=== PATIENT | female | born 1955 | race Caucasian/White ===

== ENCOUNTER 2021-01-09 17:03 | Emergency (ER) | payer OTHER, SELFPAY ==
[2021-01-09 17:22] VITALS: BP 150/76; PULSE 78; RESP 20; TEMP 37; O2SAT 98
[2021-01-09 17:45] VITALS: BP 150/76; PULSE 78; RESP 20; TEMP 37; O2SAT 98
--- NOTE | 2021-01-09 17:59 | ED.URI ---
HPI - URI/Sore Throat General Chief Complaint: Upper Respiratory Infection Stated Complaint: runny nose and cough Time Seen by Provider: 01/09/21 17:40 Source: patient and RN notes reviewed Mode of arrival: ambulatory Limitations: no limitations History of Present Illness HPI Narrative: Patient presents today complaining of 3-day history of occasional productive cough and runny nose. Denies fever, congestion, shortness of breath, sore throat, ear pain, nausea, vomiting, diarrhea. Denies any sick contacts. She has been using Flonase, Mucinex, Zyrtec with some relief. MD elicited complaint: cough Related Data Home Medications Medication Instructions Recorded Confirmed cetirizine 10 mg PO DAILY 01/09/21 01/09/21 cyclobenzaprine 10 mg PO HS 01/09/21 01/09/21 fluticasone propionate 2 spray INTRANASAL DAILY 01/09/21 01/09/21 levothyroxine 137 mcg PO DAILY 01/09/21 01/09/21 lisinopril 20 mg PO DAILY 01/09/21 01/09/21 simvastatin 20 mg PO DAILY 01/09/21 01/09/21 Allergies Allergy/AdvReac Type Severity Reaction Status Date / Time No Known Allergies Allergy Verified 01/09/21 17:40 Review of Systems Review of Systems: Narrative: CONSTITUTIONAL: Denies body aches, fever, chills, or sweats. EYES: Denies visual changes, redness, or discharge. ENT: Denies congestion, sore throat, or otalgia.+ Rhinorrhea CARDIOVASCULAR: Denies chest pain, palpitations, or edema. RESPIRATORY: Denies dyspnea. + Cough GASTROINTESTINAL: Denies abdominal pain, nausea, vomiting, or diarrhea. GENITOURINARY: Denies dysuria or hematuria. SKIN: Denies rash, itching, or wounds. MUSCULOSKELETAL: Denies back pain, joint pain, or myalgia. NEUROLOGIC: Denies headache, numbness, tingling, or weakness. PSYCH: Denies depression or anxiety. [facility] Past Medical History Medical History (Updated 01/09/21 @ 18:02 by Eufemia Obando, TRINI, BC) Hypercholesterolemia Hypertension Hypothyroidism Surgical History Surgical History (Updated 01/09/21 @ 18:00 by Eufemia Obando, TRINI, BC) H/O: hysterectomy Comments At time of signature, I have reviewed and agree with nursing past medical, surgical, social and family history unless otherwise noted. Please see nursing chart for further information. There is no relevant family history pertinent to the presenting complaint Exam Narrative: Exam Narrative: GENERAL: Well-appearing, well-nourished, and in no acute distress. HEAD: Normocephalic, atraumatic. EYES: EOMI. No redness or drainage. Conjunctivae normal. ENT: Mucous membranes pink and moist. Nares congested. No rhinorrhea. TMs normal bilaterally. Throat normal. Uvula midline. NECK: Normal AROM. Supple. No lymphadenopathy. CHEST: No respiratory distress. Clear to auscultation. HEART: Regular rate and rhythm. No murmur appreciated. Normal peripheral pulses. EXTREMITIES: Normal range of motion. No edema. SKIN: Warm, dry, no rash. Capillary refill normal. Normal skin turgor. NEURO: No focal deficits. Alert and oriented x3. Gait steady. PSYCH: Normal affect. No signs of depression or anxiety. Course Vital Signs Vital signs: Vital Signs Temperature 98.6 F 01/09/21 17:22 Pulse Rate 78 01/09/21 17:22 Respiratory Rate 20 01/09/21 17:22 Blood Pressure 150/76 H 01/09/21 17:22 Pulse Oximetry 98 01/09/21 17:22 Temperature 98.6 F 01/09/21 17:45 Pulse Rate 78 01/09/21 17:45 Respiratory Rate 20 01/09/21 17:45 Blood Pressure 150/76 H 01/09/21 17:45 Pulse Oximetry 98 01/09/21 17:45 Reviewed. Pt has been instructed to follow up with her PCP regarding her elevated blood pressure today. MDM - URI/Sore Throat Differential Diagnosis Differential diagnosis: Likely upper respiratory infection, sinusitis, viral infection, bronchitis and other (COVID-19, rhinitis) Lab Data Attestation: I reviewed the patient's lab results. Lab results narrative: Rapid COVID-19 test negative Critical Care Time Critical Care Time Critical Care
== END 2021-01-09 18:05 | disposition home or self-care (01) ==
PROVIDERS: Emergency Provider Nurse Practitioner; PCP Internal Medicine
DX: J06.9 Acute upper respiratory infection, unspecified (principal); Z20.822 Contact with and (suspected) exposure to COVID-19; E78.00 Pure hypercholesterolemia, unspecified; I10 Essential (primary) hypertension; E03.9 Hypothyroidism, unspecified
CPT/HCPCS: 87426; 99213; C9803; G0463

== ENCOUNTER 2024-12-01 16:46 | Emergency (ER) | payer OTHER, SELFPAY ==
--- OUTSIDE RECORDS SUMMARY | 2024-12-01 16:50 | XMS_ITS | Patient Health Summary ---
Author Organization [facility] Address [address] [place] [address] Care Team Providers Care Mobile Ui Developer Name Role Phone Benigno Crews MD Primary Care Provider [phone] Note from [facility],non-owned Affiliates and Associated Physician Practices is amultiple site organization consisting of ambulatory clinics and hospital sitesin [place], [place], [place] and [place]. This disclosure is being madepursuant to the Care Everywhere program and may not contain all information available regarding this patient. Last updated 18.[facility] Allergies No known active allergies Medications * Be aware that medications may not be up to date on this document. Alwaysverify current medications with the patient. * levothyroxine (SYNTHROID) 150 MCG tablet Take 137 mcg by mouth once daily * lisinopril (PRINIVIL; ZESTRIL) 20 MG tablet(Started 11/22/2018) Take 20 mg by mouth once daily 3 refills left * simvastatin (ZOCOR) 20 MG tablet(Started 11/22/2018) Take 20 mg by mouth at bedtime 3 refills left * docusate sodium (COLACE) 100 MG capsule(Started 12/20/2018) Take 1 capsule by mouth once daily * citalopram (CELEXA) 20 MG tablet(Started 03/26/2020) Take 1 tablet by mouth nightly as needed Active Problems Problem Noted Date Diagnosed Date Essential hypertension 07/19/2019 Hyperlipidemia 07/19/2019 Hypothyroidism 07/19/2019 Mixed anxiety and depressive disorder 07/19/2019 Obesity 07/19/2019 Vertigo 07/19/2019 Adenocarcinoma of uterus 12/13/2018 Social History Tobacco Use Types Packs/Day Years Used Date Smoking Tobacco: Never Smokeless Tobacco: Never Alcohol Use Standard Drinks/Week Comments No 0 (1 standard drink = 0.6 oz pur e alcohol) Sex and Gender Information Value Date Recorded Sex Assigned at Not on file Gender Identity Not on file Sexual Orientation Not on file Last Filed Vital Signs Vital Sign Reading Time Taken Comments Blood Pressure 134/86 03/29/2020 11:04 AM CDT Pulse 72 03/29/2020 11:04 AM CDT Temperature 36.9 C (98.4 F) 03/29/2020 11:04 AM CDT Respiratory Rate 14 12/20/2018 7:13 PM FLUE GAS ANALYST Oxygen Saturation 93% 12/20/2018 7:13 PM FLUE GAS ANALYST Inhaled Oxygen Concentration - - Weight 108.9 kg (240 lb) 03/29/2020 11:04 AM CDT Height 175.3 cm (5' 9 ) 03/29/2020 11:04 AM CDT Body Mass Index 35.44 03/29/2020 11:04 AM CDT Procedures * CARDIAC RHYTHM STRIP ORDER(Performed 12/22/2018) * MMR FOWLER SYNDROME IHC(Performed 12/20/2018) Performed for Diagnosis unknown * PATHOLOGY TISSUE EXAM (STL)(Performed 12/20/2018) Performed for Diagnosis unknown * CYTOLOGY NON-CONSULTING TECHNICAL MANAGER PANEL (STL)(Performed 12/20/2018) Performed for Diagnosis unknown * ENDOTRACHEAL TUBE NOTE(Performed 12/20/2018) * LAPAROSCOPIC SALPINGECTOMY AND/OR OOPHORECTOMY(Performed 12/20/2018) Performed for Diagnosis unknown * LAPAROSCOPIC TOTAL HYSTERECTOMY (TLH)(Performed 12/20/2018) Performed for Diagnosis unknown * BLOOD TYPE VERIFICATION(Performed 12/20/2018) * TYPE + SCREEN PANEL(Performed 12/20/2018) Results * CARDIAC RHYTHM STRIP ORDER (12/22/2018 3:06 PM FLUE GAS ANALYST) Narrative 12/22/2018 3:06 PM FLUE GAS ANALYST Ordered by an unspecified provider. Scanned Document CARDIAC SERVICES ORD ERABLES * MMR FOWLER SYNDROME IHC (12/20/2018 1:17 PM FLUE GAS ANALYST) MMR Fowler Syndrome IHC See Scanned Report 02/25/2019 10:18 AM CDT [facility] Pathology/Cytolo gy TISSUE SPECIMEN / Unknown Collection / Unknown 12/20/2018 1:17 PM FLUE GAS ANALYST 12/23/2018 1:56 PM FLUE GAS ANALYST Leta Momin MD LAB - PATHOLOGY/CY TOLOGY ORDERABLES [facility] [address] [phone] * GROSS + MICRO EXAM (STL) (12/20/2018 12:40 PM FLUE GAS ANALYST) Pathologist [facility] Case Report Surgical Pathology Report Case: [id number] Authorizing Provider: Leta Momin MD Collected: 12/20/2018 12:40 PM Ordering Location: [facility] Received: 12/20/2018 02:40 PM Pathologist: Fabby Greene MD Specimens: A) - Fallopian Tube, RIGHT FALLOPIAN TUBE B) - Meeker Lymph Node, RIGHT SENTINEL NODE C) - Meeker Lymph Node, LEFT SENTINEL LYMPH NODE D) - Uterus w Tube and Ovary, LEFT TUBE AND OVARY wITH UTERUS AND CERVIX 9 4:48 PM CDT [facility] Addendum 1 Results of immunohistochemistry for the mismatch repair (MMR) proteins (MLH1, PMS2, MSH2, MSH6) are as follows: MLH1: No loss of expression (tumor stained: 50 %; Intensity: Strong ) PMS2: No loss of expression (tumor stained: 40 %; Intensity: Strong ) MSH2: No loss of expression (tumor stained: 45 %; Intensity: Strong ) MSH6: No loss of expression (tumor stained: 40 %; Intensity: Strong ) All four proteins expressed (Normal): The invasive carcinoma cells demonstrate the presence of normal MLH1, PMS2, MSH2, and MSH6 protein expression. Expression of all four proteins indicates that mismatch repair enzymes are intact but does not entirely exclude Fowler syndrome, as some patients may have mutation that leads to a non-functional protein with retained antigenicity. Defects in lesser-known mismatch repair enzymes may also lead to similar results, which are nonetheless, rare. If clinically indicated, a genetic consultation may be of benefit for the individual and/or family to further discuss the implications of these findings. 9 4:48 PM CDT [facility] Addendum electronically signed by Chas Buenrostro MD on 12/27/2018 at 4:48 PM Final Diagnosis 1. Fallopian tube, right, salpingectomy: -- No evidence of malignancy 2. Right sentinel lymph node, excision: -- No hari tissue identified -- No evidence of malignancy 3. Left sentinel lymph node, excision: -- No evidence of malignancy (0/1) 4. Left tube and ovary with uterus, hysterectomy and salpingoopherectomy: -- Endometrioid adenocarcinoma, FIGO grade 1, pT1aN0 -- Adenomyosis -- Myometrial invasion not identified -- Cervix with no pathological diagnosis -- Serosa with no pathological diagnosis NK/GMC/me 9 4:48 PM T [facility] Gross Description Received fixed in formalin in four containers, each labeled with the patient's name, Kayla Aguillonr. Specimen A, right fallopian tube, is a 1.4 cm long x 0.5 cm in diameter, is a segment of pink-torres fallopian tube. The cut surface shows pink-torres soft tissue with a patent lumen. There are no lesions or nodules identified. The specimen is entirely submitted in cassette A1. Specimen B, right sentinel lymph node, is a 2.2 x 1.4 x 0.9 cm soft, yellow-torres, irregular tissue portion. The specimen is serially sectioned revealing yellow fatty tissue with no gross nodules or masses. The specimen is entirely submitted in cassette B1. Specimen C, left sentinel lymph node, is a irregular, yellow-torres, soft tissue fragment measuring 1.1 x 0.6 x 0.3 cm. The specimen is entirely submitted in cassette C1. Specimen D, uterus with left ovary and tube. The specimen is composed of uterus (160 gm, 8.9 x 7.2 x 4.2 cm) with attached cervix and attached left ovary measuring 2.9 x 2.7 x 1.2 cm and left fallopian tube measuring 4.4 cm long and 0.4 cm in diameter. The ectocervix is unremarkable. The endocervical canal is 3.8 cm long with a diameter of 0.4 cm and with no polyps or masses. The endometrial cavity is 4.6 cm long and 3.6 cm in greatest width. The endometrium is 0.4 cm in thickness and appears red-torres and hemorrhagic with a mass measuring 1.8 x 1.4 x 0.8 cm. The myometrial thickness is 1.3 cm and has ill-defined scattered white nodules measuring 0.4 cm in greatest dimension and mostly consistent with adenomyoma. The serosal aspect is smooth and glistening with no adhesions or hemorrhage. The cut surface of the ovary shows yellow firm tissue. The cut surface of the ovaries shows cyst measuring 0.3 cm in greatest dimension and wall of the cyst is smooth with no excrescences. The cut surface of the fallopian tube shows pink-torres soft tissue with patent lumen. [facility] sections are submitted as follows: D1 - Ovary and fallopian tube D2 - Anterior cervix D3 - Posterior cervix D4 - Anterior endometrium, myometrium and serosa D5 - Posterior endometrium, myometrium, and serosa. NK/scs 9 4:[address] [facility] Microscopic Description Sections of specimen A show benign fallopian tube tissue with tubal epithelium. There is no evidence of atypia or malignancy. Sections of specimens B and C show benign lymph node tissue. There is no evidence of atypia or malignancy.The pankeratin IHC stains are negative for malignant cells. Sections of specimen D show benign ovary tissue and fallopian tube tissue with no evidence of atypia or malignancy. Sections of specimen E show endometrium with closely packed and fused malignant endometrial glands with focal squamous differentiation. There is no significant solid component of the tumor identified. The features are consistent with FIGO grade 1 endometrial adenocarcinoma. The myometrium is not involved with tumor. The cervix and serosa are unremarkable. NK/GMC/me 9 4:[address] [facility] Disclaimer All histochemical and/or immunohistochemical results are interpreted with controls that demonstrate appropriate staining reactions before reporting results. Note on use of immunocytochemistry reagents: This test was developed and its performance characteristic determined by [facility], Department of Laboratory Medicine. It has not been cleared or approved by the U.S. Food and Drug Administration (FDA). The FDA has determined that such clearance or approval is not necessary. The test is used for clinical purpose. It should not be regarded as investigational or for research. This laboratory is certified to perform high complexity testing. 4:[address] [facility] Synoptic Report ENDOMETRIUM (Endometrium - All Specimens) SPECIMEN Procedure: Left salpingo-oophorectomy Procedure: Right salpingectomy Procedure: Hysterectomy and sentinel node dissection Hysterectomy Type: Laparoscopic Specimen Integrity: Intact TUMOR Tumor Site: Endometrium Histologic Type: Endometrioid carcinoma with squamous differentiation Histologic Grade: FIGO grade 1 Tumor Size: Greatest dimension in Centimeters (cm): 1.8 Centimeters (cm) Additional Dimension in Centimeters (cm): 1.4 Centimeters (cm) Additional Dimension in Centimeters (cm): 0.8 Centimeters (cm) Tumor Extent: Myometrial Invasion: Not identified Adenomyosis: Present, uninvolved by carcinoma Uterine Serosa Involvement: Not identified Lower Uterine Segment Involvement: Not identified Cervical Stromal Involvement: Not identified Other Tissue / Organ Involvement: Not applicable Peritoneal Ascitic Fluid: Not submitted / unknown Accessory Findings: Lymphovascular Invasion: Not identified Margins LYMPH NODES Regional Lymph Nodes: : All lymph nodes negative for tumor cells Total Number of Pelvic Nodes Examined: 1 Number of Pelvic Meeker Nodes Examined: 1 Total Number of Para-aortic Nodes Examined: N/A PATHOLOGIC STAGE CLASSIFICATION (pTNM, AJCC 8th Edition) Primary Tumor (pT): pT1a Regional Lymph Nodes (pN): Category (pN): pN0 FIGO STAGE FIGO Stage: IA ADDITIONAL FINDINGS Additional Pathologic Findings: None identified 4:[address] [facility] Embedded Images 4:[address] [facility] Pathology/Cytology FALLOPIAN TUBE PART / Unknown 12/20/2018 12:40 PM FLUE GAS ANALYST 12/20/2018 2:40 PM FLUE GAS ANALYST Miscellaneous samples (specimen) SPECIMEN FROM SENTINEL LYMPH NODE / Unknown 12/20/2018 12:46 PM FLUE GAS ANALYST 12/20/2018 2:40 PM FLUE GAS ANALYST Miscellaneous samples (specimen) SPECIMEN FROM SENTINEL LYMPH NODE / Unknown 12/20/2018 12:51 PM FLUE GAS ANALYST 12/20/2018 2:40 PM FLUE GAS ANALYST Miscellaneous samples (specimen) HYSTERECTOMY AND BILATERAL SALPINGO-OOPHORECTO MY SPECIMEN / Unknown 12/20/2018 1:17 PM FLUE GAS ANALYST 12/20/2018 2:40 PM FLUE GAS ANALYST Leta Momin MD LAB - PATHOLOGY/CY TOLOGY ORDERABLES [facility] [address] [place] [address] * CYTOLOGY NON-CONSULTING TECHNICAL MANAGER PANEL (STL) (12/20/2018 12:37 PM FLUE GAS ANALYST) Case Report Cytology Non Operation Agent Report Case: [id number] Authorizing Provider: Leta Momin MD Collected: 12/20/2018 12:37 PM Ordering Location: [facility] Received: 12/20/2018 02:21 PM Pathologist: Chas Buenrostro MD Specimen: Pelvic Washings, ABDOMINAL WASHINGS 12/21/2018 1:00 PM [facility] Final Diagnosis Pelvic washings, cell block and thin prep smear: -- No evidence of malignancy MC 12/21/2018 1:00 PM [facility] Gross Description Patient name: Kayla Crystal Fluid type: Pelvic washings Volume: 35 cc Color: Light yellow Preparations: thin prep and cell block 12/21/2018 1:00 PM [facility] Microscopic Description The thin prep smear and cell block reveal benign mesothelial cells. Malignant tumor cells are not identified. 12/21/2018 1:00 PM [facility] Disclaimer All histochemical and/or immunohistochemical results are interpreted with controls that demonstrate appropriate staining reactions before reporting results. Note on use of immunocytochemistry reagents: This test was developed and its performance characteristic determined by [facility], Department of Laboratory Medicine. It has not been cleared or approved by the U.S. Food and Drug Administration (FDA). The FDA has determined that such clearance or approval is not necessary. The test is used for clinical purpose. It should not be regarded as investigational or for research. This laboratory is certified to perform high complexity testing. 12/21/2018 1:00 PM [facility] Embedded Images 12/21/2018 1:00 PM [facility] Pathology/Cytolo gy SPECIMEN OBTAINED BY PERITONEAL LAVAGE / Unknown 12/20/2018 12:37 PM FLUE GAS ANALYST 12/20/2018 2:21 PM FLUE GAS ANALYST Leta Momin MD LAB - PATHOLOGY/CY TOLOGY ORDERABLES [facility] [address] [place] [address] * BLOOD TYPE VERIFICATION (12/20/2018 10:43 AM FLUE GAS ANALYST) ABO A 12/20/2018 11:13 AM FLUE GAS ANALYST [facility] Rh Type Positive 12/20/2018 11:13 AM FLUE GAS ANALYST [facility] Blood Bank BLOOD SPECIMEN / Unknown Venipuncture / Unknown 12/20/2018 10:43 AM FLUE GAS ANALYST 12/20/2018 10:48 AM FLUE GAS ANALYST Leta Momin MD LAB - BLOOD BANK O RDERABLES Performing Organization Address [facility] Co de Phone Number [facility] [address] [place] [address] * TYPE + SCREEN PANEL (12/20/2018 10:34 AM FLUE GAS ANALYST) ABO A 12/20/2018 11:14 AM FLUE GAS ANALYST [facility] Rh Type Positive 12/20/2018 11:14 AM FLUE GAS ANALYST [facility] Comment:History checked. Col lect retype. Antibody Screen Negative 12/20/2018 11:14 AM FLUE GAS ANALYST [facility] Blood Bank BLOOD SPECIMEN / Unknown Venipuncture / Unknown 12/20/2018 10:34 AM FLUE GAS ANALYST 12/20/2018 10:37 AM FLUE GAS ANALYST Leta Momin MD LAB - BLOOD BANK O RDERABLES Performing Organization Address City/[facility]/ZIP Co de Phone Number [facility] [address] [place] [address] Care Teams Mobile Ui Developer Relationship Specialty Start Date End Date Benigno Crews MD [address] [place] [address] PCP - General Internal Medicine 12/20/18
--- OUTSIDE RECORDS SUMMARY | 2024-12-01 16:50 | XMS_ITS | Referral Summary ---
Author Organization [facility] Address [address] [place] [address] Care Team Providers Care Automation Manager Name Role Phone Benigno Crews MD Primary Care Provider [phone] Source Comments [facility],non-owned Affiliates and Associated Physician Practices is amultiple site organization consisting of ambulatory clinics and hospital sitesin [place], [place], [place]. This disclosure is being madepursuant to the Care Everywhere program and may not contain all information available regarding this patient. Last updated 18.[facility] Allergies No known active allergies Medications * Be aware that medications may not be up to date on this document. Alwaysverify current medications with the patient. Medication Sig Dispensed Refills Start Date End Date Status levothyroxine (SYNTHROID) 150 MCG tablet Take 137 mcg by mouth once daily Active lisinopril (PRINIVIL; ZESTRIL) 20 MG tablet Take 20 mg by mouth once daily 3 11/22/2018 Active simvastatin (ZOCOR) 20 MG tablet Take 20 mg by mouth at bedtime 3 11/22/2018 Active docusate sodium (COLACE) 100 MG capsule Take 1 capsule by mouth once daily 30 capsule 12/20/2018 Active citalopram (CELEXA) 20 MG tablet Take 1 tablet by mouth nightly as needed 03/26/2020 Active Active Problems Problem Noted Date Diagnosed Date [...] CDT Respiratory Rate 14 12/20/2018 7:13 PM THREAD SPOOLER Oxygen Saturation 93% 12/20/2018 7:13 PM THREAD SPOOLER Inhaled Oxygen Concentration - - Weight 108.9 kg (240 lb) 03/29/2020 11:04 AM CDT Height 175.3 cm (5' 9 ) 03/29/2020 11:04 AM CDT Body Mass Index 35.44 03/29/2020 11:04 AM CDT Plan of Treatment Not on file Care Teams Automation Manager Relationship Specialty Start Date End Date Benigno Crews MD [address] [place] [address] PCP - General Internal Medicine 12/20/18
--- OUTSIDE RECORDS SUMMARY | 2024-12-01 16:50 | XMS_ITS | Data Portability ---
Author Organization [facility] Address [address] [place] [address] Care Team Providers Care Claim Taker Name Role Phone BENIGNO ROBLES Primary Care Provider Assessment No assessment recorded. Plan of Treatment Reminders Order Date Submit Date Provider Last Modified By Organization Details Last Modified Time Details Appointments ANY 30 2024 10:30A M GOLDIE GAMBOA Not available Not available Not available Lab HbA1c (hemoglob in A1c), blood 2023 024 [facility], [address] [facility], [facility], [place], [address], 03/16/2024 14:13:09 CBC w/ auto diff 2023 024 [facility], [address] [place] [address], [facility], [place], [address], 03/16/2024 14:13:12 CMP, serum or plasma 2023 024 [facility], [address] [place] [address], [facility], [place], [address], 03/16/2024 14:13:08 lipid panel, serum 2023 024 [facility], [address] [facility], [facility], [place], [address], 03/16/2024 14:13:06 TSH, ultra-sen sitive, serum 2023 024 [facility], [address] [facility], [facility], [place], [address], 03/16/2024 14:13:11 CBC w/ auto diff 2023 024 [facility], [address] [place] [address], [facility], [place], [address], 11/03/2024 08:23:45 CMP, serum or plasma 2023 024 [facility], [address] [place] [address], [facility], [place], [address], 11/03/2024 08:23:43 TSH, ultra-sen sitive, serum 2023 024 [facility], [address] [place] [address], [facility], [place], [address], 11/03/2024 08:23:44 lipid panel, serum 2023 024 [facility], [address] [place] [address], [facility], [place], [address], 11/03/2024 08:23:42 HbA1c (hemoglob in A1c), blood 2022 023 [facility], [address] [place] [address], [facility], [place], [address], 07/11/2023 04:20:52 CBC w/ auto diff 2022 023 [facility], [address] [place] [address], [facility], [place], [address], 07/10/2023 20:08:14 CMP, serum or plasma 2022 023 [facility], [address] [place] [address], [facility], [place], [address], 07/10/2023 20:08:13 vitamin B12, serum 2022 023 [facility], [address] [place] [address], [facility], [place], [address], 07/11/2023 04:20:52 TSH, ultra-sen sitive, serum 2022 023 [facility], [address] [facility], [place], [address], 07/11/2023 04:20:53 lipid panel, serum 2022 023 [facility], [address] [facility], [place], [address], 07/10/2023 20:08:13 Referral None recorded. Procedures None recorded. Surgeries None recorded. Imaging MAMMO, screening , digital, bilateral 2024 025 [facility], [address] [place] [address], [address], 11/10/2024 10:02:12 Medication Orders famotidin e 20 mg tablet 2024 025 [email or web address] [facility][id number], [address] [place], [address], 11/28/2024 13:38:16 simvastat in 40 mg tablet 2024 025 [id number] [address] [place], [address], 11/04/2024 11:22:43 triamcino lone acetonide 0.1 % topical cream 2024 025 [id number] [address] [place], [address], 11/04/2024 11:21:40 triamcino lone acetonide 0.1 % topical cream 2023 024 [id number] [address] [place], [address], 07/12/2024 11:28:39 tizanidin e 4 mg tablet 2023 024 [id number] [address] [place], [address], 03/15/2024 11:35:57 famotidin e 20 mg tablet 2023 024 [id number], [address] [place], [address], 03/15/2024 11:31:55 Patient TargetsNo targets recorded. Patient Instructions Encounter Date Encounter Id Patient Instructions Last Modified By Organization Details Last Modified Time 07/10/2023 [id number] A healthy lifestyle: care instructions [facility]uthan Not available 07/10/2023 11:29:16 f/u in 4 month [facility] Not available 0 07/10/2023 11:29:36 11/10/2023 [id number] A healthy lifestyle: care instructions nsuthan Not available 11/10/2023 11:33:22 f/u in 4month [facility] Not available 11:33:21 03/15/2024 [id number] low back pain: exercises nsuthan Not available 03/15/2024 11:35:35 f/u in 4 month [facility] Not available 0 03/15/2024 11:35:57 07/12/2024 [id number] prediabetes: car e instructions nsuthan Not available 07/12/2024 11:28:37 f/u in 4 month [facility] Not available 0 07/12/2024 11:28:36 11/04/2024 [id number] f/u in 4 month [facility] Not available 11/04/2024 11:27:52 Reason for Referral None Reported. Results Created Date Observation Date Name Description Value Unit Range Abnormal Flag Note LastModifiedBy Organization Detail LastModifiedTime 07/10/20 23 07/10/2023 LIPID PANEL cholesterol, total 184 mg/dL 100-19 9 Not Available [facility] Department [address] [place] [address], [address], 07/10/2023 20:08:12 07/10/20 23 07/10/2023 LIPID PANEL triglyceride s 298 mg/dL 0-149 above high normal Not Available [facility] Department [address] [place], [address], 07/10/2023 20:08:12 07/10/20 23 07/10/2023 LIPID PANEL HDL cholesterol 43 mg/dL 40-999 Not Available [facility] Department [address] [place] [address], [address], 07/10/2023 20:08:12 07/10/20 23 07/10/2023 LIPID PANEL VLDL cholesterol deshawn 60 mg/dL 5-40 above high normal Not Available [facility] Department [address] [place] [address], [address], 07/10/2023 20:08:12 07/10/20 23 07/10/2023 LIPID PANEL LDL chol calc (nih) 127 mg/dL 0-99 above high normal Not Available [facility] Department [address] [place] [address], [address], 07/10/2023 20:08:12 07/10/20 23 07/10/2023 COMP. METAB OLIC PANEL (14) glucose 103 mg/dL 70-99 above high normal Not Available [facility] Department [address] [place] [address], [address], 07/10/2023 20:08:13 07/10/20 23 07/10/2023 COMP. METAB OLIC PANEL (14) BUN 22 mg/dL 8-27 Not Available [facility] Department [address] [place] [address], [address], 07/10/2023 20:08:13 07/10/20 23 07/10/2023 COMP. METAB OLIC PANEL (14) creatinine 0.82 mg/dL 0.76-1 .27 Not Available [facility] Department [address] [place] [address], [address], 07/10/2023 20:08:13 07/10/20 23 07/10/2023 COMP. METAB OLIC PANEL (14) eGFR 78 >=60 Units for eGFR value s are mL/mi n/1.7 3 The eGFR Calcu latio n has not been valid ated for patie nts under the age of 18. If test resul ts are displ ayed for a patie nt under the age of 18, disre kirill that value . Not Available [facility] Department [address] [place] [address], [address], 07/10/2023 20:08:13 07/10/20 23 07/10/2023 COMP. METAB OLIC PANEL (14) BUN/creatini ne ratio 27 10-28 Not Available [facility] Department [address] [place] [address], [address], 07/10/2023 20:08:13 07/10/20 23 07/10/2023 COMP. METAB OLIC PANEL (14) sodium 140 mmol/ L 134-14 4 Not Available [facility] Department [address] [place] [address], [address], 07/10/2023 20:08:13 07/10/20 23 07/10/2023 COMP. METAB OLIC PANEL (14) potassium 4.7 mmol/ L 3.5-5. 2 Not Available [facility] Department [address] [place] [address], [address], 07/10/2023 20:08:13 07/10/20 23 07/10/2023 COMP. METAB OLIC PANEL (14) chloride 101 mmol/ L 96-106 Not Available [facility] Department [address] [place] [address], [address], 07/10/2023 20:08:13 07/10/20 23 07/10/2023 COMP. METAB OLIC PANEL (14) carbon dioxide, total 25 mmol/ L 20-29 Not Available [facility] Department [address] [place] [address], [address], 07/10/2023 20:08:13 07/10/20 23 07/10/2023 COMP. METAB OLIC PANEL (14) calcium 9.9 mg/dL 8.7-10 .3 Not Available [facility] Department [address] [place], [address], 07/10/2023 20:08:13 07/10/20 23 07/10/2023 COMP. METAB OLIC PANEL (14) protein, total 7.3 g/dL 6.0-8. 5 Not Available [facility] Department [address] [place], [address], 07/10/2023 20:08:13 07/10/20 23 07/10/2023 COMP. METAB OLIC PANEL (14) albumin 4.4 g/dL 3.8-4. 8 Not Available [facility] Department [address] [place], [address], 07/10/2023 20:08:13 07/10/20 23 07/10/2023 COMP. METAB OLIC PANEL (14) globulin, total 2.9 g/dL 1.5-4. 5 Not Available [facility] Department [address] [place], [address], 07/10/2023 20:08:13 07/10/20 23 07/10/2023 COMP. METAB OLIC PANEL (14) A/G ratio 2.0 1.2-2. 2 Not Available [facility] Department [address] [place], [address], 07/10/2023 20:08:13 07/10/20 23 07/10/2023 COMP. METAB OLIC PANEL (14) bilirubin, total 0.4 mg/dL 0.0-1. 2 Not Available [facility] Department [address] [place], [address], 07/10/2023 20:08:13 07/10/20 23 07/10/2023 COMP. METAB OLIC PANEL (14) alkaline phosphatase 81 IU/L 44-121 Not Available [facility] Department [address] [place], [address], 07/10/2023 20:08:13 07/10/20 23 07/10/2023 COMP. METAB OLIC PANEL (14) AST (SGOT) 18 IU/L 0-40 Not Available [facility] Department [address] [place], [address], 07/10/2023 20:08:13 07/10/20 23 07/10/2023 COMP. METAB OLIC PANEL (14) ALT (SGPT) 13 IU/L 0-32 Not Available [facility] Department [address] [place], [address], 07/10/2023 20:08:13 07/10/20 23 07/10/2023 CBC WITH DIFFE RENTI AL/PL ATELE T WBC 7.7 x10e3 /uL 3.4-10 .8 Not Available [facility] Department [address] [place] [address], [address], 07/10/2023 20:08:14 07/10/20 23 07/10/2023 CBC WITH DIFFE RENTI AL/PL ATELE T RBC 4.52 x10e6 /uL 3.77-5 .28 Not Available [facility] Department [address] [place] [address], [address], 07/10/2023 20:08:14 07/10/20 23 07/10/2023 CBC WITH DIFFE RENTI AL/PL ATELE T hemoglobin 13.2 g/dL 11.1-1 5.9 Not Available [facility] Department [address] [place], [address], 07/10/2023 20:08:14 07/10/20 23 07/10/2023 CBC WITH DIFFE RENTI AL/PL ATELE T hematocrit 41.0 % 34.0-4 6.6 Not Available [facility] Department [address] [place] [address], [address], 07/10/2023 20:08:14 07/10/20 23 07/10/2023 CBC WITH DIFFE RENTI AL/PL ATELE T MCV 91 fL 79-97 Not Available [facility] Department [address] [place], [address], 07/10/2023 20:08:14 07/10/20 23 07/10/2023 CBC WITH DIFFE RENTI AL/PL ATELE T MCH 29.2 pg 26.6-3 3.0 Not Available [facility] Department [address] [place], [address], 07/10/2023 20:08:14 07/10/20 23 07/10/2023 CBC WITH DIFFE RENTI AL/PL ATELE T MCHC 32.2 g/dL 31.5-3 5.7 Not Available [facility] Department [address] [place], [address], 07/10/2023 20:08:14 07/10/20 23 07/10/2023 CBC WITH DIFFE RENTI AL/PL ATELE T RDW 13.1 % 11.5-1 4.5 Not Available [facility] Department [address] [place], [address], 07/10/2023 20:08:14 07/10/20 23 07/10/2023 CBC WITH DIFFE RENTI AL/PL ATELE T platelets 209 x10e3 /uL 150-45 0 Not Available [facility] Department [address] [place], [address], 07/10/2023 20:08:14 07/10/20 23 07/10/2023 CBC WITH DIFFE RENTI AL/PL ATELE T neutrophils 53 % notest b. Not Available [facility] Department [address] [place], [address], 07/10/2023 20:08:14 07/10/20 23 07/10/2023 CBC WITH DIFFE RENTI AL/PL ATELE T lymphs 34 % notest b. Not Available [facility] Department [address] [place], [address], 07/10/2023 20:08:14 07/10/20 23 07/10/2023 CBC WITH DIFFE RENTI AL/PL ATELE T monocytes 8 % notest b. Not Available [facility] Department [address] [place], [address], 07/10/2023 20:08:14 07/10/20 23 07/10/2023 CBC WITH DIFFE RENTI AL/PL ATELE T eos 4 % notest b. Not Available [facility] Department [address] [place], [address], 07/10/2023 20:08:14 07/10/20 23 07/10/2023 CBC WITH DIFFE RENTI AL/PL ATELE T basos 1 % notest b. Not Available [facility] Department [address] [place], [address], 07/10/2023 20:08:14 07/10/20 23 07/10/2023 CBC WITH DIFFE RENTI AL/PL ATELE T neutrophils (absolute) 4.1 x10e3 /uL 1.4-7. 0 Not Available [facility] Department [address] [place], [address], 07/10/2023 20:08:14 07/10/20 23 07/10/2023 CBC WITH DIFFE RENTI AL/PL ATELE T lymphs (absolute) 2.6 x10e3 /uL 0.7-3. 1 Not Available [facility] Department [address] [place], [address], 07/10/2023 20:08:14 07/10/20 23 07/10/2023 CBC WITH DIFFE RENTI AL/PL ATELE T monocytes(ab solute) 0.6 x10e3 /uL 0.1-0. 9 Not Available [facility] Department [address] [place], [address], 07/10/2023 20:08:14 07/10/20 23 07/10/2023 CBC WITH DIFFE RENTI AL/PL ATELE T eos (absolute) 0.3 x10e3 /uL 0.0-0. 4 Not Available [facility] Department [address] [place], [address], 07/10/2023 20:08:14 07/10/20 23 07/10/2023 CBC WITH DIFFE RENTI AL/PL ATELE T baso (absolute) 0.1 x10e3 /uL 0.0-0. 2 Not Available [facility] Department [address] [place], [address], 07/10/2023 20:08:14 07/10/20 23 07/10/2023 CBC WITH DIFFE RENTI AL/PL ATELE T immature granulocytes 0.3 % notest b. Not Available [facility] Department [address] [place], [address], 07/10/2023 20:08:14 07/10/20 23 07/10/2023 CBC WITH DIFFE RENTI AL/PL ATELE T immature grans (abs) 0.0 x10e3 /uL 0.0-0. 1 Not Available [facility] Department [address] [place], [address], 07/10/2023 20:08:14 07/10/20 23 07/10/2023 CBC WITH DIFFE RENTI AL/PL ATELE T NRBC 0 % 0-0 Not Available [facility] Department [address] [place], [address], 07/10/2023 20:08:14 07/10/20 23 07/11/2023 HEMOG LOBIN A1C hemoglobin A1C 6.2 % 4.8-5. 6 above high normal Predi abete s: 5.7 - 6.4 Diabe rubio: >6.4 Glyce alexandro contr ol for adult s with diabe rubio: <7.0 Not Available [facility] ([facility]) [address] [facility], [place], [address], 07/11/2023 04:20:52 07/10/20 23 07/11/2023 VITAM IN B12 vitamin B12 400 pg/mL 232-12 45 Not Available [facility] ([facility]) [address] [place] [place], [address], 07/11/2023 04:20:52 07/10/20 23 07/11/2023 TSH TSH 0.170 uIU/m L 0.450- 4.500 below low normal Not Available [facility] ([facility]) [address] [place], [address], 07/11/2023 04:20:53 03/15/20 24 03/16/2024 LIPID PANEL cholesterol, total 150 mg/dL 100-19 9 Not Available [facility] ([facility]) [address] [place], [address], 03/16/2024 14:13:06 03/15/20 24 03/16/2024 LIPID PANEL triglyceride s 269 mg/dL 0-149 above high normal Not Available [facility] ([facility]) [address] [place], [address], 03/16/2024 14:13:06 03/15/20 24 03/16/2024 LIPID PANEL HDL cholesterol 39 mg/dL >39 below low normal Not Available [facility] ([facility]) [address] [place], [address], 03/16/2024 14:13:06 03/15/20 24 03/16/2024 LIPID PANEL VLDL cholesterol deshawn 43 mg/dL 5-40 above high normal Not Available [facility] ([facility]) [address] [place], [address], 03/16/2024 14:13:06 03/15/20 24 03/16/2024 LIPID PANEL LDL chol calc ([facility]) 68 mg/dL 0-99 Not Available [facility]) [address] [place], [address], 03/16/2024 14:13:06 03/15/20 24 03/16/2024 COMP. METAB OLIC PANEL (14) glucose 94 mg/dL 70-99 Not Available [facility] ([facility]) [address] [facility], [place], [address], 03/16/2024 14:13:08 03/15/20 24 03/16/2024 COMP. METAB OLIC PANEL (14) BUN 15 mg/dL 8-27 Not Available [facility] ([facility]) [address] [facility], [place], [address], 03/16/2024 14:13:08 03/15/20 24 03/16/2024 COMP. METAB OLIC PANEL (14) creatinine 0.81 mg/dL 0.57-1 .00 Not Available [facility] ([facility]) [address] [facility], [place], [address], 03/16/2024 14:13:08 03/15/20 24 03/16/2024 COMP. METAB OLIC PANEL (14) eGFR 79 mL/mi n/1.7 3 >59 Not Available [facility] ([facility]) [address] [facility], [place], [address], 03/16/2024 14:13:08 03/15/20 24 03/16/2024 COMP. METAB OLIC PANEL (14) BUN/creatini ne ratio 19 12-28 Not Available [facility] ([facility]) [address] [facility], [place], [address], 03/16/2024 14:13:08 03/15/20 24 03/16/2024 COMP. METAB OLIC PANEL (14) sodium 137 mmol/ L 134-14 4 Not Available [facility] ([facility]) [address] [facility], [place], [address], 03/16/2024 14:13:08 03/15/20 24 03/16/2024 COMP. METAB OLIC PANEL (14) potassium 4.6 mmol/ L 3.5-5. 2 Not Available [facility] ([facility]) [address] [place], [address], 03/16/2024 14:13:08 03/15/20 24 03/16/2024 COMP. METAB OLIC PANEL (14) chloride 103 mmol/ L 96-106 Not Available [facility] ([facility]) [address] [facility], [address], 03/16/2024 14:13:08 03/15/20 24 03/16/2024 COMP. METAB OLIC PANEL (14) carbon dioxide, total 21 mmol/ L - Not Available [facility] ([facility]) [address] [facility], [address], 03/16/2024 14:13:08 03/15/20 24 03/16/2024 COMP. METAB OLIC PANEL (14) calcium 9.8 mg/dL 8.7-10 .3 Not Available [facility] ([facility]) [address] [place], [address], 03/16/2024 14:13:08 03/15/20 24 03/16/2024 COMP. METAB OLIC PANEL (14) protein, total 7.2 g/dL 6.0-8. 5 Not Available [facility] ([facility]) [address] [place], [address], 03/16/2024 14:13:08 03/15/20 24 03/16/2024 COMP. METAB OLIC PANEL (14) albumin 4.4 g/dL 3.9-4. 9 Not Available [facility] ([facility]) [address] [place], [address], 03/16/2024 14:13:08 03/15/20 24 03/16/2024 COMP. METAB OLIC PANEL (14) globulin, total 2.8 g/dL 1.5-4. 5 Not Available [facility] ([facility]) [address] [place], [address], 03/16/2024 14:13:08 03/15/20 24 03/16/2024 COMP. METAB OLIC PANEL (14) A/G ratio 1.6 1.2-2. 2 Not Available [facility] ([facility]) [address] [place], [address], 03/16/2024 14:13:08 03/15/20 24 03/16/2024 COMP. METAB OLIC PANEL (14) bilirubin, total 0.4 mg/dL 0.0-1. 2 Not Available [facility] ([facility]) [address] [place], [address], 03/16/2024 14:13:08 03/15/20 24 03/16/2024 COMP. METAB OLIC PANEL (14) alkaline phosphatase 79 IU/L 44-121 Not Available [facility] ([facility]) [address] [place], [address], 03/16/2024 14:13:08 03/15/20 24 03/16/2024 COMP. METAB OLIC PANEL (14) AST (SGOT) 22 IU/L 0-40 Not Available [facility] ([facility]) [address] [place], [address], 03/16/2024 14:13:08 03/15/20 24 03/16/2024 COMP. METAB OLIC PANEL (14) ALT (SGPT) 14 IU/L 0-32 Not Available [facility] ([facility]) [address] [place], [address], 03/16/2024 14:13:08 03/15/20 24 03/16/2024 HEMOG LOBIN A1C hemoglobin A1C 6.3 % 4.8-5. 6 above high normal Predi abete s: 5.7 - 6.4 Diabe rubio: >6.4 Glyce alexandro contr ol for adult s with diabe rubio: <7.0 Not Available [facility] ([facility]) [address] [facility], [place], [address], 03/16/2024 14:13:09 03/15/20 24 03/16/2024 TSH TSH 1.050 uIU/m L 0.450- 4.500 Not Available [facility] ([facility]) [address] [facility], [place], [address], 03/16/2024 14:13:11 03/15/20 24 03/16/2024 CBC WITH DIFFE RENTI AL/PL ATELE T WBC 7.0 x10e3 /uL 3.4-10 .8 Not Available [facility] ([facility]) [address] [facility], [place], [address], 03/16/2024 14:13:12 03/15/20 24 03/16/2024 CBC WITH DIFFE RENTI AL/PL ATELE T RBC 4.56 x10e6 /uL 3.77-5 .28 Not Available [facility] ([facility]) [address] [facility], [place], [address], 03/16/2024 14:13:12 03/15/20 24 03/16/2024 CBC WITH DIFFE RENTI AL/PL ATELE T hemoglobin 13.5 g/dL 11.1-1 5.9 Not Available [facility] ([facility]) [address] [place], [address], 03/16/2024 14:13:12 03/15/20 24 03/16/2024 CBC WITH DIFFE RENTI AL/PL ATELE T hematocrit 40.9 % 34.0-4 6.6 Not Available [facility] ([facility]) [address] [place], [address], 03/16/2024 14:13:12 03/15/20 24 03/16/2024 CBC WITH DIFFE RENTI AL/PL ATELE T MCV 90 fL 79-97 Not Available [facility] ([facility]) [address] [facility], [place], [address], 03/16/2024 14:13:12 03/15/20 24 03/16/2024 CBC WITH DIFFE RENTI AL/PL ATELE T MCH 29.6 pg 26.6-3 3.0 Not Available [facility] ([facility]) [address] [facility], [place], [address], 03/16/2024 14:13:12 03/15/20 24 03/16/2024 CBC WITH DIFFE RENTI AL/PL ATELE T MCHC 33.0 g/dL 31.5-3 5.7 Not Available [facility] ([facility]) [address] [facility], [place], [address], 03/16/2024 14:13:12 03/15/20 24 03/16/2024 CBC WITH DIFFE RENTI AL/PL ATELE T RDW 13.2 % 11.7-1 5.4 Not Available [facility] ([facility]) [address] [place], [address], 03/16/2024 14:13:12 03/15/20 24 03/16/2024 CBC WITH DIFFE RENTI AL/PL ATELE T platelets 197 x10e3 /uL 150-45 0 Not Available [facility] ([facility]) [address] [place], [address], 03/16/2024 14:13:12 03/15/20 24 03/16/2024 CBC WITH DIFFE RENTI AL/PL ATELE T neutrophils 55 % notest ab. Not Available [facility] ([facility]) [address] [place], [address], 03/16/2024 14:13:12 03/15/20 24 03/16/2024 CBC WITH DIFFE RENTI AL/PL ATELE T lymphs 32 % notest ab. Not Available [facility] ([facility]) [address] [facility], [place], [address], 03/16/2024 14:13:12 03/15/20 24 03/16/2024 CBC WITH DIFFE RENTI AL/PL ATELE T monocytes 8 % notest ab. Not Available [facility] ([facility]) [address] [facility], [place], [address], 03/16/2024 14:13:12 03/15/20 24 03/16/2024 CBC WITH DIFFE RENTI AL/PL ATELE T eos 4 % notest ab. Not Available [facility] ([facility]) [address] [facility], [place], [address], 03/16/2024 14:13:12 03/15/20 24 03/16/2024 CBC WITH DIFFE RENTI AL/PL ATELE T basos 1 % notest ab. Not Available [facility] ([facility]) [address] [facility], [place], [address], 03/16/2024 14:13:12 03/15/20 24 03/16/2024 CBC WITH DIFFE RENTI AL/PL ATELE T neutrophils (absolute) 3.8 x10e3 /uL 1.4-7. 0 Not Available [facility] ([facility]) [address] [facility], [place], [address], 03/16/2024 14:13:12 03/15/20 24 03/16/2024 CBC WITH DIFFE RENTI AL/PL ATELE T lymphs (absolute) 2.3 x10e3 /uL 0.7-3. 1 Not Available [facility] ([facility]) [address] [facility], [place], [address], 03/16/2024 14:13:12 03/15/20 24 03/16/2024 CBC WITH DIFFE RENTI AL/PL ATELE T monocytes(ab solute) 0.6 x10e3 /uL 0.1-0. 9 Not Available [facility] ([facility]) [address] [facility], [place], [address], 03/16/2024 14:13:12 03/15/20 24 03/16/2024 CBC WITH DIFFE RENTI AL/PL ATELE T eos (absolute) 0.3 x10e3 /uL 0.0-0. 4 Not Available [facility] ([facility]) [address] [facility], [place], [address], 03/16/2024 14:13:12 03/15/20 24 03/16/2024 CBC WITH DIFFE RENTI AL/PL ATELE T baso (absolute) 0.1 x10e3 /uL 0.0-0. 2 Not Available [facility] ([facility]) [address] [facility], [place], [address], 03/16/2024 14:13:12 03/15/20 24 03/16/2024 CBC WITH DIFFE RENTI AL/PL ATELE T immature granulocytes 0 % notest ab. Not Available [facility] ([facility]) [address] [facility], [place], [address], 03/16/2024 14:13:12 03/15/20 24 03/16/2024 CBC WITH DIFFE RENTI AL/PL ATELE T immature grans (abs) 0.0 x10e3 /uL 0.0-0. 1 Not Available [facility] ([facility]) [address] [place], [address], 03/16/2024 14:13:12 11/02/19 25 11/03/2024 LIPID PANEL cholesterol, total 161 mg/dL 100-19 9 Not Available [facility] ([facility]) [address] [facility], [place], [address], 11/03/2024 08:23:42 11/02/19 25 11/03/2024 LIPID PANEL triglyceride s 185 mg/dL 0-149 above high normal Not Available [facility] ([facility]) [address] [place], [address], 11/03/2024 08:23:42 11/02/19 25 11/03/2024 LIPID PANEL HDL cholesterol 48 mg/dL >39 Not Available [facility] ([facility]) [address] [place], [address], 11/03/2024 08:23:42 11/02/19 25 11/03/2024 LIPID PANEL VLDL cholesterol deshawn 31 mg/dL 5-40 Not Available [facility] ([facility]) [address] [place], [address], 11/03/2024 08:23:42 11/02/19 25 11/03/2024 LIPID PANEL LDL chol calc ([facility]) 82 mg/dL 0-99 Not Available [facility] ([facility]) [address] [place], [address], 11/03/2024 08:23:42 11/02/19 25 11/03/2024 COMP. METAB OLIC PANEL (14) glucose 87 mg/dL 70-99 Not Available [facility] ([facility]) [address] [place], [address], 11/03/2024 08:23:43 11/02/19 25 11/03/2024 COMP. METAB OLIC PANEL (14) BUN 16 mg/dL 8-27 Not Available [facility] ([facility]) [address] [place], [address], 11/03/2024 08:23:43 11/02/19 25 11/03/2024 COMP. METAB OLIC PANEL (14) creatinine 0.89 mg/dL 0.57-1 .00 Not Available [facility] ([facility]) [address] [place], [address], 11/03/2024 08:23:43 11/02/19 25 11/03/2024 COMP. METAB OLIC PANEL (14) eGFR 71 mL/mi n/1.7 3 >59 Not Available [facility] ([facility]) [address] [facility], [place], [address], 11/03/2024 08:23:43 11/02/19 25 11/03/2024 COMP. METAB OLIC PANEL (14) BUN/creatini ne ratio 18 12-28 Not Available [facility] ([facility]) [address] [facility], [place], [address], 11/03/2024 08:23:43 11/02/19 25 11/03/2024 COMP. METAB OLIC PANEL (14) sodium 139 mmol/ L 134-14 4 Not Available [facility] ([facility]) [address] [facility], [place], [address], 11/03/2024 08:23:43 11/02/19 25 11/03/2024 COMP. METAB OLIC PANEL (14) potassium 4.5 mmol/ L 3.5-5. 2 Not Available [facility] ([facility]) [address] [facility], [place], [address], 11/03/2024 08:23:43 11/02/19 25 11/03/2024 COMP. METAB OLIC PANEL (14) chloride 100 mmol/ L 96-106 Not Available [facility] ([facility]) [address] [facility], [place], [address], 11/03/2024 08:23:43 11/02/19 25 11/03/2024 COMP. METAB OLIC PANEL (14) carbon dioxide, total 25 mmol/ L 20-29 Not Available [facility] ([facility]) [address] [place], [address], 11/03/2024 08:23:43 11/02/19 25 11/03/2024 COMP. METAB OLIC PANEL (14) calcium 9.4 mg/dL 8.7-10 .3 Not Available [facility] ([facility]) [address], [place], [address], 11/03/2024 08:23:43 11/02/19 25 11/03/2024 COMP. METAB OLIC PANEL (14) protein, total 7.0 g/dL 6.0-8. 5 Not Available [facility] ([facility]) [address], [place], [address], 11/03/2024 08:23:43 11/02/19 25 11/03/2024 COMP. METAB OLIC PANEL (14) albumin 4.6 g/dL 3.9-4. 9 Not Available [facility] ([facility]) [address], [place], [address], 11/03/2024 08:23:43 11/02/19 25 11/03/2024 COMP. METAB OLIC PANEL (14) globulin, total 2.4 g/dL 1.5-4. 5 Not Available [facility] ([facility]) [address], [place], [address], 11/03/2024 08:23:43 11/02/19 25 11/03/2024 COMP. METAB OLIC PANEL (14) bilirubin, total 0.4 mg/dL 0.0-1. 2 Not Available [facility] ([facility]) [address], [place], [address], 11/03/2024 08:23:43 11/02/19 25 11/03/2024 COMP. METAB OLIC PANEL (14) alkaline phosphatase 76 IU/L 44-121 Not Available [facility] ([facility]) [address] [place], [address], 11/03/2024 08:23:43 11/02/19 25 11/03/2024 COMP. METAB OLIC PANEL (14) AST (SGOT) 17 IU/L 0-40 Not Available [facility] ([facility]) [address] [place], [address], 11/03/2024 08:23:43 11/02/1911/03/2024 COMP. METAB OLIC PANEL (14) ALT (SGPT) 13 IU/L 0-32 Not Available [facility] ([facility]) [address] [facility], [place], [address], 11/03/2024 08:23:43 11/02/1911/03/2024 TSH TSH 0.945 uIU/m L 0.450- 4.500 Not Available [facility] ([facility]) [address] [place], [address], 11/03/2024 08:23:44 11/02/1911/03/2024 CBC WITH DIFFE RENTI AL/PL ATELE T WBC 8.2 x10e3 /uL 3.4-10 .8 Not Available [facility] ([facility]) [address] [place], [address], 11/03/2024 08:23:45 11/02/1911/03/2024 CBC WITH DIFFE RENTI AL/PL ATELE T RBC 4.50 x10e6 /uL 3.77-5 .28 Not Available [facility] ([facility]) [address] [place], [address], 11/03/2024 08:23:45 11/02/1911/03/2024 CBC WITH DIFFE RENTI AL/PL ATELE T hemoglobin 13.7 g/dL 11.1-1 5.9 Not Available [facility] ([facility]) [address] [place], [address], 11/03/2024 08:23:45 11/02/1911/03/2024 CBC WITH DIFFE RENTI AL/PL ATELE T hematocrit 41.2 % 34.0-4 6.6 Not Available [facility] ([facility]) [address] [place], [address], 11/03/2024 08:23:45 11/02/19 25 11/03/2024 CBC WITH DIFFE RENTI AL/PL ATELE T MCV 92 fL 79-97 Not Available [facility] ([facility]) [address] [facility], [place], [address], 11/03/2024 08:23:45 11/02/19 25 11/03/2024 CBC WITH DIFFE RENTI AL/PL ATELE T MCH 30.4 pg 26.6-3 3.0 Not Available [facility] ([facility]) [address] [facility], [place], [address], 11/03/2024 08:23:45 11/02/19 25 11/03/2024 CBC WITH DIFFE RENTI AL/PL ATELE T MCHC 33.3 g/dL 31.5-3 5.7 Not Available [facility] ([facility]) [address] [facility], [place], [address], 11/03/2024 08:23:45 11/02/19 25 11/03/2024 CBC WITH DIFFE RENTI AL/PL ATELE T RDW 12.4 % 11.7-1 5.4 Not Available [facility] ([facility]) [address] [facility], [place], [address], 11/03/2024 08:23:45 11/02/19 25 11/03/2024 CBC WITH DIFFE RENTI AL/PL ATELE T platelets 213 x10e3 /uL 150-45 0 Not Available [facility] ([facility]) [address] [facility], [place], [address], 11/03/2024 08:23:45 11/02/19 25 11/03/2024 CBC WITH DIFFE RENTI AL/PL ATELE T neutrophils 58 % notest ab. Not Available [facility] ([facility]) [address] [facility], [place], [address], 11/03/2024 08:23:45 11/02/19 25 11/03/2024 CBC WITH DIFFE RENTI AL/PL ATELE T lymphs 32 % notest ab. Not Available [facility] ([facility]) [address] [facility], [place], [address], 11/03/2024 08:23:45 11/02/19 25 11/03/2024 CBC WITH DIFFE RENTI AL/PL ATELE T monocytes 6 % notest ab. Not Available [facility] ([facility]) [address] [facility], [place], [address], 11/03/2024 08:23:45 11/02/19 25 11/03/2024 CBC WITH DIFFE RENTI AL/PL ATELE T eos 3 % notest ab. Not Available [facility] ([facility]) [address] [facility], [place], [address], 11/03/2024 08:23:45 11/02/19 25 11/03/2024 CBC WITH DIFFE RENTI AL/PL ATELE T basos 1 % notest ab. Not Available [facility] ([facility]) [address] [facility], [place], [address], 11/03/2024 08:23:45 11/02/19 25 11/03/2024 CBC WITH DIFFE RENTI AL/PL ATELE T neutrophils (absolute) 4.7 x10e3 /uL 1.4-7. 0 Not Available [facility] ([facility]) [address] [facility], [place], [address], 11/03/2024 08:23:45 11/02/19 25 11/03/2024 CBC WITH DIFFE RENTI AL/PL ATELE T lymphs (absolute) 2.6 x10e3 /uL 0.7-3. 1 Not Available [facility] ([facility]) [address] [facility], [place], [address], 11/03/2024 08:23:45 11/02/19 25 11/03/2024 CBC WITH DIFFE RENTI AL/PL ATELE T monocytes(ab solute) 0.5 x10e3 /uL 0.1-0. 9 Not Available [facility] ([facility]) [address] [facility], [place], [address], 11/03/2024 08:23:45 11/02/19 25 11/03/2024 CBC WITH DIFFE RENTI AL/PL ATELE T eos (absolute) 0.2 x10e3 /uL 0.0-0. 4 Not Available [facility] ([facility]) [address] [facility], [place], [address], 11/03/2024 08:23:45 11/02/19 25 11/03/2024 CBC WITH DIFFE RENTI AL/PL ATELE T baso (absolute) 0.1 x10e3 /uL 0.0-0. 2 Not Available [facility] ([facility]) [address] [facility], [place], [address], 11/03/2024 08:23:45 11/02/19 25 11/03/2024 CBC WITH DIFFE RENTI AL/PL ATELE T immature granulocytes 0 % notest ab. Not Available [facility] ([facility]) [address] [facility], [place], [address], 11/03/2024 08:23:45 11/02/19 25 11/03/2024 CBC WITH DIFFE RENTI AL/PL ATELE T immature grans (abs) 0.0 x10e3 /uL 0.0-0. 1 Not Available [facility] ([facility]) [address] [place], [address], 11/03/2024 08:23:45 03/23/20 24 03/23/2024 DEXA No observ ation record ed. jess [address] , [place], [address], 07/12/2024 11:20:43 01/2311/10/2024 MAMMO , scree bal, digit al, bilat eral No observ ation record ed. [facility] [address] [facility] [place], [address], 11/10/2024 13:15:32 Result Notes None recorded. 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, [place], [address], [place] - [facility] 1 11:26:38 History of polyp of colon 162866876 Active 2021 last colonosco py 11/2022- repeat in 5 yrs Benigno Robles MD Attn: Marisa stark,[address] [facility], [place], [address], [place] - [facility] 3 11:36:16 Prediabe rubio 659596403 Active 2023 Benigno Robles MD Attn: Marisa stark,[address] [place], [address], [place] - [facility] 4 14:02:07 Hypertri glycerid emia 778743186 Completed 08/21/2016 Benigno Robles MD Attn: Marisa stark,[address] [facility], [place], [address], [place] - [facility] 6 10:47:54 Mixed anxiety and depressi ve disorder 248405534 Active off med Benigno Robles MD Attn: Marisa g,[address] [facility], [place], [address], [place] - [facility] 2 11:37:46 [facility] hyperten jerrica 20859042 Active Benigno Robles MD Attn: Accountallie g,[address] [facility], [place], [address], [place] - [facility] 2 11:07:34 Hypothyr oidism 16232606 Active pt is on 125mcg daily Benigno Robles MD Attn: Marisa g,[address] [facility], [place], [address], [facility] - [facility] 3 12:26:11 Hyperlip idemia 86689567 Active Benigno Robles MD Attn: Chapinallie g,[address] [facility], [place], [address], [facility] - [facility] 2 11:07:34 Obesity 699391196 Active Kelly Jacobson null, [place] - [facility] 9 10:17:56 Vertigo 314208288 Active Kelly Jacobson null, [place] - [facility] 9 10:17:56 Problem Notes None recorded. Procedures Surgical History Date Name Laterality Status Provider Name and Address Organization Details Recorded Time 12/24/19 19 Total hysterectomy completed Leesa Villar MA [place] - [facility] 01/07/2019 10:39:05 11/04/19 19 Dilation and Curettage completed Kelly Jacobson [facility] 11/17/2018 14:15:36 09/07/20 18 Date of Last Pap Smear completed Kelly Jacobson [facility] 09/27/2018 09:57:27 01/02/20 18 Most Recent Mammogram completed Benigno Robles MD Attn: Accounting,[address] [facility], [place], [address], [facility] - [facility] 01/04/2018 12:29:20 01/04/20 16 Colonoscopy completed Benigno Robles MD Attn: Accounting,[address] , [place], [address], [facility] - [facility] 01/25/2016 11:48:40 09/05/20 11 Ovarian Cystectomy completed Yarelis Callejas [place] - [facility] 10/26/2015 16:22:30 Imaging Results Imaging Date Name Status LastModified by Organiz ation Details LastModified Time 03/23/2024 [facility] [address] [place], [address], 07/12/2024 11:20:43 11/10/2024 MAMMO, screening, digital, bilateral completed [address] [place], [address], 11/10/2024 13:15:32 Procedure Notes None recorded. Medical Equipment None Reported. Allergies No known drug allergies Medications Name Sig Start Date Stop Date Status Note LastModified by Organization Details LastModified Time hydrochlor ot tab 25mghydroc hlorothiaz gilma active Not Available Not Available Not Available levothyrox in tab 150mcglevo thyroxine sodium active Not Available Not Available Not Available citalopram hydrobromi de 20 mg tabs active Not Available Not Available Not Available lisinopril 20 mg tabs active Not Available Not Available N ot Available simvastati n tab 20mgsimvas tatin active Not Available Not Available Not Available levothyrox in tab 150mcg active Not Available Not Available Not Available lisinopril tab 20mglisino pril active Not Available Not Available Not Available citalopram tab 20mgcitalo pram hydrobromi de active Not Available Not Available Not Available levothyrox ine sodium 150 mcg tabs active Not Available Not Available Not Available lisinopril tab 20mg active Not Available Not Available Not Available cyclobenza abdon 10 mg tablet TAKE 1 TABLET BY MOUTH EVERYDAY AT BEDTIME 07/10 completed Not Available Not Available Not Available amoxicilli n 500 mg capsule Take 1 capsule twice a day by oral route. 11/02 completed Not Available Not Available Not Available levothyrox ine 175 mcg tablet TAKE 1 TABLET BY MOUTH EVERY DAY 11/07 completed Not Available Not Available Not Available levothyrox ine 137 mcg tablet TAKE 1 TABLET BY MOUTH EVERY DAY 10/08 completed Not Available Not Available Not Available doxycyclin e hyclate 100 mg capsule TAKE 1 CAPSULE BY MOUTH TWICE A DAY FOR 7 DAYS 07/12 completed Not Available Not Available Not Available cetirizine 10 mg tablet TAKE 1 TABLET BY MOUTH EVERY DAY NEEDED FOR ALLERGY active Not Available Not Available No t Available azithromyc in 250 mg tablet TAKE 2 TABLETS (500 MG) BY ORAL ROUTE ONCE DAILY FOR 1 DAY THEN 1 TABLET (250 MG) BY ORAL ROUTE ONCE DAILY FOR 4 DAYS 06/11 completed Not Available Not Available Not Available tizanidine 4 mg tablet TAKE 1 TABLET BY MOUTH TWICE A DAY active Not Available Not Available No t Available benzonatat e 200 mg capsule TAKE 1 CAPSULE BY MOUTH THREE TIMES A DAY NEEDED FOR 5 DAYS 12/12 completed Not Available Not Available Not Available hydrocodon e 5 mg-acetami nophen 325 mg tablet 11/17 completed Not Available Not Available Not Available meloxicam 15 mg tablet TAKE 1 TABLET BY MOUTH EVERY DAY WITH MEALS 01/13 completed Not Available Not Available Not Available lisinopril 20 mg tablet TAKE 1 TABLET BY MOUTH EVERY DAY 2024 active Not Available Not Available Not Avai lable ondansetro n HCl 4 mg tablet 01/18 completed Not Available Not Available Not Available penicillin V potassium 500 mg tablet dentist 04/07 completed Not Available Not Available Not Available dextrometh orphan-gua ifenesin 10 mg-100 mg/5 mL oral syrup Take 10 mL 3 times a day by oral route as needed for 5 days. 07/02 completed prn Not Available Not Available Not Available triamcinol one acetonide 0.1 % topical cream APPLY TO AFFECTED AREA 2 TIMES A DAY FOR 10 DAYS active Not Available Not Available No t Available amoxicilli n 500 mg tablet TAKE 2 ORAL TABLETS 3 TIMES A DAY FOR 5 DAYS. 11/07 completed Not Available Not Available Not Available simvastati n 40 mg tablet TAKE 1 TABLET BY MOUTH EVERY DAY active Not Available Not Available No t Available citalopram 20 mg tablet TAKE 1 TABLET BY MOUTH EVERY DAY 01/13 completed not taking Not Available Not Available Not Available famotidine 20 mg tablet TAKE 1 TABLET BY MOUTH TWICE A DAY 2024 active Not Available Not Available Not Avai lable DOK 100 mg capsule 03/28 completed Not Available Not Available Not Available meclizine 25 mg tablet TAKE 1 TABLET BY MOUTH TWICE A DAY NEEDED 11/10 completed Not Available Not Available Not Available benzonatat e 100 mg capsule TAKE 1 CAPSULE BY MOUTH 3 TIMES A DAY NEEDED FOR COUGH 11/07 completed Not Available Not Available Not Available simvastati n 20 mg tablet TAKE 1 TABLET BY MOUTH EVERYDAY AT BEDTIME 07/13 completed Not Available Not Available Not Available levothyrox ine 125 mcg tablet TAKE 1 TABLET BY MOUTH EVERY DAY active Not Available Not Available No t Available levothyrox ine 150 mcg tablet TAKE 1 TABLET BY MOUTH EVERY DAY 04/16 completed Not Available Not Available Not Available oxycodone 5 mg capsule 01/18 completed Not Available Not Available Not Available hydrochlor othiazide 25 mg tablet TAKE 1 TABLET BY MOUTH EVERY DAY 11/02 completed Not Available Not Available Not Available ibuprofen 600 mg tablet 11/17 completed Not Available Not Available Not Available polyethyle ne glycol 3350 17 gram/dose oral powder 03/28 completed Not Available Not Available Not Available albuterol sulfate HFA 90 mcg/actuat ion aerosol inhaler INHALE 2 PUFFS BY MOUTH THREE TIMES DAILY NEEDED active Not Available Not Available No t Available fluticason e propionate 50 mcg/actuat ion nasal spray,susp ension SPRAY 2 SPRAYS INTO EACH NOSTRIL EVERY DAY 11/07 completed Not Available Not Available Not Available levothyrox ine 112 mcg tablet TAKE 1 TABLET BY MOUTH EVERY DAY 2024 active Not Available Not Available Not Avai lable enoxaparin 40 mg/0.4 mL subcutaneo us syringe 03/28 completed Not Available Not Available Not Available ID NOW COVID-19 Test Kit USE DIRECTED 07/02 completed Not Available Not Available Not Available BinaxNOW COVID-19 Ag Self Test kit REFER TO MANUFACT URER INSTRUCT IONS INCLUDED IN PACKAGIN G 03/05 completed Not Available Not Available Not Available Vitals Date Recorded Body height Body mass index (BMI) Body weight Body temperature Oxygen saturation Oxygen saturation in Arterial blood by Pulse oximetry Respiratory rate Systolic blood pressure Diastolic blood pressure Provider Name and Address Organization Details Last Updated DateTime 3 175.26 cm 36.3 kg/m2 018141. 72 g 97.5 [degF] 96 % 96 % 16 /min 110 mm[Hg] 70 mm[Hg] Bethanywicho Moon [facility] 3 11:08:32 Date Recorded Heart rate Provider Name an d Address Organization Details Last Updated DateTime 07/10/2023 80 /min Benigno Robles MD Attn: Accounting[address] [place], [address], [facility] 07/10/2023 11:16:42 Date Recorded Body height Body mass index (BMI) Body weight Heart rate Respiratory rate Body temperature Oxygen saturation Oxygen saturation in Arterial blood by Pulse oximetry Systolic blood pressure Diastolic blood pressure Provider Name and Address Organization Details Last Updated DateTime 4 175.26 cm 36.7 kg/m2 023071. 7 g 73 /min 14 /min 97.2 [degF] 97 % 97 % 128 mm[Hg] 78 mm[Hg] Yarelis Callejas MA [facility] 4 11:26:11 Date Recorded Body height Body mass index (BMI) Body weight Heart rate Respiratory rate Body temperature Oxygen saturation Oxygen saturation in Arterial blood by Pulse oximetry Systolic blood pressure Diastolic blood pressure Provider Name and Address Organization Details Last Updated DateTime 4 175.26 cm 36.5 kg/m2 549181. 32 g 85 /min 16 /min 98 [degF] 96 % 96 % 119 mm[Hg] 75 mm[Hg] Pamela Hathaway MA [facility] 4 11:20:08 Date Recorded Body height Body mass index (BMI) Body weight Respiratory rate Body temperature Oxygen saturation Oxygen saturation in Arterial blood by Pulse oximetry Heart rate Systolic blood pressure Diastolic blood pressure Provider Name and Address Organization Details Last Updated DateTime 4 175.26 cm 35.5 kg/m2 391764. 61 g 14 /min 97.5 [degF] 95 % 95 % 77 /min 120 mm[Hg] 75 mm[Hg] Yarelis TRISTEN Callejas [facility] 4 11:15:50 Date Recorded Body height Body mass index (BMI) Body weight Heart rate Respiratory rate Body temperature Oxygen saturation Oxygen saturation in Arterial blood by Pulse oximetry Systolic blood pressure Diastolic blood pressure Provider Name and Address Organization Details Last Updated DateTime 5 175.26 cm 36 kg/m2 565106. 74 g 83 /min 16 /min 97.9 [degF] 97 % 97 % 130 mm[Hg] 83 mm[Hg] Pamela Hathaway MA [facility] 5 11:15:05 Social History Question Answer Notes LastModified by Organizat ion Details LastModified Time Tobacco Smoking Status Never Smoker Kiki Lehman MA [facility], [facility] 09/27/2014 10:12:12 Do You Have An Advance Directive? Yes Information not available 06/11/2021 What Is Your Level Of Alcohol Consumption? None [email or web address] Information not available 09/27/2014 Are You Blind Or Do You Have Difficulty Seeing? No Reading Glasses Information not available 03/05/2023 What Is Your Level Of Caffeine Consumption? Occasional Soda Information not available 11/27/2020 How Much Tobacco Do You Chew? None Information not available 10/26/2015 In The 14 Days Before Symptom Onset, Have You Had Close Contact With A Laboratory-confir med COVID-19 While That Case Was Ill? No Information not available 06/11/2021 In The 14 Days Before Symptom Onset, Have You Had Close Contact With A Person Who Is Under Investigation For COVID-19 While That Person Was Ill? No Information not available 06/11/2021 Have You Been To An Area Known To Be High Risk For COVID-19? No Information not available 02/06/2020 Are You Currently Employed? No Information not available 03/21/2021 Are You Deaf Or Do You Have Serious Difficulty Hearing? No Information not available 03/21/2021 What Type Of Diet Are You Following? REGULAR Information not available 10/26/2015 Which Illicit Or Recreational Drugs Have You Used? No Information not available 10/26/2015 Do You Or Have You Ever Used E-cigarettes Or Vape? Never Used Electronic Cigarettes Information not available 08/03/2019 What Is The Highest Grade Or Level Of School You Have Completed Or The Highest Degree You Have Received? [id number] Information not available 03/21/2021 What Is Your Occupation? Unemployed Information not available 03/28/2019 Are There Any Guns Present In Your Home? No Information not available 10/26/2015 Do You Sometimes Have To Miss Your Medical Appointments Due To Difficult Getting Transportation? Yes Information not available 11/27/2020 Do You Feel Unfairly Treated Due To Things Such As Race, Age, Gender, Disability Or Some Other Reason? No Information not available 11/27/2020 Do You Feel Physically And Emotionally Safe While Living At Home? Yes Information not available 11/27/2020 Do You Feel Physically And Emotionally Safe In Your Neighborhood Or Other Public Places? Yes Information not available 11/27/2020 Marital Status Informatio n not available 10/26/2015 What Was The Date Of Your Most Recent Tobacco Screening? 11/04/2024 [email or web address] Information not available 11/04/2024 Performs Monthly Self-breast Exam? No Information no t available 10/26/2015 What Is Your Relationship Status? Information not available 03/21/2021 Do You Use Your Seat Belt Or Car Seat Routinely? Yes Information not available 03/21/2021 Seat Belts Used Routinely Yes Information not available 10/26/2015 Smoke Alarm In Home Yes Information not available 10/26/2015 Do You Have Smoke And Carbon Monoxide Detectors In Your Home? Yes Information not available 03/21/2021 Do You Or Have You Ever Used Smokeless Tobacco? Never Used Smokeless Tobacco Information not available 08/03/2019 How Much Tobacco Do You Smoke? No Information not available 08/03/2019 General Stress Level Medium Information not available 02/06/2020 Do You Feel Stressed (tense, Restless, Nervous, Or Anxious, Or Unable To Sleep At Night)? [id number] Information not available 11/10/2023 Do You Use Any Illicit Or Recreational Drugs? No Information not available 03/21/2021 Do You Use Sunscreen Routinely? No Information not available 10/26/2015 Has Tobacco Cessation Counseling Been Provided? No [email or web address] Information not available 05/19/2022 Do You Or Have You Ever Used Any Other Forms Of Tobacco Or Nicotine? No Information not available 06/11/2021 Sex: Female Functional Status Question Answer Note LastModified by Organization D etails LastModified Time Are you able to care for yourself? Yes Information not available 03/21/2021 What is your exercise level? None walking Information not available 11/10/2023 Mental Status None recorded. Family History Relationship Description Onset Age of this Age Resolved Age Notes LastModified by Organization Details LastModified Time Mother Cerebrovascu lar accident Not available 05/2016 16:19:26 Mother Hypertensive disorder Not available 2015 16:19:26 Mother Malignant tumor of colon 71 [email or web address] Not available 06/2017 10:52:47 Mother Hypercholest erolemia [place] Not available 2016 10:39:14 Father Cerebrovascu lar accident [place] Not available 06/2017 10:38:59 Daughter Diabetes mellitus [place] Not available 2016 10:39:51 Medical History Condition Response Coronary Artery Disease N Other N Atrial Fibrillation N High Blood Pressure Y Breast Cancer N Lung Disease N Depression Y COPD N Blood Clots N Breast Problem N Anesthesia Complications N Headaches/Migraines Y Anxiety Disorder Y Muscle, Joint, or Bone Problems N Infertility N Polyps Y Acid Reflux (GERD) Y Cancer N Stroke N Endometriosis N High Cholesterol Y Liver Disease N Headaches N Thyroid Problems Y Kidney or Bladder Problems N GI Problems N Acne N Eating Disorder N Skin Problems N Anemia N Heart Attack (GA) N Diabetes N Ovarian Cancer N Blood Transfusions N Seizures/Epilepsy N Abuse/Domestic Violence N Asthma N Allergies Y Hepatitis N Heart Disease N Pre-Eclampsia N Heart Failure N Osteoporosis N Gynecological History Statement/Question Response Abnormal Pap N On BCP's at Conception? N STIs/STDs N HPV Vaccine N Most Recent Mammogram 01/01/2018 Age at Menarche 14 Current Control Method Menopause Age at First Child 19 If Post Menopausal, Age at Menopause 50 Sexually Active? N Menses Monthly N Date of Last Pap Smear 09/07/2018 LMP Obstetrics History GPAL:G 3 P 3 0 0 3 Type Value Full Term 3 Living 3 Total 3 Immunizations Vaccine Type Date Status Note Provider Emmett sands and Address Organization Details Recorded Time Tdap 05/21/2016 completed Not Available [employer] 11/05/2019 02:47:56 Past Encounters Encounter ID Performer Location Encounter Start Date Encounter Closed Date Diagnosis/Indication Diagnosis SNOMED-CT Code Diagnosis ICD10 Code Diagnosis Note [id number] TRISTEN [facility]to (Adult Med) [address] [place] [address] 09/27/2014 09:56:43 09/27/2014 10:46:34 Essential hypertension 93915988 Continue same Hypothyroidism 51604732 continue same Family his tory of cancer of colon 665972650 [id number] [facility] [address] [place] [address] 01/26/2015 10:09:15 01/26/2015 10:51:13 Essential hypertension 04076379 Continue same Hypothyroidism 97669337 continue same Hypertriglyceridemia 327562112 Will start statin even though mainly elevated TG because of risk factors Cut down on sweets [id number] MD Catia Ackermanhalto (Adult Med) [address] [place] [address] 02/14/2015 16:12:22 02/14/2015 17:11:54 Mixed anxiety and depressive disorder 240983105 Will give letter to be excused from jury duty Start pt on Celexa daily f/u in 6 wks [id number] Ese Bardaleshalto (Adult Med) [address] [place] [address] 03/28/2015 11:47:33 03/28/2015 12:39:15 Essential hypertension 91008580 Continue same Hypertriglyceridemia 628014232 continue statin even though mainly elevated TG because of risk factors Cut down on sweets Hypothyroidism 10539839 continue same Mixed anxi ety and depressive disorder 307027716 continue Celexa daily [id number] Ese Triana (Adult Med) [address] [place] [address] 06/28/2015 10:47:50 06/28/2015 11:31:24 Essential hypertension 55017380 Continue same Hypothyroidism 98542795 continue same Mixed anxi ety and depressive disorder 200965149 with grieving due to recent loss of her father continue Celexa daily pt to see counselor -informati on given to pt Hypertriglyceridemia 480587430 continue statin even though mainly elevated TG because of risk factors Cut down on sweets [id number] MD Kong Ackerman (Adult Med) [address] [place] [address] 09/28/2015 10:46:19 10/01/2015 12:19:33 Essential hypertension 53978496 I10 Continue same Hypothyroidism 01147003 E03.8 continue same Mixed anxi ety and depressive disorder 105193346 F34.1 with grieving due to recent loss of her father continue Celexa daily Hyperlipidemia 18388545 E78.2 pt is not taking statin- pt to take simvastati n even though mainly elevated TG because of risk factors Cut down on sweets Family his tory of cancer of colon 363081720 Z80.0 pt is no show for colonoscop y pt is counselled to go for colonoscop y Obesity 683905891 E66.3 diet and exercise discussed with pt [id number] Noa Evans Kong (SCREENING SPECIALIST) [address] [place] [address] 10/26/2015 15:58:59 10/26/2015 17:37:29 Screening for malignant neoplasm of colon 915096487 Z12.11 Gynecologi c examination 00277312 Z01.419 Last pap done 06/28/14 was negative with negative hr-HPV. Therefore, no pap needed. Screening for malignant neoplasm of breast 313698905 Z12.39 UTD: Done 08/02/15. [id number] MD Kong Ackerman (Adult Med) [address] [place] [address] 11/21/2015 13:56:17 11/21/2015 14:21:38 Vertigo 978378730 R42 possibly due to benign positional vertigo fall precaution [id number] MD Kong Ackerman (Adult Med) [address] [facility] [place] [address] 01/25/2016 11:02:47 01/25/2016 13:33:29 Essential hypertension 39467138 I10 Continue same Hypothyroidism 05207979 E03.8 low TSH on last lab-will recheck and adjust dose continue same for now Hyperlipidemia 01914651 E78.2 continue simvastati n Cut down on sweets Mixed anxi ety and depressive disorder 690061919 F34.1 with grieving due to recent loss of her father continue Celexa daily Obesity 116889341 E66.3 diet and exercise discussed with pt [email or web address] [id number] MD Catia Ackermanhalto (Adult Med) [address] [facility] [place] [address] 05/21/2016 10:55:51 05/21/2016 12:01:06 Essential hypertension 07643534 I10 Continue same Hypothyroidism 78285654 E03.8 low TSH on last lab-will recheck and adjust dose Lower Levothyrox in to 125 mcg daily Hyperlipidemia 35833263 E78.2 continue simvastati n Mixed anxi ety and depressive disorder 593022717 F34.1 continue Celexa daily Administra tion of diphtheria, pertussis, and tetanus vaccine 964388012 Z23 [id number] [facility] [address] [place] [address] 08/21/2016 10:16:12 08/21/2016 14:44:58 Essential hypertension 45836141 I10 Continue Lisinopril and HCTZ ( pt does not want combinatio n pill) Hypothyroidism 88169990 E03.8 continue levothyrox in to 125 mcg daily Hyperlipidemia 09063064 E78.2 continue simvastati n Mixed anxi ety and depressive disorder 336818643 F34.1 stable continue Celexa daily [id number] Noa Triana (SCREENING SPECIALIST) [address] [place] [address] 10/27/2016 10:20:20 10/27/2016 16:19:49 Gynecologic examination 10466521 Z01.419 Last pap done 06/28/14 was negative with negative hr-HPV. Therefore, no pap needed. Screening for malignant neoplasm of breast 093401398 Z12.39 Screening for malignant neoplasm of colon 187617964 Z12.[address] Macedo 12/2015. [id number] [facility] [address] [place] [address] 11/21/2016 10:40:10 11/21/2016 11:38:01 Mixed anxiety and depressive disorder 080076836 F34.1 stable continue Celexa daily Hypothyroidism 71289998 E03.8 continue levothyrox in to 125 mcg daily Essential hypertension 93602680 I10 Continue Lisinopril and HCTZ ( pt does not want combinatio n pill) Hyperlipidemia 58573412 E78.2 continue simvastati n [id number] [facility] [address] [place] [address] 02/20/2017 10:34:00 02/20/2017 11:53:46 Essential hypertension 90465754 I10 Continue Lisinopril and HCTZ ( pt does not want combinatio n pill) Hyperlipidemia 41659777 E78.2 continue simvastati n ( pt missed med at times ) Hypothyroidism 27580886 E03.8 continue levothyrox in to 137 mcg daily Mixed anxi ety and depressive disorder 643138917 F34.1 stable continue Celexa daily [id number] Benigno Robles MD [facility] (Adult Med) [address] [place] [address] 05/26/2017 10:44:22 05/26/2017 15:17:00 Essential hypertension 88455034 I10 Continue Lisinopril and HCTZ ( pt does not want combinatio n pill) Hyperlipidemia 41538071 E78.2 continue simvastati n ( pt missed med at times ) Hypothyroidism 95032636 E03.8 continue levothyrox in to 137 mcg daily Mixed anxi ety and depressive disorder 732511392 F34.1 not well controlled /noncompli ant with med pt to restart Celexa daily pt to see counselor [employer] 063017 009 L60.0 [id number] MD Catia Ackermanhalto (Adult Med) [address] [place] [address] 07/28/2017 10:52:08 07/28/2017 17:50:01 Essential hypertension 09527669 I10 Continue Lisinopril and HCTZ ( pt does not want combinatio n pill) Hyperlipidemia 27067045 E78.2 continue simvastati n Hypothyroidism 05290015 E03.8 continue levothyrox in to 137 mcg daily Mixed anxi ety and depressive disorder 916232918 F34.1 improving pt to continue Celexa daily [id number] Noa Evans Kong (SCREENING SPECIALIST) [address] [place] [address] 11/09/2017 11:39:48 11/10/2017 10:33:34 Gynecologic examination 81741723 Z01.419 Last pap done 06/28/14 was negative with negative hr-HPV. Therefore, no pap needed. Screening for malignant neoplasm of breast 971674252 Z12.39 Last 12/2016 @ [facility]. Repeat d/t facility issue dwp. Order given. Blood in urine 37219879 R31.9 UTI d/w pt. See below. Culture sent. Screening for malignant neoplasm of colon 113235409 Z12.[address] Macedo 12/2015. Repeat 5 years Urinary tr act infectious disease 73417974 N39.0 Diagnosis d/w pt. Rx sent to pharmacy. Instructio zak discussed. [id number] MD Kong Ackerman (Adult Med) [address] [place] [address] 11/12/2017 10:37:34 11/12/2017 16:09:44 Essential hypertension 97200117 I10 Continue Lisinopril and HCTZ ( pt does not want combinatio n pill) Hyperlipidemia 80375480 E78.2 continue simvastati n Hypothyroidism 21553188 E03.8 continue levothyrox in to 137 mcg daily Mixed anxi ety and depressive disorder 552007236 F34.1 pt to continue Celexa daily Obesity 702086849 E66.3 diet and exercise discussed with pt [id number] MD Kong Ackerman (Adult Med) [address] [place] [address] 02/10/2018 09:46:16 02/12/2018 09:07:35 Essential hypertension 46787578 I10 Continue Lisinopril and HCTZ ( pt does not want combinatio n pill) Hypothyroidism 73778598 E03.8 continue levothyrox in to 137 mcg daily Hyperlipidemia 86090916 E78.2 continue simvastati n Mixed anxi ety and depressive disorder 093317049 F34.1 pt to continue Celexa daily Upper resp iratory infection 83286860 J06.9 keep good hydration [id number] MD Catia Ackermanhalto (Adult Med) [address] [place] [address] 04/07/2018 08:45:27 04/09/2018 15:18:47 Vertigo 799777742 R42 possibly due to benign positional vertigofal l precaution Thoracic back pain 50244 8004 M54.6 without rashpt's nephew has shingles and pt worried that she got shingles toopt is reassured and pt to call if any rash or blisters she develops [id number] [facility] [address] [place] [address] 05/11/2018 10:25:25 05/14/2018 16:29:33 Essential hypertension 64068625 I10 Continue Lisinopril and HCTZ ( pt does not want combinatio n pill) Hypothyroidism 97663332 E03.8 continue levothyrox in to 137 mcg daily Hyperlipidemia 68973192 E78.2 continue simvastati n Mixed anxi ety and depressive disorder 812597070 F34.1 pt to continue Celexa daily pt wants to check her b 12 level [id number] MD [facility] [address] [place] [address] 08/24/2018 10:15:25 08/24/2018 17:26:02 Essential hypertension 40589438 I10 Continue Lisinopril and HCTZ ( pt does not want combinatio n pill) Mixed anxi ety and depressive disorder 304341395 F34.1 stable pt to continue Celexa daily Hyperlipidemia 11226952 E78.2 continue simvastati n Hypothyroidism 41331077 E03.8 continue levothyrox in to 137 mcg daily [id number] Noa Triana (SCREENING SPECIALIST) [address] [place] [address] 09/07/2018 09:24:21 09/14/2018 11:11:38 Postmenopausal bleeding 22284148 N95.0 Pap done although not due for 10 mo. Last was done 06/28/14 and was negative with negative hr-HPV. US ordered to assess endometria l stripe. RTO 3 days p US for results and POC. Possible EMB d/w pt. [id number] Noa Triana (SCREENING SPECIALIST) [address] [facility] [place] [address] 09/27/2018 09:48:26 09/28/2018 15:57:27 Postmenopausal bleeding 85071372 N95.0 US shows a thickened heterogene ous endometria l stripe on 9 mm, dwp. Options of in-ofice EMB vs outpatient surgery with hysterosco py and D&C d/w pt. Recommenda tion made for hysterosco py with D&C. Pt. agreeable. Will schedule. Endometrium thickened 44 2168222 N85.00 [id number] Noa Triana (SCREENING SPECIALIST) [address] [place] [address] 11/02/2018 11:11:03 11/05/2018 08:48:00 Postmenopausal bleeding 47622009 N95.0 US shows a thickened heterogene ous endometria l stripe on 9 mm, dwp. Options of in-ofice EMB vs outpatient surgery with hysterosco py and D&C d/w pt. Recommenda tion made for hysterosco py with D&C. Pt. agreeable. Benefits, risks, and alternativ es to hysterosco py and D&C d/w pt. Pt. expressed understand ing. All pt. questions answered. Surgery is scheduled for 11/04/18. [id number] Noa Triana (SCREENING SPECIALIST) [address] [place] [address] 11/17/2018 14:04:12 11/18/2018 09:06:08 Adenocarcinoma of uterus 170057520 C55 Pathology showed Adenocarci noma FIGO grade 1, dwp. Need for referral to negative cleaner/onc d;/w pt. Referral generated. Expectatio ns discussed. All pt. questions answered. [id number] [facility] [address] [place] [address] 01/07/2019 10:29:28 01/10/2019 09:29:14 Essential hypertension 79379893 I10 Continue Lisinopril Hyperlipidemia 61215052 E78.2 continue simvastati n Hypothyroidism 12456143 E03.8 continue levothyrox in to 137 mcg daily Mixed anxi ety and depressive disorder 107102027 F34.1 stable pt to continue Celexa daily [id number] Noa Triana (SCREENING SPECIALIST) [address] [place] [address] 01/18/2019 10:14:40 01/19/2019 10:00:03 Screening for malignant neoplasm of breast 149798109 Z12.39 Normal clinical breast exam. Mammogram ordered. [id number] [facility] [address] [place] [address] 03/28/2019 08:58:28 03/29/2019 11:34:47 Essential hypertension 49141055 I10 stableCont inue Lisinopril Hyperlipidemia 71500700 E78.2 continue simvastati n Hypothyroidism 95010224 E03.8 continue levothyrox in to 137 mcg daily Mixed anxi ety and depressive disorder 392982346 F34.1 fairly stable( has some crying spells once in a while ) pt to continue Celexa daily -pt may try 40 mg celexa -if she wants to continue 40 mg -call clinic Urinary symptoms 1543868 08 R39.9 pt has dark color urine -pt to drink more water -keep good hydration [id number] MD Kong Ackerman (Adult Med) [address] [place] [address] 07/11/2019 09:26:53 07/12/2019 09:02:20 Essential hypertension 58540048 I10 stableCont inue Lisinopril Mixed anxi ety and depressive disorder 006014145 F34.1 stable. pt to continue Celexa daily Hypothyroidism 76773104 E03.8 continue levothyrox ine 150 mcg daily Hyperlipidemia 45370820 E78.2 continue simvastati n Cobalamin deficiency 190 522191 E53.8 Pain of le ft shoulder joint 7811117108 9863281 M25.512 pt to go for PTpt to try mobic prn with meal [id number] MD Catia Ackermanhalto (Adult Med) [address] [place] [address] 08/03/2019 12:01:34 08/04/2019 10:53:21 Acute bronchitis 45837182 J20.9 [id number] MD Catia Ackermanhalto (Adult Med) [address] [place] [address] 11/02/2019 10:09:53 11/03/2019 14:23:48 Essential hypertension 18092495 I10 stableCont inue Lisinopril Hyperlipidemia 82198414 E78.2 continue simvastati n Hypothyroidism 06622371 E03.8 continue levothyrox ine 150 mcg daily Mixed anxi ety and depressive disorder 325943647 F34.1 fairly stable. / compliance still a issue pt to continue Celexa daily Upper resp iratory infection 52634930 J06.9 keep good hydration [id number] [facility] [address] [place] [address] 02/06/2020 08:41:17 02/07/2020 14:07:45 Essential hypertension 67595340 I10 stableCont inue Lisinopril Hyperlipidemia 21609736 E78.2 continue simvastati n Hypothyroidism 86399353 E03.8 continue levothyrox ine 150 mcg daily Mixed anxi ety and depressive disorder 793087088 F34.1 stable. / compliance still a issue pt to continue Celexa daily Pain of le ft shoulder joint 6491233871 0163016 M25.512 pt tried PT without much help.pt did not like mobicpt to try cyclobenza prine[facility]i [facility] in future [id number] MD Kong Ackerman (Adult Med) [address] [place] [address] 05/14/2020 07:57:27 05/15/2020 10:20:53 Essential hypertension 53843804 I10 stableCont inue Lisinopril Hyperlipidemia 16729847 E78.2 continue simvastati n Hypothyroidism 30055288 E03.8 continue levothyrox ine 150 mcg daily Mixed anxi ety and depressive disorder 942536238 F34.1 stable. / compliance still a issue pt to continue Celexa daily [id number] Benigno Robles MD [facility] (Adult Med) [address] [place] [address] 08/21/2020 08:31:22 08/22/2020 13:30:54 Essential hypertension 15299669 I10 stableCont inue Lisinopril Mixed anxi ety and depressive disorder 980332514 F34.1 stable. / compliance still a issue pt to continue Celexa daily Hyperlipidemia 67222137 E78.2 continue simvastati n Hypothyroidism 72075086 E03.8 continue levothyrox ine 150 mcg daily Pain in left knee 517634 8683 85179 M25.562 pt to try mobic prn with food .consider xray if problem worsen [id number] Benigno Robles MD [facility] (Adult Med) [address] [place] [address] 09/26/2020 11:53:46 09/27/2020 06:01:38 Upper respiratory infection 58615811 J06.9 keep good hydration. [id number] [facility] [address] [place] [address] 11/27/2020 08:28:02 11/27/2020 22:57:43 Essential hypertension 24466380 I10 stableCont inue Lisinopril Mixed anxi ety and depressive disorder 503409065 F34.1 stable. pt to continue Celexa daily Hyperlipidemia 32944854 E78.2 continue simvastati n Hypothyroidism 36526268 E03.8 continue levothyrox ine daily [id number] [facility] [address] [place] [address] 03/21/2021 10:47:28 03/22/2021 09:49:43 Pneumonia caused by SARS-CoV-2 2900940643 54440752 J12.82 slowly improving /keep good hydration - instructed pt to go to ER if any breathing issue [id number] MD Kong Ackerman (Adult Med) [address] [place] [address] 06/11/2021 10:31:47 06/12/2021 14:44:19 Loss of hair 970774719 L65.9 pt had covid infection couple of months ago-possib ly due to telogen effluvium - discussed about good sleep and nutrition Hypothyroidism 57481956 E03.8 continue levothyrox ine daily Hyperlipidemia 49536805 E78.2 continue simvastati n Obesity 838902164 E66.9 diet and exercise discussed with pt [id number] MD Catia Ackermanhalto (Adult Med) [address] [place] [address] 07/02/2021 11:11:46 07/10/2021 08:42:45 Essential hypertension 18680851 I10 stableCont inue Lisinopril Hyperlipidemia 00379372 E78.2 continue simvastati n Hypothyroidism 55410775 E03.8 continue levothyrox ine daily Mixed anxi ety and depressive disorder 973505708 F34.1 stable. pt to continue Celexa daily Anti-nucle ar factor detected 435567911 R76.8 with hair loss - referred to derm for eval- will check IFA of drew in future Obesity 834485664 E66.9 diet and exercise discussed with pt Loss of hair 224833588 L 65.9 pt had covid infection couple of months ago-possib ly due to telogen effluvium - discussed about good sleep and nutrition [id number] MD Kong Ackerman (Adult Med) [address] [place] [address] 10/07/2021 11:50:02 10/08/2021 15:13:17 Essential hypertension 71379733 I10 stableCont inue Lisinopril Mixed anxi ety and depressive disorder 783541347 F34.1 stable. pt to continue Celexa daily Hyperlipidemia 07577518 E78.2 continue simvastati n Hypothyroidism 56005959 E03.8 continue levothyrox ine daily Urinary symptoms 3304170 08 R39.9 pt has dark color urine with smell -pt to drink more water -keep good hydration Low back pain 239078682 M54.50 heat therapy/ex ercise [id number] [facility] [address] [place] [address] 12/26/2021 10:51:52 12/27/2021 12:25:29 Vertigo 912081746 R42 possibly due to benign positional vertigofal l precaution Obesity 259139550 E66.9 diet and exercise discussed with pt- pt wants to see clinical product specialist [id number] MD [facility] [address] [place] [address] 01/13/2022 10:39:28 01/14/2022 07:03:39 Essential hypertension 61091790 I10 stableCont inue Lisinopril Hyperlipidemia 14672394 E78.2 continue simvastati n Mixed anxi ety and depressive disorder 647963745 F34.1 off of Celexa - pt is doing fine without med Hypothyroidism 75759883 E03.8 continue levothyrox ine daily [id number] Benigno Robles MD [facility] (Adult Med) [address] [place] [address] 05/19/2022 10:51:04 05/20/2022 08:40:49 Essential hypertension 96204276 I10 stableCont inue Lisinopril Hyperlipidemia 84025420 E78.2 continue simvastati n Hypothyroidism 28443895 E03.8 continue levothyrox ine daily Mixed anxi ety and depressive disorder 896469977 F34.1 off of Celexa - pt is doing fine without med Obesity 027259144 E66.9 diet and exercise discussed with pt- pt is waiting to see clinical product specialist Screening mammography 24 309772 Z12.31 Screening for malignant neoplasm of colon 578772956 Z12.11 with f/h colon ca and polypectom y [id number] MD Catia Ackermanhalto (Adult Med) [address] [place] [address] 08/25/2022 11:12:33 08/26/2022 11:03:52 Essential hypertension 17981657 I10 fairly stableCont inue Lisinopril Hyperlipidemia 30097066 E78.2 continue simvastati n Hypothyroidism 82273428 E03.8 continue levothyrox ine daily Mixed anxi ety and depressive disorder 166470199 F34.1 off of Celexa - pt is doing fine without med History of polyp of colon 033097309 Z86.599 [id number] MD Catia Ackermanhalto (Adult Med) [address] [place] [address] 11/07/2022 11:57:43 11/11/2022 16:13:49 Upper respiratory infection 44826030 J06.9 keep good hydration. / return to clinic if problem continues Hypothyroidism 50427641 E03.8 continue levothyrox ine 125mcg daily Obesity 246921279 E66.9 diet and exercise discussed with pt- pt is waiting to see clinical product specialist [id number] [facility] [address] [place] [address] 12/12/2022 10:44:18 12/17/2022 14:23:48 Mammography abnormal 997824616 R92.8 of R/breast- reassures about low suspicious in regards to malignancy -pt to go for biopsy [id number] [facility] [address] [place] [address] 03/05/2023 11:02:25 03/06/2023 10:59:25 Essential hypertension 51293170 I10 fairly stableCont inue Lisinopril Hyperlipidemia 10880553 E78.2 continue simvastati n Hypothyroidism 03476623 E03.8 continue levothyrox ine 125mcg daily Mixed anxi ety and depressive disorder 451886303 F34.1 off of Celexa - pt is doing fine without med Obesity 985685998 E66.9 diet and exercise discussed with pt [id number] MD Catia Ackermanhalto (Adult Med) [address] [place] [address] 07/10/2023 10:54:03 07/15/2023 09:19:22 Essential hypertension 79061921 I10 - stableCont inue Lisinopril Hyperlipidemia 12074344 E78.2 continue simvastati n Hypothyroidism 67591341 E03.8 continue levothyrox ine 125mcg daily Obesity 221037243 E66.9 with pre -DM-diet and exercise discussed with pt Peripheral sensory neuropathy 099344016 G62.9 - pt to start vit b12 and check for DM [id number] [facility] [address] [place] [address] 11/10/2023 10:58:31 11/12/2023 11:19:07 Essential hypertension 90661432 I10 - stableCont inue Lisinopril Hyperlipidemia 72568053 E78.2 continue simvastati n Hypothyroidism 38393658 E03.8 continue levothyrox ine 125mcg daily Obesity 422035575 E66.9 with pre -DM-diet and exercise discussed with pt Mild dieta ry indigestion [id number] K30 [id number] [facility] [address] [place] [address] 03/15/2024 10:58:46 03/16/2024 15:18:58 Essential hypertension 72481051 I10 - stableCont inue Lisinopril Mixed anxi ety and depressive disorder 901440854 F34.1 off of Celexa - pt is doing fine without med Hypothyroidism 46536781 E03.8 continue levothyrox ine daily Hyperlipidemia 57397686 E78.2 continue simvastati n Prediabetes 550507393 R7 3.03 healthy diet and exercise discussed with pt Low back pain 460596722 M54.50 heat therapy/ex ercise-loo se wt [id number] [facility] [address] [place] [address] 07/12/2024 10:55:57 07/13/2024 14:42:34 Essential hypertension 23500192 I10 - stableCont inue Lisinopril Hyperlipidemia 36726372 E78.2 continue simvastati n Hypothyroidism 53816952 E03.8 continue levothyrox ine daily Prediabetes 037821741 R7 3.03 healthy diet and exercise discussed with pt Renewal of prescription [id number] Z76.0 [id number] Benigno Robles MD [facility] (Adult Med) [address] [place] [address] 11/04/2024 11:08:19 11/11/2024 17:35:46 Essential hypertension 96508872 I10 - stableCont inue Lisinopril Hyperlipidemia 44857897 E78.2 continue simvastati n Hypothyroidism 83795489 E03.8 continue levothyrox ine daily Renewal of prescription 198005614 Z76.0 Screening mammography 24 798296 Z12.31 Indigestion 309189202 R1 0.13 Health Concerns Section Related Observation LastModified by Organization Detai ls LastModified Time None Recorded Concern Status LastModified by Organization Details LastModified Time None Recorded Advance Directives Directive Y: Payers Encounter Date Sequence Insurance Name Policy Number Policy Trivedi Covered Member ID Trivedi Member ID Guarantor Name 07/10/2023 1 [facility] ON OR AFTER 10/19/2020 - DUAL ELIGIBLE (MEDICARE REPLACEMENT/ADVANTA GE - HMO) [id number] [facility] [id number] [facility] 07/10/2023 2 [place] [place]MEDICARE REPLACEMENT/ADVANTA GE) [facility] [id number] [facility] 11/10/2023 1 [facility] ON OR AFTER 10/19/2020 - DUAL ELIGIBLE (MEDICARE REPLACEMENT/ADVANTA GE - HMO) [id number] [facility] [id number] [facility] 11/10/2023 2 [place]MEDICARE REPLACEMENT/ADVANTA GE) [facility] [id number] [facility] 03/15/2024 1 [facility] ON OR AFTER 10/19/2020 - DUAL ELIGIBLE (MEDICARE REPLACEMENT/ADVANTA GE - HMO) [id number] [facility] [id number] [facility] 03/15/2024 2 [place]MEDICARE REPLACEMENT/ADVANTA GE) [facility] [id number] [employer] 07/12/2024 1 [facility] - [facility] ON OR AFTER 2020 - DUAL ELIGIBLE (MEDICARE REPLACEMENT/ADVANTA GE - HMO) [id number] [employer] [id number] [employer] 11/04/2024 1 [facility] - [facility] ON OR AFTER 2020 - DUAL ELIGIBLE (MEDICARE REPLACEMENT/ADVANTA GE - HMO) [id number] [employer] [id number] [employer] Notes Date Note Type Note Provider Name and Address Organization Details Recorded Time 07/10/20 text/htm l FootReported bypatient.Location:bilateral Quality:aching Timing:gradual Associated Symptoms:tinglingHyperlipidemia Reported bypatient.Duration:chronic Control:improving Current Therapy:currently taking: (simvastatin) Compliance:compliant Risk Factors:hypertension;obesityHyp ertension F/UReported bypatient.Associated Symptoms:no dizziness; no chest pain; no palpitations; no edema Medications:taking medications as directed; no side effects from medicationThyroidReported bypatient.Duration:chronic Context:history of hypothyroidism Modifying Factors:medication (thyroid pill- taking med as prescribed.) Associated Symptoms:no palpitations; no constipation Pt had surgery 12/20/18 full hysterectomy at [facility] for uterine ca. Benigno Robles MD Attn: Accounting,[address] [place] [address], [phone], [facility] 07/10/2023 11:31:31 11/10/19 24 text/htm l HyperlipidemiaReported bypatient.Duration:chronic Control:improving Current Therapy:currently taking: (simvastatin) Compliance:compliant Risk Factors:hypertension;obesityHyp ertension F/UReported bypatient.Associated Symptoms:no dizziness; no chest pain; no palpitations; no edema Medications:taking medications as directed; no side effects from medicationThyroidReported bypatient.Duration:chronic Context:history of hypothyroidism Modifying Factors:medication (thyroid pill- taking med as prescribed.) Associated Symptoms:no palpitations; no constipation Pt had surgery 12/20/18 full hysterectomy at [facility] for uterine ca. Benigno Robles MD Attn: Accounting,[address] [place] [address], [phone], [facility] 11/10/2023 11:39:35 03/15/20 text/htm l Back PainReported bypatient.Location:pain is not radiating; lower back Severity:mild (1-4) Duration:2 days Onset/Timing:recurrent episode Context:prior back problems Aggravating Factors:movement/positioning Associated Symptoms:no weak limbsHyperlipidemiaReported bypatient.Duration:chronic Control:improving Current Therapy:currently taking: (simvastatin) Compliance:compliant Risk Factors:hypertension;obesityHyp ertension F/UReported bypatient.Associated Symptoms:no dizziness; no chest pain; no palpitations; no edema Medications:taking medications as directed; no side effects from medicationThyroidReported bypatient.Duration:chronic Context:history of hypothyroidism Modifying Factors:medication (thyroid pill- taking med as prescribed.) Associated Symptoms:no palpitations; no constipation Pt had surgery 12/20/18 full hysterectomy at [facility] for uterine ca. Benigno Robles MD Attn: Accounting,[address] [place], [address], [facility] 03/15/2024 15:33:34 07/12/20 text/htm l HyperlipidemiaReported bypatient.Duration:chronic Control:improving Current Therapy:currently taking: (simvastatin) Compliance:compliant Risk Factors:hypertension;obesityHyp ertension F/UReported bypatient.Associated Symptoms:no dizziness; no chest pain; no palpitations; no edema Medications:taking medications as directed; no side effects from medicationThyroidReported bypatient.Duration:chronic Context:history of hypothyroidism Modifying Factors:medication (thyroid pill- taking med as prescribed.) Associated Symptoms:no palpitations; no constipation Pt had surgery 12/20/18 full hysterectomy at [facility] for uterine ca. Benigno Robles MD Attn: Accounting,[address] [place], [address], [facility] 07/12/2024 13:55:55 11/04/19 text/htm l HyperlipidemiaReported bypatient.Duration:chronic Control:improving Current Therapy:currently taking: (simvastatin) Compliance:compliant Risk Factors:hypertension;obesityHyp ertension F/UReported bypatient.Associated Symptoms:no dizziness; no chest pain; no palpitations; no edema Medications:taking medications as directed; no side effects from medicationThyroidReported bypatient.Duration:chronic Context:history of hypothyroidism Modifying Factors:medication (thyroid pill- taking med as prescribed.) Associated Symptoms:no palpitations; no constipation Pt had surgery 12/20/18 full hysterectomy at [facility] for uterine ca. Benigno Robles MD Attn: Accounting,[address] [facility], [place], [address], [facility] 11/04/2024 13:52:30 OBGyn Episode Ob Episode Information Episode Created Date Number of Fetuses Patient Bloodtype Patient rh Status Prepregnancy Weight lbs Domestic Partner Domestic Partner Phone Father Name Appeals Reviewer Veteran Status 10/27/19 17 1 CLOSED Fetus Data First Name Last Name Admitted to NICU Weight (g) Sex Living Outcome Pediatric Complications Fetus ID Race Codes Race Delivery Type 4053.75 1704 M Full Term [id number] Vaginal Kvng Calculation Initial Kvng Date Initial Exam Date Initial Exam Provider Initial Ultrasound Date Last Menstrual Period Date Ultra Sound Weeks Gestation 0 Eighteen To Twenty Week Kvng Update Ultra Sound Date Fundal Height At Umbil Quickening Date Ultra Sound Latest Weeks Gestation Final Kvng Confirmed By Final Kvng Confirmed Date Final Kvng Date Ultra Sound Latest Days Gestation 0 0 Menstrual History Last Menstrual Date Menses Monthly On Bcp Conception Prior Menses Frequency Hcg Plus Date Menarche Onset Age Delivery Information Delivery Date Delivery Type Labor Anesthesia Weeks Gestation Incision Type Labor Labor Length Hrs Delivered By Post Complications Tubal Sterilization Discharge Date Comments 5 Discharge Information Feeding Method Contraceptive Method Maternal HG B and HCT Levels Ob Episode Information Episode Created Date Number of Fetuses Patient Bloodtype Patient rh Status Prepregnancy Weight lbs Domestic Partner Domestic Partner Phone Father Name Appeals Reviewer Veteran Status 10/27/19 17 1 CLOSED Fetus Data First Name Last Name Admitted to NICU Weight (g) Sex Living Outcome Pediatric Complications Fetus ID Race Codes Race Delivery Type 3798.83 3 F Full Term [id number] Vaginal Kvng Calculation Initial Kvng Date Initial Exam Date Initial Exam Provider Initial Ultrasound Date Last Menstrual Period Date Ultra Sound Weeks Gestation 0 Eighteen To Twenty Week Kvng Update Ultra Sound Date Fundal Height At Umbil Quickening Date Ultra Sound Latest Weeks Gestation Final Kvng Confirmed By Final Kvng Confirmed Date Final Kvng Date Ultra Sound Latest Days Gestation 0 0 Menstrual History Last Menstrual Date Menses Monthly On Bcp Conception Prior Menses Frequency Hcg Plus Date Menarche Onset Age Delivery Information Delivery Date Delivery Type Labor Anesthesia Weeks Gestation Incision Type Labor Labor Length Hrs Delivered By Post Complications Tubal Sterilization Discharge Date Comments 2 Discharge Information Feeding Method Contraceptive Method Maternal HG B and HCT Levels Ob Episode Information Episode Created Date Number of Fetuses Patient Bloodtype Patient rh Status Prepregnancy Weight lbs Domestic Partner Domestic Partner Phone Father Name Appeals Reviewer Veteran Status 10/27/19 17 1 CLOSED Fetus Data First Name Last Name Admitted to NICU Weight (g) Sex Living Outcome Pediatric Complications Fetus ID Race Codes Race Delivery Type 3742.13 4 F Full Term [id number] Vaginal Kvng Calculation Initial Kvng Date Initial Exam Date Initial Exam Provider Initial Ultrasound Date Last Menstrual Period Date Ultra Sound Weeks Gestation 0 Eighteen To Twenty Week Kvng Update Ultra Sound Date Fundal Height At Umbil Quickening Date Ultra Sound Latest Weeks Gestation Final Kvng Confirmed By Final Vkng Confirmed Date Final Kvng Date Ultra Sound Latest Days Gestation 0 0 Menstrual History Last Menstrual Date Menses Monthly On Bcp Conception Prior Menses Frequency Hcg Plus Date Menarche Onset Age Delivery Information Delivery Date Delivery Type Labor Anesthesia Weeks Gestation Incision Type Labor Labor Length Hrs Delivered By Post Complications Tubal Sterilization Discharge Date Comments 7 Discharge Information Feeding Method Contraceptive Method Maternal HG B and HCT Levels
--- OUTSIDE RECORDS SUMMARY | 2024-12-01 16:50 | XMS_ITS | Clinical Summary ---
Author Organization [facility] Address [address] [place] [address] Care Team Providers Care Energy Broker Name Role Phone Benigno Crews MD Primary Care Provider [phone] Source Comments [facility],non-owned Affiliates and Associated Physician Practices is amultiple site organization consisting of ambulatory clinics and hospital sitesin [place], [place], [place] and [place]. This disclosure is being madepursuant to the Care Everywhere program and may not contain all information available regarding this patient. Last updated 18.[facility] Allergies No known active allergies Medications * [...] 07/19/2019 Vertigo 07/19/2019 Adenocarcinoma of uterus 12/13/2018 Family History Medical History Relation Name Comments Diabetes - Type 2 Daughter CVA Father CVA Mother Cancer - Colon Mother Hyperlipidemia Mother Hypertension Mother Relation Name Status Comments Daughter Father Mother Social History Tobacco Use Types Packs/Day Years [...] CDT Respiratory Rate 14 12/20/2018 7:13 PM CLIENT ENGAGEMENT SPECIALIST Oxygen Saturation 93% 12/20/2018 7:13 PM CLIENT ENGAGEMENT SPECIALIST Inhaled Oxygen Concentration - - Weight 108.9 kg (240 lb) 03/29/2020 11:04 AM CDT Height 175.3 cm (5' 9 ) 03/29/2020 11:04 AM CDT Body Mass Index 35.44 03/29/2020 11:04 AM CDT Plan of Treatment Health Maintenance Due Date Last Done Comments COLOGUARD (AGES 45-75) - COLON CA SCREENING [address] COLONOGRAPHY - COLON CA SCREENING 1955 FIT - COLON CA SCREENING 1955 FLEX SIG - COLON CA SCREENING 1955 HEPATITIS C SCREENING 01/29/1974 DTAP/TDAP/TD VACCINES (1 - Tdap) 02/02/1975 PNEUMOCOCCAL VACCINE 50+ (1 of 1 - PCV) 02/02/2006 ZOSTER VACCINE (1 of 2) 02/02/2006 SCREENING FOR DIABETES 12/07/2018 MAMMOGRAM 10/01/2023 10/01/2022, 09/18, 07/26/2020, Additional history exists COVID-19 VACCINE (1 - 2023- season) 2024 INFLUENZA VACCINE (#1) 2024 DEPRESSION SCREENING 10/19/2024 Respiratory Syncytial Virus (RSV) Vaccine Pt: or over 60 yrs (1 - 1-dose 75+ series) 02/02/2031 COLONOSCOPY - COLON CA SCREENING 12/16/2032 12/16/2022 Colorectal Cancer Screening 12/16/2032 BONE DENSITY TESTING Completed 03/23/2024 HEPATITIS B VACCINE Aged Out No longe r eligible based on patient's age to complete this topic HIB VACCINE Aged Out No longer eligi ble based on patient's age to complete this topic HPV VACCINE Aged Out No longer eligi ble based on patient's age to complete this topic MENINGOCOCCAL (Group B) VACCINE Aged Out No longer eligible based on patient's age to complete this topic MENINGOCOCCAL VACCINE Aged Out No melba génesis eligible based on patient's age to complete this topic Care Teams Energy Broker Relationship Specialty Start Date End Date Benigno Crews MD [address] [place] [address] PCP - General Internal Medicine 12/20/18
--- OUTSIDE RECORDS SUMMARY | 2024-12-01 16:50 | XMS_ITS | Clinical Summary ---
Author Organization [facility] Address [address] [address] Phone Care Team Providers Care Fixer Supervisor Name Role Phone Benigno Crews MD Primary Care Provider [phone] Allergies No known active allergies Medications polyethylene glycol (MIRALAX) Powder Mix the entire bottle with 64 oz of a clear liquid. Use as directed by the office for colonoscopy prep. 255 g 0 6 Active hydrochlorothia zide 25 MG Tablet Take 25 mg by mouth daily. 1/2 TAB PRN Active levothyroxine (SYNTHROID) 150 MCG Tablet Take 150 mcg by mouth daily. Active lisinopril (PRINIVIL, ZESTRIL) 20 MG Tablet Take 20 mg by mouth daily. Active simvastatin (ZOCOR) 20 MG Tablet Take 20 mg by mouth every evening. Active ranitidine (ZANTAC) 150 MG Tablet Take 150 mg by mouth as needed for Heartburn. Active Active Problems No known active problems Family History Medical History Relation Name Comments Other-comment Father THICK BLOOD Cancer Mother colon in her 70 's Hypertension Mother Stroke Mother Heart Surgery Sister Relation Name Status Comments Father Mother Sister Social History Tobacco Use Types Packs/Day Years Used Date Smoking Tobacco: Former Alcohol Use Standard Drinks/Week Comments No 0 (1 standard drink = 0.6 oz pur e alcohol) Comments No Sex and Gender Information Value Date Recorded Sex Assigned at Not on file Legal Sex Female 9:43 PM CDT Gender Identity Not on file Sexual Orientation Not on file Occupation Industry Job Start Date Job End Date unemployed Not on file Not on file Not on file Last Filed Vital Signs Vital Sign Reading Time Taken Comments Blood Pressure 124/70 01/04/2016 10:41 AM CDT Pulse - - Temperature 37 C (98.6 F) 01/04/2016 10:41 AM CDT Respiratory Rate 13 01/04/2016 10:41 AM CDT Oxygen Saturation 100% 01/04/2016 10:41 AM CDT Inhaled Oxygen Concentration - - Weight 115.7 kg (255 lb) 12/28/2015 9:00 AM TRAVEL DIRECTOR Height 175.3 cm (5' 9 ) 12/28/2015 9:00 AM TRAVEL DIRECTOR Body Mass Index 37.66 12/28/2015 9:00 AM TRAVEL DIRECTOR Plan of Treatment Health Maintenance Due Date Last Done Comments DEXA Bone Density 1955 Hepatitis C Virus (HCV) Screening 1955 Cologuard 02/02/2006 Immunochemical Fecal Occult Blood 02/02/2006 Pneumococcal Immunization (5 0+ years) (1 of 1 - PCV) 02/02/2006 Zoster Immunization (1 of 2) 02/02/2006 Mammogram 02/19/2021 02/19/2019, 01/01/2018, 12/31/2016 Influenza Immunization (#1) 2024 SARS-COV-2 Immunization ( - 2023- season) 2024 Colonoscopy 01/03/2026 01/04/2016 Colorectal Cancer Screening 01/03/2026 Respiratory Syncytial Virus (RSV) Immunization (Adult) (1 - 1-dose 75+ series) 02/02/2031 01/04/2016 DTaP/Tdap/Td Immunization Discontinued 05/21/2016 TdaP Immunization Completed 05/21/2016 Hepatitis B Immunization Aged Out No longer eligible based on patient's age to complete this topic Meningococcal Immunization (ACWY) Aged Out No longer eligible based on patient's age to complete this topic Rotavirus Immunization Aged Out No lo nger eligible based on patient's age to complete this topic Procedures Procedure Name Priority Date/Time Associated Diagnosis Comments TARUN SCREENING BILATERAL DIGITAL W CAD W AAYUSH Routine 02/19/2019 9:17 AM CDT Encounter for screening mammogram for malignant neoplasm of breast from Last 3 Months or Most Recently Relevant to Health Maintenance Results * ATRUN SCREENING BILATERAL DIGITAL W CAD W AAYUSH (02/19/2019 9:17 AM CDT) Anatomical Region Laterality Modality breast Bilateral Mammography 02/19/2019 8:46 AM CDT Narrative 02/21/2019 10:06 AM CDT - TARUN SCREENING BILATERAL DIGITAL W CAD W AAYUSH BILATERAL DIGITAL SCREENING MAMMOGRAM 3D/2D WITH CAD WITH MEDIOLATERAL OBLIQUE CRANIOCAUDAL: 02/19/2019 The study was acquired using digital technology and interpreted from soft copy. Current study was also evaluated with ICAD version 7.2. CLINICAL: Routine screening. Patient has no complaints. No personal history of cancer. No family history of breast cancer. COMPARISONS: Comparison is made to exams dated: 01/01/2018, 12/31/2016 [facility], and 08/02/2015 [facility]. BREAST TISSUE:The tissue of both breasts is predominantly fatty. FINDINGS: No significant masses, calcifications, or other findings are seen in either breast. There has been no significant interval change. IMPRESSION: BI-RAD 1 NEGATIVE There is no mammographic evidence of malignancy. A 1 year screening mammogram is recommended. The patient has been or will be contacted. The patient will be entered into a reminder system with a target due date of 1 year for her next screening exam. Electronically signed by: Chiquis lewis/stephanie:02/21/2019 09:31:11 Director Of Clinical Services: Luma Tracey (Leila), [facility] letter sent: Normal Exam Reading location: [facility] BI-RADS: 1 Negative Procedure Note Chiquis Contreras MD - 02/21/2019 - TARUN SCREENING BILATERAL DIGITAL W CAD W AAYUSH BILATERAL DIGITAL SCREENING MAMMOGRAM 3D/2D WITH CAD WITH MEDIOLATERAL OBLIQUE CRANIOCAUDAL: 02/19/2019 The study was acquired using digital technology and interpreted from soft copy. Current study was also evaluated with ICAD version 7.2. CLINICAL: Routine screening. Patient has no complaints. No personal history of cancer. No family history of breast cancer. COMPARISONS: Comparison is made to exams dated: 01/01/2018, 12/31/2016 [facility], and 08/02/2015 [facility]. BREAST TISSUE:The tissue of both breasts is predominantly fatty. FINDINGS: No significant masses, calcifications, or other findings are seen in either breast. There has been no significant interval change. IMPRESSION: BI-RAD 1 NEGATIVE There is no mammographic evidence of malignancy. A 1 year screening mammogram is recommended. The patient has been or will be contacted. The patient will be entered into a reminder system with a target due date of 1 year for her next screening exam. Electronically signed by: Chiquis lewis/stephanie:02/21/2019 09:31:11 Director Of Clinical Services: Luma Tracey (R), [facility] letter sent: Normal Exam Reading location: [facility] BI-RADS: 1 Negative us Noa Evans MD IMG MAMMO ORDERABLES Fin al Result from Last 3 Months or Most Recently Relevant to Health Maintenance Insurance MEDICAID [employer]IC[employer] C [place] Care Teams Fixer Supervisor Relationship Specialty Start Date End Date Benigno Crews MD [address] [place] [address] PCP - General Internal Medicine 01/04/16
--- OUTSIDE RECORDS SUMMARY | 2024-12-01 16:53 | XMS_ITS | Clinical Summary ---
Author Organization [facility] Address [address] [place] [address] Care Team Providers Care Systems Test Analyst Name Role Phone Alexandra Robles MD Primary Care Provider [phone] Alexandra Robles MD Unavailable Allergies No known active allergies Medications hydroCHLOROthiaz gilma (HYDRODIURIL) 25 mg tablet Take 1 tablet (25 mg total) by mouth daily as needed 3 8 Active lisinopril (PRINIVIL,ZESTRI L) 20 mg tablet Take by mouth daily. 3 8 Active simvastatin (ZOCOR) 20 mg tablet Take 1 tablet (20 mg total) by mouth nightly at bedtime. 3 8 Active aspirin 81 mg tabletIndication s:stopped for surgery Take 1 tablet (81 mg total) by mouth daily Active ibuprofen (ADVIL,MOTRIN) 600 mg tablet Take 1 tablet (600 mg total) by mouth every 6 (six) hours as needed for pain (pain). 30 tablet 2 9 Active cyclobenzaprine (FLEXERIL) 10 mg tablet 1 Active fluticasone propionate (FLONASE) 50 mcg/actuation nasal spray 1 Active albuterol HFA (PROVENTIL HFA,VENTOLIN HFA,PROAIR HFA) 90 mcg/actuation inhaler INHALE 2 PUFFS BY MOUTH THREE TIMES DAILY NEEDED Active meclizine (ANTIVERT) 25 mg tablet Take by mouth 2 (two) times a day as needed 3 Active levothyroxine (SYNTHROID) 112 mcg tablet Take 1 tablet (112 mcg total) by mouth daily 3 Active triamcinolone (KENALOG) 0.1 % creamIndications :Rash and nonspecific skin eruption Apply topically 3 (three) times a day for 10 days 45 g 3 Active cetirizine (ZyrTEC) 10 mg tabletIndication s:Rash and nonspecific skin eruption Take 1 tablet (10 mg total) by mouth daily as needed for allergies 30 tablet 3 Active Active Problems Problem Noted Date Diagnosed Date Family history of colon cancer in mother 023 Overview (11/14/2022): Added automatically from request for surgery [id number] Personal history of colonic polyps 11/14/2022 Overview (11/14/2022): Added automatically from request for surgery [id number] Encounter for screening colonoscopy 11/14/2022 Overview (11/14/2022): Added automatically from request for surgery [id number] Encounters Date Type Department Care Team Description 11/10/2024 8:21 AM CUSTOMER DATA TECHNICIAN - 11/10/2024 11:59 PM CUSTOMER DATA TECHNICIAN Hospital Encounter [facility] [address] [place] [address] Encounter for screening mammogram for malignant neoplasm of breast Discharge Disposition: Discharge to home or self care from Last 3 Months Surgical History Surgery Date Site/Laterality Comments OOPHORECTOMY Right HYSTERECTOMY COLONOSCOPY 11/19/2005 - 12/16/2005 COLONOSCOPY 10/19/2016 - 10/18/2017 BREAST BIOPSY 01/06/2023 Right benign stereo bx, scar upper inner quad Medical History Medical History Date Comments Hypertension Hyperlipidemia GERD (gastroesophageal reflux disease) depends on what I eat Hypothyroidism Abnormal bleeding in menstrual cycle post [place] bleeding Obesity Family History Medical History Relation Name Comments Ovarian cancer Paternal Grandmother Breast cancer Neg Hx Thyroid cancer Neg Hx Relation Name Status Comments Paternal Grandmother Social History Tobacco Use Types Packs/Day Years Used Date Smoking Tobacco: Never Smokeless Tobacco: Never Tobacco Cessation:Counseling Given: Not Answered Alcohol Use Standard Drinks/Week Comments No 0 (1 standard drink = 0.6 oz pur e alcohol) AUDIT-C Answer Date Recorded Q1: How often do you have a drink containing alc ohol? Never 12/16/2022 Average Number of Drinks Not on file 023 Frequency of Binge Drinking Not on file 11/20 Personal Safety Answer Date Recorded Have you ever been in or are you currently in a harmful physical or emotional relationship or is someone making you feel afraid or unsafe? Denies 06/27/2024 Comments No Sex and Gender Information Value Date Recorded Sex Assigned at Not on file Legal Sex Female 12:29 AM CUSTOMER DATA TECHNICIAN Gender Identity Not on file Sexual Orientation Not on file Obstetrics History Para Term AB IAB SAB Ectopic Multiple Livin g Live Births 3 3 3 Date Outcome GA Total Labor Labor/2nd/3rd Weight Sex Type Anes PTL Xenia A1 A5 Name Clin Term Term Term Last Filed Vital Signs Vital Sign Reading Time Taken Comments Blood Pressure 153/66 06/27/2024 11:33 AM CDT Pulse 86 06/27/2024 11:33 AM CDT Temperature 37 C (98.6 F) 06/27/2024 11:32 AM CDT Respiratory Rate 19 06/27/2024 11:33 AM CDT Oxygen Saturation 92% 06/27/2024 11:33 AM CDT Inhaled Oxygen Concentration - - Weight 108.9 kg (240 lb) 06/27/2024 11:33 AM CDT Height 175.3 cm (5' 9 ) 11/10/2024 8:47 AM CUSTOMER DATA TECHNICIAN Body Mass Index 35.44 06/27/2024 11:33 AM CDT Plan of Treatment Health Maintenance Due Date Last Done Comments Depression Screening 1955 Hepatitis C Screening 1955 Hepatitis B Screening 02/02/1974 Zoster Vaccine (1 of 2) 02/02/2006 Pneumococcal vaccine 65+ (1 of 1 - PCV) 02/02/2021 Well Visit 65+ 02/02/2021 Fall Risk Assessment 12/16/2023 12/16/2022 Influenza Vaccine (#1) 2024 Breast Cancer Screening-Mammogram 11/10/2025 11/10/2024, 10/01/2022, 07/26/2020, Additional history exists Osteoporosis Screening-Bone Density Scan 03/23/2026 03/23/2024 DTaP/Tdap/Td Vaccine (2 - Td or Tdap) 05/21/2026 05/21/2016 Colon Cancer Screening-Colonoscopy 12/16/2032 12/16/2022 Colon Cancer Screening-CT Colonography Discontinued 12/16/2022 Colon Cancer Screening-DNA Stool Discontinued 12/16/19 Colon Cancer Screening-FIT Discontinued 12/16/2022 Colon Cancer Screening-Sigmoidoscopy Discontinued 12/16/2022 Procedures Procedure Name Priority Date/Time Associated Diagnosis Comments SCREENING MAMMOGRAM BILATERAL W DWAINE Schedule Routine, Read Routine (OP Routine) 11/10/2024 8:48 AM CUSTOMER DATA TECHNICIAN Encounter for screening mammogram for malignant neoplasm of breast DEXA AXIAL SKELETON BONE DENSITY 1 OR MORE SITES Schedule Routine, Read Routine (OP Routine) 03/23/2024 9:56 AM CDT Encounter for screening for osteoporosis COLONOSCOPY 12/16/2022 8:27 AM CUSTOMER DATA TECHNICIAN from Last 3 Months or Most Recently Relevant to Health Maintenance Results * Screening Mammogram Bilateral W Dwaine (11/10/2024 8:48 AM CUSTOMER DATA TECHNICIAN) Anatomical Region Laterality Modality Breast Bilateral Mammography 11/10/2024 8:58 AM CUSTOMER DATA TECHNICIAN Impressions 11/10/2024 8:58 AM CUSTOMER DATA TECHNICIAN There is no mammographic evidence of malignancy. A 1 year screening mammogram is recommended. BI-RADS: 2 - Benign. The patient has been or will be contacted. The patient will be entered into a reminder system with a target due date of 1 year for her next mammogram. Electronically signed by: Chiquis Contreras M.D. Narrative 11/10/2024 8:58 AM CUSTOMER DATA TECHNICIAN EXAMINATION: SCREENING MAMMOGRAM BILATERAL W DWAINE ORDERING HEALTHCARE PROVIDER: ALEXANDRA ROBLES HISTORY: Routine screening mammography. COMPARISON: 05/27/2023, 01/06/2023, 12/09/2022, 10/01/2022, 08/03/2020 TECHNIQUE: CC and MLO views of the bilateral breasts were obtained with digital technique using breast tomosynthesis with C view. Computer aided detection was utilized. FINDINGS: DENSITY: There are scattered areas of fibroglandular density. BREASTS: There are stable masses and a postbiopsy clip in the right breast. There are no new suspicious masses, suspicious calcifications, or other suspicious findings in either breast. There has been no suspicious interval change. us Alexandra Robles MD IMG MAMMO PROCEDURES Final Re sult * Dexa Axial Skeleton Bone Density 1 or 2 Site (03/23/2024 9:56 AM CDT) Anatomical Region Laterality Modality Body N/A Other 03/23/2024 6:09 PM CDT Narrative 03/23/2024 6:09 PM CDT EXAM DESCRIPTION: DEXA AXIAL SKELETON BONE DENSITY 1 OR MORE SITES REASON FOR STUDY: 69 y/o year old F with given history of: Encounter for screening for osteoporosis Screening postmenopausal Entry Tech/Model: [employer]anium Discovery SL (S/N [id number]) CLINICAL INFORMATION: Current height: 69 inches Maximum height: 69 inches Weight: 246 pounds Risk factors: Postmenopausal COMPARISON: None available FINDINGS: AP LUMBAR SPINE L1-L4: Total BMD is 0.951 g/cm2 T-score is -0.9 LEFT HIP: Total BMD is 1.104 g/cm2 T-score is 1.3 Femoral neck BMD is 0.757 g/cm2 T-score is -0.8 FRAX: FRAX not reported due to T-scores of hip, femoral neck and/or spine being at or above -1.0 (Normal). IMPRESSION: Normal bone mass. REFERENCE: Bone mineral density: T-Score: Normal (T-score above or = -1.0) Low bone mass (T-score between -1.0 and -2.5) replaces the previously used term osteopenia Osteoporosis (T-score = or below -2.5) Z-Score: Within the expected range for age (Z-score above -2.0) Below the expected range for age (Z-score is -2.0 or below) Please see below follow up recommendations. Medical evaluation for secondary causes of low bone mineral density may be appropriate. FRAX is a World Health Organization validated fracture risk assessment tool that calculates a person's 10 year probability of a major osteoporosis related fracture and hip fracture. According to the National Osteoporosis Foundation guidelines, postmenopausal women and men age 50 or older with low bone mass and a 10 year probability of a major osteoporosis related fracture = or greater than 20% or a 10 year probability of a hip fracture = or greater than 3% should be considered for pharmacological treatment for the prevention of osteoporosis. For further information, including treatment recommendations, please refer to the 2019 ISCD Official Positions (http://www.iscd.org) and the NOF's Clinician's Guide to Prevention and Treatment of Osteoporosis (http://www.nof.org/professionals/clinical-guidelines) THIS IS AN ELECTRONICALLY VERIFIED FINAL REPORT 03/23/2024 6:09 PM - Electronically signed by Andrey Choi M.D. MF: FARHAT Report ID: [id number] Reading Location: [address] Note Andrey Choi MD - 03/23/2024 EXAM DESCRIPTION: DEXA AXIAL SKELETON BONE DENSITY 1 OR MORE SITES REASON FOR STUDY: 69 y/o year old F with given history of: Encounterfor screening for osteoporosis Screening postmenopausal Entry Tech/Model: Tanium Discovery SL (S/N [id number]) CLINICAL INFORMATION: Current height: 69 inches Maximum height: 69 inches Weight: 246 pounds Risk factors: Postmenopausal COMPARISON: None available FINDINGS: AP LUMBAR SPINE L1-L4: Total BMD is 0.951 g/cm2 T-score is -0.9 LEFT HIP: Total BMD is 1.104 g/cm2 T-score is 1.3 Femoral neck BMD is 0.757 g/cm2 T-score is -0.8 FRAX: FRAX not reported due to T-scores of hip, femoral neck and/or spine beingat or above -1.0 (Normal). IMPRESSION: Normal bone mass. REFERENCE: Bone mineral density: T-Score: Normal (T-score above or = -1.0) Low bone mass (T-score between -1.0 and -2.5) replaces thepreviously used term osteopenia Osteoporosis (T-score = or below -2.5) Z-Score: Within the expected range for age (Z-score above -2.0) Below the expected range for age (Z-score is -2.0 or below) Please see below follow up recommendations. Medical evaluation forsecondary causes of low bone mineral density may be appropriate. FRAX is a World Health Organization validated fracture risk assessmenttool that calculates a person's 10 year probability of a major osteoporosisrelated fracture and hip fracture. According to the National OsteoporosisFoundation guidelines, postmenopausal women and men age 50 or older with low bonemass and a 10 year probability of a major osteoporosis related fracture = or greater than 20% or a 10 year probability of a hip fracture = or greaterthan 3% should be considered for pharmacological treatment for the preventionof osteoporosis. For further information, including treatment recommendations, please referto the 2019 ISCD Official Positions (http://www.iscd.org) and the NOF's Clinician's Guide to Prevention and Treatment of Osteoporosis (http://www.nof.org/professionals/clinical-guidelines) THIS IS AN ELECTRONICALLY VERIFIED FINAL REPORT 03/23/2024 6:09 PM - Electronically signed by Andrey Choi M.D. MF: FARHAT Report ID: [id number] Reading Location: [id number] Alexandra Robles MD IMG DXA PROCEDURES Final Resu lt * COLONOSCOPY (12/16/2022 8:27 AM CUSTOMER DATA TECHNICIAN) Anatomical Region Laterality Modality Other Narrative Procedure Note Garnt Boyd MD - 12/16/2022 8:27 AM CST [facility] Patient Name: Kayla Crystal Procedure Date: 12/16/2022 8:27 AM Date of : 1955 Admit Type: Outpatient Age: 67 Gender: Female Attending MD: Grant Boyd M.D. Room: [facility] ENDOSCOPY ROOM 2 Note Status: Finalized Patient Profile: Refer to note in patient chart for documentation of history and physical. Procedure: Colonoscopy Indications: Family history of colon cancer in a first-degree relative before age 60 years, Last colonoscopy 5years ago Referring MD: Alexandra Robles M.D. Providers: Grant Boyd M.D. Impression: - Hemorrhoids found on perianal exam. - The entire examined colon is normal. - No specimens collected. Recommendation: - Discharge patient to home. - Resume previous diet. - Continue present medications. - Repeat colonoscopy in 5 years for surveillance. - Return to primary care physician as previously scheduled. Medicines: Propofol per Anesthesia Complications: No immediate complications. Estimated Blood Loss: Estimated blood loss: none. Procedure: Pre-Anesthesia Assessment: - This assessment was completed [Time ofAssessment] prior to the administration of sedation. The benefits, risks and alternatives of theprocedure and sedation were discussed and informed consentwas obtained. All questions were answered. Please referto the signed informed consent document in the medical record. The bowel preparation used was Miralax and bisacodyl tablets via split dose instruction. The scope was passed under direct vision. TheColonoscope [id number] was introduced through the anus and advanced to the the cecum, identified by appendiceal orifice and ileocecal valve. The colonoscopy was performed without difficulty. The patient tolerated the procedure well. The qualityof the bowel preparation was excellent. The ileocecal valve, appendiceal orifice, and rectum were photographed. Findings: Hemorrhoids were found on perianal exam. The colon (entire examined portion) appeared normal. Electronically signed by Grant Boyd M.D. Grant Boyd M.D. 12/16/2022 9:33:18 AM Number of Addenda: 0 Note Initiated On: 12/16/2022 8:27 AM Procedure Code(s): --- Professional --- 65827, Colonoscopy, flexible; diagnostic, including collection of specimen(s) by brushing or washing, when performed (separateprocedure) Diagnosis Code(s): --- Professional --- Z80.0, Family history of malignant neoplasm of digestive organs K64.9, Unspecified hemorrhoids CPT copyright 2020 [employer]. All rights reserved. The codes documented in this report are preliminary and upon line patrolman reviewmay be revised to meet current compliance requirements. Recognized by the [place]astrointestinal [employer]oscopy for promoting quality in endoscopy Grant Boyd MD ENDOSCOPY PROCEDURES Final Re sult from Last 3 Months or Most Recently Relevant to Health Maintenance Insurance [facility] [place] [place] [address] [facility] [place] [address] Advance Directives For more information, please contact: [phone] * Full Code (Latest Code Status on File) Date Activated Date Inactivated Comments 12/16/2022 8:29 AM 12/16/2022 3:09 PM * Full Code Date Activated Date Inactivated Comments 12/16/2022 8:29 AM 12/16/2022 8:29 AM * Full Code Date Activated Date Inactivated Comments 11/04/2018 3:12 PM 11/04/2018 8:18 PM Care Teams Systems Test Analyst Relationship Specialty Start Date End Date Alexandra Robles MD [address] [place] [id number] [facility] - General 03/14/21 Alexandra Robles MD [address] [place] [address] [id number] 03/14/21
--- OUTSIDE RECORDS SUMMARY | 2024-12-01 16:53 | XMS_ITS | Encounter Summary ---
Author Organization [facility] Healthcare Address [address] [place] [address] Care Team Providers Care State Tested Nursing Assistant Name Role Phone Benigno Crews MD Primary Care Provider [phone] Benigno Crews MD Unavailable [phone] Encounter Details Date Type Department Care Team (Late st Contact Info) Description 12/22/2022 Telephone [facility] [address] [place] [address] Monique Umaña RN Social History Tobacco Use Types Packs/Day Years [...] of Binge Drinking Not on file 11/20 Comments No Sex and Gender Information Value Date Recorded Sex Assigned at Not on file Legal Sex Female 12:29 AM AGRICULTURAL CONSULTANT Gender Identity Not on file Sexual Orientation Not on file documented as of this encounter Plan of Treatment Not on file documented as of this encounter Visit Diagnoses Not on filedocumented in this encounter Care Teams State Tested Nursing Assistant Relationship Specialty Start Date End Date Benigno Crews MD [address] [place] [address] PCP - General 03/14/21 Bengino Crews MD [address] [place] [address] 03/14/21 documented as of this encounter
--- OUTSIDE RECORDS SUMMARY | 2024-12-01 16:53 | XMS_ITS | Encounter Summary ---
Author Organization [facility] Healthcare Address [address] [place] [address] Care Team Providers Care Refrigerator Mover Name Role Phone Benigno Crews MD Primary Care Provider [phone] Benigno Crews MD Unavailable [phone] Encounter Details Date Type Department Care Team (Late st Contact Info) Description 12/18/2022 Telephone [facility] [address] [place] [address] Monique Umaña RN Social History Tobacco Use [...] on file Legal Sex Female 12:29 AM CLINICAL RESEARCH COORDINATOR Gender Identity Not on file Sexual Orientation Not on file documented as of this encounter Plan of Treatment Not on file documented as of this encounter Visit Diagnoses Not on filedocumented in this encounter Care Teams Refrigerator Mover Relationship Specialty Start Date End Date Benigno Crews MD [address] [place] [address] PCP - General 03/14/21 Benigno Crews MD [address] [place] [address] 03/14/21 documented as of this encounter
--- OUTSIDE RECORDS SUMMARY | 2024-12-01 16:53 | XMS_ITS | Referral Summary ---
Author Organization [facility] Address [address] [place] [address] Care Team Providers Care Bacon De Rinder Name Role Phone Alexandra Robles MD Primary Care Provider Alexandra Robles MD Unavailable [phone] Encounters Date Type Department Care Team Description 11/10/2024 8:21 AM MALLET AND DIE CUTTER - 11/10/2024 11:59 PM MALLET AND DIE CUTTER Hospital Encounter [facility] [address] [place] [address] Encounter for screening mammogram for malignant neoplasm of breast Discharge Disposition: Discharge to home or self care from Last 3 Months Allergies No known active allergies Medications hydroCHLOROthiaz [...] (11/14/2022): Added automatically from request for surgery [id number] Personal history of colonic polyps 11/14/2022 Overview (11/14/2022): Added automatically from request for surgery [id number] Encounter for screening colonoscopy 11/14/2022 Overview (11/14/2022): Added automatically from request for surgery [id number] Social History Tobacco Use Types Packs/Day Years [...] on file Legal Sex Female 12:29 AM MALLET AND DIE CUTTER Gender Identity Not on file Sexual Orientation [...] cm (5' 9 ) 11/10/2024 8:47 AM MALLET AND DIE CUTTER Body Mass Index 35.44 06/27/2024 11:33 AM CDT Plan of Treatment Not on file Procedures Procedure Name Priority Date/Time Associated Diagnosis Comments SCREENING MAMMOGRAM BILATERAL W DWAINE Schedule Routine, Read Routine (OP Routine) 11/10/2024 8:48 AM MALLET AND DIE CUTTER Encounter for screening mammogram for malignant neoplasm of breast DEXA AXIAL SKELETON BONE DENSITY 1 OR MORE SITES Schedule Routine, Read Routine (OP Routine) 03/23/2024 9:56 AM CDT Encounter for screening for osteoporosis COLONOSCOPY 12/16/2022 8:27 AM MALLET AND DIE CUTTER from Last 3 Months or Most Recently Relevant to Health Maintenance Results * Screening Mammogram Bilateral W Dwaine (11/10/2024 8:48 AM MALLET AND DIE CUTTER) Anatomical Region Laterality Modality Breast Bilateral Mammography 11/10/2024 8:58 AM MALLET AND DIE CUTTER Impressions 11/10/2024 8:58 AM MALLET AND DIE CUTTER There is no mammographic evidence of malignancy. A 1 year screening mammogram is recommended. BI-RADS: 2 - Benign. The patient has been or will be contacted. The patient will be entered into a reminder system with a target due date of 1 year for her next mammogram. Electronically signed by: Chiquis Contreras M.D. Narrative 11/10/2024 8:58 AM MALLET AND DIE CUTTER EXAMINATION: SCREENING MAMMOGRAM BILATERAL W DWAINE ORDERING [...] Encounter for screening for osteoporosis Screening postmenopausal Instructor Tap Dancing/Model: [employer] Discovery SL (S/N [id number]) CLINICAL INFORMATION: Current height: 69 inches Maximum [...] Andrey Choi M.D. MF: FARHAT Report ID: [id number] Reading Location: [place] [address] Procedure Note Andrey Choi MD - 03/23/2024 EXAM DESCRIPTION: DEXA AXIAL SKELETON BONE DENSITY 1 OR MORE SITES REASON FOR STUDY: 69 y/o year old F with given history of: Encounterfor screening for osteoporosis Screening postmenopausal Instructor Tap Dancing/Model: [employer] (S/N 11072) CLINICAL INFORMATION: Current height: 69 inches Maximum [...] Andrey Choi M.D. MF: FARHAT Report ID: [id number] Reading Location: [id number] Alexandra Robles MD IMG DXA PROCEDURES Final Resu lt * COLONOSCOPY (12/16/2022 8:27 AM MALLET AND DIE CUTTER) Anatomical Region Laterality Modality Other Narrative Procedure Note Grant Boyd MD - 12/16/2022 8:27 AM CST [facility] Patient Name: Kayla Crystal Procedure Date: 12/16/2022 8:27 AM Date of : 1955 Admit Type: Outpatient Age: 67 Gender: Female Attending MD: Grant Boyd M.D. Room: [facility] ENDOSCOPY ROOM 2 Note Status: Finalized [...] scope was passed under direct vision. TheColonoscope [id number] was introduced through the anus and advanced [...] 8:27 AM Procedure Code(s): --- Professional --- 38038, Colonoscopy, flexible; diagnostic, including collection of specimen(s) by brushing or washing, when performed (separateprocedure) Diagnosis Code(s): --- Professional --- Z80.0, Family history of malignant neoplasm of digestive organs K64.9, Unspecified hemorrhoids CPT copyright 2020 [employer]. All rights reserved. The codes documented in this report are preliminary and upon coder operator reviewmay be revised to meet current compliance requirements. Recognized by the [employer] [employer] for promoting quality in endoscopy Grant Boyd MD ENDOSCOPY PROCEDURES Final Re sult from Last 3 Months or Most Recently Relevant to Health Maintenance Insurance [id number] [place] [address] [facility] Advance Directives For more information, please contact: [phone] * Full Code (Latest Code Status on File) Date Activated Date Inactivated Comments 12/16/2022 8:29 AM 12/16/2022 3:09 PM * Full Code Date Activated Date Inactivated Comments 12/16/2022 8:29 AM 12/16/2022 8:29 AM * Full Code Date Activated Date Inactivated Comments 11/04/2018 3:12 PM 11/04/2018 8:18 PM Care Teams Bacon De Rinder Relationship Specialty Start Date End Date Alexandra Robles MD [address] [place] [address] PCP - General 03/14/21 Alexandra Robles MD [address] [place] [address] 03/14/21
--- OUTSIDE RECORDS SUMMARY | 2024-12-01 16:53 | XMS_ITS | Encounter Summary ---
Author Organization [facility] Healthcare Address [address] [place] [address] Care Team Providers Care Director Utilization Management Name Role Phone Benigno Crews MD Primary Care Provider [phone] Benigno Crews MD Unavailable [phone] Encounter Details Date Type Department Care Team (Late st Contact Info) Description 12/15/2022 Telephone [facility] [address] [place] [id number] Monique Umaña RN Social History Tobacco Use [...] on file Legal Sex Female 12:29 AM SURVEY SUPERINTENDENT Gender Identity Not on file Sexual Orientation Not on file documented as of this encounter Plan of Treatment Not on file documented as of this encounter Visit Diagnoses Not on filedocumented in this encounter Care Teams Director Utilization Management Relationship Specialty Start Date End Date Benigno Crwes MD [address] [place] [address] PCP - General 03/14/21 Benigno Crews MD [address] [place] [address] 03/14/21 documented as of this encounter
[2024-12-01 17:24] VITALS: BP 154/82; PULSE 74; RESP 20; TEMP 36.8; O2SAT 100
--- NOTE | 2024-12-01 18:59 | ED_ITS ---
HPI - URI/Sore Throat General Chief Complaint: Upper Respiratory Infection Stated Complaint: cold/flu symptoms Time Seen by Provider: 12/01/24 18:50 Source: patient, RN notes reviewed and old records reviewed Mode of arrival: ambulatory Limitations: no limitations History of Present Illness HPI Narrative: 69-year-old female who presents to Express bilateral ear pain and productive cough for past 2 days Patient reports that she has not had any fevers or any chills. Patient reports that she has been taking OTC cough medication for her symptoms. MD elicited complaint: cough and other (ear pain) Onset (ago): day(s) (2) Pain scale (0-10): 5 Treatments prior to arrival: other (cough medication) Related Data Home Medications ?Medication ?Instructions ?Recorded ?Confirmed ?Last Taken ?Type levothyroxine 137 mcg tablet 137 mcg PO DAILY 01/09/21 12/01/24 Unknown History lisinopril 20 mg tablet 20 mg PO DAILY 01/09/21 01/09/21 Unknown History simvastatin 20 mg tablet 20 mg PO DAILY 01/09/21 12/01/24 Unknown History famotidine 20 mg tablet mg 12/01/24 Unknown History levothyroxine 112 mcg tablet mcg 12/01/24 Unknown History simvastatin 40 mg tablet mg 12/01/24 Unknown History Allergies Allergy/AdvReac Type Severity Reaction Status Date / Time No Known Allergies Allergy Verified 12/01/24 17:31 Review of Systems Review of Systems: CONSTITUTIONAL: Denies malaise, chills, sweats, or fever. EYES: Denies visual changes, redness, or discharge. ENT: Reports rhinorrhea, congestion, no sinus pain, bilateral otalgia and no sore throat. CARDIOVASCULAR: Denies chest pain, palpitations, or edema. RESPIRATORY: Reports productive cough.? Denies dyspnea. GASTROINTESTINAL: Denies abdominal pain, nausea, vomiting, diarrhea SKIN: Denies rash or itching. MUSCULOSKELETAL: Denies myalgia. NEUROLOGIC: Denies headache. All systems reviewed & are unremarkable except as noted in HPI and below PMFSH Past Medical History Medical History (Updated 12/04/24 @ 19:04 by Lorena Savage NP) Bronchitis Hypercholesterolemia Hypertension Hypothyroidism Surgical History Surgical History (Updated 01/09/21 @ 18:00 by Eufemia Obando, ANESTHESIA DIRECTOR, ) H/O: hysterectomy Social History Social History (Updated 12/04/24 @ 19:04 by Lorena Savage NP) Smoking status: Never smoker Alcohol intake: current Alcohol use details: social Substance use type: does not use Living arrangements: with family Gender identity (if verbalized by the patient): Female Comments At time of signature, agree with nursing past medical, surgical, social and family history. There is no relevant family history pertinent to the presenting complaint Exam Narrative: GENERAL: Well-appearing, well-nourished, and in no acute distress. HEAD: Normocephalic EYES: PERRLA, conjunctivae clear ENT: Nares clear, turbinates edematous and erythematous, clear discharge. Mucous membranes moist.Right TM red Left TM pearly martinez with dull light reflex bilaterally; no tragal tenderness. Oropharynx erythematous without lesions. Tonsils not enlarged and without exudate, no drooling, no hoarseness, no trismus, uvula midlinepost nasal draiage noted. NECK: Supple. No lymphadenopathy CHEST: Clear to auscultation, breath sounds equal. No wheezing, rhonchi, rales, or stridor. No respiratory distress, speaks in full sentences.productive cough SAO2 100% on room air HEART: Regular rate and rhythm. No murmur heard. SKIN: Warm, dry, no rash. NEURO: Alert and oriented x3. PSYCH: Normal mood and affect Course Course Emergency Course: Patient is aware of diagnosis, understands and agrees to treatment plan.? Anticipatory guidance given.? Patient agrees to follow-up as directed and is aware of reasons to seek care at the emergency department. Portions of this record may have been created with voice recognition software Level of Care: Express Care Visit Vital Signs Vital signs: Vital Signs Temperature 36.8 C 12/01/24 17:24 Pulse Rate 74 12/01/24 17:24 Respiratory Rate 20 12/01/24 17:24 Blood Pressure 154/82 H 12/01/24 17:24 Pulse Oximetry 100 12/01/24 17:24 Oxygen Delivery Room Air 12/01/24 17:24 Temperature 36.8 C 12/01/24 17:24 Pulse Rate 74 12/01/24 17:24 Respiratory Rate 20 12/01/24 17:24 Blood Pressure 154/82 H 12/01/24 17:24 Pulse Oximetry 100 12/01/24 17:24 Oxygen Delivery Room Air 12/01/24 17:24 Reviewed MDM - URI/Sore Throat MDM Narrative Medical decision making narrative: Differential diagnosis considered: Smith virus, strep pharyngitis, allergic rhinitis, upper respiratory tract infection, sinusitis, rhinosinusitis, nasopharyngitis. viral pharyngitis, otitis media, otitis externa, pneumonia, bronchitis, viral cough syndrome, viral syndrome, and influenza.? Exam findings show no acute concerns or changes; patient is non-toxic appearing and is in no distress.? Patient is appropriate for outpatient treatment and follow-up. Differential Diagnosis Differential diagnosis: Likely upper respiratory infection, otitis media, viral infection, influenza and other (COVID, cough) Medical Records Attestation: I reviewed the patient's medical records. Lab Data Attestation: I reviewed the patient's lab results. Lab results narrative: COVID antigen negative,Influenza A negative, Influenza B negative Labs: Lab Results 12/01/24 Range/Units 17:40 POC Influenza A Ag Negative (Negative) POC Influenza B Ag Negative (Negative) POC SARS CoV-2 Ag Negative (Negative) Critical Care Time Critical Care Time Critical Care Time: No Discharge Plan Discharge Clinical Impression: Acute right otitis media Patient Disposition: Home, Self-Care Condition: Stable Instructions: Antibiotic Form, Ear Infection (GEN) Additional Instructions: Increase fluids especially juices and water [id number] cough and cold medicine of your choice for your symptoms Tylenol or Ibuprofen for any fever orpain Cough tablets as directed for cough--do not bite, chew or suck on--swallow whole Continue your inhaler/nebulizer as directed Steroids as directed--take with food heat to the face 20-30 minutes 4-6 times a day for pain Salt water gargles, throat lozenges or throat sprays as desired Antibiotic as directed--finish the medication If your symptoms persist, change or worsen significantly before you can contact your personal physician then please, without delay, go to the emergency department for further evaluation. Follow-up with PCP in 7-10 days or sooner if needed Follow up with PCP soon in regards to your blood pressure which is elevated above threshold for referral. Blood pressure above 120/80 may indicate pre- hypertension. 154/82 Patient Language: Citizen Of [place] Prescriptions: New amoxicillin 500 mg capsule 500 mg PO Q8H Qty: 30 0RF No Action simvastatin 40 mg tablet famotidine 20 mg tablet levothyroxine 112 mcg tablet levothyroxine 137 mcg tablet 137 mcg PO DAILY lisinopril 20 mg tablet 20 mg PO DAILY simvastatin 20 mg tablet 20 mg PO DAILY Follow-up/Referrals: Mara Arevalo RN [Primary Care Provider] - Time of Disposition: 19:14 Quality [place] Coma Scale Eyes: Open Verbal: Oriented and Alert Motor: Follows Commands Mary Coma Total Score: 15
[2024-12-01 19:05] LABS: EDCOVIDSCREEN Negative (Negative); EDINFLUASCREEN Negative (Negative); EDINFLUBSCREEN Negative (Negative)
== END 2024-12-01 19:20 | disposition home or self-care (01) ==
PROVIDERS: Emergency Provider Registered Nurse
DX: H66.91 Otitis media, unspecified, right ear (principal); Z20.822 Contact with and (suspected) exposure to COVID-19; I10 Essential (primary) hypertension; E78.00 Pure hypercholesterolemia, unspecified; E03.9 Hypothyroidism, unspecified
CPT/HCPCS: 87426; 87804; 99213; G0463

== ENCOUNTER 2025-02-05 16:44 | Emergency (ER) | payer MEDICARE, SELFPAY ==
--- OUTSIDE RECORDS SUMMARY | 2025-02-05 16:48 | XMS_ITS | Encounter Summary ---
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
--- OUTSIDE RECORDS SUMMARY | 2025-02-05 16:48 | XMS_ITS | Data Portability ---
[facility] Organization [facility] Address [address] [place] [address] Care Team Providers [employer] Inspector Name Role Phone BENIGNO ROBLES Primary Care Provider Assessment No assessment recorded. Plan of Treatment Reminders Order Date Submit Date Provider Last Modified By Organization Details Last Modified Time Details Appointments ANY 30 2024 10:30A M GOLDIE GAMBOA Not available Not available Not available Lab HbA1c (hemoglob in A1c), blood 2023 024 [facility], [address], [facility], [place], [address], 03/16/2024 14:13:09 CBC w/ auto diff 2023 024 [facility], [address] [place] [address], [facility], [place], [address], 03/16/2024 14:13:12 CMP, serum or plasma 2023 024 [facility], [address] [place] [address], [facility], [place], [address], 03/16/2024 14:13:08 lipid panel, serum 2023 024 [facility], [address] [facility], [facility], [place], [address], 03/16/2024 14:13:06 TSH, ultra-sen sitive, serum 2023 024 [facility], [address] [place] [address], [facility], [place], [address], 03/16/2024 14:13:11 CBC w/ auto diff 2023 024 [facility], [address] [place] [address], [facility], [place], [address], 11/03/2024 08:23:45 CMP, serum or plasma 2023 024 [facility], [address] [place] [address], [facility], [place], [address], 11/03/2024 08:23:43 TSH, ultra-sen sitive, serum 2023 024 [facility], [address] [place] [address], [facility], [place], [address], 11/03/2024 08:23:44 lipid panel, serum 2023 024 [facility], [address] [place] [address], [facility], [place], [address], 11/03/2024 08:23:42 HbA1c (hemoglob in A1c), blood 2022 023 [facility], [address] [place] [address], [facility], [place], [address], 07/11/2023 04:20:52 CBC w/ auto diff 2022 023 [facility], [address] [place] [address], [facility], [place], [address], 07/10/2023 20:08:14 CMP, serum or plasma 2022 023 [facility], [address] [place] [address], [facility], [place], [address], 07/10/2023 20:08:13 vitamin B12, serum 2022 023 [facility], [address] [place] [address], [facility], [place], [address], 07/11/2023 04:20:52 TSH, ultra-sen sitive, serum 2022 023 [facility], [address] [facility], [place], [address], 07/11/2023 04:20:53 lipid panel, serum 2022 023 [facility], [address] [facility], [place], [address], 07/10/2023 20:08:13 Referral None recorded. Procedures None recorded. Surgeries None recorded. Imaging MAMMO, screening , digital, bilateral 2024 025 [facility], [address] [place] [address], [address], 11/10/2024 10:02:12 Medication Orders famotidin e 20 mg tablet 2024 025 [id number] [id number], [address] [place], [address], 11/28/2024 13:38:16 simvastat in 40 mg tablet 2024 025 [id number] [address] [place], [address], 11/04/2024 11:22:43 triamcino lone acetonide 0.1 % topical cream 2024 025 [id number], [address] [place], [address], 11/04/2024 11:21:40 triamcino lone acetonide 0.1 % topical cream 2023 024 [id number], [address] [place], [address], 07/12/2024 11:28:39 tizanidin e 4 mg tablet 2023 024 [id number], [address] [place], [address], 03/15/2024 11:35:57 famotidin e 20 mg tablet 2023 024 [id number], [address] [place], [address], 03/15/2024 11:31:55 Patient TargetsNo targets recorded. Patient Instructions Encounter Date Encounter Id Patient Instructions Last Modified By Organization Details Last Modified Time 07/10/2023 [id number] A healthy lifestyle: care instructions nsuthan Not available 07/10/2023 11:29:16 f/u in 4 month [facility] Not available 0 07/10/2023 11:29:36 11/10/2023 [id number] A healthy lifestyle: care instructions nsuthan Not available 11/10/2023 11:33:22 f/u in 4month [facility] Not available 11:33:21 03/15/2024 [id number] low back pain: exercises nsuthan Not available 03/15/2024 11:35:35 f/u in 4 month [facility] Not available 0 03/15/2024 11:35:57 07/12/2024 [id number] prediabetes: car e instructions nsuthan Not available 07/12/2024 11:28:37 f/u in 4 month nsuthan Not available 0 07/12/2024 11:28:36 11/04/2024 [id number] f/u in 4 month nsuthan Not available 11/04/2024 11:27:52 Reason for Referral None Reported. Results Created Date Observation Date Name Description Value Unit Range Abnormal Flag Note LastModifiedBy Organization Detail LastModifiedTime 07/10/20 23 07/10/2023 LIPID PANEL cholesterol, total 184 mg/dL 100-19 9 Not Available [facility] Department [address] [place] [address], [address], 07/10/2023 20:08:12 07/10/20 23 07/10/2023 LIPID PANEL triglyceride s 298 mg/dL 0-149 above high normal Not Available [facility] Department [address] [place], [address], 07/10/2023 20:08:12 07/10/20 23 07/10/2023 LIPID PANEL HDL cholesterol 43 mg/dL 40-999 Not Available [facility] [place] Department [address] [place] [address], [address], 07/10/2023 20:08:12 07/10/20 23 07/10/2023 LIPID PANEL VLDL cholesterol deshawn 60 mg/dL 5-40 above high normal Not Available [facility] Department [address] [place] [address], [address], 07/10/2023 20:08:12 07/10/20 23 07/10/2023 LIPID PANEL LDL chol calc (nih) 127 mg/dL 0-99 above high normal Not Available [facility] Department [address] [place] [address], [address], 07/10/2023 20:08:12 07/10/20 23 07/10/2023 COMP. METAB OLIC PANEL (14) glucose 103 mg/dL 70-99 above high normal Not Available [facility] Department [address] [place] [address], [address], 07/10/2023 20:08:13 07/10/20 23 07/10/2023 COMP. METAB OLIC PANEL (14) BUN 22 mg/dL 8-27 Not Available [facility] Department [address] [place] [address], [address], 07/10/2023 20:08:13 07/10/20 23 07/10/2023 COMP. METAB OLIC PANEL (14) creatinine 0.82 mg/dL 0.76-1 .27 Not Available [facility] Department [address] [place] [address], [address], 07/10/2023 20:08:13 07/10/20 23 07/10/2023 COMP. METAB [...] kirill that value . Not Available [facility] Department [address] [place] [address], [address], 07/10/2023 20:08:13 07/10/20 23 07/10/2023 COMP. METAB OLIC PANEL (14) BUN/creatini ne ratio 27 10-28 Not Available [facility] Department [address] [place] [address], [address], 07/10/2023 20:08:13 07/10/20 23 07/10/2023 COMP. METAB OLIC PANEL (14) sodium 140 mmol/ L 134-14 4 Not Available [facility] Department [address] [place] [address], [address], 07/10/2023 20:08:13 07/10/20 23 07/10/2023 COMP. METAB OLIC PANEL (14) potassium 4.7 mmol/ L 3.5-5. 2 Not Available [facility] Department [address] [place] [address], [address], 07/10/2023 20:08:13 07/10/20 23 07/10/2023 COMP. METAB OLIC PANEL (14) chloride 101 mmol/ L 96-106 Not Available [facility] Department [address] [place] [address], [address], 07/10/2023 20:08:13 07/10/20 23 07/10/2023 COMP. METAB OLIC PANEL (14) carbon dioxide, total 25 mmol/ L 20-29 Not Available [facility] Department [address] [place] [address], [address], 07/10/2023 20:08:13 07/10/20 23 07/10/2023 COMP. METAB OLIC PANEL (14) calcium 9.9 mg/dL 8.7-10 .3 Not Available [facility] Department [address] [place], [address], 07/10/2023 20:08:13 07/10/20 23 07/10/2023 COMP. METAB OLIC PANEL (14) protein, total 7.3 g/dL 6.0-8. 5 Not Available [facility] Department [address] [place], [address], 07/10/2023 20:08:13 07/10/20 23 07/10/2023 COMP. METAB OLIC PANEL (14) albumin 4.4 g/dL 3.8-4. 8 Not Available [facility] Department [address] [place], [address], 07/10/2023 20:08:13 07/10/20 23 07/10/2023 COMP. METAB OLIC PANEL (14) globulin, total 2.9 g/dL 1.5-4. 5 Not Available [facility] Department [address] [place], [address], 07/10/2023 20:08:13 07/10/20 23 07/10/2023 COMP. METAB OLIC PANEL (14) A/G ratio 2.0 1.2-2. 2 Not Available [facility] Department [address] [place], [address], 07/10/2023 20:08:13 07/10/20 23 07/10/2023 COMP. METAB OLIC PANEL (14) bilirubin, total 0.4 mg/dL 0.0-1. 2 Not Available [facility] Department [address] [place], [address], 07/10/2023 20:08:13 07/10/20 23 07/10/2023 COMP. METAB OLIC PANEL (14) alkaline phosphatase 81 IU/L 44-121 Not Available [facility] Department [address] [place], [address], 07/10/2023 20:08:13 07/10/20 23 07/10/2023 COMP. METAB OLIC PANEL (14) AST (SGOT) 18 IU/L 0-40 Not Available [facility] Department [address] [place], [address], 07/10/2023 20:08:13 07/10/20 23 07/10/2023 COMP. METAB OLIC PANEL (14) ALT (SGPT) 13 IU/L 0-32 Not Available [facility] Department [address] [place], [address], 07/10/2023 20:08:13 07/10/20 23 07/10/2023 CBC WITH DIFFE RENTI AL/PL ATELE T WBC 7.7 x10e3 /uL 3.4-10 .8 Not Available [facility] Department [address] [place] [address], [address], 07/10/2023 20:08:14 07/10/20 23 07/10/2023 CBC WITH DIFFE RENTI AL/PL ATELE T RBC 4.52 x10e6 /uL 3.77-5 .28 Not Available [facility] Department [address] [place] [address], [address], 07/10/2023 20:08:14 07/10/20 23 07/10/2023 CBC WITH DIFFE RENTI AL/PL ATELE T hemoglobin 13.2 g/dL 11.1-1 5.9 Not Available [facility] Department [address] [place], [address], 07/10/2023 20:08:14 07/10/20 23 07/10/2023 CBC WITH DIFFE RENTI AL/PL ATELE T hematocrit 41.0 % 34.0-4 6.6 Not Available [facility] Department [address] [place] [address], [address], 07/10/2023 20:08:14 07/10/20 23 07/10/2023 CBC WITH DIFFE RENTI AL/PL ATELE T MCV 91 fL 79-97 Not Available [facility] Department [address] [place], [address], 07/10/2023 20:08:14 07/10/20 23 07/10/2023 CBC WITH DIFFE RENTI AL/PL ATELE T MCH 29.2 pg 26.6-3 3.0 Not Available [facility] Department [address] [place], [address], 07/10/2023 20:08:14 07/10/20 23 07/10/2023 CBC WITH DIFFE RENTI AL/PL ATELE T MCHC 32.2 g/dL 31.5-3 5.7 Not Available [facility] Department [address] [place], [address], 07/10/2023 20:08:14 07/10/20 23 07/10/2023 CBC WITH DIFFE RENTI AL/PL ATELE T RDW 13.1 % 11.5-1 4.5 Not Available [facility] Department [address] [place], [address], 07/10/2023 20:08:14 07/10/20 23 07/10/2023 CBC WITH DIFFE RENTI AL/PL ATELE T platelets 209 x10e3 /uL 150-45 0 Not Available [facility] Department [address] [place], [address], 07/10/2023 20:08:14 07/10/20 23 07/10/2023 CBC WITH DIFFE RENTI AL/PL ATELE T neutrophils 53 % notest b. Not Available [facility] Department [address] [place], [address], 07/10/2023 20:08:14 07/10/20 23 07/10/2023 CBC WITH DIFFE RENTI AL/PL ATELE T lymphs 34 % notest b. Not Available [facility] Department [address] [place], [address], 07/10/2023 20:08:14 07/10/20 23 07/10/2023 CBC WITH DIFFE RENTI AL/PL ATELE T monocytes 8 % notest b. Not Available [facility] Department [address] [place], [address], 07/10/2023 20:08:14 07/10/20 23 07/10/2023 CBC WITH DIFFE RENTI AL/PL ATELE T eos 4 % notest b. Not Available [facility] Department [address] [place], [address], 07/10/2023 20:08:14 07/10/20 23 07/10/2023 CBC WITH DIFFE RENTI AL/PL ATELE T basos 1 % notest b. Not Available [facility] Department [address] [place], [address], 07/10/2023 20:08:14 07/10/20 23 07/10/2023 CBC WITH DIFFE RENTI AL/PL ATELE T neutrophils (absolute) 4.1 x10e3 /uL 1.4-7. 0 Not Available [facility] Department [address] [place], [address], 07/10/2023 20:08:14 07/10/20 23 07/10/2023 CBC WITH DIFFE RENTI AL/PL ATELE T lymphs (absolute) 2.6 x10e3 /uL 0.7-3. 1 Not Available [facility] Department [address] [place], [address], 07/10/2023 20:08:14 07/10/20 23 07/10/2023 CBC WITH DIFFE RENTI AL/PL ATELE T monocytes(ab solute) 0.6 x10e3 /uL 0.1-0. 9 Not Available [facility] Department [address] [place], [address], 07/10/2023 20:08:14 07/10/20 23 07/10/2023 CBC WITH DIFFE RENTI AL/PL ATELE T eos (absolute) 0.3 x10e3 /uL 0.0-0. 4 Not Available [facility] Department [address] [place], [address], 07/10/2023 20:08:14 07/10/20 23 07/10/2023 CBC WITH DIFFE RENTI AL/PL ATELE T baso (absolute) 0.1 x10e3 /uL 0.0-0. 2 Not Available [facility] Department [address] [place], [address], 07/10/2023 20:08:14 07/10/20 23 07/10/2023 CBC WITH DIFFE RENTI AL/PL ATELE T immature granulocytes 0.3 % notest b. Not Available [facility] Department [address] [place], [address], 07/10/2023 20:08:14 07/10/20 23 07/10/2023 CBC WITH DIFFE RENTI AL/PL ATELE T immature grans (abs) 0.0 x10e3 /uL 0.0-0. 1 Not Available [facility] Department [address] [place], [address], 07/10/2023 20:08:14 07/10/20 23 07/10/2023 CBC WITH DIFFE RENTI AL/PL ATELE T NRBC 0 % 0-0 Not Available [facility] Department [address] [place], [address], 07/10/2023 20:08:14 07/10/20 23 07/11/2023 HEMOG LOBIN A1C hemoglobin A1C 6.2 % 4.8-5. 6 above high normal Predi abete s: 5.7 - 6.4 Diabe rubio: >6.4 Glyce alexandro contr ol for adult s with diabe rubio: <7.0 Not Available [facility] ([facility]) [address] [facility], [place], [address], 07/11/2023 04:20:52 07/10/20 23 07/11/2023 VITAM IN B12 vitamin B12 400 pg/mL 232-12 45 Not Available [facility] ([facility]) [address] [facility] [place], [address], 07/11/2023 04:20:52 07/10/20 23 07/11/2023 TSH TSH 0.170 uIU/m L 0.450- 4.500 below low normal Not Available [facility] ([facility]) [address] [facility] [place], [address], 07/11/2023 04:20:53 03/15/20 24 03/16/2024 LIPID PANEL cholesterol, total 150 mg/dL 100-19 9 Not Available [facility] ([facility]) [address] [place], [address], 03/16/2024 14:13:06 03/15/20 24 03/16/2024 LIPID PANEL triglyceride s 269 mg/dL 0-149 above high normal Not Available [facility] ([facility]) [address] [place], [address], 03/16/2024 14:13:06 03/15/20 24 03/16/2024 LIPID PANEL HDL cholesterol 39 mg/dL >39 below low normal Not Available [facility] ([facility]) [address] [place], [address], 03/16/2024 14:13:06 03/15/20 24 03/16/2024 LIPID PANEL VLDL cholesterol deshawn 43 mg/dL 5-40 above high normal Not Available [facility] ([facility]) [address] [place], [address], 03/16/2024 14:13:06 03/15/20 24 03/16/2024 LIPID PANEL LDL chol calc ([facility]) 68 mg/dL 0-99 Not Available [facility] ([facility]) [address] [place], [address], 03/16/2024 14:13:06 03/15/20 24 03/16/2024 COMP. METAB OLIC PANEL (14) glucose 94 mg/dL 70-99 Not Available [facility] ([facility]) [address] [facility], [place], [address], 03/16/2024 14:13:08 03/15/20 24 03/16/2024 COMP. METAB OLIC PANEL (14) BUN 15 mg/dL 8-27 Not Available [facility] ([facility]) [address] [facility], [place], [address], 03/16/2024 14:13:08 03/15/20 24 03/16/2024 COMP. METAB OLIC PANEL (14) creatinine 0.81 mg/dL 0.57-1 .00 Not Available [facility] ([facility]) [address] [facility], [place], [address], 03/16/2024 14:13:08 03/15/20 24 03/16/2024 COMP. METAB OLIC PANEL (14) eGFR 79 mL/mi n/1.7 3 >59 Not Available [facility] ([facility]) [address] [facility], [place], [address], 03/16/2024 14:13:08 03/15/20 24 03/16/2024 COMP. METAB OLIC PANEL (14) BUN/creatini ne ratio 19 12-28 Not Available [facility] ([facility]) [address] [facility], [place], [address], 03/16/2024 14:13:08 03/15/20 24 03/16/2024 COMP. METAB OLIC PANEL (14) sodium 137 mmol/ L 134-14 4 Not Available [facility] ([facility]) [address] [facility], [place], [address], 03/16/2024 14:13:08 03/15/20 24 03/16/2024 COMP. METAB OLIC PANEL (14) potassium 4.6 mmol/ L 3.5-5. 2 Not Available [facility] ([facility]) [address] [facility] [place], [address], 03/16/2024 14:13:08 03/15/20 24 03/16/2024 COMP. METAB OLIC PANEL (14) chloride 103 mmol/ L 96-106 Not Available [facility] ([facility]) [address] [facility] [place], [address], 03/16/2024 14:13:08 03/15/20 24 03/16/2024 COMP. METAB OLIC PANEL (14) carbon dioxide, total 21 mmol/ L - Not Available [facility] ([facility]) [address] [facility] [place], [address], 03/16/2024 14:13:08 03/15/20 24 03/16/2024 COMP. METAB OLIC PANEL (14) calcium 9.8 mg/dL 8.7-10 .3 Not Available [facility] ([facility]) [address] [facility] [place], [address], 03/16/2024 14:13:08 03/15/20 24 03/16/2024 COMP. METAB OLIC PANEL (14) protein, total 7.2 g/dL 6.0-8. 5 Not Available [facility] ([facility]) [address] [facility] [place], [address], 03/16/2024 14:13:08 03/15/20 24 03/16/2024 COMP. METAB OLIC PANEL (14) albumin 4.4 g/dL 3.9-4. 9 Not Available [facility] ([facility]) [address] [facility] [place], [address], 03/16/2024 14:13:08 03/15/20 24 03/16/2024 COMP. METAB OLIC PANEL (14) globulin, total 2.8 g/dL 1.5-4. 5 Not Available [facility] ([facility]) [address] [facility] [place], [address], 03/16/2024 14:13:08 03/15/20 24 03/16/2024 COMP. METAB OLIC PANEL (14) A/G ratio 1.6 1.2-2. 2 Not Available [facility] ([facility]) [address] [facility] [place], [address], 03/16/2024 14:13:08 03/15/20 24 03/16/2024 COMP. METAB OLIC PANEL (14) bilirubin, total 0.4 mg/dL 0.0-1. 2 Not Available [facility] ([facility]) [address] [facility] [place], [address], 03/16/2024 14:13:08 03/15/20 24 03/16/2024 COMP. METAB OLIC PANEL (14) alkaline phosphatase 79 IU/L 44-121 Not Available [facility] ([facility]) [address] [place], [address], 03/16/2024 14:13:08 03/15/20 24 03/16/2024 COMP. METAB OLIC PANEL (14) AST (SGOT) 22 IU/L 0-40 Not Available [facility] ([facility]) [address] [place], [address], 03/16/2024 14:13:08 03/15/20 24 03/16/2024 COMP. METAB OLIC PANEL (14) ALT (SGPT) 14 IU/L 0-32 Not Available [facility] ([facility]) [address] [place], [address], 03/16/2024 14:13:08 03/15/20 24 03/16/2024 HEMOG LOBIN A1C hemoglobin A1C 6.3 % 4.8-5. 6 above high normal Predi abete s: 5.7 - 6.4 Diabe rubio: >6.4 Glyce alexandro contr ol for adult s with diabe rubio: <7.0 Not Available [facility] ([facility]) [address] [facility], [place], [address], 03/16/2024 14:13:09 03/15/20 24 03/16/2024 TSH TSH 1.050 uIU/m L 0.450- 4.500 Not Available [facility] ([facility]) [address] [facility], [place], [address], 03/16/2024 14:13:11 03/15/20 24 03/16/2024 CBC WITH DIFFE RENTI AL/PL ATELE T WBC 7.0 x10e3 /uL 3.4-10 .8 Not Available [facility] ([facility]) [address] [facility], [place], [address], 03/16/2024 14:13:12 03/15/20 24 03/16/2024 CBC WITH DIFFE RENTI AL/PL ATELE T RBC 4.56 x10e6 /uL 3.77-5 .28 Not Available [facility] ([facility]) [address] [facility], [place], [address], 03/16/2024 14:13:12 03/15/20 24 03/16/2024 CBC WITH DIFFE RENTI AL/PL ATELE T hemoglobin 13.5 g/dL 11.1-1 5.9 Not Available [facility] ([facility]) [address] [place], [address], 03/16/2024 14:13:12 03/15/20 24 03/16/2024 CBC WITH DIFFE RENTI AL/PL ATELE T hematocrit 40.9 % 34.0-4 6.6 Not Available [facility] ([facility]) [address] [place], [address], 03/16/2024 14:13:12 03/15/20 24 03/16/2024 CBC WITH DIFFE RENTI AL/PL ATELE T MCV 90 fL 79-97 Not Available [facility] ([facility]) [address] [facility], [place], [address], 03/16/2024 14:13:12 03/15/20 24 03/16/2024 CBC WITH DIFFE RENTI AL/PL ATELE T MCH 29.6 pg 26.6-3 3.0 Not Available [facility] ([facility]) [address] [facility], [place], [address], 03/16/2024 14:13:12 03/15/20 24 03/16/2024 CBC WITH DIFFE RENTI AL/PL ATELE T MCHC 33.0 g/dL 31.5-3 5.7 Not Available [facility] ([facility]) [address] [facility], [place], [address], 03/16/2024 14:13:12 03/15/20 24 03/16/2024 CBC WITH DIFFE RENTI AL/PL ATELE T RDW 13.2 % 11.7-1 5.4 Not Available [facility] ([facility]) [address] [place], [address], 03/16/2024 14:13:12 03/15/20 24 03/16/2024 CBC WITH DIFFE RENTI AL/PL ATELE T platelets 197 x10e3 /uL 150-45 0 Not Available [facility] ([facility]) [address] [place], [address], 03/16/2024 14:13:12 03/15/20 24 03/16/2024 CBC WITH DIFFE RENTI AL/PL ATELE T neutrophils 55 % notest ab. Not Available [facility] ([facility]) [address] [place], [address], 03/16/2024 14:13:12 03/15/20 24 03/16/2024 CBC WITH DIFFE RENTI AL/PL ATELE T lymphs 32 % notest ab. Not Available [facility] ([facility]) [address] [facility], [place], [address], 03/16/2024 14:13:12 03/15/20 24 03/16/2024 CBC WITH DIFFE RENTI AL/PL ATELE T monocytes 8 % notest ab. Not Available [facility] ([facility]) [address] [facility], [place], [address], 03/16/2024 14:13:12 03/15/20 24 03/16/2024 CBC WITH DIFFE RENTI AL/PL ATELE T eos 4 % notest ab. Not Available [facility] ([facility]) [address] [facility], [place], [address], 03/16/2024 14:13:12 03/15/20 24 03/16/2024 CBC WITH DIFFE RENTI AL/PL ATELE T basos 1 % notest ab. Not Available [facility] ([facility]) [address] [facility], [place], [address], 03/16/2024 14:13:12 03/15/20 24 03/16/2024 CBC WITH DIFFE RENTI AL/PL ATELE T neutrophils (absolute) 3.8 x10e3 /uL 1.4-7. 0 Not Available [facility] ([facility]) [address] [facility], [place], [address], 03/16/2024 14:13:12 03/15/20 24 03/16/2024 CBC WITH DIFFE RENTI AL/PL ATELE T lymphs (absolute) 2.3 x10e3 /uL 0.7-3. 1 Not Available [facility] ([facility]) [address] [facility], [place], [address], 03/16/2024 14:13:12 03/15/20 24 03/16/2024 CBC WITH DIFFE RENTI AL/PL ATELE T monocytes(ab solute) 0.6 x10e3 /uL 0.1-0. 9 Not Available [facility] ([facility]) [address] [facility], [place], [address], 03/16/2024 14:13:12 03/15/20 24 03/16/2024 CBC WITH DIFFE RENTI AL/PL ATELE T eos (absolute) 0.3 x10e3 /uL 0.0-0. 4 Not Available [facility] ([facility]) [address] [facility], [place], [address], 03/16/2024 14:13:12 03/15/20 24 03/16/2024 CBC WITH DIFFE RENTI AL/PL ATELE T baso (absolute) 0.1 x10e3 /uL 0.0-0. 2 Not Available [facility] ([facility]) [address] [facility], [place], [address], 03/16/2024 14:13:12 03/15/20 24 03/16/2024 CBC WITH DIFFE RENTI AL/PL ATELE T immature granulocytes 0 % notest ab. Not Available [facility] ([facility]) [address] [facility], [place], [address], 03/16/2024 14:13:12 03/15/20 24 03/16/2024 CBC WITH DIFFE RENTI AL/PL ATELE T immature grans (abs) 0.0 x10e3 /uL 0.0-0. 1 Not Available [facility] ([facility]) [address] [place], [address], 03/16/2024 14:13:12 11/02/19 25 11/03/2024 LIPID PANEL cholesterol, total 161 mg/dL 100-19 9 Not Available [facility] ([facility]) [address] [facility], [place], [address], 11/03/2024 08:23:42 11/02/19 25 11/03/2024 LIPID PANEL triglyceride s 185 mg/dL 0-149 above high normal Not Available [facility] ([facility]) [address] [place], [address], 11/03/2024 08:23:42 11/02/19 25 11/03/2024 LIPID PANEL HDL cholesterol 48 mg/dL >39 Not Available [facility] ([facility]) [address] [place], [address], 11/03/2024 08:23:42 11/02/19 25 11/03/2024 LIPID PANEL VLDL cholesterol deshawn 31 mg/dL 5-40 Not Available [facility] ([facility]) [address] [place], [address], 11/03/2024 08:23:42 11/02/19 25 11/03/2024 LIPID PANEL LDL chol calc ([facility]) 82 mg/dL 0-99 Not Available [facility] ([facility]) [address] [place], [address], 11/03/2024 08:23:42 11/02/19 25 11/03/2024 COMP. METAB OLIC PANEL (14) glucose 87 mg/dL 70-99 Not Available [facility] ([facility]) [address] [place], [address], 11/03/2024 08:23:43 11/02/19 25 11/03/2024 COMP. METAB OLIC PANEL (14) BUN 16 mg/dL 8-27 Not Available [facility] ([facility]) [address] [place], [address], 11/03/2024 08:23:43 11/02/19 25 11/03/2024 COMP. METAB OLIC PANEL (14) creatinine 0.89 mg/dL 0.57-1 .00 Not Available [facility] ([facility]) [address] [place], [address], 11/03/2024 08:23:43 11/02/19 25 11/03/2024 COMP. METAB OLIC PANEL (14) eGFR 71 mL/mi n/1.7 3 >59 Not Available [facility] ([facility]) [address] [facility], [place], [address], 11/03/2024 08:23:43 11/02/19 25 11/03/2024 COMP. METAB OLIC PANEL (14) BUN/creatini ne ratio 18 12-28 Not Available [facility] ([facility]) [address] [facility], [place], [address], 11/03/2024 08:23:43 11/02/19 25 11/03/2024 COMP. METAB OLIC PANEL (14) sodium 139 mmol/ L 134-14 4 Not Available [facility] ([facility]) [address] [facility], [place], [address], 11/03/2024 08:23:43 11/02/19 25 11/03/2024 COMP. METAB OLIC PANEL (14) potassium 4.5 mmol/ L 3.5-5. 2 Not Available [facility] ([facility]) [address] [facility], [place], [address], 11/03/2024 08:23:43 11/02/19 25 11/03/2024 COMP. METAB OLIC PANEL (14) chloride 100 mmol/ L 96-106 Not Available [facility] ([facility]) [address] [facility], [place], [address], 11/03/2024 08:23:43 11/02/19 25 11/03/2024 COMP. METAB OLIC PANEL (14) carbon dioxide, total 25 mmol/ L 20-29 Not Available [facility] ([facility]) [address] [place], [address], 11/03/2024 08:23:43 11/02/19 25 11/03/2024 COMP. METAB OLIC PANEL (14) calcium 9.4 mg/dL 8.7-10 .3 Not Available [facility] ([facility]) [address], [place], [address], 11/03/2024 08:23:43 11/02/19 25 11/03/2024 COMP. METAB OLIC PANEL (14) protein, total 7.0 g/dL 6.0-8. 5 Not Available [facility] ([facility]) [address], [place], [address], 11/03/2024 08:23:43 11/02/19 25 11/03/2024 COMP. METAB OLIC PANEL (14) albumin 4.6 g/dL 3.9-4. 9 Not Available [facility] ([facility]) [address], [place], [address], 11/03/2024 08:23:43 11/02/19 25 11/03/2024 COMP. METAB OLIC PANEL (14) globulin, total 2.4 g/dL 1.5-4. 5 Not Available [facility] ([facility]) [address], [place], [address], 11/03/2024 08:23:43 11/02/19 25 11/03/2024 COMP. METAB OLIC PANEL (14) bilirubin, total 0.4 mg/dL 0.0-1. 2 Not Available [facility] ([facility]) [address], [place], [address], 11/03/2024 08:23:43 11/02/19 25 11/03/2024 COMP. METAB OLIC PANEL (14) alkaline phosphatase 76 IU/L 44-121 Not Available [facility] ([facility]) [address] [place], [address], 11/03/2024 08:23:43 11/02/19 25 11/03/2024 COMP. METAB OLIC PANEL (14) AST (SGOT) 17 IU/L 0-40 Not Available [facility] ([facility]) [address] [place], [address], 11/03/2024 08:23:43 11/02/1911/03/2024 COMP. METAB OLIC PANEL (14) ALT (SGPT) 13 IU/L 0-32 Not Available [facility] ([facility]) [address] [facility], [place], [address], 11/03/2024 08:23:43 11/02/1911/03/2024 TSH TSH 0.945 uIU/m L 0.450- 4.500 Not Available [facility] ([facility]) [address] [place], [address], 11/03/2024 08:23:44 11/02/1911/03/2024 CBC WITH DIFFE RENTI AL/PL ATELE T WBC 8.2 x10e3 /uL 3.4-10 .8 Not Available [facility] ([facility]) [address] [place], [address], 11/03/2024 08:23:45 11/02/1911/03/2024 CBC WITH DIFFE RENTI AL/PL ATELE T RBC 4.50 x10e6 /uL 3.77-5 .28 Not Available [facility] ([facility]) [address] [place], [address], 11/03/2024 08:23:45 11/02/1911/03/2024 CBC WITH DIFFE RENTI AL/PL ATELE T hemoglobin 13.7 g/dL 11.1-1 5.9 Not Available [facility] ([facility]) [address] [place], [address], 11/03/2024 08:23:45 11/02/1911/03/2024 CBC WITH DIFFE RENTI AL/PL ATELE T hematocrit 41.2 % 34.0-4 6.6 Not Available [facility] ([facility]) [address] [place], [address], 11/03/2024 08:23:45 11/02/19 25 11/03/2024 CBC WITH DIFFE RENTI AL/PL ATELE T MCV 92 fL 79-97 Not Available [facility] ([facility]) [address] [facility], [place], [address], 11/03/2024 08:23:45 11/02/19 25 11/03/2024 CBC WITH DIFFE RENTI AL/PL ATELE T MCH 30.4 pg 26.6-3 3.0 Not Available [facility] ([facility]) [address] [facility], [place], [address], 11/03/2024 08:23:45 11/02/19 25 11/03/2024 CBC WITH DIFFE RENTI AL/PL ATELE T MCHC 33.3 g/dL 31.5-3 5.7 Not Available [facility] ([facility]) [address] [facility], [place], [address], 11/03/2024 08:23:45 11/02/19 25 11/03/2024 CBC WITH DIFFE RENTI AL/PL ATELE T RDW 12.4 % 11.7-1 5.4 Not Available [facility] ([facility]) [address] [facility], [place], [address], 11/03/2024 08:23:45 11/02/19 25 11/03/2024 CBC WITH DIFFE RENTI AL/PL ATELE T platelets 213 x10e3 /uL 150-45 0 Not Available [facility] ([facility]) [address] [facility], [place], [address], 11/03/2024 08:23:45 11/02/19 25 11/03/2024 CBC WITH DIFFE RENTI AL/PL ATELE T neutrophils 58 % notest ab. Not Available [facility] ([facility]) [address] [facility], [place], [address], 11/03/2024 08:23:45 11/02/19 25 11/03/2024 CBC WITH DIFFE RENTI AL/PL ATELE T lymphs 32 % notest ab. Not Available [facility] ([facility]) [address] [facility], [place], [address], 11/03/2024 08:23:45 11/02/19 25 11/03/2024 CBC WITH DIFFE RENTI AL/PL ATELE T monocytes 6 % notest ab. Not Available [facility] ([facility]) [address] [facility], [place], [address], 11/03/2024 08:23:45 11/02/19 25 11/03/2024 CBC WITH DIFFE RENTI AL/PL ATELE T eos 3 % notest ab. Not Available [facility] ([facility]) [address] [facility], [place], [address], 11/03/2024 08:23:45 11/02/19 25 11/03/2024 CBC WITH DIFFE RENTI AL/PL ATELE T basos 1 % notest ab. Not Available [facility] ([facility]) [address] [facility], [place], [address], 11/03/2024 08:23:45 11/02/19 25 11/03/2024 CBC WITH DIFFE RENTI AL/PL ATELE T neutrophils (absolute) 4.7 x10e3 /uL 1.4-7. 0 Not Available [facility] ([facility]) [address] [facility], [place], [address], 11/03/2024 08:23:45 11/02/19 25 11/03/2024 CBC WITH DIFFE RENTI AL/PL ATELE T lymphs (absolute) 2.6 x10e3 /uL 0.7-3. 1 Not Available [facility] ([facility]) [address] [facility], [place], [address], 11/03/2024 08:23:45 11/02/19 25 11/03/2024 CBC WITH DIFFE RENTI AL/PL ATELE T monocytes(ab solute) 0.5 x10e3 /uL 0.1-0. 9 Not Available [facility] ([facility]) [address] [facility], [place], [address], 11/03/2024 08:23:45 11/02/19 25 11/03/2024 CBC WITH DIFFE RENTI AL/PL ATELE T eos (absolute) 0.2 x10e3 /uL 0.0-0. 4 Not Available [facility] ([facility]) [address] [facility], [place], [address], 11/03/2024 08:23:45 11/02/19 25 11/03/2024 CBC WITH DIFFE RENTI AL/PL ATELE T baso (absolute) 0.1 x10e3 /uL 0.0-0. 2 Not Available [facility] ([facility]) [address] [facility], [place], [address], 11/03/2024 08:23:45 11/02/19 25 11/03/2024 CBC WITH DIFFE RENTI AL/PL ATELE T immature granulocytes 0 % notest ab. Not Available [facility] ([facility]) [address] [facility], [place], [address], 11/03/2024 08:23:45 11/02/19 25 11/03/2024 CBC WITH DIFFE RENTI AL/PL ATELE T immature grans (abs) 0.0 x10e3 /uL 0.0-0. 1 Not Available [facility] ([facility]) [address] [place], [address], 11/03/2024 08:23:45 03/23/20 24 03/23/2024 DEXA No observ ation record ed. jess [address] , [place], [address], 07/12/2024 11:20:43 01/2311/10/2024 MAMMO , scree bal, digit al, bilat eral No observ ation record ed. [facility] [address] [facility] [place], [address], 11/10/2024 13:15:32 Result Notes None recorded. 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 s/p hysterect digna 01/04 Crystal Perry null, [place] - [facility] 9 10:17:56 Pain in left knee Active 2019 Benigno Robles MD Attn: Marisa stark,[address] [place], [address], [place] - [facility] 0 09:31:41 Anti-nuc lear factor detected 695518877 Active 2020 Benigno Robles MD Attn: Marisa stark,[address] [place], [address], [place] [facility] 2 11:07:34 Loss of hair 585579583 Active 2020 referred to derm Benigno Robles MD Attn: Marisa stark,[address] [facility], [place], [address], [place] - [facility] 1 11:26:38 History of polyp of colon 306097359 Active 2021 last colonosco py 11/2022- repeat in 5 yrs Benigno Robles MD Attn: Marisa stark,[address] [facility], [place], [address], [place] - [facility] 3 11:36:16 Prediabe rubio 320472024 Active 2023 Benigno Robles MD Attn: Marisa stark,[address] [place], [address], [place] - [facility] 4 14:02:07 Hypertri glycerid emia 394837178 Completed 08/21/2016 Benigno Robles MD Attn: Marisa stark,[address] [facility], [place], [address], [place] - [facility] 6 10:47:54 Mixed anxiety and depressi ve disorder 620688373 Active off med Benigno Robles MD Attn: Marisa g,[address] [facility], [place], [address], [place] - [facility] 2 11:37:46 [facility] hyperten jerrica 94894147 Active Benigno Robles MD Attn: Accountallie g,[address] [facility], [place], [address], [place] - [facility] 2 11:07:34 Hypothyr oidism 41310247 Active pt is on 125mcg daily Benigno Robles MD Attn: Marisa g,[address] [facility], [place], [address], [facility] - [facility] 3 12:26:11 Hyperlip idemia 52364009 Active Benigno Robles MD Attn: Chapinallie g,[address] [facility], [place], [address], [facility] - [facility] 2 11:07:34 Obesity 213403835 Active Kelly Jacobson null, [place] - [facility] 9 10:17:56 Vertigo 640319939 Active Kelly Jacobson null, [place] - [facility] 9 10:17:56 Problem Notes None recorded. Procedures Surgical History Date Name Laterality Status Provider Name and Address Organization Details Recorded Time 12/24/19 19 Total hysterectomy completed Leesa Villar MA [place] - [facility] 01/07/2019 10:39:05 11/04/19 19 Dilation and Curettage completed Kelly Jacobson [facility] 11/17/2018 14:15:36 09/07/20 18 Date of Last Pap Smear completed Kelly Jacobson [facility] 09/27/2018 09:57:27 01/02/20 18 Most Recent Mammogram completed Benigno Robles MD Attn: Accounting,[address] [facility], [place], [address], [facility] - [facility] 01/04/2018 12:29:20 01/04/20 16 Colonoscopy completed Benigno Robles MD Attn: Accounting,[address], [place], [address], [facility] - [facility] 01/25/2016 11:48:40 09/05/20 11 Ovarian Cystectomy completed Yarelis Callejas [place] - [facility] 10/26/2015 16:22:30 Imaging Results Imaging Date Name Status LastModified by Organiz ation Details LastModified Time 03/23/2024 DEXA [email or web address] [address] [place], [address], 07/12/2024 11:20:43 11/10/2024 MAMMO, screening, digital, bilateral completed [address] [place], [address], 11/10/2024 13:15:32 Procedure Notes None recorded. Medical Equipment None Reported. Allergies No known drug allergies Medications Name Sig Start Date Stop Date Status Note LastModified by Organization Details LastModified Time levothyrox in tab 150mcglevo thyroxine sodium active Not Available Not Available Not Available lisinopril 20 mg tabs active Not Available Not Available N ot Available simvastati n tab 20mgsimvas tatin active Not Available Not Available Not Available citalopram tab 20mgcitalo pram hydrobromi de active Not Available Not Available Not Available levothyrox ine sodium 150 mcg tabs active Not Available Not Available Not Available hydrochlor ot tab 25mghydroc hlorothiaz gilma active [...] Not Available simvastati n 40 mg tablet Take 1 tablet(s ) every day by oral route. 2024 active Not Available Not Available Not Avai lable citalopram 20 mg tablet TAKE 1 TABLET [...] Updated DateTime 3 175.26 cm 36.3 kg/m2 933514. 72 g 97.5 [degF] 96 % 96 % 16 /min 110 mm[Hg] 70 mm[Hg] Bethany Moon [facility] 3 11:08:32 Date Recorded Heart rate Provider Name an d Address Organization Details Last Updated DateTime 07/10/2023 80 /min Benigno Robles MD Attn: Accounting,[address] [place], [address], [facility] 07/10/2023 11:16:42 Date Recorded Body height Body mass index (BMI) Body weight Heart rate Respiratory rate Body temperature Oxygen saturation Oxygen saturation in Arterial blood by Pulse oximetry Systolic blood pressure Diastolic blood pressure Provider Name and Address Organization Details Last Updated DateTime 4 175.26 cm 36.7 kg/m2 196643. 7 g 73 /min 14 /min 97.2 [degF] 97 % 97 % 128 mm[Hg] 78 mm[Hg] Yarelis Callejas MA [facility] 4 11:26:11 Date Recorded Body height Body mass index (BMI) Body weight Heart rate Respiratory rate Body temperature Oxygen saturation Oxygen saturation in Arterial blood by Pulse oximetry Systolic blood pressure Diastolic blood pressure Provider Name and Address Organization Details Last Updated DateTime 4 175.26 cm 36.5 kg/m2 201997. 32 g 85 /min 16 /min 98 [degF] 96 % 96 % 119 mm[Hg] 75 mm[Hg] Pamela Hathaway MA [facility] 4 11:20:08 Date Recorded Body height Body mass index (BMI) Body weight Respiratory rate Body temperature Oxygen saturation Oxygen saturation in Arterial blood by Pulse oximetry Heart rate Systolic blood pressure Diastolic blood pressure Provider Name and Address Organization Details Last Updated DateTime 4 175.26 cm 35.5 kg/m2 934071. 61 g 14 /min 97.5 [degF] 95 % 95 % 77 /min 120 mm[Hg] 75 mm[Hg] Yarelis Callejas MA [place] - [facility] 4 11:15:50 Date Recorded Body height Body mass index (BMI) Body weight Heart rate Respiratory rate Body temperature Oxygen saturation Oxygen saturation in Arterial blood by Pulse oximetry Systolic blood pressure Diastolic blood pressure Provider Name and Address Organization Details Last Updated DateTime 5 175.26 cm 36 kg/m2 012137. 74 g 83 /min 16 /min 97.9 [degF] 97 % 97 % 130 mm[Hg] 83 mm[Hg] Pamela Hathaway MA [place] - [facility] 5 11:15:05 Social History Question Answer Notes LastModified by Organizat ion Details LastModified Time Tobacco Smoking Status Never Smoker Kiki Lehman MA null, [place] - [facility] 09/27/2014 10:12:12 Do You Have An Advance [...] Or The Highest Degree You Have Received? [id number] Information not available 03/21/2021 What Is Your [...] Anxious, Or Unable To Sleep At Night)? [id number] Information not available 11/10/2023 Do You Use Any Illicit Or Recreational Drugs? No Information not available 03/21/2021 Do You Use Sunscreen Routinely? No Information not available 10/26/2015 Has Tobacco Cessation Counseling Been Provided? No [email or web address] Information not available 05/19/2022 Do You Or [...] 16:19:26 Mother Malignant tumor of colon 70 [email or web address] Not available 06/2017 10:52:47 Mother Hypercholest erolemia [place] Not available 2016 10:39:14 Father Cerebrovascu lar accident [place] Not available 06/2017 10:38:59 Daughter Diabetes mellitus [email or web address] Not available 2016 10:39:51 Medical History Condition Response Coronary Artery Disease N Other N Atrial Fibrillation N High Blood Pressure Y Breast Cancer N Blood Clots N COPD N Depression Y Lung Disease N Breast Problem N Anesthesia Complications N Headaches/Migraines Y Anxiety Disorder Y Muscle, Joint, or Bone Problems N Infertility N Polyps Y Acid Reflux (GERD) Y Cancer N Stroke N Endometriosis N High Cholesterol Y Liver Disease N Headaches N Thyroid Problems Y Kidney or Bladder Problems N GI Problems N Acne N Eating Disorder N Skin Problems N Anemia N Heart Attack (RI) N Diabetes N Ovarian Cancer N Blood [...] Immunizations Vaccine Type Date Status Note Provider Nam e and Address Organization Details Recorded Time Tdap 05/21/2016 completed Not Available [facility] 11/05/2019 02:47:56 Past Encounters Encounter ID Performer Location Encounter Start Date Encounter Closed Date Diagnosis/Indication Diagnosis SNOMED-CT Code Diagnosis ICD10 Code Diagnosis Note [id number] TRISTEN Yanhalto (Adult Med) [address] [place] [address] 09/27/2014 09:56:43 09/27/2014 10:46:34 Essential hypertension 81651258 Continue same Hypothyroidism 02082766 continue same Family his tory of cancer of colon 931721927 [id number] [facility] [address] [place] [address] 01/26/2015 10:09:15 01/26/2015 10:51:13 Essential hypertension 93677205 Continue same Hypothyroidism 08831737 continue same Hypertriglyceridemia 991615582 Will start statin even though mainly elevated TG because of risk factors Cut down on sweets [id number] [facility] [address] [facility] [place] [address] 02/14/2015 16:12:22 02/14/2015 17:11:54 Mixed anxiety and depressive disorder 357420757 Will give letter to be excused from jury duty Start pt on Celexa daily f/u in 6 wks [id number] Ese Triana (Adult Med) [address] [place] [address] 03/28/2015 11:47:33 03/28/2015 12:39:15 Essential hypertension 29898018 Continue same Hypertriglyceridemia 776089683 continue statin even though mainly elevated TG because of risk factors Cut down on sweets Hypothyroidism 47333482 continue same Mixed anxi ety and depressive disorder 988966184 continue Celexa daily [id number] Ese Jimenez [place] (Adult Med) [address] [place] [address] 06/28/2015 10:47:50 06/28/2015 11:31:24 Essential hypertension 13332416 Continue same Hypothyroidism 36112564 continue same Mixed anxi ety and depressive disorder 808690520 with grieving due to recent loss of her father continue Celexa daily pt to see counselor -informati on given to pt Hypertriglyceridemia 636807053 continue statin even though mainly elevated TG because of risk factors Cut down on sweets [id number] MD Kong Ackerman (Adult Med) [address] [place] [address] 09/28/2015 10:46:19 10/01/2015 12:19:33 Essential hypertension 93576540 I10 Continue same Hypothyroidism 29904514 E03.8 continue same Mixed anxi ety and depressive disorder 875928829 F34.1 with grieving due to recent loss of her father continue Celexa daily Hyperlipidemia 94319322 E78.2 pt is not taking statin- pt to take simvastati n even though mainly elevated TG because of risk factors Cut down on sweets Family his tory of cancer of colon 800472526 Z80.0 pt is no show for colonoscop y pt is counselled to go for colonoscop y Obesity 975270067 E66.3 diet and exercise discussed with pt [id number] Noa Evans Kong (COLOR ADVISER) [address] [place] [address] 10/26/2015 15:58:59 10/26/2015 17:37:29 Screening for malignant neoplasm of colon 402956417 Z12.11 Gynecologi c examination 31379649 Z01.419 Last pap done 06/28/14 was negative with negative hr-HPV. Therefore, no pap needed. Screening for malignant neoplasm of breast 364024317 Z12.39 UTD: Done 08/02/15. [id number] MD Kong Ackerman (Adult Med) [address] [place] [address] 11/21/2015 13:56:17 11/21/2015 14:21:38 Vertigo 680471754 R42 possibly due to benign positional vertigo fall precaution [id number] MD Catia Ackermanhalto (Adult Med) [address] [place] [address] 01/25/2016 11:02:47 01/25/2016 13:33:29 Essential hypertension 71621647 I10 Continue same Hypothyroidism 96396888 E03.8 low TSH on last lab-will recheck and adjust dose continue same for now Hyperlipidemia 63123744 E78.2 continue simvastati n Cut down on sweets Mixed anxi ety and depressive disorder 770203239 F34.1 with grieving due to recent loss of her father continue Celexa daily Obesity 600498170 E66.3 diet and exercise discussed with pt pt wants to see [facility] [id number] MD Kong Ackerman (Adult Med) [address] [place] [address] 05/21/2016 10:55:51 05/21/2016 12:01:06 Essential hypertension 96583826 I10 Continue same Hypothyroidism 61855571 E03.8 low TSH on last lab-will recheck and adjust dose Lower Levothyrox in to 125 mcg daily Hyperlipidemia 95156454 E78.2 continue simvastati n Mixed anxi ety and depressive disorder 398278480 F34.1 continue Celexa daily Administra tion of diphtheria, pertussis, and tetanus vaccine 112415732 Z23 [id number] [facility] [address] [place] [address] 08/21/2016 10:16:12 08/21/2016 14:44:58 Essential hypertension 53752720 I10 Continue Lisinopril and HCTZ ( pt does not want combinatio n pill) Hypothyroidism 59307396 E03.8 continue levothyrox in to 125 mcg daily Hyperlipidemia 44887078 E78.2 continue simvastati n Mixed anxi ety and depressive disorder 041298704 F34.1 stable continue Celexa daily [id number] Noa Triana (COLOR ADVISER) [address] [place] [address] 10/27/2016 10:20:20 10/27/2016 16:19:49 Gynecologic examination 94378498 Z01.419 Last pap done 06/28/14 was negative with negative hr-HPV. Therefore, no pap needed. Screening for malignant neoplasm of breast 415653805 Z12.39 Screening for malignant neoplasm of colon 695824802 Z12.[address] Macedo 12/2015. [id number] [facility] [address] [place] [address] 11/21/2016 10:40:10 11/21/2016 11:38:01 Mixed anxiety and depressive disorder 303972501 F34.1 stable continue Celexa daily Hypothyroidism 27800810 E03.8 continue levothyrox in to 125 mcg daily Essential hypertension 67458579 I10 Continue Lisinopril and HCTZ ( pt does not want combinatio n pill) Hyperlipidemia 90343803 E78.2 continue simvastati n [id number] [facility] [address] [place] [address] 02/20/2017 10:34:00 02/20/2017 11:53:46 Essential hypertension 71209671 I10 Continue Lisinopril and HCTZ ( pt does not want combinatio n pill) Hyperlipidemia 55899022 E78.2 continue simvastati n ( pt missed med at times ) Hypothyroidism 52542202 E03.8 continue levothyrox in to 137 mcg daily Mixed anxi ety and depressive disorder 411669567 F34.1 stable continue Celexa daily [id number] MD [facility] [address] [place] [address] 05/26/2017 10:44:22 05/26/2017 15:17:00 Essential hypertension 33821497 I10 Continue Lisinopril and HCTZ ( pt does not want combinatio n pill) Hyperlipidemia 39979238 E78.2 continue simvastati n ( pt missed med at times ) Hypothyroidism 72803305 E03.8 continue levothyrox in to 137 mcg daily Mixed anxi ety and depressive disorder 988725887 F34.1 not well controlled /noncompli ant with med pt to restart Celexa daily pt to see counselor [employer] 549338 009 L60.0 [id number] MD [facility] [address] [place] [address] 07/28/2017 10:52:08 07/28/2017 17:50:01 Essential hypertension 82801865 I10 Continue Lisinopril and HCTZ ( pt does not want combinatio n pill) Hyperlipidemia 79329120 E78.2 continue simvastati n Hypothyroidism 63549050 E03.8 continue levothyrox in to 137 mcg daily Mixed anxi ety and depressive disorder 178530000 F34.1 improving pt to continue Celexa daily [id number] Noa Evans Kong (COLOR ADVISER) [address] [place] [address] 11/09/2017 11:39:48 11/10/2017 10:33:34 Gynecologic examination 30962342 Z01.419 Last pap done 06/28/14 was negative with negative hr-HPV. Therefore, no pap needed. Screening for malignant neoplasm of breast 365785429 Z12.39 Last 12/2016 @ [facility]. Repeat d/t facility issue dwp. Order given. Blood in urine 73697211 R31.9 UTI d/w pt. See below. Culture sent. Screening for malignant neoplasm of colon 811232921 Z12.[address] Macedo 12/2015. Repeat 5 years Urinary tr act infectious disease 78622196 N39.0 Diagnosis d/w pt. Rx sent to pharmacy. Instructio ns discussed. [id number] MD Kong Ackerman (Adult Med) [address] [place] [address] 11/12/2017 10:37:34 11/12/2017 16:09:44 Essential hypertension 90811619 I10 Continue Lisinopril and HCTZ ( pt does not want combinatio n pill) Hyperlipidemia 21949951 E78.2 continue simvastati n Hypothyroidism 61989357 E03.8 continue levothyrox in to 137 mcg daily Mixed anxi ety and depressive disorder 416030494 F34.1 pt to continue Celexa daily Obesity 409015622 E66.3 diet and exercise discussed with pt [id number] MD Kong Ackerman (Adult Med) [address] [place] [address] 02/10/2018 09:46:16 02/12/2018 09:07:35 Essential hypertension 80267662 I10 Continue Lisinopril and HCTZ ( pt does not want combinatio n pill) Hypothyroidism 33319209 E03.8 continue levothyrox in to 137 mcg daily Hyperlipidemia 33243550 E78.2 continue simvastati n Mixed anxi ety and depressive disorder 054944681 F34.1 pt to continue Celexa daily Upper resp iratory infection 30825685 J06.9 keep good hydration [id number] MD [facility] [address] [place] [address] 04/07/2018 08:45:27 04/09/2018 15:18:47 Vertigo 395225927 R42 possibly due to benign positional vertigofal l precaution Thoracic back pain 46956 8004 M54.6 without rashpt's nephew has shingles and pt worried that she got shingles toopt is reassured and pt to call if any rash or blisters she develops [id number] MD [facility] [address] [place] [address] 05/11/2018 10:25:25 05/14/2018 16:29:33 Essential hypertension 83277962 I10 Continue Lisinopril and HCTZ ( pt does not want combinatio n pill) Hypothyroidism 22414393 E03.8 continue levothyrox in to 137 mcg daily Hyperlipidemia 81128342 E78.2 continue simvastati n Mixed anxi ety and depressive disorder 204330101 F34.1 pt to continue Celexa daily pt wants to check her b 12 level [id number] MD Catia Ackermanhalto (Adult Med) [address] [place] [address] 08/24/2018 10:15:25 08/24/2018 17:26:02 Essential hypertension 58245764 I10 Continue Lisinopril and HCTZ ( pt does not want combinatio n pill) Mixed anxi ety and depressive disorder 010093245 F34.1 stable pt to continue Celexa daily Hyperlipidemia 75014912 E78.2 continue simvastati n Hypothyroidism 28073408 E03.8 continue levothyrox in to 137 mcg daily [id number] Noa Triana (COLOR ADVISER) [address] [place] [address] 09/07/2018 09:24:21 09/14/2018 11:11:38 Postmenopausal bleeding 85482483 N95.0 Pap done although not due for 10 mo. Last was done 06/28/14 and was negative with negative hr-HPV. US ordered to assess endometria l stripe. RTO 3 days p US for results and POC. Possible EMB d/w pt. [id number] Noa Triana (COLOR ADVISER) [address] [place] [address] 09/27/2018 09:48:26 09/28/2018 15:57:27 Postmenopausal bleeding 74216502 N95.0 US shows a thickened heterogene ous endometria l stripe on 9 mm, dwp. Options of in-ofice EMB vs outpatient surgery with hysterosco py and D&C d/w pt. Recommenda tion made for hysterosco py with D&C. Pt. agreeable. Will schedule. Endometrium thickened 44 6392210 N85.00 [id number] Noa Triana (COLOR ADVISER) [address] [place] [address] 11/02/2018 11:11:03 11/05/2018 08:48:00 Postmenopausal bleeding 13482685 N95.0 US shows a thickened heterogene ous endometria l stripe on 9 mm, dwp. Options of in-ofice EMB vs outpatient surgery with hysterosco py and D&C d/w pt. Recommenda tion made for hysterosco py with D&C. Pt. agreeable. Benefits, risks, and alternativ es to hysterosco py and D&C d/w pt. Pt. expressed understand ing. All pt. questions answered. Surgery is scheduled for 11/04/18. 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 Need for referral to occupational therapy instructor/onc d;/w pt. Referral generated. Expectatio ns discussed. All pt. questions answered. [id number] MD [facility] [address] [place] [address] 01/07/2019 10:29:28 01/10/2019 09:29:14 Essential hypertension 36429730 I10 Continue Lisinopril Hyperlipidemia 37376723 E78.2 continue simvastati n Hypothyroidism 84745639 E03.8 continue levothyrox in to 137 mcg daily Mixed anxi ety and depressive disorder 720292058 F34.1 stable pt to continue Celexa daily [id number] [facility] ([facility] [address] [place] [address] 01/18/2019 10:14:40 01/19/2019 10:00:03 Screening for malignant neoplasm of breast 602230010 Z12.39 Normal clinical breast exam. Mammogram ordered. [id number] MD [facility] [address] [place] [address] 03/28/2019 08:58:28 03/29/2019 11:34:47 Essential hypertension 26682197 I10 stableCont inue Lisinopril Hyperlipidemia 99785805 E78.2 continue simvastati n Hypothyroidism 62531206 E03.8 continue levothyrox in to 137 mcg daily Mixed anxi ety and depressive disorder 673427351 F34.1 fairly stable( has some crying spells once in a while ) pt to continue Celexa daily -pt may try 40 mg celexa -if she wants to continue 40 mg -call clinic Urinary symptoms 3005730 08 R39.9 pt has dark color urine -pt to drink more water -keep good hydration [id number] MD [facility] [address] [place] [address] 07/11/2019 09:26:53 07/12/2019 09:02:20 Essential hypertension 49837463 I10 stableCont inue Lisinopril Mixed anxi ety and depressive disorder 374895566 F34.1 stable. pt to continue Celexa daily Hypothyroidism 01549300 E03.8 continue levothyrox ine 150 mcg daily Hyperlipidemia 71021623 E78.2 continue simvastati n Cobalamin deficiency 190 334042 E53.8 Pain of le ft shoulder joint 5745797586 4203701 M25.512 pt to go for PTpt to try mobic prn with meal [id number] MD Kong Ackerman (Adult Med) [address] [place] [address] 08/03/2019 12:01:34 08/04/2019 10:53:21 Acute bronchitis 25283663 J20.9 [id number] MD Catia Ackermanhalto (Adult Med) [address] [place] [address] 11/02/2019 10:09:53 11/03/2019 14:23:48 Essential hypertension 14288105 I10 stableCont inue Lisinopril Hyperlipidemia 60860765 E78.2 continue simvastati n Hypothyroidism 76640490 E03.8 continue levothyrox ine 150 mcg daily Mixed anxi ety and depressive disorder 314718805 F34.1 fairly stable. / compliance still a issue pt to continue Celexa daily Upper resp iratory infection 53216822 J06.9 keep good hydration [id number] MD [facility] [address] [place] [address] 02/06/2020 08:41:17 02/07/2020 14:07:45 Essential hypertension 54197710 I10 stableCont inue Lisinopril Hyperlipidemia 69737327 E78.2 continue simvastati n Hypothyroidism 19802568 E03.8 continue levothyrox ine 150 mcg daily Mixed anxi ety and depressive disorder 021258594 F34.1 stable. / compliance still a issue pt to continue Celexa daily Pain of le ft shoulder joint 2132858200 0999697 M25.512 pt tried PT without much help.pt did not like mobicpt to try cyclobenza [facility] in future [id number] MD Catia A[facility]ermanhalto (Adult Med) [address] [place] [address] 05/14/2020 07:57:27 05/15/2020 10:20:53 Essential hypertension 61518661 I10 stableCont inue Lisinopril Hyperlipidemia 49735515 E78.2 continue simvastati n Hypothyroidism 58806308 E03.8 continue levothyrox ine 150 mcg daily Mixed anxi ety and depressive disorder 469444213 F34.1 stable. / compliance still a issue pt to continue Celexa daily [id number] MD [facility] [address] [place] [address] 08/21/2020 08:31:22 08/22/2020 13:30:54 Essential hypertension 70070157 I10 stableCont inue Lisinopril Mixed anxi ety and depressive disorder 901351574 F34.1 stable. / compliance still a issue pt to continue Celexa daily Hyperlipidemia 00725520 E78.2 continue simvastati n Hypothyroidism 23784933 E03.8 continue levothyrox ine 150 mcg daily Pain in left knee 738900 7046 07148 M25.562 pt to try mobic prn with food .consider xray if problem worsen [id number] MD [facility] [address] [place] [address] 09/26/2020 11:53:46 09/27/2020 06:01:38 Upper respiratory infection 37517967 J06.9 keep good hydration. [id number] MD [facility] [address] [place] [address] 11/27/2020 08:28:02 11/27/2020 22:57:43 Essential hypertension 62064794 I10 stableCont inue Lisinopril Mixed anxi ety and depressive disorder 521346695 F34.1 stable. pt to continue Celexa daily Hyperlipidemia 01742379 E78.2 continue simvastati n Hypothyroidism 73531095 E03.8 continue levothyrox ine daily [id number] MD [facility] [address] [place] [address] 03/21/2021 10:47:28 03/22/2021 09:49:43 Pneumonia caused by SARS-CoV-2 7833176995 04903383 J12.82 slowly improving /keep good hydration - instructed pt to go to ER if any breathing issue [id number] MD Kong Ackerman (Adult Med) [address] [place] [address] 06/11/2021 10:31:47 06/12/2021 14:44:19 Loss of hair 934354779 L65.9 pt had covid infection couple of months ago-possib ly due to telogen effluvium - discussed about good sleep and nutrition Hypothyroidism 54232350 E03.8 continue levothyrox ine daily Hyperlipidemia 04721274 E78.2 continue simvastati n Obesity 216027441 E66.9 diet and exercise discussed with pt [id number] MD Kong Ackerman (Adult Med) [address] [place] [address] 07/02/2021 11:11:46 07/10/2021 08:42:45 Essential hypertension 27917545 I10 stableCont inue Lisinopril Hyperlipidemia 24347402 E78.2 continue simvastati n Hypothyroidism 67052103 E03.8 continue levothyrox ine daily Mixed anxi ety and depressive disorder 809345766 F34.1 stable. pt to continue Celexa daily Anti-nucle ar factor detected 523456853 R76.8 with hair loss - referred to derm for eval- will check IFA of drew in future Obesity 032944816 E66.9 diet and exercise discussed with pt Loss of hair 886895838 L 65.9 pt had covid infection couple of months ago-possib ly due to telogen effluvium - discussed about good sleep and nutrition [id number] MD Kong Ackerman (Adult Med) [address] [place] [address] 10/07/2021 11:50:02 10/08/2021 15:13:17 Essential hypertension 94765148 I10 stableCont inue Lisinopril Mixed anxi ety and depressive disorder 491683919 F34.1 stable. pt to continue Celexa daily Hyperlipidemia 72873079 E78.2 continue simvastati n Hypothyroidism 91874184 E03.8 continue levothyrox ine daily Urinary symptoms 4362308 08 R39.9 pt has dark color urine with smell -pt to drink more water -keep good hydration Low back pain 963698412 M54.50 heat therapy/ex ercise [id number] MD Kong Ackerman (Adult Med) [address] [place] [address] 12/26/2021 10:51:52 12/27/2021 12:25:29 Vertigo 452902394 R42 possibly due to benign positional vertigofal l precaution Obesity 047434301 E66.9 diet and exercise discussed with pt- pt wants to see power plant electrician [id number] MD Kong Ackerman (Adult Med) [address] [place] [address] 01/13/2022 10:39:28 01/14/2022 07:03:39 Essential hypertension 85013529 I10 stableCont inue Lisinopril Hyperlipidemia 32764725 E78.2 continue simvastati n Mixed anxi ety and depressive disorder 022188838 F34.1 off of Celexa - pt is doing fine without med Hypothyroidism 62519294 E03.8 continue levothyrox ine daily [id number] MD [facility] [address] [place] [address] 05/19/2022 10:51:04 05/20/2022 08:40:49 Essential hypertension 29858713 I10 stableCont inue Lisinopril Hyperlipidemia 16812815 E78.2 continue simvastati n Hypothyroidism 58574769 E03.8 continue levothyrox ine daily Mixed anxi ety and depressive disorder 663184234 F34.1 off of Celexa - pt is doing fine without med Obesity 122180343 E66.9 diet and exercise discussed with pt- pt is waiting to see power plant electrician Screening mammography 24 352322 Z12.31 Screening for malignant neoplasm of colon 164550570 Z12.11 with f/h colon ca and polypectom y [id number] MD Kong Ackerman (Adult Med) [address] [place] [address] 08/25/2022 11:12:33 08/26/2022 11:03:52 Essential hypertension 23035733 I10 fairly stableCont inue Lisinopril Hyperlipidemia 51147865 E78.2 continue simvastati n Hypothyroidism 89038498 E03.8 continue levothyrox ine daily Mixed anxi ety and depressive disorder 779928913 F34.1 off of Celexa - pt is doing fine without med History of polyp of colon 150386862 Z86.963 [id number] MD [facility] [address] [place] [address] 11/07/2022 11:57:43 11/11/2022 16:13:49 Upper respiratory infection 11767012 J06.9 keep good hydration. / return to clinic if problem continues Hypothyroidism 69082658 E03.8 continue levothyrox ine 125mcg daily Obesity 336391747 E66.9 diet and exercise discussed with pt- pt is waiting to see power plant electrician [id number] MD [facility] [address] [place] [address] 12/12/2022 10:44:18 12/17/2022 14:23:48 Mammography abnormal 856086410 R92.8 of R/breast- reassures about low suspicious in regards to malignancy -pt to go for biopsy [id number] Benigno Robles MD [facility] (Adult Med) [address] [place] [address] 03/05/2023 11:02:25 03/06/2023 10:59:25 Essential hypertension 35957040 I10 fairly stableCont inue Lisinopril Hyperlipidemia 83566550 E78.2 continue simvastati n Hypothyroidism 92609721 E03.8 continue levothyrox ine 125mcg daily Mixed anxi ety and depressive disorder 654198198 F34.1 off of Celexa - pt is doing fine without med Obesity 657972754 E66.9 diet and exercise discussed with pt [id number] MD [facility] [address] [place] [address] 07/10/2023 10:54:03 07/15/2023 09:19:22 Essential hypertension 91548024 I10 - stableCont inue Lisinopril Hyperlipidemia 40268799 E78.2 continue simvastati n Hypothyroidism 57685541 E03.8 continue levothyrox ine 125mcg daily Obesity 722033725 E66.9 with pre -DM-diet and exercise discussed with pt Peripheral sensory neuropathy 045293914 G62.9 - pt to start vit b12 and check for DM [id number] MD [facility] [address] [place] [address] 11/10/2023 10:58:31 11/12/2023 11:19:07 Essential hypertension 17347155 I10 - stableCont inue Lisinopril Hyperlipidemia 99145574 E78.2 continue simvastati n Hypothyroidism 00396989 E03.8 continue levothyrox ine 125mcg daily Obesity 836167407 E66.9 with pre -DM-diet and exercise discussed with pt Mild dieta ry indigestion 651505474 K30 [id number] MD [facility] [address] [place] [address] 03/15/2024 10:58:46 03/16/2024 15:18:58 Essential hypertension 50755811 I10 - stableCont inue Lisinopril Mixed anxi ety and depressive disorder 506621095 F34.1 off of Celexa - pt is doing fine without med Hypothyroidism 31918804 E03.8 continue levothyrox ine daily Hyperlipidemia 23449027 E78.2 continue simvastati n Prediabetes 617869783 R7 3.03 healthy diet and exercise discussed with pt Low back pain 920150794 M54.50 heat therapy/ex ercise-loo se wt [id number] MD [facility] [address] [place] [address] 07/12/2024 10:55:57 07/13/2024 14:42:34 Essential hypertension 84640331 I10 - stableCont inue Lisinopril Hyperlipidemia 73171103 E78.2 continue simvastati n Hypothyroidism 18189529 E03.8 continue levothyrox ine daily Prediabetes 734335842 R7 3.03 healthy diet and exercise discussed with pt Renewal of prescription 597235278 Z76.0 [id number] MD [facility] [address] [place] [address] 11/04/2024 11:08:19 11/11/2024 17:35:46 Essential hypertension 70237072 I10 - stableCont inue Lisinopril Hyperlipidemia 33995196 E78.2 continue simvastati n Hypothyroidism 26403330 E03.8 continue levothyrox ine daily Renewal of prescription 184780870 Z76.0 Screening mammography 24 620855 Z12.31 Indigestion 480274563 R1 0.13 Health Concerns Section Related Observation LastModified by Organization Detai ls LastModified Time None Recorded Concern Status LastModified by Organization Details LastModified Time None Recorded Advance Directives Directive Y: Payers Encounter Date Sequence Insurance Name Policy Number Policy Trivedi Covered Member ID Trivedi Member ID Guarantor Name 07/10/2023 1 [facility] ON OR AFTER 10/19/2020 - DUAL ELIGIBLE (MEDICARE REPLACEMENT/ADVANTA GE - HMO) [id number] [facility] [id number] [facility] 07/10/2023 2 [employer] [place] (MEDICARE REPLACEMENT/[place] GE) [facility] [id number] [facility] 11/10/2023 1 [facility] ON OR AFTER 10/19/2020 - DUAL ELIGIBLE (MEDICARE REPLACEMENT/ADVANTA GE - HMO) [id number] 11/10/2023 2 [employer] [place] (MEDICARE REPLACEMENT/[place] GE) [facility] [id number] [facility] 03/15/2024 1 [facility] ON OR AFTER 10/19/2020 - DUAL ELIGIBLE (MEDICARE REPLACEMENT/ADVANTA GE - HMO) [id number] [facility] [id number] [facility] 03/15/2024 2 [employer] [place] (MEDICARE REPLACEMENT/[place] GE) Kayla Massey [id number] Kayla Massey 07/12/2024 1 [facility] - DOS ON OR AFTER 2020 - DUAL ELIGIBLE (MEDICARE REPLACEMENT/ADVANTA GE - HMO) [id number] Kayla Massey [id number] Kayla Massey 11/04/2024 1 [facility] - DOS ON OR AFTER 2020 - DUAL ELIGIBLE (MEDICARE REPLACEMENT/ADVANTA GE - HMO) [id number] [facility] [id number] Kayla Mas[facility] Notes Date Note Type Note Provider Name [...] Pt had surgery 12/20/18 full hysterectomy at [facility] for uterine ca. Benigno Robles MD Attn: Accounting,[address] [place] [address], [address], [facility] 07/10/2023 11:31:31 11/10/19 24 text/htm l HyperlipidemiaReported bypatient.Duration:chronic Control:improving Current Therapy:currently taking: (simvastatin) Compliance:compliant Risk Factors:hypertension;obesityHyp ertension F/UReported bypatient.Associated Symptoms:no dizziness; no chest pain; no palpitations; no edema Medications:taking medications as directed; no side effects from medicationThyroidReported bypatient.Duration:chronic Context:history of hypothyroidism Modifying Factors:medication (thyroid pill- taking med as prescribed.) Associated Symptoms:no palpitations; no constipation Pt had surgery 12/20/18 full hysterectomy at [facility] for uterine ca. Benigno Robles MD Attn: Accounting,[address] [facility], [place], [address], [facility] 11/10/2023 11:39:35 03/15/20 24 text/htm l Back PainReported bypatient.Location:pain is not [...] Pt had surgery 12/20/18 full hysterectomy at [facility] for uterine ca. Benigno Robles MD Attn: Accounting,[address] [place], [address], [facility] 03/15/2024 15:33:34 07/12/20 text/htm l HyperlipidemiaReported bypatient.Duration:chronic Control:improving Current Therapy:currently taking: (simvastatin) Compliance:compliant Risk Factors:hypertension;obesityHyp ertension F/UReported bypatient.Associated Symptoms:no dizziness; no chest pain; no palpitations; no edema Medications:taking medications as directed; no side effects from medicationThyroidReported bypatient.Duration:chronic Context:history of hypothyroidism Modifying Factors:medication (thyroid pill- taking med as prescribed.) Associated Symptoms:no palpitations; no constipation Pt had surgery 12/20/18 full hysterectomy at [facility] for uterine ca. Benigno Robles MD Attn: Accounting,[address] [facility], [place], [address], [facility] 07/12/2024 13:55:55 11/04/19 text/htm l HyperlipidemiaReported bypatient.Duration:chronic Control:improving Current Therapy:currently taking: (simvastatin) Compliance:compliant Risk Factors:hypertension;obesityHyp ertension F/UReported bypatient.Associated Symptoms:no dizziness; no chest pain; no palpitations; no edema Medications:taking medications as directed; no side effects from medicationThyroidReported bypatient.Duration:chronic Context:history of hypothyroidism Modifying Factors:medication (thyroid pill- taking med as prescribed.) Associated Symptoms:no palpitations; no constipation Pt had surgery 12/20/18 full hysterectomy at [facility] for uterine ca. Benigno Robles MD Attn: Accounting,[address] [place], [address], [facility] 11/04/2024 13:52:30 OBGyn Episode Ob Episode Information Episode Created Date Number of Fetuses Patient Bloodtype Patient rh Status Prepregnancy Weight lbs Domestic Partner Domestic Partner Phone Father Name Auto Service Dispatcher Status 10/27/19 17 1 CLOSED Fetus Data First Name Last Name Admitted to NICU Weight (g) Sex Living Outcome Pediatric Complications Fetus ID Race Codes Race Delivery Type 4053.75 1704 M Full Term 28895 Vaginal Kvng Calculation Initial Kvng Date Initial [...] Domestic Partner Domestic Partner Phone Father Name Auto Service Dispatcher Status 10/27/19 17 1 CLOSED Fetus Data First Name Last Name Admitted to NICU Weight (g) Sex Living Outcome Pediatric Complications Fetus ID Race Codes Race Delivery Type 3798.83 3 F Full Term 17246 Vaginal Kvng Calculation Initial Kvng Date Initial [...] Domestic Partner Domestic Partner Phone Father Name Auto Service Dispatcher Status 10/27/19 17 1 CLOSED Fetus Data First Name Last Name Admitted to NICU Weight (g) Sex Living Outcome Pediatric Complications Fetus ID Race Codes Race Delivery Type 3742.13 4 F Full Term 10354 Vaginal Kvng Calculation Initial Kvng Date Initial [...]
--- OUTSIDE RECORDS SUMMARY | 2025-02-05 16:48 | XMS_ITS | Referral Summary ---
Author Organization [facility] cindy Address [address] [place] [address] Care Team Providers Care Zoology Professor Name Role Phone Alexandra Robles MD Primary Care Provider [phone] Alexandra Robles MD Unavailable [phone] Encounters Date Type Department Care Team Description 02/02/2025 12:36 AM CDT - 02/02/2025 6:20 AM CDT Emergency [facility] Emergency Department [address] [place] [address] Giovani Sawant MD Rash (Primary Dx) Discharge Disposition: Discharge to home or self care 11/10/2024 8:21 AM TROLLEY CLEANER - 11/10/2024 11:59 PM TROLLEY CLEANER Hospital Encounter [facility] [address] [place] [address] Encounter for screening mammogram for malignant neoplasm [...] (11/14/2022): Added automatically from request for surgery [id number] Personal history of colonic polyps 11/14/2022 Overview (11/14/2022): Added automatically from request for surgery [id number] Encounter for screening colonoscopy 11/14/2022 Overview (11/14/2022): Added automatically from request for surgery [id number] Social History Tobacco Use Types Packs/Day Years [...] making you feel afraid or unsafe? Denies 02/02/2025 Comments No Sex and Gender Information Value Date Recorded Sex Assigned at Not on file Legal Sex Female 12:29 AM TROLLEY CLEANER Gender Identity Not on file Sexual Orientation Not on file Last Filed Vital Signs Vital Sign Reading Time Taken Comments Blood Pressure 152/88 02/02/2025 6:00 AM CDT Pulse 87 02/02/2025 6:00 AM CDT Temperature 36.8 C (98.2 F) 02/02/2025 12:30 AM CDT Respiratory Rate 20 02/02/2025 12:30 AM CDT Oxygen Saturation 95% 02/02/2025 6:00 AM CDT Inhaled Oxygen Concentration - - Weight 111.1 kg (245 lb) 02/02/2025 12:30 AM CDT Height 175.3 cm (5' 9 ) 02/02/2025 12:30 AM CDT Body Mass Index 36.18 02/02/2025 12:30 AM CDT Plan of Treatment Not on file Procedures Procedure Name Priority Date/Time Associated Diagnosis Comments SCREENING MAMMOGRAM BILATERAL W DWAINE Schedule Routine, Read Routine (OP Routine) 11/10/2024 8:48 AM TROLLEY CLEANER Encounter for screening mammogram for malignant neoplasm of breast DEXA AXIAL SKELETON BONE DENSITY 1 OR MORE SITES Schedule Routine, Read Routine (OP Routine) 03/23/2024 9:56 AM CDT Encounter for screening for osteoporosis COLONOSCOPY 12/16/2022 8:27 AM TROLLEY CLEANER from Last 3 Months or Most Recently Relevant to Health Maintenance Results * Screening Mammogram Bilateral W Dwaine (11/10/2024 8:48 AM TROLLEY CLEANER) Anatomical Region Laterality Modality Breast Bilateral Mammography 11/10/2024 8:58 AM TROLLEY CLEANER Impressions 11/10/2024 8:58 AM TROLLEY CLEANER There is no mammographic evidence of malignancy. A 1 year screening mammogram is recommended. BI-RADS: 2 - Benign. The patient has been or will be contacted. The patient will be entered into a reminder system with a target due date of 1 year for her next mammogram. Electronically signed by: Chiquis Contreras M.D. Narrative 11/10/2024 8:58 AM TROLLEY CLEANER EXAMINATION: SCREENING MAMMOGRAM BILATERAL W DWAINE ORDERING [...] There has been no suspicious interval change. Alexandra Robles MD IM MAMMO PROCEDURES Final Re sult * Dexa [...] Encounter for screening for osteoporosis Screening postmenopausal Medical Corps Officer/Model: [employer] (S/N [id number]) CLINICAL INFORMATION: Current height: 69 inches Maximum [...] Andrey Choi M.D. MF: FARHAT Report ID: [id number] Reading Location: [place] [address] Procedure Note Andrey Choi MD - 03/23/2024 EXAM DESCRIPTION: DEXA AXIAL SKELETON BONE DENSITY 1 OR MORE SITES REASON FOR STUDY: 69 y/o year old F with given history of: Encounterfor screening for osteoporosis Screening postmenopausal Medical Corps Officer/Model: [employer] (S/N [id number]) CLINICAL INFORMATION: Current height: 69 inches Maximum [...] Andrey Choi M.D. MF: FARHAT Report ID: [id number] Reading Location: [id number] Alexandra Robles MD IMG DXA PROCEDURES Final Resu lt * COLONOSCOPY (12/16/2022 8:27 AM TROLLEY CLEANER) Anatomical Region Laterality Modality Other Narrative Procedure Note Grant Boyd MD - 12/16/2022 8:27 AM CST [facility] Patient Name: Kayla Crystal Procedure Date: 12/16/2022 8:27 AM Date of : 1955 Admit Type: Outpatient Age: 67 Gender: Female Attending MD: Grant Boyd M.D. Room: [facility] ENDOSCOPY ROOM 2 Note Status: Finalized Patient [...] scope was passed under direct vision. TheColonoscope [id number] was introduced through the anus and advanced [...] 8:27 AM Procedure Code(s): --- Professional --- 20370, Colonoscopy, flexible; diagnostic, including collection of specimen(s) by brushing or washing, when performed (separateprocedure) Diagnosis Code(s): --- Professional --- Z80.0, Family history of malignant neoplasm of digestive organs K64.9, Unspecified hemorrhoids CPT copyright 2020 [employer]. All rights reserved. The codes documented in this report are preliminary and upon boot trimmer reviewmay be revised to meet current compliance requirements. Recognized by the [employer] for promoting quality in endoscopy Grant Boyd MD ENDOSCOPY PROCEDURES Final Re sult from Last 3 Months or Most Recently Relevant to Health Maintenance Insurance [facility] Member Subscriber Plan / Payer (Ef fective 2022-Present) Name:Mapleton, Kayla Balta Relation to Subscriber:Self Name:Kayla Crystal Balta Payer ID:[id number] (NAIC) Type:MEDICARE RISK OTHER Address: [facility] ATTN: CLAIMS [address] [place] [phone] [facility] Advance Directives For more information, please contact: [phone] * Full Code (Latest Code Status on File) Date Activated Date Inactivated Comments 12/16/2022 8:29 AM 12/16/2022 3:09 PM * Full Code Date Activated Date Inactivated Comments 12/16/2022 8:29 AM 12/16/2022 8:29 AM * Full Code Date Activated Date Inactivated Comments 11/04/2018 3:12 PM 11/04/2018 8:18 PM Care Teams Zoology Professor Relationship Specialty Start Date End Date Alexandra Robles MD [address] [place] [address] PCP - General 03/14/21 Alexandra Robles MD [address] [place] [address] 03/14/21
--- OUTSIDE RECORDS SUMMARY | 2025-02-05 16:48 | XMS_ITS | Encounter Summary ---
Author Organization [facility] Healthcare Address [address] [place] [address] Care Team Providers Care Telegraph Plant Maintainer Name Role Phone Benigno Crews MD Primary Care Provider [phone] Benigno Crews MD Unavailable [phone] Encounter Details Date Type Department Care Team (Late st Contact Info) Description 12/15/2022 Telephone [facility] [address] [place] [address] Monique Umaña RN Social History Tobacco Use [...] on file Legal Sex Female 12:29 AM COBOL PROGRAMMER Gender Identity Not on file Sexual Orientation Not on file documented as of this encounter Functional Status documented as of this encounter Plan of Treatment Not on file documented as of this encounter Visit Diagnoses Not on filedocumented in this encounter Care Teams Telegraph Plant Maintainer Relationship Specialty Start Date End Date Benigno Crews MD [address] [place] [address] PCP - General 03/14/21 Benigno Crews MD [address] [place] [address] 03/14/21 documented as of this encounter
--- OUTSIDE RECORDS SUMMARY | 2025-02-05 16:48 | XMS_ITS | Encounter Summary ---
Author Organization [facility] Healthcare Address [address] [place] [address] Care Team Providers Care Wheel Of Fortune Dealer Name Role Phone Benigno Crews MD Primary Care Provider [phone] Benigno Crews MD Unavailable [phone] Encounter Details Date Type Department Care Team (Late st Contact Info) Description 12/18/2022 Telephone [facility] [address] [place] [address] Monique Umaña RN Social History Tobacco Use [...] on file Legal Sex Female 12:29 AM DIE TESTER Gender Identity Not on file Sexual Orientation Not on file documented as of this encounter Plan of Treatment Not on file documented as of this encounter Visit Diagnoses Not on filedocumented in this encounter Care Teams Wheel Of Fortune Dealer Relationship Specialty Start Date End Date Benigno Crews MD [address] [place] [address] PCP - General 03/14/21 Benigno Crews MD [address] [place] [address] 03/14/21 documented as of this encounter
--- OUTSIDE RECORDS SUMMARY | 2025-02-05 16:48 | XMS_ITS | Clinical Summary ---
Author Organization [facility] Address [address] [facility] [place] [address] Care Team Providers Care Career Consultant Name Role Phone Benigno Crews MD Primary Care Provider [phone] [facility],non-owned Affiliates and Associated Physician Practices is amultiple site organization consisting of ambulatory clinics and hospital sitesin [place], [place], [place] and [place]. This disclosure is being madepursuant to the Care Everywhere program and may not contain all information available regarding this patient. Last updated 18.[facility] Allergies No known active allergies Medications * Be aware that medications may not be up to date on this document. Alwaysverify current medications with the patient. levothyroxine (SYNTHROID) 150 MCG tablet Take 137 [...] at Not on file Legal Sex Female 3:56 PM SPECIAL PROGRAMS DIRECTOR Gender Identity Not on file Sexual Orientation Not on file Last Filed Vital Signs Vital Sign Reading Time Taken Comments Blood Pressure 134/86 03/29/2020 11:04 AM CDT Pulse 72 03/29/2020 11:04 AM CDT Temperature 36.9 C (98.4 F) 03/29/2020 11:04 AM CDT Respiratory Rate 14 12/20/2018 7:13 PM SPECIAL PROGRAMS DIRECTOR Oxygen Saturation 93% 12/20/2018 7:13 PM SPECIAL PROGRAMS DIRECTOR Inhaled Oxygen Concentration - - Weight 108.9 [...] 09/18, 07/26/2020, Additional history exists COVID-19 VACCINE ( season) 2024 DEPRESSION SCREENING 10/19/2024 INFLUENZA VACCINE (Season Ended) 2025 Respiratory Syncytial Virus (RSV) Vaccine Pt: or [...] complete this topic MENINGOCOCCAL (Group B) VACCINE SHARED DECISION-MAKING Aged Out No longer eligible based on patient's age to complete this topic MENINGOCOCCAL GROUPS A/C/Y/W VACCINE Aged Out No longer eligible based on patient's age to complete this topic Insurance Care Teams Career Consultant Relationship Specialty Start Date End Date Benigno Crews MD [address] [place] [address] PCP - General Internal Medicine 12/20/18
--- OUTSIDE RECORDS SUMMARY | 2025-02-05 16:48 | XMS_ITS | Clinical Summary ---
Author Organization [facility] Address [address] [address] Phone Care Team Providers Care Health Technician Hearing Name Role Phone Benigno Crews MD Primary Care Provider [phone] Allergies No known active allergies Medications polyethylene [...] 115.7 kg (255 lb) 12/28/2015 9:00 AM SAMPLER RADIOACTIVE WASTE Height 175.3 cm (5' 9 ) 12/28/2015 9:00 AM SAMPLER RADIOACTIVE WASTE Body Mass Index 37.66 12/28/2015 9:00 AM SAMPLER RADIOACTIVE WASTE Plan of Treatment Health Maintenance Due Date Last Done Comments Hepatitis C Virus (HCV) Screening 1955 Cologuard 02/02/2006 Immunochemical Fecal Occult Blood 02/02/2006 Pneumococcal Immunization (5 0+ years) (1 of 1 - PCV) 02/02/2006 Zoster Immunization (1 of 2) 02/02/2006 Influenza Immunization (#1) 2024 SARS-COV-2 Immunization ( - season) 2024 Colonoscopy 01/03/2026 01/04/2016 Colorectal Cancer Screening 01/03/2026 Respiratory Syncytial Virus (RSV) Immunization (Adult) (1 - 1-dose 75+ series) 02/02/2031 01/04/2016 DTaP/Tdap/Td Immunization Discontinued 05/21/2016 TdaP Immunization Completed 05/21/2016 Mammogram Discontinued 02/19/2019, 01/01/2018, 12/31/2016 Hepatitis B Immunization Aged Out No longer [...] Recently Relevant to Health Maintenance Results * TARUN SCREENING BILATERAL DIGITAL W CAD W [...] is made to exams dated: 01/01/2018, 12/31/2016 [facility], and 08/02/2015 [facility]. BREAST TISSUE:The tissue of both breasts is [...] exam. Electronically signed by: Chiquis lewis/stephanie:02/21/2019 09:31:11 Coroner'S Juror: Luma Tracey (Leila), [facility] letter sent: Normal Exam Reading location: [facility] BI-RADS: 1 Negative Procedure Note Chiquis Contreras [...] is made to exams dated: 01/01/2018, 12/31/2016 [facility], and 08/02/2015 [facility]. BREAST TISSUE:The tissue of both breasts is [...] exam. Electronically signed by: Chiquis lewis/stephanie:02/21/2019 09:31:11 Coroner'S Juror: Luma Tracey (R), [facility] letter sent: Normal Exam Reading location: [facility] BI-RADS: 1 Negative us Noa Evans MD IMG MAMMO ORDERABLES Fin al Result from Last 3 Months or Most Recently Relevant to Health Maintenance Insurance MEDICAID [employer] MEDICARE C [place] Care Teams Health Technician Hearing Relationship Specialty Start Date End Date Benigno Crews MD [address] [place] [address] PCP - General Internal Medicine 01/04/16
--- OUTSIDE RECORDS SUMMARY | 2025-02-05 16:48 | XMS_ITS | Clinical Summary ---
Author Organization [facility] Address [address] [place] [address] Care Team Providers Care Driver Material Handler Name Role Phone Alexandra Robles MD Primary Care Provider [phone] Alexandra Robles MD Unavailable [phone] Allergies No known active allergies Medications hydroCHLOROthiaz [...] (11/14/2022): Added automatically from request for surgery [id number] Personal history of colonic polyps 11/14/2022 Overview (11/14/2022): Added automatically from request for surgery [id number] Encounter for screening colonoscopy 11/14/2022 Overview (11/14/2022): Added automatically from request for surgery [id number] Encounters Date Type Department Care Team Description 02/02/2025 12:36 AM CDT - 02/02/2025 6:20 AM CDT Emergency [facility] Emergency Department [address] [place] [address] Giovani Sawant MD Rash (Primary Dx) Discharge Disposition: Discharge to home or self care 11/10/2024 8:21 AM ROLL TESTER - 11/10/2024 11:59 PM ROLL TESTER Hospital Encounter [facility] Imaging Center [address] [place] [address] Encounter for screening mammogram for malignant neoplasm [...] on file Legal Sex Female 12:29 AM ROLL TESTER Gender Identity Not on file Sexual [...] 02/02/2025 12:30 AM CDT Plan of Treatment Health Maintenance Due Date Last Done Comments Depression Screening 1955 Hepatitis C Screening 1955 Hepatitis B Screening 02/02/1974 Pneumococcal vaccine 65+ (1 of 1 - PCV) 02/02/2006 Zoster Vaccine (1 of 2) 02/02/2006 Well Visit 65+ 02/02/2021 Fall Risk Assessment 12/16/2023 12/16/2022 Influenza Vaccine (Season Ended) 2025 Breast Cancer Screening-Mammogram 11/10/2025 11/10/2024, 10/01/2022, 07/26/2020, [...] Read Routine (OP Routine) 11/10/2024 8:48 AM ROLL TESTER Encounter for screening mammogram for malignant neoplasm of breast DEXA AXIAL SKELETON BONE DENSITY 1 OR MORE SITES Schedule Routine, Read Routine (OP Routine) 03/23/2024 9:56 AM CDT Encounter for screening for osteoporosis COLONOSCOPY 12/16/2022 8:27 AM ROLL TESTER from Last 3 Months or Most Recently Relevant to Health Maintenance Results * Screening Mammogram Bilateral W Dwaine (11/10/2024 8:48 AM ROLL TESTER) Anatomical Region Laterality Modality Breast Bilateral Mammography 11/10/2024 8:58 AM ROLL TESTER Impressions 11/10/2024 8:58 AM ROLL TESTER There is no mammographic evidence of malignancy. A 1 year screening mammogram is recommended. BI-RADS: 2 - Benign. The patient has been or will be contacted. The patient will be entered into a reminder system with a target due date of 1 year for her next mammogram. Electronically signed by: Chiquis Contreras M.D. Narrative 11/10/2024 8:58 AM ROLL TESTER EXAMINATION: SCREENING MAMMOGRAM BILATERAL W DWAINE ORDERING [...] Encounter for screening for osteoporosis Screening postmenopausal Motion Picture Director/Model: [employer] Discovery SL (S/N [id number]) CLINICAL INFORMATION: Current height: 69 inches Maximum [...] Andrey Choi M.D. MF: FARHAT Report ID: [id number] Reading Location: [place] [address] Procedure Note Andrey Choi MD - 03/23/2024 EXAM DESCRIPTION: DEXA AXIAL SKELETON BONE DENSITY 1 OR MORE SITES REASON FOR STUDY: 69 y/o year old F with given history of: Encounterfor screening for osteoporosis Screening postmenopausal Motion Picture Director/Model: [employer] Discovery SL (S/N [id number]) CLINICAL INFORMATION: Current height: 69 inches Maximum [...] Andrey Choi M.D. MF: FARHAT Report ID: [id number] Reading Location: [place] [address] us Alexandra Robles MD IMG DXA PROCEDURES Final Resu lt * COLONOSCOPY (12/16/2022 8:27 AM ROLL TESTER) Anatomical Region Laterality Modality Other Narrative Procedure Note Grant Boyd MD - 12/16/2022 8:[address] [facility] Patient Name: Kayla Crystal Procedure Date: 12/16/2022 8:27 AM Date of : 1955 Admit Type: Outpatient Age: 67 Gender: Female Attending MD: Grant Boyd M.D. Room: [facility] ENDOSCOPY ROOM 2 Note Status: Finalized [...] scope was passed under direct vision. TheColonoscope [id number] was introduced through the anus and advanced [...] 8:27 AM Procedure Code(s): --- Professional --- 06426, Colonoscopy, flexible; diagnostic, including collection of specimen(s) by brushing or washing, when performed (separateprocedure) Diagnosis Code(s): --- Professional --- Z80.0, Family history of malignant neoplasm of digestive organs K64.9, Unspecified hemorrhoids CPT copyright 2020 [employer]. All rights reserved. The codes documented in this report are preliminary and upon complex care nurse reviewmay be revised to meet current compliance requirements. Recognized by the [employer] for promoting quality in endoscopy Grant Boyd MD ENDOSCOPY PROCEDURES Final Re sult from Last 3 Months or Most Recently Relevant to Health Maintenance Insurance [facility] [place] [address] [place] [id number] [facility] Member Subscriber Plan / Payer (Ef fective 2023-Present) Name:Kayla Crystal Relation to Subscriber:Self Name:Kayla Crystal Payer ID:[id number] (NAIC) Group ID:Not on file Type:MEDICAID RISK OTHER Address: ATTN: CLAIMS DEPT [address] [place] [id number] [facility] [place] [address] [phone] Advance Directives For more information, please contact: [phone] * Full Code (Latest Code Status on File) Date Activated Date Inactivated Comments 12/16/2022 8:29 AM 12/16/2022 3:09 PM * Full Code Date Activated Date Inactivated Comments 12/16/2022 8:29 AM 12/16/2022 8:29 AM * Full Code Date Activated Date Inactivated Comments 11/04/2018 3:12 PM 11/04/2018 8:18 PM Care Teams Driver Material Handler Relationship Specialty Start Date End Date Alexandra Robles MD [address] [place] [address] PCP - General 03/14/21 Alexandra Robles MD [address] [place] [address] 03/14/21
[2025-02-05 16:50] VITALS: BP 151/82; PULSE 81; RESP 20; TEMP 37.2; O2SAT 100
--- NOTE | 2025-02-05 17:04 | ED.SKABFB ---
HPI - Skin/Abscess/Foreign Bdy General Chief complaint: Neck Pain/Injury Stated complaint: reddened area on neck Time Seen by Provider: 02/05/25 16:55 Source: patient and RN notes reviewed Mode of arrival: ambulatory Limitations: no limitations History of Present Illness HPI narrative: Patient presents today complaining of a reddened and pruritic spot to the right side of her neck x5 days that has been worsening since onset. Three days ago she was seen in the ER at [facility] and given a steroid injection and 1 antibiotic pill, (possibly doxycycline for tick prophylaxis?). Patient is unsure if she got bit by a tick or other insect or if this could be from another cause. She has been washing with alcohol. Related Data Home Medications ?Medication ?Instructions ?Recorded ?Confirmed ?Last Taken ?Type levothyroxine 137 mcg tablet 137 mcg PO DAILY 01/09/21 12/01/24 Unknown History lisinopril 20 mg tablet 20 mg PO DAILY 01/09/21 01/09/21 Unknown History famotidine 20 mg tablet mg 12/01/24 Unknown History levothyroxine 112 mcg tablet mcg 12/01/24 Unknown History simvastatin 40 mg tablet mg 12/01/24 Unknown History Allergies Allergy/AdvReac Type Severity Reaction Status Date / Time No Known Allergies Allergy Verified 02/05/25 16:56 Review of Systems Review of Systems: CONSTITUTIONAL: Denies body aches, fever, chills, or sweats. EYES: Denies visual changes, redness, or discharge. ENT: Denies rhinorrhea, congestion, sore throat, or otalgia. CARDIOVASCULAR: Denies chest pain, palpitations, or edema. RESPIRATORY: Denies cough or dyspnea. GASTROINTESTINAL: Denies abdominal pain, nausea, vomiting, or diarrhea. GENITOURINARY: Denies dysuria or hematuria. SKIN: + wound to right neck MUSCULOSKELETAL: Denies back pain, joint pain, or myalgia. NEUROLOGIC: Denies headache, numbness, tingling, or weakness. PSYCH: Denies depression or anxiety. [facility] Past Medical History Medical History Bronchitis Hypercholesterolemia Hypertension Hypothyroidism Surgical History Surgical History H/O: hysterectomy Social History Social History Smoking status: Never smoker Alcohol intake: current Alcohol use details: social Substance use type: does not use Living arrangements: with family Gender identity (if verbalized by the patient): Female Comments At time of signature, I have reviewed and agree with nursing past medical, surgical, social and family history unless otherwise noted. Please see nursing chart for further information. There is no relevant family history pertinent to the presenting complaint Exam Narrative: GENERAL: Well-appearing, well-nourished, and in no acute distress. HEAD: Normocephalic, atraumatic. EYES: EOMI. No redness or drainage. Conjunctivae normal. ENT: Mucous membranes pink and moist. NECK: Normal AROM. CHEST: No respiratory distress. EXTREMITIES: Normal range of motion. No edema. SKIN: Warm, dry. Capillary refill normal. Normal skin turgor. Erythematous area to the right neck measuring approximately 5 x 5 cm with a 1.5 x 2 cm a area mild induration in the center with scattered firm vesicles. Very mildly tender to palpation. No drainage noted. no edema noted. NEURO: No focal deficits. Alert and oriented x3. Gait steady. PSYCH: Normal affect. No signs of depression or anxiety. Course Course Level of Care: Express Care Visit Vital Signs Vital signs: Vital Signs Temperature 98.9 F 02/05/25 16:50 Pulse Rate 81 02/05/25 16:50 Respiratory Rate 20 02/05/25 16:50 Blood Pressure 151/82 H 02/05/25 16:50 Pulse Oximetry 100 02/05/25 16:50 Oxygen Delivery Room Air 02/05/25 16:50 Temperature 98.9 F 02/05/25 16:50 Pulse Rate 81 02/05/25 16:50 Respiratory Rate 20 02/05/25 16:50 Blood Pressure 151/82 H 02/05/25 16:50 Pulse Oximetry 100 02/05/25 16:50 Oxygen Delivery Room Air 02/05/25 16:50 Reviewed MDM - Skin/Abscess/Foreign Bdy MDM Narrative Medical decision making narrative: Area does not appear to be an insect bite/tick bite, but appears to be more of a contact dermatitis and cellulitis. Will treat with triamcinolone cream and Keflex. Patient agrees with plan. Anticipatory guidance given. Differential Diagnosis Differential diagnosis: Likely abscess of skin or subcutaneous tissue, urticaria, herpes zoster, cellulitis, insect bites, impetigo and contact dermatitis Critical Care Time Critical Care Time Critical Care Time: No Discharge Plan Discharge Clinical Impression: Cellulitis of neck Patient Disposition: Home Condition: Stable Instructions: Antibiotic Form, Cellulitis (ED) Additional Instructions: Take the Keflex and use the triamcinolone as directed. Wash with soap and water daily. Do not washed with alcohol or peroxide. Follow-up with your PCP in 3 days if symptoms are not improving. Go to the ER if symptoms worsen. Your blood pressure was elevated above 120/80 today at Urgent Care. This puts you above the threshold for follow up. Please schedule a followup visit with your personal physician as soon as possible, for further evaluation and treatment. Even blood pressure exceeding 120/80 may indicate pre-hypertension. Patient Language: Sinhala Prescriptions: New triamcinolone acetonide 0.1 % cream 1 applic topical BID Qty: 30 0RF cephalexin 500 mg capsule 500 mg PO Q6H 7 Days Qty: 28 0RF No Action simvastatin 40 mg tablet famotidine 20 mg tablet levothyroxine 112 mcg tablet levothyroxine 137 mcg tablet 137 mcg PO DAILY lisinopril 20 mg tablet 20 mg PO DAILY Follow-up/Referrals: Mara Arevalo RN [Primary Care Provider] - Time of Disposition: 17:06
== END 2025-02-05 17:11 | disposition home or self-care (01) ==
PROVIDERS: Emergency Provider Nurse Practitioner
DX: L03.221 Cellulitis of neck (principal); I10 Essential (primary) hypertension; E03.9 Hypothyroidism, unspecified; E78.00 Pure hypercholesterolemia, unspecified
CPT/HCPCS: 99213; G0463

== ENCOUNTER 2025-03-06 17:52 | Emergency (ER) | payer OTHER, SELFPAY ==
--- OUTSIDE RECORDS SUMMARY | 2025-03-06 17:55 | XMS_ITS | Encounter Summary ---
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
--- OUTSIDE RECORDS SUMMARY | 2025-03-06 17:55 | XMS_ITS | Encounter Summary ---
Author Organization [facility] Healthcare Address [address] [place] [address] Care Team Providers Care Refrigeration Repair Supervisor Name Role Phone Benigno Crews MD Primary Care Provider [phone] Benigno Crews MD Unavailable [phone] Encounter Details Date Type Department Care Team (Late st Contact Info) Description 12/15/2022 Telephone [facility] [address] [place] [phone] Monique Umaña RN Social History Tobacco Use [...] on file Legal Sex Female 12:29 AM ALARM INVESTIGATOR Gender Identity Not on file Sexual Orientation Not on file documented as of this encounter Functional Status documented as of this encounter Plan of Treatment Not on file documented as of this encounter Visit Diagnoses Not on filedocumented in this encounter Care Teams Refrigeration Repair Supervisor Relationship Specialty Start Date End Date Benigno Crews MD [address] [place] [id number] PCP - General 03/14/21 Benigno Crews MD [address] [place] [address] 03/14/21 documented as of this encounter
--- OUTSIDE RECORDS SUMMARY | 2025-03-06 17:55 | XMS_ITS | Clinical Summary ---
Author Organization [facility] Address [address] [place] [address] Care Team Providers Care Instrument Processing Tech Name Role Phone Alexandra Robles MD Primary Care Provider [phone] Alexandra Robles MD Unavailable [phone] Allergies No known active allergies Medications [...] (11/14/2022): Added automatically from request for surgery [id number] Personal history of colonic polyps 11/14/2022 Overview (11/14/2022): Added automatically from request for surgery [id number] Encounter for screening colonoscopy 11/14/2022 Overview (11/14/2022): Added automatically from request for surgery [id number] Encounters Date Type Department Care Team Description 02/02/2025 12:36 AM CDT - 02/02/2025 6:20 AM CDT Emergency [facility] Emergency Department [address] [place] [id number] Giovani Sawant MD Rash (Primary Dx) Discharge [...] on file Legal Sex Female 12:29 AM CARBON SEQUESTRATION PLANT ENGINEER Gender Identity Not on file Sexual Orientation [...] Read Routine (OP Routine) 11/10/2024 8:48 AM CARBON SEQUESTRATION PLANT ENGINEER Encounter for screening mammogram for malignant neoplasm of breast DEXA AXIAL SKELETON BONE DENSITY 1 OR MORE SITES Schedule Routine, Read Routine (OP Routine) 03/23/2024 9:56 AM CDT Encounter for screening for osteoporosis COLONOSCOPY 12/16/2022 8:27 AM CARBON SEQUESTRATION PLANT ENGINEER from Last 3 Months or Most Recently Relevant to Health Maintenance Results * Screening Mammogram Bilateral W [place] (11/10/2024 8:48 AM CARBON SEQUESTRATION PLANT ENGINEER) Anatomical Region Laterality Modality Breast Bilateral Mammography 11/10/2024 8:58 AM CARBON SEQUESTRATION PLANT ENGINEER Impressions 11/10/2024 8:58 AM CARBON SEQUESTRATION PLANT ENGINEER There is no mammographic evidence of malignancy. A 1 year screening mammogram is recommended. BI-RADS: 2 - Benign. The patient has been or will be contacted. The patient will be entered into a reminder system with a target due date of 1 year for her next mammogram. Electronically signed by: Chiquis Contreras M.D. Narrative 11/10/2024 8:58 AM CARBON SEQUESTRATION PLANT ENGINEER EXAMINATION: SCREENING MAMMOGRAM BILATERAL W DWAINE ORDERING [...] Encounter for screening for osteoporosis Screening postmenopausal Forestry Aide/Model: FUNGO STUDIOS SL (S/N [id number]) CLINICAL INFORMATION: Current height: 69 inches Maximum [...] Andrey Choi M.D. MF: FARHAT Report ID: [id number] Reading Location: [address] Note Andrey Choi MD - 03/23/2024 EXAM DESCRIPTION: DEXA AXIAL SKELETON BONE DENSITY 1 OR MORE SITES REASON FOR STUDY: 69 y/o year old F with given history of: Encounterfor screening for osteoporosis Screening postmenopausal Forestry Aide/Model: My[employer] Discovery SL (S/N [id number]) CLINICAL INFORMATION: Current height: 69 inches Maximum [...] Andrey Choi M.D. MF: FARHAT Report ID: [id number] Reading Location: [place] [address] Alexandra Robles MD IM DXA PROCEDURES Final Resu lt * COLONOSCOPY (12/16/2022 8:27 AM CARBON SEQUESTRATION PLANT ENGINEER) Anatomical Region Laterality Modality Other Narrative Procedure Note Grant Boyd MD - 12/16/2022 8:27 AM CST [facility] Patient Name: Kayla Crystal Procedure Date: 12/16/2022 8:27 AM Date of : 1955 Admit Type: Outpatient Age: 67 Gender: Female Attending MD: Grant Boyd M.D. Room: [facility] ROOM 2 Note Status: Finalized Patient [...] scope was passed under direct vision. TheColonoscope [id number] was introduced through the anus and advanced [...] 8:27 AM Procedure Code(s): --- Professional --- 64767, Colonoscopy, flexible; diagnostic, including collection of specimen(s) by brushing or washing, when performed (separateprocedure) Diagnosis Code(s): --- Professional --- Z80.0, Family history of malignant neoplasm of digestive organs K64.9, Unspecified hemorrhoids CPT copyright 2020 [employer]. All rights reserved. The codes documented in this report are preliminary and upon tape cutting machine operator reviewmay be revised to meet current compliance requirements. Recognized by the [employer] for promoting quality in endoscopy Grant Boyd MD ENDOSCOPY PROCEDURES Final Re sult from Last 3 Months or Most Recently Relevant to Health Maintenance Insurance [facility] [place] [address] [place] [address] [facility] [place] [address] [address] Advance Directives For more information, please contact: [phone] * Full Code (Latest Code Status on File) Date Activated Date Inactivated Comments 12/16/2022 8:29 AM 12/16/2022 3:09 PM * Full Code Date Activated Date Inactivated Comments 12/16/2022 8:29 AM 12/16/2022 8:29 AM * Full Code Date Activated Date Inactivated Comments 11/04/2018 3:12 PM 11/04/2018 8:18 PM Care Teams Instrument Processing Tech Relationship Specialty Start Date End Date Alexandra Robles MD [address] [place] [address] PCP - General 03/14/21 Alexandra Robles MD [address] [place], [place] [id number] 03/14/21
--- OUTSIDE RECORDS SUMMARY | 2025-03-06 17:55 | XMS_ITS | Clinical Summary ---
Author Organization [facility] Address [address] [address] Phone Care Team Providers Care Care Clinician Name Role Phone Benigno Crews MD Primary Care Provider [phone] Allergies No known active allergies Medications polyethylene [...] 115.7 kg (255 lb) 12/28/2015 9:00 AM SSN/SSBN ASSISTANT NAVIGATOR Height 175.3 cm (5' 9 ) 12/28/2015 9:00 AM SSN/SSBN ASSISTANT NAVIGATOR Body Mass Index 37.66 12/28/2015 9:00 AM SSN/SSBN ASSISTANT NAVIGATOR Plan of Treatment Health Maintenance Due Date [...] is made to exams dated: 01/01/2018, 12/31/2016 [facility], and 08/02/2015 [facility]. BREAST TISSUE:The tissue of both breasts is [...] exam. Electronically signed by: Chiquis lewis/stephanie:02/21/2019 09:31:11 Pneumatic Tester Mechanic: Luma Tracey (Leila), [facility] letter sent: Normal Exam Reading location: [facility] BI-RADS: 1 Negative Procedure Note Chiquis [...] is made to exams dated: 01/01/2018, 12/31/2016 [facility], and 08/02/2015 [facility]. BREAST TISSUE:The tissue of both breasts is [...] exam. Electronically signed by: Chiquis lewis/stephanie:02/21/2019 09:31:11 Pneumatic Tester Mechanic: Luma Tracey (R), [facility] letter sent: Normal Exam Reading location: [facility] BI-RADS: 1 Negative us Noa Evans MD IMG MAMMO ORDERABLES Fin al Result from Last 3 Months or Most Recently Relevant to Health Maintenance Insurance MEDICAID [place] [employer] [place] Care Teams Care Clinician Relationship Specialty Start Date End Date Benigno Crews MD [address] [place] [address] PCP - General Internal Medicine 01/04/16
--- OUTSIDE RECORDS SUMMARY | 2025-03-06 17:55 | XMS_ITS | Clinical Summary ---
Author Organization [facility] Address [address] [place] [address] Care Team Providers Care Back Stayer Name Role Phone Benigno Crews MD Primary Care Provider [phone] Source Comments [facility],non-owned Affiliates and Associated Physician Practices is amultiple site organization consisting of ambulatory clinics and hospital sitesin [place], [place] and [place]. This disclosure is being madepursuant to the Care Everywhere program and may not contain all information available regarding this patient. Last updated 18.[facility] Allergies No known active allergies Medications * [...] on file Legal Sex Female 3:56 PM ROUND KILN DRAWER Gender Identity Not on file Sexual Orientation Not on file Last Filed Vital Signs Vital Sign Reading Time Taken Comments Blood Pressure 134/86 03/29/2020 11:04 AM CDT Pulse 72 03/29/2020 11:04 AM CDT Temperature 36.9 C (98.4 F) 03/29/2020 11:04 AM CDT Respiratory Rate 14 12/20/2018 7:13 PM ROUND KILN DRAWER Oxygen Saturation 93% 12/20/2018 7:13 PM ROUND KILN DRAWER Inhaled Oxygen Concentration - - Weight 108.9 [...] to complete this topic Insurance Care Teams Back Stayer Relationship Specialty Start Date End Date Benigno Crews MD [address] [place] [address] PCP - General Internal Medicine 12/20/18
--- OUTSIDE RECORDS SUMMARY | 2025-03-06 17:55 | XMS_ITS | Data Portability ---
Author Organization [facility] Address [address] [place] [place] [address] Care Team Providers Care Health Information Tech Name Role Phone BENIGNO ROBLES Primary Care Provider Assessment No assessment recorded. Plan of Treatment Reminders Order Date Submit Date Provider Last Modified By Organization Details Last Modified Time Details Appointments ANY 30 2024 10:30A M TRINI GAMBOA-ELSA Not available Not available Not available Lab HbA1c (hemogl obin A1c), blood 2023 024 [facility], [address] [facility], [facility], [place], [address], 03/16/2024 14:13:09 CBC w/ auto diff 2023 024 [facility], [address] [place] [address], [facility], [place], [address], 03/16/2024 14:13:12 CMP, serum or plasma 2023 024 [facility], [address] [place] [address], [facility], [place], [address], 03/16/2024 14:13:08 lipid panel, serum 2023 024 [facility], [address] [facility], [facility], [place], [address], 03/16/2024 14:13:06 TSH, ultra-s ensitiv e, serum 2023 024 [facility], [address] [place] [address], [facility], [place], [address], 03/16/2024 14:13:11 CBC w/ auto diff 2023 024 [facility], [address] [place] [address] 2, [place], [address], 11/03/2024 08:23:45 C[facility], serum or plasma [facility]23 [facility]24 [facility] [address] [place] [address], [place], [address], 11/03/2024 08:23:43 TSH, ultra-s ensitiv e, serum 2023 024 [facility], [address] [place] [address], [place], [address], 11/03/2024 08:23:44 lipid panel, serum 2023 024 [facility], [address] [place] [address], [place], [address], 11/03/2024 08:23:42 HbA1c (hemogl obin A1c), blood 2022 023 [facility], [address] [place] [address], [place], [address], 07/11/2023 04:20:52 CBC w/ auto diff 2022 023 [facility], [address] [place] [address], [place], [address], 07/10/2023 20:08:14 CMP, serum or plasma 2022 023 [facility], [address] [place] [address], [place], [address], 07/10/2023 20:08:13 vitamin B12, serum 2022 023 [facility], [address] [place] [address], [place], [address], 07/11/2023 04:20:52 TSH, ultra-s ensitiv e, serum 2022 023 [facility], [address] [place] [address], [place], [address], 07/11/2023 04:20:53 lipid panel, serum 2022 023 [facility], [address] [place] [address], [place], [address], 07/10/2023 20:08:13 Referral None recorde d. Procedures None recorde d. Surgeries None recorde d. Imaging MAMMO, screeni ng, digital , bilater al 2024 025 [facility], [address] [place] [address], [address], 11/10/2024 10:02:12 Medication Orders famotid ine 20 mg tablet 2024 025 [id number], [address] [place], [address], 02/28/2025 15:21:12 simvast atin 40 mg tablet 2024 025 [id number] [address] [place], [address], 11/04/2024 11:22:43 triamci nolone acetoni de 0.1 % topical cream 2024 025 [id number], [address] [place], [address], 11/04/2024 11:21:40 triamci nolone acetoni de 0.1 % topical cream 2023 024 [id number], [address] [place], [address], 07/12/2024 11:28:39 tizanid ine 4 mg tablet 2023 024 [id number], [address] [place], [address], 03/15/2024 11:35:57 famotid ine 20 mg tablet 2023 024 nsuthan [id number], [address] [place], [address], 03/15/2024 11:31:55 Patient TargetsNo targets recorded. Patient Instructions Encounter Date Encounter Id Patient Instructions Last Modified By Organization Details Last Modified Time 07/10/2023 [id number] A healthy lifestyle: care instructions nsuthan Not available 07/10/2023 11:29:16 f/u in 4 month nsuthan Not available 0 07/10/2023 11:29:36 11/10/2023 [id number] A healthy lifestyle: care instructions nsuthan Not available 11/10/2023 11:33:22 f/u in 4month nsuthan Not available 11:33:21 03/15/2024 [id number] low back pain: exercises nsuthan Not available 03/15/2024 11:35:35 f/u in 4 month nsuthan Not available 0 03/15/2024 11:35:57 07/12/2024 [id number] prediabetes: car e instructions nsuthan Not available 07/12/2024 11:28:37 f/u in 4 month nsuthan Not available 0 07/12/2024 11:28:36 11/04/2024 [id number] f/u in 4 month nsuthan Not available 11/04/2024 11:27:52 Reason for Referral None Reported. Results Created Date Observation Date Name Description Value Unit Range Abnormal Flag Note LastModifiedBy Organization Detail LastModifiedTime 07/10/20 23 07/10/2023 LIPID PANEL cholesterol, total 184 mg/dL 100-19 9 Not Available [facility] Department [address] [place], [address], 07/10/2023 20:08:12 07/10/20 23 07/10/2023 LIPID PANEL triglyceride s 298 mg/dL 0-149 above high normal Not Available [facility] Department [address] [place] [address], [address], 07/10/2023 20:08:12 07/10/20 23 07/10/2023 LIPID PANEL HDL cholesterol 43 mg/dL 40-999 Not Available [facility] Department [address] [place], [address], 07/10/2023 20:08:12 07/10/20 23 07/10/2023 LIPID PANEL VLDL cholesterol deshawn 60 mg/dL 5-40 above high normal Not Available [facility] [address] [place] [address], [address], 07/10/2023 20:08:12 07/10/20 23 07/10/2023 LIPID PANEL LDL chol calc (nih) 127 mg/dL 0-99 above high normal Not Available [facility] [address] [place] [address], [address], 07/10/2023 20:08:12 07/10/20 23 07/10/2023 COMP. METAB OLIC PANEL (14) glucose 103 mg/dL 70-99 above high normal Not Available [facility] [address] [place], [address], 07/10/2023 20:08:13 07/10/20 23 07/10/2023 COMP. METAB OLIC PANEL (14) BUN 22 mg/dL 8-27 Not Available [facility] Department [address] [place] [address], [address], 07/10/2023 20:08:13 07/10/20 23 07/10/2023 COMP. METAB OLIC PANEL (14) creatinine 0.82 mg/dL 0.76-1 .27 Not Available [facility] [address] [place] [address], [address], 07/10/2023 20:08:13 07/10/20 23 07/10/2023 COMP. METAB OLIC PANEL (14) eGFR 78 >=60 Units for eGFR value s are mL/mi n/1.7 3 The eGFR Calcu latio n has not been valid ated for patie nts under the age of 18. If test resul ts are displ ayed for a patie nt under the age of 18, disre kirill that value . Not Available [facility] [address] [place] [address], [address], 07/10/2023 20:08:13 07/10/20 23 07/10/2023 COMP. METAB OLIC PANEL (14) BUN/creatini ne ratio 27 10-28 Not Available [facility] Department [address] [place] [address], [address], 07/10/2023 20:08:13 07/10/20 23 07/10/2023 COMP. METAB OLIC PANEL (14) sodium 140 mmol/ L 134-14 4 Not Available [facility] [address] [place] [address], [address], 07/10/2023 20:08:13 07/10/20 23 07/10/2023 COMP. METAB OLIC PANEL (14) potassium 4.7 mmol/ L 3.5-5. 2 Not Available [facility] [address] [place] [address], [address], 07/10/2023 20:08:13 07/10/20 23 07/10/2023 COMP. METAB OLIC PANEL (14) chloride 101 mmol/ L 96-106 Not Available [facility] [address] [place] [address], [address], 07/10/2023 20:08:13 07/10/20 23 07/10/2023 COMP. METAB OLIC PANEL (14) carbon dioxide, total 25 mmol/ L 20-29 Not Available [facility] [address] [place] [address], [address], 07/10/2023 20:08:13 07/10/20 23 07/10/2023 COMP. METAB OLIC PANEL (14) calcium 9.9 mg/dL 8.7-10 .3 Not Available [facility] [address] [place], [address], 07/10/2023 20:08:13 07/10/20 23 07/10/2023 COMP. METAB OLIC PANEL (14) protein, total 7.3 g/dL 6.0-8. 5 Not Available [facility] [address] [place], [address], 07/10/2023 20:08:13 07/10/20 23 07/10/2023 COMP. METAB OLIC PANEL (14) albumin 4.4 g/dL 3.8-4. 8 Not Available [facility] [address] [place], [address], 07/10/2023 20:08:13 07/10/20 23 07/10/2023 COMP. METAB OLIC PANEL (14) globulin, total 2.9 g/dL 1.5-4. 5 Not Available [facility] [address] [place], [address], 07/10/2023 20:08:13 07/10/20 23 07/10/2023 COMP. METAB OLIC PANEL (14) A/G ratio 2.0 1.2-2. 2 Not Available [facility] [address] [place], [address], 07/10/2023 20:08:13 07/10/20 23 07/10/2023 COMP. METAB OLIC PANEL (14) bilirubin, total 0.4 mg/dL 0.0-1. 2 Not Available [facility] [address] [place], [address], 07/10/2023 20:08:13 07/10/20 23 07/10/2023 COMP. METAB OLIC PANEL (14) alkaline phosphatase 81 IU/L 44-121 Not Available [facility] Department [address] [place], [address], 07/10/2023 20:08:13 07/10/20 23 07/10/2023 COMP. METAB OLIC PANEL (14) AST (SGOT) 18 IU/L 0-40 Not Available [facility] Department [address] [place], [address], 07/10/2023 20:08:13 07/10/20 23 07/10/2023 COMP. METAB OLIC PANEL (14) ALT (SGPT) 13 IU/L 0-32 Not Available [facility] Department [address] [place], [address], 07/10/2023 20:08:13 07/10/20 23 07/10/2023 CBC WITH DIFFE RENTI AL/PL ATELE T WBC 7.7 x10e3 /uL 3.4-10 .8 Not Available [facility] [address] [place], [address], 07/10/2023 20:08:14 07/10/20 23 07/10/2023 CBC WITH DIFFE RENTI AL/PL ATELE T RBC 4.52 x10e6 /uL 3.77-5 .28 Not Available [facility] [address] [place], [address], 07/10/2023 20:08:14 07/10/20 23 07/10/2023 CBC WITH DIFFE RENTI AL/PL ATELE T hemoglobin 13.2 g/dL 11.1-1 5.9 Not Available [facility] [address] [place], [address], 07/10/2023 20:08:14 07/10/20 23 07/10/2023 CBC WITH DIFFE RENTI AL/PL ATELE T hematocrit 41.0 % 34.0-4 6.6 Not Available [facility] [address] [place], [address], 07/10/2023 20:08:14 07/10/20 23 07/10/2023 CBC WITH DIFFE RENTI AL/PL ATELE T MCV 91 fL 79-97 Not Available [facility] Department [address] [place], [address], 07/10/2023 20:08:14 07/10/20 23 07/10/2023 CBC WITH DIFFE RENTI AL/PL ATELE T MCH 29.2 pg 26.6-3 3.0 Not Available [facility] [address] [place], [address], 07/10/2023 20:08:14 07/10/20 23 07/10/2023 CBC WITH DIFFE RENTI AL/PL ATELE T MCHC 32.2 g/dL 31.5-3 5.7 Not Available [facility] [address] [place], [address], 07/10/2023 20:08:14 07/10/20 23 07/10/2023 CBC WITH DIFFE RENTI AL/PL ATELE T RDW 13.1 % 11.5-1 4.5 Not Available [facility] [address] [place], [address], 07/10/2023 20:08:14 07/10/20 23 07/10/2023 CBC WITH DIFFE RENTI AL/PL ATELE T platelets 209 x10e3 /uL 150-45 0 Not Available [facility] [address] [place], [address], 07/10/2023 20:08:14 07/10/20 23 07/10/2023 CBC WITH DIFFE RENTI AL/PL ATELE T neutrophils 53 % notest b. Not Available [facility] [address] [place], [address], 07/10/2023 20:08:14 07/10/20 23 07/10/2023 CBC WITH DIFFE RENTI AL/PL ATELE T lymphs 34 % notest b. Not Available [facility] [address] [place], [address], 07/10/2023 20:08:14 07/10/20 23 07/10/2023 CBC WITH DIFFE RENTI AL/PL ATELE T monocytes 8 % notest b. Not Available [facility] [address] [place], [address], 07/10/2023 20:08:14 07/10/20 23 07/10/2023 CBC WITH DIFFE RENTI AL/PL ATELE T eos 4 % notest b. Not Available [facility] [address] [place] [address], [address], 07/10/2023 20:08:14 07/10/20 23 07/10/2023 CBC WITH DIFFE RENTI AL/PL ATELE T basos 1 % notest b. Not Available [facility] [address] [place], [address], 07/10/2023 20:08:14 07/10/20 23 07/10/2023 CBC WITH DIFFE RENTI AL/PL ATELE T neutrophils (absolute) 4.1 x10e3 /uL 1.4-7. 0 Not Available [facility] [address] [place], [address], 07/10/2023 20:08:14 07/10/20 23 07/10/2023 CBC WITH DIFFE RENTI AL/PL ATELE T lymphs (absolute) 2.6 x10e3 /uL 0.7-3. 1 Not Available [facility] [address] [place], [address], 07/10/2023 20:08:14 07/10/20 23 07/10/2023 CBC WITH DIFFE RENTI AL/PL ATELE T monocytes(ab solute) 0.6 x10e3 /uL 0.1-0. 9 Not Available [facility] [address] [place], [address], 07/10/2023 20:08:14 07/10/20 23 07/10/2023 CBC WITH DIFFE RENTI AL/PL ATELE T eos (absolute) 0.3 x10e3 /uL 0.0-0. 4 Not Available [facility] [address] [place], [address], 07/10/2023 20:08:14 07/10/20 23 07/10/2023 CBC WITH DIFFE RENTI AL/PL ATELE T baso (absolute) 0.1 x10e3 /uL 0.0-0. 2 Not Available [facility] [address] [place], [address], 07/10/2023 20:08:14 07/10/20 23 07/10/2023 CBC WITH DIFFE RENTI AL/PL ATELE T immature granulocytes 0.3 % notest b. Not Available [facility] [address] [place], [address], 07/10/2023 20:08:14 07/10/20 23 07/10/2023 CBC WITH DIFFE RENTI AL/PL ATELE T immature grans (abs) 0.0 x10e3 /uL 0.0-0. 1 Not Available [facility] [address] [place], [address], 07/10/2023 20:08:14 07/10/20 23 07/10/2023 CBC WITH DIFFE RENTI AL/PL ATELE T NRBC 0 % 0-0 Not Available [facility] [address] [place], [address], 07/10/2023 20:08:14 07/10/20 23 07/11/2023 HEMOG LOBIN A1C hemoglobin A1C 6.2 % 4.8-5. 6 above high normal Predi abete s: 5.7 - 6.4 Diabe rubio: >6.4 Glyce alexandro contr ol for adult s with diabe rubio: <7.0 Not Available [facility] ([facility]) [address] [facility] [place], [address], 07/11/2023 04:20:52 07/10/20 23 07/11/2023 VITAM IN B12 vitamin B12 400 pg/mL 232-12 45 Not Available [facility] ([facility]) [address] [facility] [place], [address], 07/11/2023 04:20:52 07/10/20 23 07/11/2023 TSH TSH 0.170 uIU/m L 0.450- 4.500 below low normal Not Available [facility] ([facility]) [address] [facility] [place], [address], 07/11/2023 04:20:53 03/15/20 24 03/16/2024 LIPID PANEL cholesterol, total 150 mg/dL 100-19 9 Not Available [facility] ([facility]) [address] [place], [address], 03/16/2024 14:13:06 03/15/20 24 03/16/2024 LIPID PANEL triglyceride s 269 mg/dL 0-149 above high normal Not Available [facility] ([facility]) [address] [place], [address], 03/16/2024 14:13:06 03/15/20 24 03/16/2024 LIPID PANEL HDL cholesterol 39 mg/dL >39 below low normal Not Available [facility] ([facility]) [address] [place], [address], 03/16/2024 14:13:06 03/15/20 24 03/16/2024 LIPID PANEL VLDL cholesterol deshawn 43 mg/dL 5-40 above high normal Not Available [facility] ([facility]) [address] [place], [address], 03/16/2024 14:13:06 03/15/20 24 03/16/2024 LIPID PANEL LDL chol calc ([facility]) 68 mg/dL 0-99 Not Available [facility] ([facility]) [address] [facility], [place], [address], 03/16/2024 14:13:06 03/15/20 24 03/16/2024 COMP. METAB OLIC PANEL (14) glucose 94 mg/dL 70-99 Not Available [facility] ([facility]) [address] [facility], [place], [address], 03/16/2024 14:13:08 03/15/20 24 03/16/2024 COMP. METAB OLIC PANEL (14) BUN 15 mg/dL 8-27 Not Available [facility] ([facility]) [address] [facility], [place], [address], 03/16/2024 14:13:08 03/15/20 24 03/16/2024 COMP. METAB OLIC PANEL (14) creatinine 0.81 mg/dL 0.57-1 .00 Not Available [facility] ([facility]) [address] [facility], [place], [address], 03/16/2024 14:13:08 03/15/20 24 03/16/2024 COMP. METAB OLIC PANEL (14) eGFR 79 mL/mi n/1.7 3 >59 Not Available [facility] ([facility]) [address] [facility], [place], [address], 03/16/2024 14:13:08 03/15/20 24 03/16/2024 COMP. METAB OLIC PANEL (14) BUN/creatini ne ratio 19 12-28 Not Available [facility] ([facility]) [address] [facility], [place], [address], 03/16/2024 14:13:08 03/15/20 24 03/16/2024 COMP. METAB OLIC PANEL (14) sodium 137 mmol/ L 134-14 4 Not Available [facility] ([facility]) [address] [facility] [place], [address], 03/16/2024 14:13:08 03/15/20 24 03/16/2024 COMP. METAB OLIC PANEL (14) potassium 4.6 mmol/ L 3.5-5. 2 Not Available [facility] ([facility]) [address], [place], [address], 03/16/2024 14:13:08 03/15/20 24 03/16/2024 COMP. METAB OLIC PANEL (14) chloride 103 mmol/ L 96-106 Not Available [facility] ([facility]) [address], [place], [address], 03/16/2024 14:13:08 03/15/20 24 03/16/2024 COMP. METAB OLIC PANEL (14) carbon dioxide, total 21 mmol/ L 20-29 Not Available [facility] ([facility]) [address] [facility], [place], [address], 03/16/2024 14:13:08 03/15/20 24 03/16/2024 COMP. METAB OLIC PANEL (14) calcium 9.8 mg/dL 8.7-10 .3 Not Available [facility] ([facility]) [address] [facility], [place], [address], 03/16/2024 14:13:08 03/15/20 24 03/16/2024 COMP. METAB OLIC PANEL (14) protein, total 7.2 g/dL 6.0-8. 5 Not Available [facility] ([facility]) [address] [facility], [place], [address], 03/16/2024 14:13:08 03/15/20 24 03/16/2024 COMP. METAB OLIC PANEL (14) albumin 4.4 g/dL 3.9-4. 9 Not Available [facility] ([facility]) [address] [facility], [place], [address], 03/16/2024 14:13:08 03/15/20 24 03/16/2024 COMP. METAB OLIC PANEL (14) globulin, total 2.8 g/dL 1.5-4. 5 Not Available [facility] ([facility]) [address] [place], [address], 03/16/2024 14:13:08 03/15/20 24 03/16/2024 COMP. METAB OLIC PANEL (14) A/G ratio 1.6 1.2-2. 2 Not Available [facility] ([facility]) [address] [place], [address], 03/16/2024 14:13:08 03/15/20 24 03/16/2024 COMP. METAB OLIC PANEL (14) bilirubin, total 0.4 mg/dL 0.0-1. 2 Not Available [facility] ([facility]) [address] [place], [address], 03/16/2024 14:13:08 03/15/20 24 03/16/2024 COMP. METAB OLIC PANEL (14) alkaline phosphatase 79 IU/L 44-121 Not Available [facility] ([facility]) [address] [place], [address], 03/16/2024 14:13:08 03/15/20 24 03/16/2024 COMP. METAB OLIC PANEL (14) AST (SGOT) 22 IU/L 0-40 Not Available [facility] ([facility]) [address] [place], [address], 03/16/2024 14:13:08 03/15/20 24 03/16/2024 COMP. METAB OLIC PANEL (14) ALT (SGPT) 14 IU/L 0-32 Not Available [facility] ([facility]) [address] [place], [address], 03/16/2024 14:13:08 03/15/20 24 03/16/2024 HEMOG LOBIN A1C hemoglobin A1C 6.3 % 4.8-5. 6 above high normal Predi abete s: 5.7 - 6.4 Diabe rubio: >6.4 Glyce alexandro contr ol for adult s with diabe rubio: <7.0 Not Available [facility] ([facility]) [address] [place], [address], 03/16/2024 14:13:09 03/15/20 24 03/16/2024 TSH TSH 1.050 uIU/m L 0.450- 4.500 Not Available [facility] ([facility]) [address] [place], [address], 03/16/2024 14:13:11 03/15/20 24 03/16/2024 CBC WITH DIFFE RENTI AL/PL ATELE T WBC 7.0 x10e3 /uL 3.4-10 .8 Not Available [facility] ([facility]) [address] [place], [address], 03/16/2024 14:13:12 03/15/20 24 03/16/2024 CBC WITH DIFFE RENTI AL/PL ATELE T RBC 4.56 x10e6 /uL 3.77-5 .28 Not Available [facility] ([facility]) [address] [place], [address], 03/16/2024 14:13:12 03/15/20 24 03/16/2024 CBC WITH DIFFE RENTI AL/PL ATELE T hemoglobin 13.5 g/dL 11.1-1 5.9 Not Available [facility] ([facility]) [address] [place], [address], 03/16/2024 14:13:12 03/15/20 24 03/16/2024 CBC WITH DIFFE RENTI AL/PL ATELE T hematocrit 40.9 % 34.0-4 6.6 Not Available [facility] ([facility]) [address] [place], [address], 03/16/2024 14:13:12 03/15/20 24 03/16/2024 CBC WITH DIFFE RENTI AL/PL ATELE T MCV 90 fL 79-97 Not Available [facility] ([facility]) [address] [facility], [place], [address], 03/16/2024 14:13:12 03/15/20 24 03/16/2024 CBC WITH DIFFE RENTI AL/PL ATELE T MCH 29.6 pg 26.6-3 3.0 Not Available [facility] ([facility]) [address] [facility], [place], [address], 03/16/2024 14:13:12 03/15/20 24 03/16/2024 CBC WITH DIFFE RENTI AL/PL ATELE T MCHC 33.0 g/dL 31.5-3 5.7 Not Available [facility] ([facility]) [address] [facility], [place], [address], 03/16/2024 14:13:12 03/15/20 24 03/16/2024 CBC WITH DIFFE RENTI AL/PL ATELE T RDW 13.2 % 11.7-1 5.4 Not Available [facility] ([facility]) [address] [facility], [place], [address], 03/16/2024 14:13:12 03/15/20 24 03/16/2024 CBC WITH DIFFE RENTI AL/PL ATELE T platelets 197 x10e3 /uL 150-45 0 Not Available [facility] ([facility]) [address] [facility], [place], [address], 03/16/2024 14:13:12 03/15/20 24 03/16/2024 CBC WITH DIFFE RENTI AL/PL ATELE T neutrophils 55 % notest ab. Not Available [facility] ([facility]) [address] [facility], [place], [address], 03/16/2024 14:13:12 03/15/20 24 03/16/2024 CBC WITH DIFFE RENTI AL/PL ATELE T lymphs 32 % notest ab. Not Available [facility] ([facility]) [address] [facility], [place], [address], 03/16/2024 14:13:12 03/15/20 24 03/16/2024 CBC WITH DIFFE RENTI AL/PL ATELE T monocytes 8 % notest ab. Not Available [facility] ([facility]) [address] [facility], [place], [address], 03/16/2024 14:13:12 03/15/20 24 03/16/2024 CBC WITH DIFFE RENTI AL/PL ATELE T eos 4 % notest ab. Not Available [facility] ([facility]) [address] [facility], [place], [address], 03/16/2024 14:13:12 03/15/20 24 03/16/2024 CBC WITH DIFFE RENTI AL/PL ATELE T basos 1 % notest ab. Not Available [facility] ([facility]) [address] [facility], [place], [address], 03/16/2024 14:13:12 03/15/20 24 03/16/2024 CBC WITH DIFFE RENTI AL/PL ATELE T neutrophils (absolute) 3.8 x10e3 /uL 1.4-7. 0 Not Available [facility] ([facility]) [address] [facility], [place], [address], 03/16/2024 14:13:12 03/15/20 24 03/16/2024 CBC WITH DIFFE RENTI AL/PL ATELE T lymphs (absolute) 2.3 x10e3 /uL 0.7-3. 1 Not Available [facility] ([facility]) [address] [facility], [place], [address], 03/16/2024 14:13:12 03/15/20 24 03/16/2024 CBC WITH DIFFE RENTI AL/PL ATELE T monocytes(ab solute) 0.6 x10e3 /uL 0.1-0. 9 Not Available [facility] ([facility]) [address] [facility], [place], [address], 03/16/2024 14:13:12 03/15/20 24 03/16/2024 CBC WITH DIFFE RENTI AL/PL ATELE T eos (absolute) 0.3 x10e3 /uL 0.0-0. 4 Not Available [facility] ([facility]) [address] [facility], [place], [address], 03/16/2024 14:13:12 03/15/20 24 03/16/2024 CBC WITH DIFFE RENTI AL/PL ATELE T baso (absolute) 0.1 x10e3 /uL 0.0-0. 2 Not Available [facility] ([facility]) [address] [facility], [place], [address], 03/16/2024 14:13:12 03/15/20 24 03/16/2024 CBC WITH DIFFE RENTI AL/PL ATELE T immature granulocytes 0 % notest ab. Not Available [facility] ([facility]) [address] [facility], [place], [address], 03/16/2024 14:13:12 03/15/20 24 03/16/2024 CBC WITH DIFFE RENTI AL/PL ATELE T immature grans (abs) 0.0 x10e3 /uL 0.0-0. 1 Not Available [facility] ([facility]) [address] [place], [address], 03/16/2024 14:13:12 11/02/19 25 11/03/2024 LIPID PANEL cholesterol, total 161 mg/dL 100-19 9 Not Available [facility] ([facility]) [address] [place], [address], 11/03/2024 08:23:42 11/02/19 11/03/2024 LIPID PANEL triglyceride s 185 mg/dL 0-149 above high normal Not Available [facility] ([facility]) [address] [place], [address], 11/03/2024 08:23:42 11/02/19 25 11/03/2024 LIPID PANEL HDL cholesterol 48 mg/dL >39 Not Available [facility] ([facility]) [address] [place], [address], 11/03/2024 08:23:42 11/02/19 25 11/03/2024 LIPID PANEL VLDL cholesterol deshawn 31 mg/dL 5-40 Not Available [facility] ([facility]) [address] [place], [address], 11/03/2024 08:23:42 11/02/19 25 11/03/2024 LIPID PANEL LDL chol calc ([facility]) 82 mg/dL 0-99 Not Available [facility] ([facility]) [address] [place], [address], 11/03/2024 08:23:42 11/02/1911/03/2024 COMP. METAB OLIC PANEL (14) glucose 87 mg/dL 70-99 N [id number]|2025-03-06 17:55:00|2025-03-06 17:54:00|XMS_ITS|BKG DATERAON|External Medical Summaries|[id number]|" Encounter Summary Created on: March 06, 2025 Kayla Crystal : 1955 Sex: Female Author Organization [facility] Healthcare Address [address] [place] [address] Care Team Providers Care Health Information Tech Name Role Phone Benigno Robles MD Primary Care Provider [phone] Benigno Robles MD Unavailable Encounter Details Date Type Department Care Team (Late st Contact Info) Description 12/18/2022 Telephone [facility] [address] [place] [address] Monique Umaña, DENIZ Social History Tobacco Use Types Packs/Day Years [...] on file 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
--- OUTSIDE RECORDS SUMMARY | 2025-03-06 17:55 | XMS_ITS | Referral Summary ---
Author Organization [facility] cindy Address [address] [place] [address] Care Team Providers Care Shop Girl Name Role Phone Alexandra Robles MD Primary Care Provider [phone] Alexandra Robles MD Unavailable [phone] Encounters Date Type Department Care Team Description 02/02/2025 12:36 AM CDT - 02/02/2025 6:20 AM CDT Emergency [facility] Emergency Department [address] [place] [address] Giovani Sawant MD Rash (Primary Dx) Discharge [...] (11/14/2022): Added automatically from request for surgery [id number] Personal history of colonic polyps 11/14/2022 Overview (11/14/2022): Added automatically from request for surgery [id number] Encounter for screening colonoscopy 11/14/2022 Overview (11/14/2022): Added automatically from request for surgery [id number] Social History Tobacco Use Types Packs/Day Years [...] on file Legal Sex Female 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 Gender Identity Not on file Sexual Orientation [...] Read Routine (OP Routine) 11/10/2024 8:48 AM SPECIAL EDUCATION ASSISTANT Encounter for screening mammogram for malignant neoplasm of breast DEXA AXIAL SKELETON BONE DENSITY 1 OR MORE SITES Schedule Routine, Read Routine (OP Routine) 03/23/2024 9:56 AM CDT Encounter for screening for osteoporosis COLONOSCOPY 12/16/2022 8:27 AM SPECIAL EDUCATION ASSISTANT from Last 3 Months or Most Recently Relevant to Health Maintenance Results * Screening Mammogram Bilateral W Dwaine (11/10/2024 8:48 AM SPECIAL EDUCATION ASSISTANT) Anatomical Region Laterality Modality Breast Bilateral Mammography 11/10/2024 8:58 AM SPECIAL EDUCATION ASSISTANT Impressions 11/10/2024 8:58 AM SPECIAL EDUCATION ASSISTANT There is no mammographic evidence of malignancy. A 1 year screening mammogram is recommended. BI-RADS: 2 - Benign. The patient has been or will be contacted. The patient will be entered into a reminder system with a target due date of 1 year for her next mammogram. Electronically signed by: Chiquis Contreras M.D. 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 [facility] causes of low bone mineral density may [...] Andrey Choi M.D. MF: FARHAT Report ID: [id number] Reading Location: [id number] us Alexandra Robles MD IMG DXA PROCEDURES Final Resu lt * COLONOSCOPY (12/16/2022 8:27 AM SPECIAL EDUCATION ASSISTANT) Anatomical Region Laterality Modality Other Narrative Procedure Note Grant Boyd MD - 12/16/2022 8:27 AM CST [facility] Patient Name: Kayla Crystal Procedure Date: 12/16/2022 8:27 AM Date of : 1955 Admit Type: Outpatient Age: 67 Gender: Female Attending MD: Grant Boyd M.D. Room: [facility] ENDOSCOPY ROOM 2 Note Status: Finalized [...] scope was passed under direct vision. TheColonoscope [id number] was introduced through the anus and advanced [...] 8:27 AM Procedure Code(s): --- Professional --- 35437, Colonoscopy, flexible; diagnostic, including collection of specimen(s) by brushing or washing, when performed (separateprocedure) Diagnosis Code(s): --- Professional --- Z80.0, Family history of malignant neoplasm of digestive organs K64.9, Unspecified hemorrhoids CPT copyright 2020 [employer]. All rights reserved. The codes documented in this report are preliminary and upon certified medical records coder reviewmay be revised to meet current compliance requirements. Recognized by the [employer] for promoting quality in endoscopy Grant Boyd MD ENDOSCOPY PROCEDURES Final Re sult from Last 3 Months or Most Recently Relevant to Health Maintenance Insurance [facility] Advance Directives For more information, please contact: [phone] * Full Code (Latest Code Status on File) Date Activated Date Inactivated Comments 12/16/2022 8:29 AM 12/16/2022 3:09 PM * Full Code Date Activated Date Inactivated Comments 12/16/2022 8:29 AM 12/16/2022 8:29 AM * Full Code Date Activated Date Inactivated Comments 11/04/2018 3:12 PM 11/04/2018 8:18 PM Care Teams Shop Girl Relationship Specialty Start Date End Date Alexandra Robles MD [address] [place] [address] PCP - General 03/14/21 Alexandra Robles MD [address] [place] [address] 03/14/21
--- NOTE | 2025-03-06 18:03 | ED.DENTAL ---
HPI - Dental/Oral General Chief complaint: Dental/Oral Stated complaint: Tooth Pain Time Seen by Provider: 03/06/25 18:03 Mode of arrival: ambulatory Limitations: no limitations History of Present Illness HPI Narrative: 61 year old female presents with concern for right lower dental pain. She reports pain for several days. She reports pain is radiating to the ear and up the side of her head. She reports that her tooth has broken off in pieces over the course of time. She denies fever, difficulty swallowing MD Complaint: tooth pain Related Data Home Medications Medication Instructions Recorded Confirmed Last Taken Type levothyroxine 137 mcg tablet 137 mcg PO DAILY 01/09/21 12/01/24 Unknown History lisinopril 20 mg tablet 20 mg PO DAILY 01/09/21 01/09/21 Unknown History famotidine 20 mg tablet mg 12/01/24 Unknown History levothyroxine 112 mcg tablet mcg 12/01/24 Unknown History simvastatin 40 mg tablet mg 12/01/24 Unknown History Allergies Allergy/AdvReac Type Severity Reaction Status Date / Time No Known Allergies Allergy Verified 02/05/25 16:56 Review of Systems Review of Systems: CONSTITUTIONAL: Denies malaise, chills, sweats, or fever. EYES: Denies visual changes ENT: Denies rhinorrhea, congestion, sinus pain, otalgia or sore throat. Reports right lower dental pain CARDIOVASCULAR: Denies chest pain, palpitations RESPIRATORY: Denies cough or dyspnea. SKIN: Denies rash or itching. MUSCULOSKELETAL: Denies myalgia. NEUROLOGIC: Denies numbness, weakness, or headache. All systems reviewed & are unremarkable except as noted in HPI and below PMFSH Past Medical History Medical History Bronchitis Hypercholesterolemia Hypertension Hypothyroidism Surgical History Surgical History H/O: hysterectomy Social History Social History Smoking status: Never smoker Alcohol intake: current Alcohol use details: social Substance use type: does not use Living arrangements: with family Gender identity (if verbalized by the patient): Female Comments At time of signature, agree with nursing past medical, surgical, social and family history. There is no relevant family history pertinent to the presenting complaint Exam Narrative: GENERAL: Well-appearing, well-nourished, and in no acute distress. HEAD: Normocephalic, atraumatic. EYES: PERRLA, sclera clear ENT: Nares clear, turbinates pink, no rhinorrhea or epistaxis. Mucous membranes moist. TM pearly martinez with sharp light reflex bilaterally; no tragal tenderness. Oropharynx without erythema or lesions. Tonsils not enlarged and without exudate. Missing teeth, broken teeth, caries. No jaw swelling noted NECK: Supple. No lymphadenopathy. CHEST: No respiratory distress. Speaks in full sentences. HEART: Regular rate and rhythm. SKIN: Warm, dry, no visible rash. NEURO: Alert and oriented x3. PSYCH: Normal mood and affect Course Course Emergency Course: Patient is aware of diagnosis, understands and agrees to treatment plan. Anticipatory guidance given. Patient agrees to follow-up as directed and is aware of reasons to seek care at the emergency department. Portions of this record may have been created with voice recognition software Level of Care: [facility] Visit Vital Signs Vital signs: Reviewed. MDM - Dental/Oral MDM Narrative Medical decision making narrative: I evaluated this in the [facility]. History is obtained from patient who is an independent historian and physical exam was performed. Available medical records were reviewed. Exam findings and relevant testing show no acute concerns or changes; patient is non-toxic appearing and is in no distress. Patients pain and complaint coupled with physical findings are consistant with dentalgia. There are no focal signs of space occupying lesions that are compromising to the airway; no dysphagia, odynophagia, dysphonia, or dyspnea. No uvular deviation or soft palate edema. Patient is non-toxic appearing. The floor of the mouth is soft with no signs of Mekhi's Angina; no induration below mandible, no neck pain. Patient is without trismus or drooling and able to swallow secretions. Patient is felt appropriate for discharge home with dental follow up. Differential diagnosis and treatment plan were discussed with the patient. Patient agrees with discussion and after shared medical decision making agrees with plan of care. All questions were answered to the patient's satisfaction. Patient is appropriate for outpatient treatment and follow-up. Differential Diagnosis Differential diagnosis: Likely gingival abscess, dental caries, toothache, dental abscess, fracture of tooth and aphthous ulcer Critical Care Time Critical Care Time Critical Care Time: No Discharge Plan Discharge Clinical Impression: Toothache Patient Disposition: Home Condition: Stable Instructions: Antibiotic Form, Toothache (ED) Additional Instructions: Take antibiotic as directed Avoid temperature extremes May apply heat or ice to the face Gentle brushing and flossing Alternate Tylenol ibuprofen as needed for pain Follow-up with the dentist as soon as possible - see the list provided Patient Language: Macedonian Prescriptions: New ibuprofen 800 mg tablet 800 mg PO Q6H PRN (Reason: pain) Qty: 30 0RF No Action simvastatin 40 mg tablet famotidine 20 mg tablet levothyroxine 112 mcg tablet triamcinolone acetonide 0.1 % cream 1 applic topical BID Qty: 30 0RF cephalexin 500 mg capsule 500 mg PO Q6H 7 Days Qty: 28 0RF levothyroxine 137 mcg tablet 137 mcg PO DAILY lisinopril 20 mg tablet 20 mg PO DAILY Follow-up/Referrals: Mara Arevalo RN [Primary Care Provider] - Time of Disposition: 18:08
[2025-03-06 18:04] VITALS: BP 152/76; PULSE 77; RESP 16; TEMP 36.6; O2SAT 96
== END 2025-03-06 18:17 | disposition home or self-care (01) ==
PROVIDERS: Emergency Provider Nurse Practitioner
DX: K08.89 Other specified disorders of teeth and supporting structures (principal); I10 Essential (primary) hypertension; E78.00 Pure hypercholesterolemia, unspecified; E03.9 Hypothyroidism, unspecified
CPT/HCPCS: 99213; G0463

== ENCOUNTER 2025-05-08 13:14 | Emergency (ER) | payer OTHER, SELFPAY ==
--- OUTSIDE RECORDS SUMMARY | 2025-05-08 13:18 | XMS_ITS | Clinical Summary ---
Author Organization [facility] Address [address] [place] [address] Care Team Providers Care Dump Grounds Checker Name Role Phone Benigno Crews MD Primary Care Provider [phone] Source Comments [facility],non-owned Affiliates and Associated Physician Practices is amultiple site organization consisting of ambulatory clinics and hospital sitesin [place], [place], [place] and [place]. This disclosure is being madepursuant to the Care Everywhere program and may not contain all information available regarding this patient. 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 Gender Identity Not on file Sexual Orientation Not on file Last Filed Vital Signs Vital Sign Reading Time Taken Comments Blood Pressure 134/86 03/29/2020 11:04 AM CDT Pulse 72 03/29/2020 11:04 AM CDT Temperature 36.9 C (98.4 F) 03/29/2020 11:04 AM CDT Respiratory Rate 14 12/20/2018 7:13 PM MARK UP DESIGNER Oxygen Saturation 93% 12/20/2018 7:13 PM MARK UP DESIGNER Inhaled Oxygen Concentration - - Weight 108.9 kg (240 lb) 03/29/2020 11:04 AM CDT Height 175.3 cm (5' 9) 03/29/2020 11:04 AM CDT Body Mass Index 35.44 03/29/2020 11:04 AM CDT Plan of Treatment Health Maintenance Due Date Last Done Comments COLOGUARD (AGES 45-75) - COLON CA SCREENING 1955 CT COLONOGRAPHY - COLON CA SCREENING 1955 FIT - COLON CA SCREENING 1955 FLEX SIG - COLON CA SCREENING 1955 HEPATITIS C SCREENING 01/29/1974 DTAP/TDAP/TD VACCINES (1 - Tdap) 02/02/1975 PNEUMOCOCCAL VACCINE 50+ (1 of 1 - PCV) 02/02/2006 ZOSTER VACCINE (1 of 2) 02/02/2006 SCREENING FOR DIABETES 12/08/2021 12/08/2018, 2018 MAMMOGRAM 10/01/2023 10/01/2022, 09/18, 07/26/2020, Additional history exists COVID-19 VACCINE ( season) 2024 DEPRESSION SCREENING 10/19/2024 INFLUENZA VACCINE (#1) 2025 Respiratory Syncytial Virus (RSV) Vaccine Pt: or over 60 yrs (1 - 1-dose 75+ series) 02/02/2031 COLON MONITORING 12/16/2032 12/16/2022 COLONOSCOPY - COLON CA SCREENING 12/16/2032 12/16/2022 [...] to complete this topic Insurance Care Teams Dump Grounds Checker Relationship Specialty Start Date End Date Benigno Crews MD [address] [place] [address] PCP - General Internal Medicine 12/20/18
--- OUTSIDE RECORDS SUMMARY | 2025-05-08 13:18 | XMS_ITS | Data Portability ---
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 Not available Not available Not available Lab HbA1c (hemoglob in A1c), blood 2024 025 YULIYA In-Office Order, Internal Use Only DO Not Attach Compendium DO Not Attach Compendium, Do Not Delete/merge, [id number] 03/09/2025 08:26:50 HbA1c (hemoglob in A1c), blood 2023 024 YULI[facility], [address] [facility], [facility], [place], [address], 03/16/2024 14:13:09 CBC w/ auto diff 2023 024 YULIYA [facility], [address] [facility], [facility], [place], [address], 03/16/2024 14:13:12 CMP, serum or plasma 2023 024 YULIYA [facility], [address] [facility], [facility], [place], [address], 03/16/2024 14:13:08 lipid panel, serum 2023 024 YULIYA [facility], [address] [facility], [address], [place], [address], 03/16/2024 14:13:06 TSH, ultra-sen sitive, serum 2023 024 [facility], [address] [place] [address], [address], 03/16/2024 14:13:11 Referral None recorded. Procedures None recorded. Surgeries None recorded. Imaging MAMMO, screening , digital, bilateral 2024 025 [facility], [address] [place], [address], 11/10/2024 10:02:12 Medication Orders amoxicill in 875 mg-potass ium clavulana te 125 mg tablet 2024 025 [id number], [address] [place], [address], 04/03/2025 05:02:44 Tylenol 8 Hour 650 mg tablet,ex tended release 2024 025 [id number], [address] [place], [address], 04/13/2025 05:02:14 cetirizin e 10 mg tablet 2024 025 [facility], [address] [place], [address], 03/08/2025 11:53:48 Coricidin HBP Cough and Cold 4 mg-30 mg tablet 2024 025 [facility], [address] [place], [address], 03/30/2025 05:02:10 simvastat in 20 mg tablet 2024 025 [id number], [address] [place], [address], 03/08/2025 11:53:48 lisinopri l 20 mg tablet 2024 025 [id number], [address] [place], [address], 03/08/2025 11:53:48 famotidin e 20 mg tablet 2024 025 [email or web address] [address] [place], [address], 03/08/2025 11:48:18 simvastat in 40 mg tablet 2024 025 [id number], [address] [place], [address], 11/04/2024 11:22:43 triamcino lone acetonide 0.1 % topical cream 2024 025 [id number], [address] [place], [address], 11/04/2024 11:21:40 triamcino lone acetonide 0.1 % topical cream 2023 024 [facility], [address] [place], [address], 07/12/2024 11:28:39 tizanidin e 4 mg tablet 2023 025 [id number], [address] [place], [address], 03/08/2025 11:25:19 Patient TargetsNo targets recorded. Patient Instructions Encounter Date Encounter Id Patient Instructions Last Modified By Organization Details Last Modified Time 03/15/2024 [id number] low back pain: exercises nsuthan Not available 03/15/2024 11:35:35 f/u in 4 month nsuthan Not available 0 03/15/2024 11:35:57 07/12/2024 [id number] prediabetes: car e instructions nsuthan Not available 07/12/2024 11:28:37 f/u in 4 month nsuthan Not available 0 07/12/2024 11:28:36 11/04/2024 [id number] f/u in 4 month nsuthan Not available 11/04/2024 11:27:52 03/08/2025 [id number] A healthy lifestyle: care instructions Not available 03/08/2025 11:53:46 Plan of care has been discussed with patient including expected therapeutic benefits and potential side effects of prescribed medication and treatments. Patient verbalizes understanding and is in agreement with the plan of care. Patient was instructed to keep all scheduled appointments and contact the clinic for any additional problems. Health Maintenance: - CRC screening (45-75): colonoscopy 2022, repeat in 5 years - Osteoporosis screening: Due at 65. - Lipid screening (>45 unless additional risk factors): 11/02/24 - HIV: Declined - HepC: Declined -Eye exam: unknown -Dental Exam: unknown, provided a list - Immunizations: - Influenza: Due. - Prevnar 20: Due at 65, Declined - Tdap/Td ([id number]): 05/21/16 - Zoster (>60):Due at 60. - COVID-19: Declined -Labs ordered this visit: n/a Females: Pap smear: n/a Mammogram: 11/10/24 DEXA: 03/23/24 [email or web address] Not available 03/19/2025 00:10:32 03/22/2025 [id number] Plan of care has been discussed with patient including expected therapeutic benefits and potential side effects of prescribed medication and treatments. Patient verbalizes understanding and is in agreement with the plan of care. Patient was instructed to keep all scheduled appointments and contact the clinic for any additional problems. Health Maintenance: - CRC screening (45-75): colonoscopy 2022, repeat in 5 years - Osteoporosis screening: Due at 65. - Lipid screening (>45 unless additional risk factors): 11/02/24 - HIV: Declined - HepC: Declined -Eye exam: unknown -Dental Exam: unknown, provided a list - Immunizations: - Influenza: Due. - Prevnar 20: Due at 65, Declined - Tdap/Td ([id number]): 05/21/16 - Zoster (>60):Due at 60. - COVID-19: Declined -Labs ordered this visit: n/a Females: Pap smear: n/a Mammogram: 11/10/24 DEXA: 03/23/24 [email or web address] Not available 04/08/2025 09:43:47 Reason for Referral None Reported. Results Created Date Observation Date Name Description Value Unit Range Abnormal Flag Note LastModifiedBy Organization Detail LastModifiedTime 03/15/20 24 03/16/2024 LIPID PANEL cholesterol, total 150 mg/dL 100-19 9 Not Available [facility] ([facility]) [address] [place], [address], 03/16/2024 14:13:06 03/15/20 24 03/16/2024 LIPID PANEL triglyceride s 269 mg/dL 0-149 above high normal Not Available [facility] ([facility]) [address] [place], [address], 03/16/2024 14:13:06 03/15/20 24 03/16/2024 LIPID PANEL HDL cholesterol 39 mg/dL >39 below low normal Not Available [facility] ([facility]) [address] [place], [address], 03/16/2024 14:13:06 03/15/20 24 03/16/2024 LIPID PANEL VLDL cholesterol deshawn 43 mg/dL 5-40 above high normal Not Available [facility] ([facility]) [address] [place], [address], 03/16/2024 14:13:06 03/15/20 24 03/16/2024 LIPID PANEL LDL chol calc ([facility]) 68 mg/dL 0-99 Not Available [facility] [address] [place], [address], 03/16/2024 14:13:06 03/15/20 24 03/16/2024 COMP. METAB OLIC PANEL (14) glucose 94 mg/dL 70-99 Not Available [facility] ([facility]) [address] [place], [address], 03/16/2024 14:13:08 03/15/20 24 03/16/2024 COMP. METAB OLIC PANEL (14) BUN 15 mg/dL 8-27 Not Available [facility] ([facility]) [address] [facility], [place], [address], 03/16/2024 14:13:08 03/15/20 24 03/16/2024 COMP. METAB OLIC PANEL (14) creatinine 0.81 mg/dL 0.57-1 .00 Not Available [facility] ([facility]) [address] [facility], [place], [address], 03/16/2024 14:13:08 03/15/20 24 03/16/2024 COMP. METAB OLIC PANEL (14) eGFR 79 mL/mi n/1.7 3 >59 Not Available [facility] ([facility]) [address] [facility], [place], [address], 03/16/2024 14:13:08 03/15/20 24 03/16/2024 COMP. METAB OLIC PANEL (14) BUN/creatini ne ratio 19 12-28 Not Available [facility]) [address] [facility], [place], [address], 03/16/2024 14:13:08 03/15/20 24 03/16/2024 COMP. METAB OLIC PANEL (14) sodium 137 mmol/ L 134-14 4 Not Available [facility] ([facility]) [address] [facility], [place], [address], 03/16/2024 14:13:08 03/15/20 24 03/16/2024 COMP. METAB OLIC PANEL (14) potassium 4.6 mmol/ L 3.5-5. 2 Not Available [facility] ([facility]) [address] [facility], [place], [address], 03/16/2024 14:13:08 03/15/20 24 03/16/2024 COMP. METAB OLIC PANEL (14) chloride 103 mmol/ L 96-106 Not Available [facility] ([facility]) [address] [place], [address], 03/16/2024 14:13:08 03/15/20 24 03/16/2024 COMP. METAB OLIC PANEL (14) carbon dioxide, total 21 mmol/ L 20-29 Not Available [facility] ([facility]) [address] [place], [address], 03/16/2024 14:13:08 03/15/20 24 03/16/2024 COMP. METAB OLIC PANEL (14) calcium 9.8 mg/dL 8.7-10 .3 Not Available [facility] ([facility]) [address] [place], [address], 03/16/2024 14:13:08 03/15/20 24 03/16/2024 COMP. METAB OLIC PANEL (14) protein, total 7.2 g/dL 6.0-8. 5 Not Available [facility] ([facility]) [address] [place], [address], 03/16/2024 14:13:08 03/15/20 24 03/16/2024 COMP. METAB OLIC PANEL (14) albumin 4.4 g/dL 3.9-4. 9 Not Available [facility] ([facility]) [address] [place], [address], 03/16/2024 14:13:08 03/15/20 24 03/16/2024 COMP. METAB OLIC PANEL (14) globulin, total 2.8 g/dL 1.5-4. 5 Not Available [facility] ([facility]) [address] [place], [address], 03/16/2024 14:13:08 03/15/20 24 03/16/2024 COMP. METAB OLIC PANEL (14) A/G ratio 1.6 1.2-2. 2 Not Available [facility] ([facility]) [address] [place], [address], 03/16/2024 14:13:08 03/15/20 24 03/16/2024 COMP. METAB OLIC PANEL (14) bilirubin, total 0.4 mg/dL 0.0-1. 2 Not Available [facility] ([facility]) [address] [place], [address], 03/16/2024 14:13:08 03/15/20 24 03/16/2024 COMP. METAB OLIC PANEL (14) alkaline phosphatase 79 IU/L 44-121 Not Available [facility] [address] [place], [address], 03/16/2024 14:13:08 03/15/20 24 03/16/2024 COMP. METAB OLIC PANEL (14) AST (SGOT) 22 IU/L 0-40 Not Available [facility] ([facility]) [address] [place], [address], 03/16/2024 14:13:08 03/15/20 24 03/16/2024 COMP. METAB OLIC PANEL (14) ALT (SGPT) 14 IU/L 0-32 Not Available [facility] ([facility]) [address] [place], [address], 03/16/2024 14:13:08 03/15/20 24 03/16/2024 HEMOG LOBIN A1C hemoglobin A1C 6.3 % 4.8-5. 6 above high normal Predi abete s: 5.7 - 6.4 Diabe rubio: >6.4 Glyce alexandro contr ol for adult s with diabe rubio: <7.0 Not Available [facility] ([facility]) [address] [place], [address], 03/16/2024 14:13:09 03/15/20 24 03/16/2024 TSH TSH 1.050 uIU/m L 0.450- 4.500 Not Available [facility] ([facility]) [address] [facility], [place], [address], 03/16/2024 14:13:11 03/15/20 24 03/16/2024 CBC WITH DIFFE RENTI AL/PL ATELE T WBC 7.0 x10e3 /uL 3.4-10 .8 Not Available [facility] ([facility]) [address] [facility], [place], [address], 03/16/2024 14:13:12 03/15/20 24 03/16/2024 CBC WITH DIFFE RENTI AL/PL ATELE T RBC 4.56 x10e6 /uL 3.77-5 .28 Not Available [facility] ([facility]) [address] [facility], [place], [address], 03/16/2024 14:13:12 03/15/20 24 03/16/2024 CBC WITH DIFFE RENTI AL/PL ATELE T hemoglobin 13.5 g/dL 11.1-1 5.9 Not Available [facility] ([facility]) [address] [facility], [place], [address], 03/16/2024 14:13:12 03/15/20 24 03/16/2024 CBC WITH DIFFE RENTI AL/PL ATELE T hematocrit 40.9 % 34.0-4 6.6 Not Available [facility] ([facility]) [address] [facility], [place], [address], 03/16/2024 14:13:12 03/15/20 24 03/16/2024 CBC WITH DIFFE RENTI AL/PL ATELE T MCV 90 fL 79-97 Not Available [facility] ([facility]) [address] [place], [address], 03/16/2024 14:13:12 03/15/20 24 03/16/2024 CBC WITH DIFFE RENTI AL/PL ATELE T MCH 29.6 pg 26.6-3 3.0 Not Available [facility] ([facility]) [address] [facility], [place], [address], 03/16/2024 14:13:12 03/15/20 24 03/16/2024 CBC WITH DIFFE RENTI AL/PL ATELE T MCHC 33.0 g/dL 31.5-3 5.7 Not Available [facility] ([facility]) [address] [facility], [place], [address], 03/16/2024 14:13:12 03/15/20 24 03/16/2024 CBC WITH DIFFE RENTI AL/PL ATELE T RDW 13.2 % 11.7-1 5.4 Not Available [facility] ([facility]) [address] [facility], [place], [address], 03/16/2024 14:13:12 03/15/20 24 03/16/2024 CBC WITH DIFFE RENTI AL/PL ATELE T platelets 197 x10e3 /uL 150-45 0 Not Available [facility] ([facility]) [address] [facility], [place], [address], 03/16/2024 14:13:12 03/15/20 24 03/16/2024 CBC WITH DIFFE RENTI AL/PL ATELE T neutrophils 55 % notest ab. Not Available [facility] ([facility]) [address] [facility], [place], [address], 03/16/2024 14:13:12 03/15/20 24 03/16/2024 CBC WITH DIFFE RENTI AL/PL ATELE T lymphs 32 % notest ab. Not Available [facility] ([facility]) [address] [place], [address], 03/16/2024 14:13:12 03/15/20 24 03/16/2024 CBC WITH DIFFE RENTI AL/PL ATELE T monocytes 8 % notest ab. Not Available [facility] ([facility]) [address] [place], [address], 03/16/2024 14:13:12 03/15/20 24 03/16/2024 CBC WITH DIFFE RENTI AL/PL ATELE T eos 4 % notest ab. Not Available [facility] ([facility]) [address] [facility], [place], [address], 03/16/2024 14:13:12 03/15/20 24 03/16/2024 CBC WITH DIFFE RENTI AL/PL ATELE T basos 1 % notest ab. Not Available [facility] ([facility]) [address] [facility], [place], [address], 03/16/2024 14:13:12 03/15/20 24 03/16/2024 CBC WITH DIFFE RENTI AL/PL ATELE T neutrophils (absolute) 3.8 x10e3 /uL 1.4-7. 0 Not Available [facility] ([facility]) [address] [facility], [place], [address], 03/16/2024 14:13:12 03/15/20 24 03/16/2024 CBC WITH DIFFE RENTI AL/PL ATELE T lymphs (absolute) 2.3 x10e3 /uL 0.7-3. 1 Not Available [facility] ([facility]) [address] [facility], [place], [address], 03/16/2024 14:13:12 03/15/20 24 03/16/2024 CBC WITH DIFFE RENTI AL/PL ATELE T monocytes(ab solute) 0.6 x10e3 /uL 0.1-0. 9 Not Available [facility] ([facility]) [address] [facility], [place], [address], 03/16/2024 14:13:12 03/15/20 24 03/16/2024 CBC WITH DIFFE RENTI AL/PL ATELE T eos (absolute) 0.3 x10e3 /uL 0.0-0. 4 Not Available [facility] ([facility]) [address] [facility], [place], [address], 03/16/2024 14:13:12 03/15/20 24 03/16/2024 CBC WITH DIFFE RENTI AL/PL ATELE T baso (absolute) 0.1 x10e3 /uL 0.0-0. 2 Not Available [facility] ([facility]) [address] [facility], [place], [address], 03/16/2024 14:13:12 03/15/20 24 03/16/2024 CBC WITH DIFFE RENTI AL/PL ATELE T immature granulocytes 0 % notest ab. Not Available [facility] ([facility]) [address] [facility], [place], [address], 03/16/2024 14:13:12 03/15/20 24 03/16/2024 CBC WITH DIFFE RENTI AL/PL ATELE T immature grans (abs) 0.0 x10e3 /uL 0.0-0. 1 Not Available [facility] ([facility]) [address] [place], [address], 03/16/2024 14:13:12 11/02/19 25 11/03/2024 LIPID PANEL cholesterol, total 161 mg/dL 100-19 9 Not Available [facility] ([facility]) [address] [place], [address], 11/03/2024 08:23:42 11/02/19 25 11/03/2024 LIPID PANEL triglyceride s 185 mg/dL 0-149 above high normal Not Available [facility] ([facility]) [address] [place], [address], 11/03/2024 08:23:42 11/02/19 25 11/03/2024 LIPID PANEL HDL cholesterol 48 mg/dL >39 Not Available [facility]) [address] [place], [address], 11/03/2024 08:23:42 11/02/19 25 11/03/2024 LIPID PANEL VLDL cholesterol deshawn 31 mg/dL 5-40 Not Available [facility] ([facility]) [address] [place], [address], 11/03/2024 08:23:42 11/02/19 25 11/03/2024 LIPID PANEL LDL chol calc ([facility]) 82 mg/dL 0-99 Not Available [facility] [address] [place], [address], 11/03/2024 08:23:42 11/02/19 25 11/03/2024 COMP. METAB OLIC PANEL (14) glucose 87 mg/dL 70-99 Not Available [facility] ([facility]) [address] [place], [address], 11/03/2024 08:23:43 11/02/19 25 11/03/2024 COMP. METAB OLIC PANEL (14) BUN 16 mg/dL 8-27 Not Available [facility] ([facility]) [address] [place], [address], 11/03/2024 08:23:43 11/02/19 25 11/03/2024 COMP. METAB OLIC PANEL (14) creatinine 0.89 mg/dL 0.57-1 .00 Not Available [facility] ([facility]) [address] [place], [address], 11/03/2024 08:23:43 11/02/19 25 11/03/2024 COMP. METAB OLIC PANEL (14) eGFR 71 mL/mi n/1.7 3 >59 Not Available [facility] ([facility]) [address] [place], [address], 11/03/2024 08:23:43 11/02/19 25 11/03/2024 COMP. METAB OLIC PANEL (14) BUN/creatini ne ratio 18 12-28 Not Available [facility]) [address] [facility], [place], [address], 11/03/2024 08:23:43 11/02/19 25 11/03/2024 COMP. METAB OLIC PANEL (14) sodium 139 mmol/ L 134-14 4 Not Available [facility] ([facility]) [address] [place], [address], 11/03/2024 08:23:43 11/02/19 25 11/03/2024 COMP. METAB OLIC PANEL (14) potassium 4.5 mmol/ L 3.5-5. 2 Not Available [facility] ([facility]) [address] [place], [address], 11/03/2024 08:23:43 11/02/19 25 11/03/2024 COMP. METAB OLIC PANEL (14) chloride 100 mmol/ L 96-106 Not Available [facility] ([facility]) [address], [place], [address], 11/03/2024 08:23:43 11/02/19 25 11/03/2024 COMP. METAB OLIC PANEL (14) carbon dioxide, total 25 mmol/ L 20-29 Not Available [facility] ([facility]) [address] [facility] [place], [address], 11/03/2024 08:23:43 11/02/19 25 11/03/2024 COMP. METAB OLIC PANEL (14) calcium 9.4 mg/dL 8.7-10 .3 Not Available [facility] ([facility]) [address] [facility] [place], [address], 11/03/2024 08:23:43 11/02/19 25 11/03/2024 COMP. METAB OLIC PANEL (14) protein, total 7.0 g/dL 6.0-8. 5 Not Available [facility] ([facility]) [address] [facility] [place], [address], 11/03/2024 08:23:43 11/02/19 25 11/03/2024 COMP. METAB OLIC PANEL (14) albumin 4.6 g/dL 3.9-4. 9 Not Available [facility] ([facility]) [address] [place], [address], 11/03/2024 08:23:43 11/02/19 25 11/03/2024 COMP. METAB OLIC PANEL (14) globulin, total 2.4 g/dL 1.5-4. 5 Not Available [facility] ([facility]) [address] [place], [address], 11/03/2024 08:23:43 11/02/19 25 11/03/2024 COMP. METAB OLIC PANEL (14) bilirubin, total 0.4 mg/dL 0.0-1. 2 Not Available [facility] ([facility]) [address] [facility] [place], [address], 11/03/2024 08:23:43 11/02/19 25 11/03/2024 COMP. METAB OLIC PANEL (14) alkaline phosphatase 76 IU/L 44-121 Not Available [facility] [address] [facility] [place], [address], 11/03/2024 08:23:43 11/02/19 25 11/03/2024 COMP. METAB OLIC PANEL (14) AST (SGOT) 17 IU/L 0-40 Not Available [facility] [address] [facility] [place], [address], 11/03/2024 08:23:43 11/02/19 25 11/03/2024 COMP. METAB OLIC PANEL (14) ALT (SGPT) 13 IU/L 0-32 Not Available [facility] ([facility]) [address] [facility] [place], [address], 11/03/2024 08:23:43 11/02/1911/03/2024 TSH TSH 0.945 uIU/m L 0.450- 4.500 Not Available [facility] ([facility]) [address] [facility], [place], [address], 11/03/2024 08:23:44 11/02/19 25 11/03/2024 CBC WITH DIFFE RENTI AL/PL ATELE T WBC 8.2 x10e3 /uL 3.4-10 .8 Not Available [facility] ([facility]) [address] [facility], [place], [address], 11/03/2024 08:23:45 11/02/1911/03/2024 CBC WITH DIFFE RENTI AL/PL ATELE T RBC 4.50 x10e6 /uL 3.77-5 .28 Not Available [facility] ([facility]) [address] [facility], [place], [address], 11/03/2024 08:23:45 11/02/1911/03/2024 CBC WITH DIFFE RENTI AL/PL ATELE T hemoglobin 13.7 g/dL 11.1-1 5.9 Not Available [facility] ([facility]) [address] [facility], [place], [address], 11/03/2024 08:23:45 11/02/1911/03/2024 CBC WITH DIFFE RENTI AL/PL ATELE T hematocrit 41.2 % 34.0-4 6.6 Not Available [facility] ([facility]) [address] [place], [address], 11/03/2024 08:23:45 11/02/1911/03/2024 CBC WITH DIFFE RENTI AL/PL ATELE T MCV 92 fL 79-97 Not Available [facility] ([facility]) [address] [place], [address], 11/03/2024 08:23:45 11/02/19 25 11/03/2024 CBC WITH DIFFE RENTI AL/PL ATELE T MCH 30.4 pg 26.6-3 3.0 Not Available [facility] ([facility]) [address] [facility], [place], [address], 11/03/2024 08:23:45 11/02/19 25 11/03/2024 CBC WITH DIFFE RENTI AL/PL ATELE T MCHC 33.3 g/dL 31.5-3 5.7 Not Available [facility] ([facility]) [address] [facility], [place], [address], 11/03/2024 08:23:45 11/02/19 25 11/03/2024 CBC WITH DIFFE RENTI AL/PL ATELE T RDW 12.4 % 11.7-1 5.4 Not Available [facility] ([facility]) [address] [facility], [place], [address], 11/03/2024 08:23:45 11/02/19 25 11/03/2024 CBC WITH DIFFE RENTI AL/PL ATELE T platelets 213 x10e3 /uL 150-45 0 Not Available [facility] ([facility]) [address] [facility], [place], [address], 11/03/2024 08:23:45 11/02/19 25 11/03/2024 CBC WITH DIFFE RENTI AL/PL ATELE T neutrophils 58 % notest ab. Not Available [facility] ([facility]) [address] [facility], [place], [address], 11/03/2024 08:23:45 11/02/19 25 11/03/2024 CBC WITH DIFFE RENTI AL/PL ATELE T lymphs 32 % notest ab. Not Available [facility] ([facility]) [address] [facility], [place], [address], 11/03/2024 08:23:45 11/02/19 25 11/03/2024 CBC WITH DIFFE RENTI AL/PL ATELE T monocytes 6 % notest ab. Not Available [facility] ([facility]) [address] [facility], [place], [address], 11/03/2024 08:23:45 11/02/19 25 11/03/2024 CBC WITH DIFFE RENTI AL/PL ATELE T eos 3 % notest ab. Not Available [facility] ([facility]) [address] [facility], [place], [address], 11/03/2024 08:23:45 11/02/19 25 11/03/2024 CBC WITH DIFFE RENTI AL/PL ATELE T basos 1 % notest ab. Not Available [facility] ([facility]) [address] [facility], [place], [address], 11/03/2024 08:23:45 11/02/19 25 11/03/2024 CBC WITH DIFFE RENTI AL/PL ATELE T neutrophils (absolute) 4.7 x10e3 /uL 1.4-7. 0 Not Available [facility] ([facility]) [address] [facility], [place], [address], 11/03/2024 08:23:45 11/02/19 25 11/03/2024 CBC WITH DIFFE RENTI AL/PL ATELE T lymphs (absolute) 2.6 x10e3 /uL 0.7-3. 1 Not Available [facility] ([facility]) [address] [facility], [place], [address], 11/03/2024 08:23:45 11/02/19 25 11/03/2024 CBC WITH DIFFE RENTI AL/PL ATELE T monocytes(ab solute) 0.5 x10e3 /uL 0.1-0. 9 Not Available [facility] ([facility]) [address] [facility], [place], [address], 11/03/2024 08:23:45 11/02/19 25 11/03/2024 CBC WITH DIFFE RENTI AL/PL ATELE T eos (absolute) 0.2 x10e3 /uL 0.0-0. 4 Not Available [facility] ([facility]) [address] [facility], [place], [address], 11/03/2024 08:23:45 11/02/19 25 11/03/2024 CBC WITH DIFFE RENTI AL/PL ATELE T baso (absolute) 0.1 x10e3 /uL 0.0-0. 2 Not Available [facility] ([facility]) [address] [facility], [place], [address], 11/03/2024 08:23:45 11/02/19 25 11/03/2024 CBC WITH DIFFE RENTI AL/PL ATELE T immature granulocytes 0 % notest ab. Not Available [facility] ([facility]) [address] [facility], [place], [address], 11/03/2024 08:23:45 11/02/19 25 11/03/2024 CBC WITH DIFFE RENTI AL/PL ATELE T immature grans (abs) 0.0 x10e3 /uL 0.0-0. 1 Not Available [facility] ([facility]) [address] [facility], [place], [address], 11/03/2024 08:23:45 03/09/20 25 03/09/2025 HbA1c (hemo globi n A1c), blood HbA1c 5.9 Not Available In-Office Order Internal Use Only DO Not Attach Compendium DO Not Attach Compendium, Do Not Delete/merge, [id number] 03/08/2025 11:49:56 03/23/20 24 03/23/2024 DEXA No observ ation record ed. [place] [address] [address], [place], [address], 07/12/2024 11:20:43 11/10/19 25 11/10/2024 MAMMO , scree bal, digit al, bilat eral No observ ation record ed. [facility] [address] [place], [address], 11/10/2024 13:15:32 Result Notes None recorded. Problems Name Problem SNOMED Code Status Onset Date Resolution Date Notes Provider Name and Address Organization Details Recorded Time Hypertri glycerid emia 690800859 Completed 08/21/2016 Benigno Crews MD Attn: Marisa stark,[address] [facility], [place], [address], [place] - [facility] 6 10:47:54 Mixed anxiety and depressi ve disorder 688076811 Active off med Benigno Crews MD Attn: Marisa stark,[address] [place], [address], [place] [facility] 2 11:37:46 [facility] hyperten jerrica 66394590 Active Benigno Crews MD Attn: Marisa stark,[address] [place], [address], [place] [facility] 2 11:07:34 Hypothyr oidism 97288183 Active pt is on 125mcg daily Benigno Crews MD Attn: Marisa stark,[address] [place], [address], [place] [facility] 3 12:26:11 Hyperlip idemia 75216302 Active Benigno Crews MD Attn: Marisa stark,[address] [place], [address], [place] [facility] 2 11:07:34 Obesity 443570921 Active Crystal [place] null, [place] [facility] 9 10:17:56 Vertigo 533620940 Active Crystal [place] [facility] 9 10:17:56 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, [place], [address], [place] [facility] 0 09:31:41 Anti-nuc lear factor detected 580344513 Active 2020 Benigno Crews MD Attn: Marisa stark,[address] [facility], [place], [address], [place] [facility] 2 11:07:34 Loss of hair 042307163 Active 2020 referred to derm Benigno Crews MD Attn: Marisa stark,[address] [facility], [place], [address], [place] [facility] 1 11:26:38 History of polyp of colon 680429721 Active 2021 last colonosco py 11/2022- repeat in 5 yrs Benigno Crews MD Attn: Marisa stark,[address] 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, [place], [address], [place] - [facility] 4 14:02:07 Problem Notes None recorded. Procedures Surgical History Date Name Laterality Status Provider Name and Address Organization Details Recorded Time 12/24/19 19 Total hysterectomy completed Leesa Villar [place] [facility] 01/07/2019 10:39:05 11/04/19 19 Dilation and Curettage completed Kelly Jacobson [place] [facility] 11/17/2018 14:15:36 09/07/20 18 Date of Last Pap Smear completed Kelly Jacobson [place] [facility] 09/27/2018 09:57:27 01/02/20 18 Most Recent Mammogram completed Benigno Crews MD Attn: Accounting,[address] [facility], [place], [address], [place] [facility] 01/04/2018 12:29:20 01/04/20 16 Colonoscopy completed Benigno Crews MD Attn: Accounting,[address] , [place], [address], [facility] 01/25/2016 11:48:40 09/05/20 11 Ovarian Cystectomy completed Yarelis Callejas [facility] 10/26/2015 16:22:30 Imaging Results None recorded. Procedure Notes None recorded. Medical Equipment None [...] Not Available amoxicilli n 500 mg capsule 500 MG ORALLY EVERY 8 HOURS 03/22 completed Not Available Not Available Not Available [...] TABLET BY MOUTH EVERY DAY NEEDED FOR 90 DAYS active Not Available Not Available No t Available azithromyc in 250 mg tablet TAKE 2 TABLETS (500 MG) BY ORAL ROUTE ONCE DAILY FOR 1 DAY THEN 1 TABLET (250 MG) BY ORAL ROUTE ONCE DAILY FOR 4 DAYS 06/11 completed Not Available Not Available Not Available ibuprofen 800 mg tablet 800 MG ORALLY EVERY 6 HOURS NEEDED FOR PAIN active Not Available Not Available No t Available tizanidine 4 mg tablet TAKE 1 TABLET BY MOUTH TWICE A DAY active Not Available Not Available No t Available Coricidin HBP Cough and Cold 4 mg-30 mg tablet Take 1 tablet every 6 hours by oral route as needed for 15 days. 03/30 completed Not Available Not Available Not Available benzonatat e 200 mg capsule TAKE [...] Not Available Not Available No t Available ondansetro n HCl 4 mg tablet 01/18 [...] acetonide 0.1 % topical cream APPLY TO THE AFFECTED AREA TWICE DAILY active Not Available Not Available No t [...] 1 TABLET BY MOUTH TWICE A DAY 05/08/ 2025 05/21 /2025 completed pt not taking Not Available Not Available Not Available DOK 100 mg capsule 03/28 completed Not Available Not Available Not Available meclizine 25 mg tablet TAKE 1 TABLET BY MOUTH TWICE A DAY NEEDED 11/10 completed Not Available Not Available Not Available benzonatat e 100 mg capsule TAKE 1 CAPSULE BY MOUTH 3 TIMES A DAY NEEDED FOR COUGH 11/07 completed Not Available Not Available Not Available cephalexin 500 mg capsule TAKE 1 CAPSULE BY MOUTH EVERY 6 HOURS FOR 7 DAYS 03/08 completed Not Available Not Available Not Available simvastati n 20 mg tablet TAKE 1 TABLET BY MOUTH EVERYDAY AT BEDTIME active Not Available Not Available No t Available levothyrox ine 125 mcg tablet TAKE [...] PUFFS BY MOUTH THREE TIMES DAILY NEEDED 03/08 completed Not Available Not Available Not Available fluticason e propionate 50 mcg/actuat ion nasal spray,susp ension SPRAY 2 SPRAYS INTO EACH NOSTRIL EVERY DAY 11/07 completed Not Available Not Available Not Available levothyrox ine 112 mcg tablet TAKE 1 TABLET BY MOUTH EVERY DAY active Not Available Not Available No t Available amoxicilli n 875 mg-potassi um clavulanat e 125 mg tablet Take 1 tablet every 12 hours by oral route for 5 days. 04/03 completed Not Available Not Available Not Available enoxaparin 40 mg/0.4 mL subcutaneo us syringe 03/28 completed Not Available Not Available Not Available Tylenol 8 Hour 650 mg tablet,ext ended release Take 2 tablets every 8 hours by oral route as needed for 15 days, for severe pain. 04/13 completed Not Available Not Available Not Available [...] in Arterial blood by Pulse oximetry Systolic And Diastolic Provider Name and Address Organization Details Last Updated DateTime 5 175.26 cm 36 kg/m2 424203. 74 g 83 /min 16 /min 97.9 [degF] 97 % 97 % 130/83 mm[Hg] Pamela Hathaway MA [facility] 5 11:15:05 Date Recorded Body height Body mass index (BMI) Body weight Oxygen saturation Oxygen saturation in Arterial blood by Pulse oximetry Heart rate Respiratory rate Body temperature Systolic And Diastolic Provider Name and Address Organization Details Last Updated DateTime 5 175.26 cm 35.2 kg/m2 554924. 06 g 97 % 97 % 68 /min 16 /min 97.5 [degF] 130/79 mm[Hg] Yarelis Callejas MA [facility] 5 11:27:31 Date Recorded Body height Body mass index (BMI) Body weight Heart rate Respiratory rate Body temperature Oxygen saturation Oxygen saturation in Arterial blood by Pulse oximetry Systolic And Diastolic Provider Name and Address Organization Details Last Updated DateTime 4 175.26 cm 36.5 kg/m2 437712. 32 g 85 /min 16 /min 98 [degF] 96 % 96 % 119/75 mm[Hg] Pamela Hathaway MA [facility] 4 11:20:08 Date Recorded Body height Body mass index (BMI) Body weight Oxygen saturation Oxygen saturation in Arterial blood by Pulse oximetry Heart rate Respiratory rate Body temperature Systolic And Diastolic Provider Name and Address Organization Details Last Updated DateTime 5 175.26 cm 35 kg/m2 503299. 11 g 96 % 96 % 82 /min 16 /min 97.3 [degF] 117/72 mm[Hg] Yarelis Callejas MA [facility] 5 15:13:40 Date Recorded Body height Body mass index (BMI) Body weight Respiratory rate Body temperature Oxygen saturation Oxygen saturation in Arterial blood by Pulse oximetry Heart rate Systolic And Diastolic Provider Name and Address Organization Details Last Updated DateTime 4 175.26 cm 35.5 kg/m2 451512. 61 g 14 /min 97.5 [degF] 95 % 95 % 77 /min 120/75 mm[Hg] Yarelis Callejas [place] [facility] 4 11:15:50 Social History Question Answer Notes LastModified by Organizat ion Details LastModified Time Tobacco Smoking Status Never Smoker Kiki Lehman [place] null, [place] [facility] 09/27/2014 10:12:12 Do You Have An Advance Directive? Yes Information not available 06/11/2021 Are You Blind Or Do You Have Difficulty Seeing? No Reading Glasses Information not available 03/05/2023 What Is Your Level Of Caffeine Consumption? Occasional Soda Information not available 11/27/2020 How Much Tobacco Do You Chew? None Information not available 10/26/2015 In The 14 Days Before Symptom Onset, Have You Had Close Contact With A Laboratory-confi rmed COVID-19 While That Case Was Ill? No Information not available 06/11/2021 In The 14 Days Before Symptom Onset, Have You Had Close Contact With A Person Who Is Under Investigation For COVID-19 While That Person Was Ill? No Information not available 06/11/2021 Have You Been To An Area Known To Be High Risk For COVID-19? No Information not available 02/06/2020 Are You Deaf Or Do You Have Serious Difficulty Hearing? No Information not available 03/21/2021 What Type Of Diet Are You Following? REGULAR Healthy Lifestyle Information not available 03/08/2025 Which Illicit Or Recreational Drugs Have You Used? No Information not available 10/26/2015 Education 11 GED Information no t available 03/08/2025 What Is The Highest Grade Or Level Of School You Have Completed Or The Highest Degree You Have Received? [id number] Information not available 03/21/2021 Are There Any Guns Present In Your [...] Date Of Your Most Recent Tobacco Screening? 03/22/2025 Information not available 03/22/2025 How Many Children Do You Have? 3 Information not available 03/08/2025 Performs Monthly Self-breast Exam? No Information not available 10/26/2015 What Is Your Relationship Status? Information not available 03/21/2021 Do You Use Your Seat Belt Or Car Seat Routinely? Yes Information not available 03/21/2021 Seat Belts Used Routinely Yes Information not available 10/26/2015 Smoke Alarm In Home Yes Information not available 10/26/2015 Do You Have Smoke And Carbon Monoxide Detectors In Your Home? Yes Information not available 03/21/2021 How Much Tobacco Do You Smoke? No Information not available 08/03/2019 General Stress Level Medium Information not available 02/06/2020 Do You Use Sunscreen Routinely? No Information not available 10/26/2015 Has Tobacco Cessation Counseling Been Provided? No [email or web address] Information not available 05/19/2022 Sex: Female Functional Status Question Answer Note LastModified by Organizat ion Details LastModified Time Do you use any illicit or recreational drugs? No Information not available 03/21/2021 Do you or have you ever used any other forms of tobacco or nicotine? No Information not available 06/11/2021 What is your level of alcohol consumption? None [email or web address] Information not available 09/27/2014 Do you or have you ever used smokeless tobacco? Never used smokeless tobacco Information not available 08/03/2019 Are you currently employed? No Information not available 03/21/2021 Are you able to care for yourself? Yes Information not available 03/21/2021 What is your occupation? Unemployed Information not available 03/28/2019 Do you or have you ever used e-cigarettes or vape? Never used electronic cigarettes Information not available 08/03/2019 What is your exercise level? None walking Information not available 11/10/2023 Mental Status Question Answer Note LastModified by Organization D etails LastModified Time Do you feel stressed (tense, restless, nervous, or anxious, or unable to sleep at night)? [id number] [email or web address] Information not available 11/10/2023 Family History Relationship Description Onset Age of this Age Resolved Age Notes LastModified by Organization Details LastModified Time Mother Cerebrovascu lar accident Not available 05/2016 16:19:26 Mother Hypertensive disorder Not available 2015 16:19:26 Mother Malignant tumor of colon 70 [email or web address] Not available 06/2017 10:52:47 Mother Hypercholest erolemia [email or web address] Not available 2016 10:39:14 Father Cerebrovascu lar accident [email or web address] Not available 06/2017 10:38:59 Daughter Diabetes mellitus [email or web address] Not available 2016 10:39:51 Medical History Condition Response Coronary Artery Disease N Other N High Blood Pressure Y Atrial Fibrillation N Breast Cancer N Lung Disease N Depression [...] Skin Problems N Anemia N Heart Attack (CO) N Diabetes N Ovarian Cancer N Blood [...] SNOMED-CT Code Diagnosis ICD10 Code Diagnosis Note [id number] MD Catia Ackermanhalto (Adult Med) [address] [place] [address] 09/27/2014 09:56:43 09/27/2014 10:46:34 Essential hypertension 61687677 Continue same Hypothyroidism 54029885 continue same Family his tory of cancer of colon 118657729 [id number] [facility] [address] [place] [address] 01/26/2015 10:09:15 01/26/2015 10:51:13 Essential hypertension 27007066 Continue same Hypothyroidism 77206245 continue same Hypertriglyceridemia 259645576 Will start statin even though mainly elevated TG because of risk factors Cut down on sweets [id number] MD Catia Ackermanhalto (Adult Med) [address] [place] [address] 02/14/2015 16:12:22 02/14/2015 17:11:54 Mixed anxiety and depressive disorder 419655919 Will give letter to be excused from jury duty Start pt on Celexa daily f/u in 6 wks [id number] MD Catia Ackermanhalto (Adult Med) [address] [place] [address] 03/28/2015 11:47:33 03/28/2015 12:39:15 Essential hypertension 46408479 Continue same Hypertriglyceridemia 409765816 continue statin even though mainly elevated TG because of risk factors Cut down on sweets Hypothyroidism 01157977 continue same Mixed anxi ety and depressive disorder 551363978 continue Celexa daily [id number] [facility] [address] [place] [address] 06/28/2015 10:47:50 06/28/2015 11:31:24 Essential hypertension 06240678 Continue same Hypothyroidism 78568246 continue same Mixed anxi ety and depressive disorder 362481167 with grieving due to recent loss of her father continue Celexa daily pt to see counselor -informati on given to pt Hypertriglyceridemia 625889037 continue statin even though mainly elevated TG because of risk factors Cut down on sweets [id number] [facility] [address] [place] [address] 09/28/2015 10:46:19 10/01/2015 12:19:33 Essential hypertension 25255703 I10 Continue same Hypothyroidism 51418700 E03.8 continue same Mixed anxi ety and depressive disorder 839317007 F34.1 with grieving due to recent loss of her father continue Celexa daily Hyperlipidemia 09675170 E78.2 pt is not taking statin- pt to take simvastati n even though mainly elevated TG because of risk factors Cut down on sweets Family his tory of cancer of colon 089422060 Z80.0 pt is no show for colonoscop y pt is counselled to go for colonoscop y Obesity 576147685 E66.3 diet and exercise discussed with pt [id number] MD Catia Cruzhalto ([employer]ING MANAGER) [address] [place] [address] 10/26/2015 15:58:59 10/26/2015 17:37:29 Screening for malignant neoplasm of colon 059950562 Z12.11 Gynecologi c examination 75964727 Z01.419 Last pap done 06/28/14 was negative with negative hr-HPV. Therefore, no pap needed. Screening for malignant neoplasm of breast 691374283 Z12.39 UTD: Done 08/02/15. [id number] MD Kong Ackerman (Adult Med) [address] [place] [address] 11/21/2015 13:56:17 11/21/2015 14:21:38 Vertigo 737974153 R42 possibly due to benign positional vertigo fall precaution [id number] MD Catia Ackermanhalto (Adult Med) [address] [place] [address] 01/25/2016 11:02:47 01/25/2016 13:33:29 Essential hypertension 20275506 I10 Continue same Hypothyroidism 56744407 E03.8 low TSH on last lab-will recheck and adjust dose continue same for now Hyperlipidemia 52543923 E78.2 continue simvastati n Cut down on sweets Mixed anxi ety and depressive disorder 851740284 F34.1 with grieving due to recent loss of her father continue Celexa daily Obesity 542834945 E66.3 diet and exercise discussed with pt [id number] MD Catia Ackermanhalto (Adult Med) [address] [place] [address] 05/21/2016 10:55:51 05/21/2016 12:01:06 Essential hypertension 18749992 I10 Continue same Hypothyroidism 51898556 E03.8 low TSH on last lab-will recheck and adjust dose Lower Levothyrox in to 125 mcg daily Hyperlipidemia 81133851 E78.2 continue simvastati n Mixed anxi ety and depressive disorder 626518991 F34.1 continue Celexa daily Administra tion of diphtheria, pertussis, and tetanus vaccine 700636561 Z23 [id number] [facility] [address] [place] [address] 08/21/2016 10:16:12 08/21/2016 14:44:58 Essential hypertension 71831788 I10 Continue Lisinopril and HCTZ ( pt does not want combinatio n pill) Hypothyroidism 74924668 E03.8 continue levothyrox in to 125 mcg daily Hyperlipidemia 88585936 E78.2 continue simvastati n Mixed anxi ety and depressive disorder 121844746 F34.1 stable continue Celexa daily [id number] MD Kong Cruz ([employer]ING MANAGER) [address] [place] [address] 10/27/2016 10:20:20 10/27/2016 16:19:49 Gynecologic examination 26961996 Z01.419 Last pap done 06/28/14 was negative with negative hr-HPV. Therefore, no pap needed. Screening for malignant neoplasm of breast 758631271 Z12.39 Screening for malignant neoplasm of colon 795358237 Z12.[address] Macedo 12/2015. [id number] MD Kong Ackerman (Adult Med) [address] [place] [address] 11/21/2016 10:40:10 11/21/2016 11:38:01 Mixed anxiety and depressive disorder 139561520 F34.1 stable continue Celexa daily Hypothyroidism 72151936 E03.8 continue levothyrox in to 125 mcg daily Essential hypertension 26995595 I10 Continue Lisinopril and HCTZ ( pt does not want combinatio n pill) Hyperlipidemia 38831269 E78.2 continue simvastati n [id number] [facility] [address] [place] [address] 02/20/2017 10:34:00 02/20/2017 11:53:46 Essential hypertension 96546768 I10 Continue Lisinopril and HCTZ ( pt does not want combinatio n pill) Hyperlipidemia 03216844 E78.2 continue simvastati n ( pt missed med at times ) Hypothyroidism 00554880 E03.8 continue levothyrox in to 137 mcg daily Mixed anxi ety and depressive disorder 321583383 F34.1 stable continue Celexa daily [id number] [facility] [address] [place] [address] 05/26/2017 10:44:22 05/26/2017 15:17:00 Essential hypertension 70205997 I10 Continue Lisinopril and HCTZ ( pt does not want combinatio n pill) Hyperlipidemia 81411937 E78.2 continue simvastati n ( pt missed med at times ) Hypothyroidism 14323918 E03.8 continue levothyrox in to 137 mcg daily Mixed anxi ety and depressive disorder 142377897 F34.1 not well controlled /noncompli ant with med pt to restart Celexa daily pt to see counselor [employer] 373086 009 L60.0 [id number] MD Kong Ackerman (Adult Med) [address] [place] [address] 07/28/2017 10:52:08 07/28/2017 17:50:01 Essential hypertension 79571209 I10 Continue Lisinopril and HCTZ ( pt does not want combinatio n pill) Hyperlipidemia 53737632 E78.2 continue simvastati n Hypothyroidism 95219090 E03.8 continue levothyrox in to 137 mcg daily Mixed anxi ety and depressive disorder 525156791 F34.1 improving pt to continue Celexa daily [id number] MD Kong Cruz ([employer] MANAGER) [address] [place] [address] 11/09/2017 11:39:48 11/10/2017 10:33:34 Gynecologic examination 21046055 Z01.419 Last pap done 06/28/14 was negative with negative hr-HPV. Therefore, no pap needed. Screening for malignant neoplasm of breast 483297133 Z12.39 Last 12/2016 @ [facility]. Repeat d/t facility issue dwp. Order given. Blood in urine 83596070 R31.9 UTI d/w pt. See below. Culture sent. Screening for malignant neoplasm of colon 541185563 Z12.[address] [facility] Macedo 12/2015. Repeat 5 years Urinary tr act infectious disease 74707859 N39.0 Diagnosis d/w pt. Rx sent to pharmacy. Katheryn crespo discussed. [id number] MD Kong Ackerman (Adult Med) [address] [place] [address] 11/12/2017 10:37:34 11/12/2017 16:09:44 Essential hypertension 58929645 I10 Continue Lisinopril and HCTZ ( pt does not want combinatio n pill) Hyperlipidemia 88064110 E78.2 continue simvastati n Hypothyroidism 34852944 E03.8 continue levothyrox in to 137 mcg daily Mixed anxi ety and depressive disorder 513742274 F34.1 pt to continue Celexa daily Obesity 580460719 E66.3 diet and exercise discussed with pt [id number] [facility] [address] [place] [address] 02/10/2018 09:46:16 02/12/2018 09:07:35 Essential hypertension 01853402 I10 Continue Lisinopril and HCTZ ( pt does not want combinatio n pill) Hypothyroidism 05007689 E03.8 continue levothyrox in to 137 mcg daily Hyperlipidemia 73905390 E78.2 continue simvastati n Mixed anxi ety and depressive disorder 449603523 F34.1 pt to continue Celexa daily Upper resp iratory infection 98919049 J06.9 keep good hydration [id number] [facility] [address] [place] [address] 04/07/2018 08:45:27 04/09/2018 15:18:47 Vertigo 216963575 R42 possibly due to benign positional vertigofal l precaution Thoracic back pain 98090 8004 M54.6 without rashpt's nephew has shingles and pt worried that she got shingles toopt is reassured and pt to call if any rash or blisters she develops [id number] [facility] [address] [place] [address] 05/11/2018 10:25:25 05/14/2018 16:29:33 Essential hypertension 56437171 I10 Continue Lisinopril and HCTZ ( pt does not want combinatio n pill) Hypothyroidism 80951296 E03.8 continue levothyrox in to 137 mcg daily Hyperlipidemia 05813083 E78.2 continue simvastati n Mixed anxi ety and depressive disorder 835623271 F34.1 pt to continue Celexa daily pt wants to check her b 12 level [id number] [facility] [address] [place] [address] 08/24/2018 10:15:25 08/24/2018 17:26:02 Essential hypertension 98966933 I10 Continue Lisinopril and HCTZ ( pt does not want combinatio n pill) Mixed anxi ety and depressive disorder 474332844 F34.1 stable pt to continue Celexa daily Hyperlipidemia 07676132 E78.2 continue simvastati n Hypothyroidism 97546829 E03.8 continue levothyrox in to 137 mcg daily [id number] MD Kong Cruz (MINING MANAGER) [address] [place] [address] 09/07/2018 09:24:21 09/14/2018 11:11:38 Postmenopausal bleeding [id number] N95.0 Pap done although not due for 10 mo. Last was done 06/28/14 and was negative with negative hr-HPV. US ordered to assess endometria l stripe. RTO 3 days p US for results and POC. Possible EMB d/w pt. [id number] MD Kong Cruz (MINING MANAGER) [address] [place] [address] 09/27/2018 09:48:26 09/28/2018 15:57:27 Postmenopausal bleeding 18286613 N95.0 US shows a thickened heterogene ous endometria l stripe on 9 mm, dwp. Options of in-ofice EMB vs outpatient surgery with hysterosco py and D&C d/w pt. Recommenda tion made for hysterosco py with D&C. Pt. agreeable. Will schedule. Endometrium thickened 44 4526884 N85.00 [id number] MD Kong Cruz (MINING MANAGER) [address] [place] [address] 11/02/2018 11:11:03 11/05/2018 08:48:00 Postmenopausal bleeding 89115723 N95.0 US shows a thickened heterogene ous endometria l stripe on 9 mm, dwp. Options of in-ofice EMB vs outpatient surgery with hysterosco py and D&C d/w pt. Recommenda tion made for hysterosco py with D&C. Pt. agreeable. Benefits, risks, and alternativ es to hysterosco py and D&C d/w pt. Pt. expressed understand ing. All pt. questions answered. Surgery is scheduled for 11/04/18. [id number] MD Kong Cruz (MINING MANAGER) [address] [place] [address] 11/17/2018 14:04:12 11/18/2018 09:06:08 Adenocarcinoma of uterus 889021284 C55 Pathology showed Adenocarci noma FIGO grade 1, dwp. Need for referral to skewer up/onc d;/w pt. Referral generated. Expectatio ns discussed. All pt. questions answered. [id number] [facility] [address] [place] [address] 01/07/2019 10:29:28 01/10/2019 09:29:14 Essential hypertension 29799908 I10 Continue Lisinopril Hyperlipidemia 66176234 E78.2 continue simvastati n Hypothyroidism 56978805 E03.8 continue levothyrox in to 137 mcg daily Mixed anxi ety and depressive disorder 628479572 F34.1 stable pt to continue Celexa daily [id number] [facility] ([facility]) [address] [place] [address] 01/18/2019 10:14:40 01/19/2019 10:00:03 Screening for malignant neoplasm of breast 976994935 Z12.39 Normal clinical breast exam. Mammogram ordered. [id number] MD [facility] [address] [place] [address] 03/28/2019 08:58:28 03/29/2019 11:34:47 Essential hypertension 46206217 I10 stableCont inue Lisinopril Hyperlipidemia 37219252 E78.2 continue simvastati n Hypothyroidism 11121133 E03.8 continue levothyrox in to 137 mcg daily Mixed anxi ety and depressive disorder 391541336 F34.1 fairly stable( has some crying spells once in a while ) pt to continue Celexa daily -pt may try 40 mg celexa -if she wants to continue 40 mg -call clinic Urinary symptoms 9965152 08 R39.9 pt has dark color urine -pt to drink more water -keep good hydration [id number] MD Catia [facility]erman[facility]to (Adult Med) [address] [place] [address] 07/11/2019 09:26:53 07/12/2019 09:02:20 Essential hypertension 92318693 I10 stableCont inue Lisinopril Mixed anxi ety and depressive disorder 441458559 F34.1 stable. pt to continue Celexa daily Hypothyroidism 80804759 E03.8 continue levothyrox ine 150 mcg daily Hyperlipidemia 81521391 E78.2 continue simvastati n Cobalamin deficiency 190 051210 E53.8 Pain of le ft shoulder joint 5223822664 3159958 M25.512 pt to go for PTpt to try mobic prn with meal [id number] MD [facility] [address] [place] [address] 08/03/2019 12:01:34 08/04/2019 10:53:21 Acute bronchitis 14570258 J20.9 [id number] Benigno Crews MD [facility] (Adult Med) [address] [place] [address] 11/02/2019 10:09:53 11/03/2019 14:23:48 Essential hypertension 89394829 I10 stableCont inue Lisinopril Hyperlipidemia 40803724 E78.2 continue simvastati n Hypothyroidism 29120926 E03.8 continue levothyrox ine 150 mcg daily Mixed anxi ety and depressive disorder 947173289 F34.1 fairly stable. / compliance still a issue pt to continue Celexa daily Upper resp iratory infection 80445262 J06.9 keep good hydration [id number] Benigno Crews MD [facility] (Adult Med) [address] [place] [address] 02/06/2020 08:41:17 02/07/2020 14:07:45 Essential hypertension 68764443 I10 stableCont inue Lisinopril Hyperlipidemia 48608061 E78.2 continue simvastati n Hypothyroidism 28124019 E03.8 continue levothyrox ine 150 mcg daily Mixed anxi ety and depressive disorder 319543384 F34.1 stable. / compliance still a issue pt to continue Celexa daily Pain of le ft shoulder joint 9070800177 0192062 M25.512 pt tried PT without much help.pt did not like mobicpt to try cyclobenza prineconsi diana imaging in future [id number] MD [facility] [address] [place] [address] 05/14/2020 07:57:27 05/15/2020 10:20:53 Essential hypertension 28888639 I10 stableCont inue Lisinopril Hyperlipidemia 27562469 E78.2 continue simvastati n Hypothyroidism 02536329 E03.8 continue levothyrox ine 150 mcg daily Mixed anxi ety and depressive disorder 354129097 F34.1 stable. / compliance still a issue pt to continue Celexa daily [id number] MD [facility] [address] [place] [address] 08/21/2020 08:31:22 08/22/2020 13:30:54 Essential hypertension 24501088 I10 stableCont inue Lisinopril Mixed anxi ety and depressive disorder 961527776 F34.1 stable. / compliance still a issue pt to continue Celexa daily Hyperlipidemia 78937736 E78.2 continue simvastati n Hypothyroidism 47354069 E03.8 continue levothyrox ine 150 mcg daily Pain in left knee 192880 5567 79023 M25.562 pt to try mobic prn with food .consider xray if problem worsen [id number] MD [facility] [address] [place] [address] 09/26/2020 11:53:46 09/27/2020 06:01:38 Upper respiratory infection 50517393 J06.9 keep good hydration. [id number] MD [facility] [address] [place] [address] 11/27/2020 08:28:02 11/27/2020 22:57:43 Essential hypertension 03582766 I10 stableCont inue Lisinopril Mixed anxi ety and depressive disorder 996878885 F34.1 stable. pt to continue Celexa daily Hyperlipidemia 87076801 E78.2 continue simvastati n Hypothyroidism 41872003 E03.8 continue levothyrox ine daily [id number] MD Catia [facility] (Adult Med) [address] [place] [address] 03/21/2021 10:47:28 03/22/2021 09:49:43 Pneumonia caused by SARS-CoV-2 0504740667 85327797 J12.82 slowly improving /keep good hydration - instructed pt to go to ER if any breathing issue [id number] MD Kong Ackerman (Adult Med) [address] [facility] [place] [address] 06/11/2021 10:31:47 06/12/2021 14:44:19 Loss of hair 050518483 L65.9 pt had covid infection couple of months ago-possib ly due to telogen effluvium - discussed about good sleep and nutrition Hypothyroidism 21316464 E03.8 continue levothyrox ine daily Hyperlipidemia 66734592 E78.2 continue simvastati n Obesity 845563905 E66.9 diet and exercise discussed with pt [id number] MD [facility] [address] [place] [address] 07/02/2021 11:11:46 07/10/2021 08:42:45 Essential hypertension 16849845 I10 stableCont inue Lisinopril Hyperlipidemia 19713001 E78.2 continue simvastati n Hypothyroidism 45309573 E03.8 continue levothyrox ine daily Mixed anxi ety and depressive disorder 621042529 F34.1 stable. pt to continue Celexa daily Anti-nucle ar factor detected 778415998 R76.8 with hair loss - referred to derm for eval- will check IFA of drew in future Obesity 109930751 E66.9 diet and exercise discussed with pt Loss of hair 559843035 L 65.9 pt had covid infection couple of months ago-possib ly due to telogen effluvium - discussed about good sleep and nutrition [id number] MD Kong Ackerman (Adult Med) [address] [place] [address] 10/07/2021 11:50:02 10/08/2021 15:13:17 Essential hypertension 83813087 I10 stableCont inue Lisinopril Mixed anxi ety and depressive disorder 609222336 F34.1 stable. pt to continue Celexa daily Hyperlipidemia 04355824 E78.2 continue simvastati n Hypothyroidism 79087363 E03.8 continue levothyrox ine daily Urinary symptoms 9387259 08 R39.9 pt has dark color urine with smell -pt to drink more water -keep good hydration Low back pain 049074078 M54.50 heat therapy/ex ercise [id number] MD [facility] [address] [place] [address] 12/26/2021 10:51:52 12/27/2021 12:25:29 Vertigo 750481852 R42 possibly due to benign positional vertigofal l precaution Obesity 819229079 E66.9 diet and exercise discussed with pt- pt wants to see culture media laboratory assistant [id number] MD [facility] [address] [place] [address] 01/13/2022 10:39:28 01/14/2022 07:03:39 Essential hypertension 69207980 I10 stableCont inue Lisinopril Hyperlipidemia 62733936 E78.2 continue simvastati n Mixed anxi ety and depressive disorder 939889379 F34.1 off of Celexa - pt is doing fine without med Hypothyroidism 73029027 E03.8 continue levothyrox ine daily [id number] Benigno Crews MD [facility] (Adult Med) [address] [place] [address] 05/19/2022 10:51:04 05/20/2022 08:40:49 Essential hypertension 16517740 I10 stableCont inue Lisinopril Hyperlipidemia 08907934 E78.2 continue simvastati n Hypothyroidism 52799686 E03.8 continue levothyrox ine daily Mixed anxi ety and depressive disorder 696346951 F34.1 off of Celexa - pt is doing fine without med Obesity 862849128 E66.9 diet and exercise discussed with pt- pt is waiting to see culture media laboratory assistant Screening mammography 24 033214 Z12.31 Screening for malignant neoplasm of colon 015940183 Z12.11 with f/h colon ca and polypectom y [id number] MD [facility] [address] [place] [address] 08/25/2022 11:12:33 08/26/2022 11:03:52 Essential hypertension 50037460 I10 fairly stableCont inue Lisinopril Hyperlipidemia 15261830 E78.2 continue simvastati n Hypothyroidism 74555288 E03.8 continue levothyrox ine daily Mixed anxi ety and depressive disorder 796630280 F34.1 off of Celexa - pt is doing fine without med History of polyp of colon 564451587 Z86.803 [id number] [facility] [address] [place] [address] 11/07/2022 11:57:43 11/11/2022 16:13:49 Upper respiratory infection 02062094 J06.9 keep good hydration. / return to clinic if problem continues Hypothyroidism 44744104 E03.8 continue levothyrox ine 125mcg daily Obesity 090743775 E66.9 diet and exercise discussed with pt- pt is waiting to see culture media laboratory assistant [id number] MD [facility] [address] [place] [address] 12/12/2022 10:44:18 12/17/2022 14:23:48 Mammography abnormal 944781997 R92.8 of R/breast- reassures about low suspicious in regards to malignancy -pt to go for biopsy [id number] MD [facility] [address] [place] [address] 03/05/2023 11:02:25 03/06/2023 10:59:25 Essential hypertension 24223078 I10 fairly stableCont inue Lisinopril Hyperlipidemia 53623261 E78.2 continue simvastati n Hypothyroidism 20724090 E03.8 continue levothyrox ine 125mcg daily Mixed anxi ety and depressive disorder 237344775 F34.1 off of Celexa - pt is doing fine without med Obesity 671837552 E66.9 diet and exercise discussed with pt [id number] MD [facility] [address] [place] [address] 07/10/2023 10:54:03 07/15/2023 09:19:22 Essential hypertension 58879658 I10 - stableCont inue Lisinopril Hyperlipidemia 76439875 E78.2 continue simvastati n Hypothyroidism 32966600 E03.8 continue levothyrox ine 125mcg daily Obesity 294159903 E66.9 with pre -DM-diet and exercise discussed with pt Peripheral sensory neuropathy 173231702 G62.9 - pt to start vit b12 and check for DM [id number] MD [facility] [address] [place] [address] 11/10/2023 10:58:31 11/12/2023 11:19:07 Essential hypertension 17574220 I10 - stableCont inue Lisinopril Hyperlipidemia 44580165 E78.2 continue simvastati n Hypothyroidism 21752471 E03.8 continue levothyrox ine 125mcg daily Obesity 229139955 E66.9 with pre -DM-diet and exercise discussed with pt Mild dieta ry indigestion 675506150 K30 [id number] MD [facility] [address] [place] [address] 03/15/2024 10:58:46 03/16/2024 15:18:58 Essential hypertension 81612257 I10 - stableCont inue Lisinopril Mixed anxi ety and depressive disorder 491099046 F34.1 off of Celexa - pt is doing fine without med Hypothyroidism 75465585 E03.8 continue levothyrox ine daily Hyperlipidemia 78999263 E78.2 continue simvastati n Prediabetes 201818831 R7 3.03 healthy diet and exercise discussed with pt Low back pain 526085679 M54.50 heat therapy/ex ercise-loo se wt [id number] MD Catia A[facility]erman[facility] (Adult Med) [address] [place] [address] 07/12/2024 10:55:57 07/13/2024 14:42:34 Essential hypertension 33240574 I10 - stableCont inue Lisinopril Hyperlipidemia 45239304 E78.2 continue simvastati n Hypothyroidism 47599936 E03.8 continue levothyrox ine daily Prediabetes 381867381 R7 3.03 healthy diet and exercise discussed with pt Renewal of prescription 412877075 Z76.0 [id number] MD Kong Ackerman (Adult Med) [address] [place] [address] 11/04/2024 11:08:19 11/11/2024 17:35:46 Essential hypertension 48711818 I10 - stableCont inue Lisinopril Hyperlipidemia 32068518 E78.2 continue simvastati n Hypothyroidism 13532937 E03.8 continue levothyrox ine daily Renewal of prescription 088621230 Z76.0 Screening mammography 24 707197 Z12.31 Indigestion 751674428 R1 0.13 [id number] MD Kong Lindquist (Adult Med) [address] [place] [address] 03/08/2025 11:03:43 03/20/2025 10:11:12 Prediabetes 919643341 R73.03 -Recheck A1c today: 5.9%-no medication therapy-Re commended diabetic diet-Educa humphrey to check feet daily. Mixed hyperlipidemia 267 325530 E78.2 -Continue current therapy: Simvastati n 20 mg daily-Rech pasha lipid panel at follow-up- Trend LFTs-Patie nt educated on the importance of diet, exercise and medication in the management of this condition. Hypothyroidism 35641661 E03.9 -last TSH level: 0.945 (11/02/24)- continue current therapy: Levothyrox ine 112 mcg daily-kathrin tor thyroid panel Seasonal allergy 3659657 04 J30.2 -patient reports symptoms are controlled on cetirizine therapy-pa azaelnt agreeable to trial of coarsened it in PRN for cough-magui ent to follow up in clinic if symptoms worsen Essential hypertension 45517499 I10 -stable-BP today in clinic: 130/79 mmHg (Goal <130/80)-C ontinue current therapy: Lisinopril 20 mg daily-Tren d renal function-R ecommended DASH diet-Discu ssed importance of regular exercise and/or physical activity inthe control of blood pressure.- Discussed low sodium diet w/ <2 g daily, avoidance of caffeine, appropriat e sleep hygiene and quality with >6 hours of uninterrup humphrey sleep.-Pat ient to call the clinic with BP <110/70mmH g or >140/90mmH g Obese class II [id number] 1 71921 E66.812 PIT BOSS advised patient to follow a well balanced diet and obtain regular exercise. Informatio nal handout provided. Infection of tooth 15104 8007 K04.7 -Patient is on amoxicilli n therapy currently- patient to follow up with dentist Inflammato ry dermatosis 875095861 L30.9 -patient presentati on consistent with dermatitis -Patient to use triamcinol one cream BID for 5-7 days. PIT BOSS discussed risks of prolonged steroid cream use including thinning of the skin-patie nt to follow up in clinic if symptoms worsen or do not improve [id number] Maxx Peterson MD [facility] (Adult Med) [address] [place] [address] 03/22/2025 15:04:04 04/10/2025 14:19:41 Dental abscess 391054833 K04.7 -Patient is on augmentin therapy currently. Patient agreeable with plan to provide short refill. PIT BOSS discussed risks of prolonged antibiotic use. PIT BOSS advised patient to consume OTC probiotic or yogurt while on antibiotic therapy.-P atient to follow up with dentist, keep scheduled appointmen t.-Patient agreeable to pain management with tylenol PRN-Patien t to return to clinic if symptoms worsen or do not improve.-E R precaution s advised. Health Concerns Section Related Observation LastModified by Organization Detai ls LastModified Time None Recorded Concern Status LastModified by Organization Details LastModified Time None Recorded Advance Directives Directive Y: Payers Insurance Date Sequence Insurance Name Policy Number Policy Trivedi Covered Member ID Trivedi Member ID Guarantor Name 03/22/2025 1 [place] Kayla Gifford Wynnb[place] [id number] Kayla Wynnburg 04/20/2025 2 [facility] - DOS ON OR AFTER 2020 - DUAL ELIGIBLE (MEDICARE REPLACEMENT/ADVANT AGE - HMO) [id number] Kayla Wynnburg [id number] [facility] 03/22/2025 MEDICARE A[place] N [facility] Kayla Gifford [place]nb[place] [id number] Kayla Wynnburg 03/22/2025 3 [employer] [place] (MEDICARE REPLACEMENT/ADVANT AGE) Kayla Wynnburg [id number] [facility] 03/22/2025 1 [place] [facility] Kayla Gifford [place]nb[place] [id number] [facility] 03/22/2025 2 [place] (MEDICARE REPLACEMENT/ADVANT AGE) Kayla Wynnburg [id number] [facility] 03/22/2025 2 [place] [facility] Kayla Wynnburg [id number] [facility] 03/22/2025 1 [facility] - DOS ON OR AFTER 21 (MEDICAID REPLACEMENT - HMO) [facility] [place]nburg [id number] [facility]/2020 SLIDING FEE SCHEDULE - DISCOUNT [facility] 09/29/2022 3 *SELF PAY* An nighat Wynnburg 05/09/2020 SLIDING FEE SCHEDULE - DISCOUNT [facility] 05/08/2022 SLIDING FEE SCHEDULE - DISCOUNT [facility] 03/22/2025 1 [facility] (MEDICAID HMO) Kayla Wynnburg [id number] [facility] 03/22/2025 1 [facility] (MEDICAID HMO) Kayla Wynnburg [id number] [facility] 03/22/2025 1 [facility] - DOS PRIOR TO 2021 (MEDICAID REPLACEMENT - HMO) Kayla Wynnburg [id number] Kayla Wynnburg 04/20/2025 1 [facility] - DOS ON OR AFTER 2020 - DUAL ELIGIBLE (MEDICARE REPLACEMENT/ADVANT AGE - HMO) [id number] Kayla Gifford [place]nb[place] [id number] [facility] 03/22/2025 3 [place] WHEN MEDICARE OR MEDICARE REPLACEMENT PRIMARY) Kayla Wynnburg [id number] [facility] Notes Date Note Type Note Provider Name and Address Organization Details Recorded Time 03/15/20 text/htm l Back PainReported bypatient.Location:pain is [...] Pt had surgery 12/20/18 full hysterectomy at [facility] for uterine ca. Benigno Crews MD Attn: Accounting,[address] [place] [address], [phone], [facility] 03/15/2024 15:33:34 07/12/20 text/htm l HyperlipidemiaReported bypatient.Duration:chronic Control:improving Current Therapy:currently taking: (simvastatin) Compliance:compliant Risk Factors:hypertension;obesityHyp ertension F/UReported bypatient.Associated Symptoms:no dizziness; no chest pain; no palpitations; no edema Medications:taking medications as directed; no side effects from medicationThyroidReported bypatient.Duration:chronic Context:history of hypothyroidism Modifying Factors:medication (thyroid pill- taking med as prescribed.) Associated Symptoms:no palpitations; no constipation Pt had surgery 12/20/18 full hysterectomy at [facility] for uterine ca. Benigno Crews MD Attn: Accounting,[address] [place] [address], [phone], [facility] 07/12/2024 13:55:55 11/04/19 text/htm l HyperlipidemiaReported bypatient.Duration:chronic Control:improving Current Therapy:currently taking: (simvastatin) Compliance:compliant Risk Factors:hypertension;obesityHyp ertension F/UReported bypatient.Associated Symptoms:no dizziness; no chest pain; no palpitations; no edema Medications:taking medications as directed; no side effects from medicationThyroidReported bypatient.Duration:chronic Context:history of hypothyroidism Modifying Factors:medication (thyroid pill- taking med as prescribed.) Associated Symptoms:no palpitations; no constipation Pt had surgery 12/20/18 full hysterectomy at [facility] for uterine ca. Benigno Crews MD Attn: Accounting,[address] [place], [address], [facility] 11/04/2024 13:52:30 03/08/20 25 text/htm l Patient presents to the clinic to establish care. Patient was previously established with Dr. Gama for primary care. -Medical Hx/Surgical Hx: Anxiety, depression, hypertension, hyperlipidemia, prediabetes, hypothyroidism, vertigo, adenocarcinoma of uterus, GERD, migraines, ovarian cystectomy, total hysterectomy, vitamin-D deficiency, and 3 pregnancies-3 vaginal deliveries-3 living children. -Family hx:Mother: -cerebrovascular accident, hypertensive disorder, malignant tumor of colon, hypercholesterolemia,Father: -cerebrovascular accidentMaternal Grandmother: -unknownMaternal Grandfather: -unknownPaternal Grandmother: -unknownPaternal Grandfather: -unknown -Tobacco/Drug/Alcohol Use:Denies history of tobacco, drug, or alcohol use. Chicken pox: Patient is unsure if she had chicken pox. Marital status: Sexually active: N/A Occupation: Unemployed-[employer] Highest level of education: 11th grade - GED Allergies: NKDA TRINI GAMBOA-BC Attn: Accounting,[address] [place], [address], [facility] 03/19/2025 00:11:08 03/22/20 25 text/htm l Patient presents to the clinic with acute complaint of tooth pain. Patient's past medical history includes: Anxiety, depression, hypertension, hyperlipidemia, prediabetes, hypothyroidism, vertigo, adenocarcinoma of uterus, GERD, migraines, ovarian cystectomy, total hysterectomy, vitamin-D deficiency, and 3 pregnancies-3 vaginal deliveries-3 living children. -Patient finished augmentin therapy and then her tooth pain returned greatly. Patient has been prescribed Augmentin 03/06/25 and 03/13/25.-Patient has an appointment April 03 for the tooth to be pulled.-Patient reports the swelling is not as bad this time. DIANELYS THURSTON, TRINI-ELSA Attn: Accounting,[address] [facility], [place], [address], [facility] 04/08/2025 09:50:24 OBGyn Episode Ob Episode Information Episode Created Date Number of Fetuses Patient Bloodtype Patient rh Status Prepregnancy Weight lbs Domestic Partner Domestic Partner Phone Father Name Research Animal Facility Supervisor Status 10/27/19 17 1 CLOSED Fetus Data First Name Last Name Admitted to NICU Weight (g) Sex Living Outcome Pediatric Complications Fetus ID Race Codes Race Delivery Type 4053.75 1704 M Full Term 17584 Vaginal Kvng Calculation Initial Kvng Date Initial [...] Domestic Partner Domestic Partner Phone Father Name Research Animal Facility Supervisor Status 10/27/19 17 1 CLOSED Fetus Data First Name Last Name Admitted to NICU Weight (g) Sex Living Outcome Pediatric Complications Fetus ID Race Codes Race Delivery Type 3798.83 3 F Full Term [id number] Vaginal Kvng Calculation Initial Kvng Date Initial [...] Domestic Partner Domestic Partner Phone Father Name Research Animal Facility Supervisor Status 10/27/19 17 1 CLOSED Fetus Data First Name Last Name Admitted to NICU Weight (g) Sex Living Outcome Pediatric Complications Fetus ID Race Codes Race Delivery Type 3742.13 4 F Full Term [id number] Vaginal Kvng Calculation Initial Kvng Date Initial [...]
--- OUTSIDE RECORDS SUMMARY | 2025-05-08 13:19 | XMS_ITS | Encounter Summary ---
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
--- OUTSIDE RECORDS SUMMARY | 2025-05-08 13:19 | XMS_ITS | Encounter Summary ---
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
--- OUTSIDE RECORDS SUMMARY | 2025-05-08 13:19 | XMS_ITS | Referral Summary ---
Author Organization [facility] Address [address] [place] [address] Care Team Providers Care Rib Builder Name Role Phone Alexandra Robles MD Primary Care Provider [phone] Alexandra Robles MD Unavailable [phone] Allergies No known active allergies Medications [...] (11/14/2022): Added automatically from request for surgery [id number] Personal history of colonic polyps 11/14/2022 Overview (11/14/2022): Added automatically from request for surgery [id number] Encounter for screening colonoscopy 11/14/2022 Overview (11/14/2022): Added automatically from request for surgery [id number] Social History Tobacco Use Types Packs/Day Years [...] on file 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 Gender Identity Not on file Sexual Orientation [...] 12:30 AM CDT Height 175.3 cm (5' 9) 02/02/2025 12:30 AM CDT Body Mass Index 36.18 02/02/2025 12:30 AM CDT Plan of Treatment Not on file Procedures Procedure Name Priority Date/Time Associated Diagnosis Comments SCREENING MAMMOGRAM BILATERAL W DWAINE Schedule Routine, Read Routine (OP Routine) 11/10/2024 8:48 AM HULL INSPECTOR Encounter for screening mammogram for malignant neoplasm of breast DEXA AXIAL SKELETON BONE DENSITY 1 OR MORE SITES Schedule Routine, Read Routine (OP Routine) 03/23/2024 9:56 AM CDT Encounter for screening for osteoporosis COLONOSCOPY 12/16/2022 8:27 AM HULL INSPECTOR from Last 3 Months or Most Recently Relevant to Health Maintenance Results * Screening Mammogram Bilateral W Dwaine (11/10/2024 8:48 AM HULL INSPECTOR) Anatomical Region Laterality Modality Breast Bilateral Mammography 11/10/2024 8:58 AM HULL INSPECTOR Impressions 11/10/2024 8:58 AM HULL INSPECTOR There is no mammographic evidence of malignancy. A 1 year screening mammogram is recommended. BI-RADS: 2 - Benign. The patient has been or will be contacted. The patient will be entered into a reminder system with a target due date of 1 year for her next mammogram. Electronically signed by: Chiquis Contreras M.D. Narrative 11/10/2024 8:58 AM HULL INSPECTOR EXAMINATION: SCREENING MAMMOGRAM BILATERAL W DWAINE ORDERING [...] Encounter for screening for osteoporosis Screening postmenopausal Director Drug/Model: ecoATM SL (S/N [id number]) CLINICAL INFORMATION: Current height: 69 inches Maximum [...] Andrey Choi M.D. MF: FARHAT Report ID: [id number] Reading Location: [place] [address] Procedure Note Andrey Choi MD - 03/23/2024 EXAM DESCRIPTION: DEXA AXIAL SKELETON BONE DENSITY 1 OR MORE SITES REASON FOR STUDY: 69 y/o year old F with given history of: Encounterfor screening for osteoporosis Screening postmenopausal Director Drug/Model: SumoSkinny Discovery SL (S/N 65793) CLINICAL INFORMATION: Current height: 69 inches Maximum [...] Andrey Choi M.D. MF: FARHAT Report ID: [id number] Reading Location: [id number] Alexandra Robles MD IMG DXA PROCEDURES Final Resu lt * COLONOSCOPY (12/16/2022 8:27 AM HULL INSPECTOR) Anatomical Region Laterality Modality Other Narrative Procedure Note Grant Boyd MD - 12/16/2022 8:[address] [facility] Patient Name: Kayla Crystal Procedure Date: 12/16/2022 8:27 AM Date of : 1955 Admit Type: Outpatient Age: 67 Gender: Female Attending MD: Grant Boyd M.D. Room: [facility]CLUD[facility] ENDOSCOPY ROOM 2 Note Status: Finalized [...] scope was passed under direct vision. TheColonoscope [id number] was introduced through the anus and advanced [...] 8:27 AM Procedure Code(s): --- Professional --- 73581, Colonoscopy, flexible; diagnostic, including collection of specimen(s) by brushing or washing, when performed (separateprocedure) Diagnosis Code(s): --- Professional --- Z80.0, Family history of malignant neoplasm of digestive organs K64.9, Unspecified hemorrhoids CPT copyright 2020 [employer] [place] [employer]. All rights reserved. The codes documented in this report are preliminary and upon electrical unit rebuilder reviewmay be revised to meet current compliance requirements. Recognized by the [place] [employer] for promoting quality in endoscopy Grant Boyd MD ENDOSCOPY PROCEDURES Final Re sult from Last 3 Months or Most Recently Relevant to Health Maintenance Insurance [facility] [place] [place] [place] [address] [facility] [place] [place] [address] Advance Directives For more information, please contact: [phone] * Full Code (Latest Code Status on File) Date Activated Date Inactivated Comments 12/16/2022 8:29 AM 12/16/2022 3:09 PM * Full Code Date Activated Date Inactivated Comments 12/16/2022 8:29 AM 12/16/2022 8:29 AM * Full Code Date Activated Date Inactivated Comments 11/04/2018 3:12 PM 11/04/2018 8:18 PM Care Teams Rib Builder Relationship Specialty Start Date End Date Alexandra Robles MD [address] [place], [place] [id number] [facility] - General 03/14/21 Alexandra Robles MD [address] [place] [address] 03/14/21
--- OUTSIDE RECORDS SUMMARY | 2025-05-08 13:19 | XMS_ITS | Clinical Summary ---
Author Organization [facility] Address [address] [address] Phone Care Team Providers Care Bevel Operator Name Role Phone Benigno Crews MD Primary Care Provider [phone] Allergies No known active allergies Medications polyethylene [...] 115.7 kg (255 lb) 12/28/2015 9:00 AM QUAIL FARMER Height 175.3 cm (5' 9) 12/28/2015 9:00 AM QUAIL FARMER Body Mass Index 37.66 12/28/2015 9:00 AM QUAIL FARMER Plan of Treatment Health Maintenance Due Date Last Done Comments Hepatitis C Virus (HCV) Screening 1955 Cologuard 02/02/2001 Immunochemical Fecal Occult Blood 02/02/2001 Pneumococcal Immunization (5 0+ years) (1 of 1 - PCV) 02/02/2006 Zoster Immunization (1 of 2) 02/02/2006 SARS-COV-2 Immunization (1 - 2023- season) 2024 Influenza Immunization (#1) 2025 Colonoscopy 01/03/2026 01/04/2016 Colorectal Cancer Screening 01/03/2026 Respiratory Syncytial Virus (RSV) Immunization (Adult) (1 - 1-dose 75+ series) 02/02/2031 DTaP/Tdap/Td Immunization Discontinued 05/21/2016 TdaP Immunization Completed 05/21/2016 Mammogram Discontinued 02/19/2019, 01/01/2018, 12/31/2016 Hepatitis B Immunization Aged Out No longer eligible based on patient's age to complete this topic Human Papillomavirus (HPV) Immunization Aged Out No longer eligible based [...] is made to exams dated: 01/01/2018, 12/31/2016 [facility], and 08/02/2015 [facility]. BREAST TISSUE:The tissue of both breasts is [...] next screening exam. Electronically signed by: Chiquis Contreras M.D. /stephanie:02/21/2019 09:31:11 Wind Tunnel Technician: Luma Tracey (Leila), [facility] letter sent: Normal Exam Reading location: [facility] BI-RADS: 1 Negative Procedure Note Chiquis Contreras [...] is made to exams dated: 01/01/2018, 12/31/2016 [facility], and 08/02/2015 [facility]. BREAST TISSUE:The tissue of both breasts is [...] exam. Electronically signed by: Chiquis lewis/stephanie:02/21/2019 09:31:11 Wind Tunnel Technician: Luma Tracey (R), [facility] letter sent: Normal Exam Reading location: [facility] BI-RADS: 1 Negative us Noa Evans MD IMG MAMMO ORDERABLES Fin al Result from Last 3 Months or Most Recently Relevant to Health Maintenance Insurance MEDICAID [employer] MED[employer] C [place] Care Teams Bevel Operator Relationship Specialty Start Date End Date Benigno Crews MD [address] [facility] [address] [place] [address] PCP - General Internal Medicine 01/04/16
--- OUTSIDE RECORDS SUMMARY | 2025-05-08 13:19 | XMS_ITS | Encounter Summary ---
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
--- OUTSIDE RECORDS SUMMARY | 2025-05-08 13:19 | XMS_ITS | Clinical Summary ---
Author Organization [facility] Address [address] [place] [address] Care Team Providers Care Rock Climbing Team Member Name Role Phone Alexandra Robles MD Primary Care Provider [phone] Alexandra Robles MD Unavailable [phone] Allergies No known active allergies Medications [...] (11/14/2022): Added automatically from request for surgery [id number] Personal history of colonic polyps 11/14/2022 Overview (11/14/2022): Added automatically from request for surgery [id number] Encounter for screening colonoscopy 11/14/2022 Overview (11/14/2022): Added automatically from request for surgery [id number] Surgical History Surgery Date Site/Laterality Comments OOPHORECTOMY [...] on file Legal Sex Female 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 Gender Identity Not on file Sexual Orientation [...] Read Routine (OP Routine) 11/10/2024 8:48 AM EXTRACTOR PLANT OPERATOR Encounter for screening mammogram for malignant neoplasm of breast DEXA AXIAL SKELETON BONE DENSITY 1 OR MORE SITES Schedule Routine, Read Routine (OP Routine) 03/23/2024 9:56 AM CDT Encounter for screening for osteoporosis COLONOSCOPY 12/16/2022 8:27 AM EXTRACTOR PLANT OPERATOR from Last 3 Months or Most Recently Relevant to Health Maintenance Results * Screening Mammogram Bilateral W Dwaine (11/10/2024 8:48 AM EXTRACTOR PLANT OPERATOR) Anatomical Region Laterality Modality Breast Bilateral Mammography 11/10/2024 8:58 AM EXTRACTOR PLANT OPERATOR Impressions 11/10/2024 8:58 AM EXTRACTOR PLANT OPERATOR There is no mammographic evidence of malignancy. A 1 year screening mammogram is recommended. BI-RADS: 2 - Benign. The patient has been or will be contacted. The patient will be entered into a reminder system with a target due date of 1 year for her next mammogram. Electronically signed by: Chiquis Contreras M.D. Narrative 11/10/2024 8:58 AM EXTRACTOR PLANT OPERATOR EXAMINATION: SCREENING MAMMOGRAM BILATERAL W DWAINE ORDERING [...] suspicious interval change. us Alexandra Robles MD [facility] MAMMO PROCEDURES Final Re sult * Dexa [...] Encounter for screening for osteoporosis Screening postmenopausal Strap Folding Machine Operator/Model: [employer] (S/N 49805) CLINICAL INFORMATION: Current height: 69 inches Maximum [...] Andrey Choi M.D. MF: FARHAT Report ID: [id number] Reading Location: [place] [address] Procedure Note nAdrey Choi MD - 03/23/2024 EXAM DESCRIPTION: DEXA AXIAL SKELETON BONE DENSITY 1 OR MORE SITES REASON FOR STUDY: 69 y/o year old F with given history of: Encounterfor screening for osteoporosis Screening postmenopausal Strap Folding Machine Operator/Model: LightPole Discovery SL (S/N 57997) CLINICAL INFORMATION: Current height: 69 inches Maximum [...] Andrey Choi M.D. MF: FARHAT Report ID: [id number] Reading Location: [place] [address] us Alexandra Robles MD IMG DXA PROCEDURES Final Resu lt * COLONOSCOPY (12/16/2022 8:27 AM EXTRACTOR PLANT OPERATOR) Anatomical Region Laterality Modality Other Narrative Procedure Note Grant Boyd MD - 12/16/2022 8:27 AM CST [facility] Patient Name: Kayla Crystal Procedure Date: 12/16/2022 8:27 AM Date of : 1955 Admit Type: Outpatient Age: 67 Gender: Female Attending MD: Grant Boyd M.D. Room: [facility] ENDOSCOPY ROOM 2 Note Status: Finalized [...] scope was passed under direct vision. TheColonoscope [id number] was introduced through the anus and advanced [...] 8:27 AM Procedure Code(s): --- Professional --- 66522, Colonoscopy, flexible; diagnostic, including collection of specimen(s) by brushing or washing, when performed (separateprocedure) Diagnosis Code(s): --- Professional --- Z80.0, Family history of malignant neoplasm of digestive organs K64.9, Unspecified hemorrhoids CPT copyright 2020 [employer] [employer]. All rights reserved. The codes documented in this report are preliminary and upon business transformation analyst reviewmay be revised to meet current compliance requirements. Recognized by the [place] [employer] for promoting quality in endoscopy Grant Boyd MD ENDOSCOPY PROCEDURES Final Re sult from Last 3 Months or Most Recently Relevant to Health Maintenance Insurance [facility] [place] [place] [address] [facility] Advance Directives For more information, please contact: [phone] * Full Code (Latest Code Status on File) Date Activated Date Inactivated Comments 12/16/2022 8:29 AM 12/16/2022 3:09 PM * Full Code Date Activated Date Inactivated Comments 12/16/2022 8:29 AM 12/16/2022 8:29 AM * Full Code Date Activated Date Inactivated Comments 11/04/2018 3:12 PM 11/04/2018 8:18 PM Care Teams Rock Climbing Team Member Relationship Specialty Start Date End Date Alexandra Robles MD [address] [place] [address] PCP - General 03/14/21 Alexandra Robles MD [address] [place] [address] 03/14/21
[2025-05-08 13:24] VITALS: BP 152/75; PULSE 76; RESP 20; TEMP 36.7; O2SAT 99
--- NOTE | 2025-05-08 13:27 | ED.EXTPRO ---
HPI - Extremity Problem General Chief complaint: Skin/Abscess/Foreign Body Stated complaint: Right leg vein bulging Source: patient, RN notes reviewed and old records reviewed Mode of arrival: ambulatory Limitations: no limitations History of Present Illness HPI Narrative: 70-year-old female presents to the [facility] with a 1 week history of left lower medial leg discomfort. States that she has a vein that is very tender and hard. No surrounding erythema. No distal edema noted. Related Data Home Medications ?Medication ?Instructions ?Recorded ?Confirmed ?Last Taken ?Type lisinopril 20 mg tablet 20 mg PO DAILY 01/09/21 01/09/21 Unknown History famotidine 20 mg tablet mg 12/01/24 Unknown History levothyroxine 112 mcg tablet mcg 12/01/24 Unknown History simvastatin 40 mg tablet mg 12/01/24 Unknown History cetirizine 10 mg tablet mg 05/08/25 Unknown History Allergies Allergy/AdvReac Type Severity Reaction Status Date / Time No Known Allergies Allergy Verified 05/08/25 13:30 Review of Systems Review of Systems: All systems reviewed & are unremarkable except as noted in HPI and below Constitutional: Constitutional: Reports no additional constitutional complaints Musculoskeletal: Musculoskeletal: Reports as per HPI Integumentary/Breasts: Skin/Breast: Reports as per HPI PMFSH Past Medical History Medical History Bronchitis Hypercholesterolemia Hypertension Hypothyroidism Surgical History Surgical History H/O: hysterectomy Social History Social History Smoking status: Never smoker Alcohol intake: current Alcohol use details: social Substance use type: does not use Living arrangements: with family Gender identity (if verbalized by the patient): Female Comments At the time of my signature, I reviewed and agree with the nursing past medical, surgical, social, and family history. There is no relevant family history pertinent to the patient complaint. Exam Const: General: cooperative, healthy appearing, comfortable, no acute distress, well developed, alert and well nourished Nutritional Appearance: well nourished and obese Orientation/consciousness: patient oriented x3 Limitations: no limitations HENMT: Head: normal to inspection Eyes: General: appearance normal, both eyes and all related structures Alignment and Position: alignment normal Neck: Neck: normal visual inspection, full ROM, no lymphadenopathy and no meningeal signs Chest: Chest palpation & inspection: normal inspection of the chest Resp: Effort & Inspection: normal respiratory effort and able to speak in complete sentences Cardio: Rate: regular rate Skin: General skin exam: normal color and no rashes or lesions noted Neuro: General: patient oriented x3, gait normal, moves all extremities and no meningeal signs Cognition (Neuro): normal cognition Speech: normal speech Gait exam (Neuro): Normal gait present Extrem: General: normal to inspection, full ROM, capillary refill normal and normal gait Right lower extremity: lower leg Details: tenderness and localized swelling (Varicose vein mid medial calf); no erythema Psych: Appearance: grossly normal and well kempt Mental Status: mental status grossly normal Speech and movement: Normal speech and movement present and Clear speech present Affect: normal affect Attitude: cooperative Course Course Level of Care: Express Care Visit Vital Signs Vital signs: Vital Signs Temperature 98.1 F 05/08/25 13:24 Pulse Rate 76 05/08/25 13:24 Respiratory Rate 20 05/08/25 13:24 Blood Pressure 152/75 H 05/08/25 13:24 Pulse Oximetry 99 05/08/25 13:24 Oxygen Delivery Room Air 05/08/25 13:24 Temperature 98.1 F 05/08/25 13:24 Pulse Rate 76 05/08/25 13:24 Respiratory Rate 20 05/08/25 13:24 Blood Pressure 152/75 H 05/08/25 13:24 Pulse Oximetry 99 05/08/25 13:24 Oxygen Delivery Room Air 05/08/25 13:24 Reviewed MDM - Extremity (Nontraumatic) MDM Narrative Medical decision making narrative: Patient sitting in exam room. Patient is nontoxic, vitals are stable. Patient presents with a varicose vein to the right medial mid calf. No surrounding erythema. No distal swelling. Patient is appropriate for outpatient treatment with close follow-up Discharge instructions reviewed with patient, as well as provided in writing per nursing staff. The instructions also include specific and strict return/GO TO THE ER as well as f/u information. All questions have been answered, and the patient deny any further questions with discharge and discharge plan. Some parts of this dictation were generated by voice recognition software and may contain typographical and/or grammatical inaccuracies. Differential Diagnosis Differential diagnosis: Likely cellulitis, superficial thrombophlebitis, deep vein thrombosis of lower extremity and other (DVT, superficial blood clot, edema, varicose veins) Critical Care Time Critical Care Time Critical Care Time: No Discharge Plan Discharge Clinical Impression: Varicose vein of leg Qualifiers: Varicose vein complication: pain Laterality: right Qualified Code(s): I83.811 - Varicose veins of right lower extremity with pain Patient Disposition: Home Condition: Stable Instructions: Antibiotic Form, Leg Pain (ED) Additional Instructions: You have varicose veins. Wear compression socks that you can purchase at [employer] or at any place that sells scrubs Most importantly is following up with your primary care provider. Today your blood pressure was 152/75. Your primary care provider can order additional testing or refer you to vascular Take Tylenol or ibuprofen as needed for pain For new or worsening symptoms such as severe pain, increased redness, increased swelling please go to the nearest emergency Patient Language: Polish Prescriptions: No Action simvastatin 40 mg tablet famotidine 20 mg tablet levothyroxine 112 mcg tablet cetirizine 10 mg tablet lisinopril 20 mg tablet 20 mg PO DAILY Follow-up/Referrals: Mara Arevalo RN [Primary Care Provider] - Time of Disposition: 13:36
== END 2025-05-08 13:39 | disposition home or self-care (01) ==
PROVIDERS: Emergency Provider Nurse Practitioner; PCP Nurse Practitioner Family
DX: I83.811 Varicose veins of right lower extremity with pain (principal); I10 Essential (primary) hypertension; E78.00 Pure hypercholesterolemia, unspecified; E03.9 Hypothyroidism, unspecified
CPT/HCPCS: 99211; G0463

== ENCOUNTER 2025-08-04 16:17 | Emergency (ER) | payer OTHER, SELFPAY ==
[2025-08-04 16:31] VITALS: BP 145/65; PULSE 83; RESP 16; TEMP 36.4; O2SAT 98
--- NOTE | 2025-08-04 17:07 | ED_ITS ---
HPI - Eye Problem General Chief complaint: Eye Problems Stated complaint: Eye Problem Time Seen by Provider: 08/04/25 16:50 Source: patient and RN notes reviewed Mode of arrival: ambulatory Limitations: no limitations History of Present Illness HPI Narrative: Patient presents today complaining of redness and irritation to the left lower eyelid x2 days and also describes some very mild irritation to the eye itself since then. Reports that she had been crying on day of onset and wiping/rubbing her eyes and wanted to make sure that she didn't have a stye. Denies itching or vision changes. No OTC treatment prior to arrival. States she does continue to rub and dab the area. Related Data Home Medications ?Medication ?Instructions ?Recorded ?Confirmed ?Last Taken ?Type lisinopril 20 mg tablet 20 mg PO DAILY 01/09/2112/18 Unknown History levothyroxine 112 mcg tablet mcg 12/01/24 Unknown His tory simvastatin 40 mg tablet mg 12/01/24 Unknown History Allergies Allergy/AdvReac Type Severity Reaction Status Date / Time No Known Allergies Allergy Verified 08/04/25 16:29 [facility] Past Medical History Medical History Bronchitis Hypercholesterolemia Hypertension Hypothyroidism Surgical History Surgical History H/O: hysterectomy Social History Social History Smoking status: Never smoker Alcohol intake: current Alcohol use details: social Substance use type: does not use Living arrangements: with family Gender identity (if verbalized by the patient): Female Comments At time of signature, I have reviewed and agree with nursing past medical, surgical, social and family history unless otherwise noted. Please see nursing chart for further information. There is no relevant family history pertinent to the presenting complaint Exam Narrative: GENERAL: Well-appearing, well-nourished, and in no acute distress. HEAD: Normocephalic, atraumatic. EYES: EOMI. PERRL bilaterally. Conjunctivae normal bilaterally. Left eye: patient has existing keratotic skin to the lower eyelid. One of these existing keratosis appears to be erythematous and irritated, close to the lash line. No crusting or drainage. Lashes normal. No edema noted. No fluorescein uptake. ENT: Mucous membranes pink and moist. NECK: Normal AROM. CHEST: No respiratory distress. EXTREMITIES: Normal range of motion. No edema. SKIN: Warm, dry, no rash. Capillary refill normal. Normal skin turgor. NEURO: No focal deficits. Alert and oriented x3. Gait steady. PSYCH: Normal affect. No signs of depression or anxiety. Course Course Level of Care: Express Care Visit Vital Signs Vital signs: Vital Signs Temperature 97.5 F L 08/04/25 16:31 Pulse Rate 83 08/04/25 16:31 Respiratory Rate 16 08/04/25 16:31 Blood Pressure 145/65 H 08/04/25 16:31 Pulse Oximetry 98 08/04/25 16:31 Oxygen Delivery Room Air 08/04/25 16:31 Temperature 97.5 F L 08/04/25 16:31 Pulse Rate 83 08/04/25 16:31 Respiratory Rate 16 08/04/25 16:31 Blood Pressure 145/65 H 08/04/25 16:31 Pulse Oximetry 98 08/04/25 16:31 Oxygen Delivery Room Air 08/04/25 16:31 Reviewed MDM - Eye Problem MDM Narrative Medical decision making narrative: Patient presents today complaining of redness and irritation to the left lower eyelid x2 days and also describes some very mild irritation to the eye itself since then. Reports that she had been crying on day of onset and wiping/rubbing her eyes and wanted to make sure that she didn't have a stye. Denies itching or vision changes. No OTC treatment prior to arrival. Upon exam to the left lower eyelid, existing keratotic skin to the lower eyelid. One of these existing keratosis appears to be erythematous and irritated, close to the lash line. No fluorescein uptake with Wood's lamp exam. Likely patient has scratched the wrist skin at her lower eyelid and caused it to be irritated and erythematous. Left conjunctiva normal. Will prescribe some erythromycin eye ointment to place externally and in the conjunctiva. Told patient to stop dabbing the eye, scratching or otherwise rubbing the eye to decrease the inflammation as well. Patient agrees with plan. Vital signs stable. Anticipatory guidance given. Differential Diagnosis Differential diagnosis: Likely corneal abrasion, conjunctivitis and other (Stye, impetigo, contact dermatitis, abrasion) Critical Care Time Critical Care Time Critical Care Time: No Discharge Plan Discharge Clinical Impression: Contact dermatitis of left lower eyelid Patient Disposition: Home Condition: Stable Instructions: Dermatitis (ED) Additional Instructions: Please use the eye ointment on the reddened area by your eyelashes as well as in your eye as prescribed. Please follow-up with your PCP next week if symptoms persist. Your blood pressure today was 145/65. Patient Language: Czech Prescriptions: New erythromycin 5 mg/gram (0.5 %) ointment 1 applic EACH EYE HS Qty: 3.5 0RF No Action simvastatin 40 mg tablet levothyroxine 112 mcg tablet lisinopril 20 mg tablet 20 mg PO DAILY Follow-up/Referrals: Irina,Mara Carl APRN [Primary Care Provider, Unknown] Time of Disposition: 17:12
== END 2025-08-04 17:17 | disposition home or self-care (01) ==
PROVIDERS: Emergency Provider Nurse Practitioner; PCP Nurse Practitioner Family
DX: H01.115 Allergic dermatitis of left lower eyelid (principal); I10 Essential (primary) hypertension; E03.9 Hypothyroidism, unspecified; E78.00 Pure hypercholesterolemia, unspecified
CPT/HCPCS: 99213; G0463

== ENCOUNTER 2025-09-25 14:28 | Emergency (ER) | payer OTHER, SELFPAY ==
[2025-09-25 14:32] VITALS: BP 150/66; PULSE 63; RESP 20; TEMP 36.7; O2SAT 98
--- NOTE | 2025-09-25 14:57 | ED.URI ---
HPI - URI/Sore Throat General Chief Complaint: Upper Respiratory Infection Stated Complaint: Cold Symptoms Time Seen by Provider: 09/25/25 14:40 Source: patient and RN notes reviewed Mode of arrival: ambulatory Limitations: no limitations History of Present Illness HPI Narrative: 70-year-old female patient presents Express Care complaining of 8 to 9 days upper respiratory symptoms. Patient reports cough, congestion, nasal drainage. Patient denies any other symptoms. Patient denies any fevers, chest pain, difficulty breathing. Patient says symptoms are not improving. Patient has been taking [id number] help with symptoms. Patient denies any significant past medical history. Related Data Home Medications ?Medication ?Instructions ?Recorded ?Confirmed ?Last Taken ?Type lisinopril 20 mg tablet 20 mg PO DAILY 01/09/21 01/09/21 Unknown History levothyroxine 112 mcg tablet mcg 12/01/24 Unknown History simvastatin 40 mg tablet mg 12/01/24 Unknown History Allergies Allergy/AdvReac Type Severity Reaction Status Date / Time No Known Allergies Allergy Verified 09/25/25 14:35 Review of Systems Review of Systems: CONSTITUTIONAL: Denies fever, chills, or sweats. EYES: Denies visual changes, redness, or discharge. ENT: Denies rhinorrhea, sore throat, or otalgia. Positive for congestion and nasal drainage. CARDIOVASCULAR: Denies chest pain, palpitations, or edema. RESPIRATORY: Positive for cough. Negative for wheezing or dyspnea. GASTROINTESTINAL: Denies abdominal pain, nausea, vomiting, or diarrhea. GENITOURINARY: Denies dysuria or hematuria. SKIN: Denies rash or itching. MUSCULOSKELETAL: Denies back pain, joint pain, or myalgia. NEUROLOGIC: Denies headache, numbness, or weakness. PSYCHIATRIC: Denies anxiety or depression. All other systems reviewed are negative, except as documented in HPI. [facility] Past Medical History Medical History Bronchitis Hypercholesterolemia Hypertension Hypothyroidism Surgical History Surgical History H/O: hysterectomy Social History Social History Smoking status: Never smoker Alcohol intake: current Alcohol use details: social Substance use type: does not use Living arrangements: with family Gender identity (if verbalized by the patient): Female Comments At the time of my signature, I reviewed and agree with the nursing past medical, surgical, social, and family history. There is no relevant family history pertinent to the patient complaint. Exam Narrative: GENERAL: This is a well-nourished, well-developed adult, in no apparent distress. They are non ill-appearing, nontoxic appearing. HEAD: normocephalic, atraumatic. EYES: Sclera clear/white. Conjunctiva normal. Vision is grossly intact. Extraocular movements intact EARS: External ears normal, auditory canals clear and without drainage, TMs normal without perforation. Hearing grossly intact. NOSE: External nose normal with no obvious nasal discharge, nasal turbinates erythematous, no rhinorrhea. THROAT: Mucous membranes moist, posterior pharynx erythematous. Uvula midline. Postnasal drip present. NECK: Neck supple, non-tender without lymphadenopathy, masses or thyromegaly. CARDIOVASCULAR: Regular rate and rhythm without murmurs, gallops, or rubs. RESPIRATORY: Clear to auscultation. Breath sounds equal bilaterally. No wheezes, rales, or rhonchi. SKIN: warm, Dry, intact with no suspicious lesions or rash, good texture and turgor. NEURO: awake, alert, and oriented to person, place and time. There were no obvious focal neurologic abnormalities. EXTREMITIES: No joint tenderness, effusion, or edema noted. BACK: Nontender without deformity. No CVA tenderness. Course Course Level of Care: Express Care Visit Vital Signs Vital signs: Vital Signs Temperature 98.0 F 09/25/25 14:32 Pulse Rate 63 09/25/25 14:32 Respiratory Rate 20 09/25/25 14:32 Blood Pressure 150/66 H 09/25/25 14:32 Pulse Oximetry 98 09/25/25 14:32 Oxygen Delivery Room Air 09/25/25 14:32 Temperature 98.0 F 09/25/25 14:32 Pulse Rate 63 09/25/25 14:32 Respiratory Rate 20 09/25/25 14:32 Blood Pressure 150/66 H 09/25/25 14:32 Pulse Oximetry 98 09/25/25 14:32 Oxygen Delivery Room Air 09/25/25 14:32 [facility] Narrative Medical decision making narrative: Patient likely has sinusitis given length of symptoms. Will treat with Augmentin. Will prescribed her benzonatate tablets for cough. Discussed physical exam findings. Advised supportive measures and signs/symptoms to go to the ER. Pt is appropriate for outpt treatment and f/u. Differential Diagnosis Differential Diagnosis: Differential diagnostic considerations for upper respiratory infection include upper respiratory infection, croup, otitis media, sinusitis, viral infection, bronchitis, influenza, pharyngitis, strep, uvulitis. Medical Records I have reviewed the following patient records and this information was taken into consideration when formulating the assessment and plan.: previous clinic visits Critical Care Time Critical Care Time Critical Care Time: No Discharge Plan Discharge Clinical Impression: Sinusitis Qualifiers: Sinusitis location: unspecified location Chronicity: acute Recurrence: non-recurrent Qualified Code(s): J01.90 - Acute sinusitis, unspecified Patient Disposition: Home Condition: Stable Instructions: Antibiotic Form, Sinusitis (ED) Additional Instructions: Take the antibiotics as directed and complete the course even if you start to feel better. You may use a Neti pot saline rinse 3 times a day with lukewarm distilled water Continue to take Tylenol or Motrin as needed for fever or pain. Follow instructions on the bottle. Take benzonatate tablets as needed for cough. Use a humidifier or vaporizer at night. Drink plenty of water. 8-10 glasses per day. Use flonase 2 times per day for 5 days then as needed Take mucinex 2 times per day and be sure to take with 8oz of water. Follow up with Primary provider in 3-5 days Please go to the ER if he develops any difficulty breathing, chest pain, vomiting, worsening symptoms, or any other concerns Patient Language: Liberian Prescriptions: New benzonatate 200 mg capsule 200 mg PO BID-TID PRN (Reason: cough) Qty: 20 0RF amoxicillin-pot clavulanate 875-125 mg tablet 1 tablet PO Q12H 7 Days Qty: 14 0RF No Action simvastatin 40 mg tablet levothyroxine 112 mcg tablet lisinopril 20 mg tablet 20 mg PO DAILY Follow-up/Referrals: Irina,Mara Carl APRN [Primary Care Provider, Unknown] Time of Disposition: 14:55
== END 2025-09-25 15:00 | disposition home or self-care (01) ==
PROVIDERS: PCP Nurse Practitioner Family
DX: J01.90 Acute sinusitis, unspecified (principal); I10 Essential (primary) hypertension; E78.00 Pure hypercholesterolemia, unspecified; E03.9 Hypothyroidism, unspecified
CPT/HCPCS: 99213; G0463